=== PATIENT | male | born 1950 | race Caucasian/White ===

== ENCOUNTER 2019-05-19 12:23 | Emergency (ER) | payer OTHER ==
[2019-05-19] MEDS ORDERED: NA CHLORIDE 0.9% 500 ML ONE (13:11)
[2019-05-19 13:21] LABS: Protime INR 0.95
--- NOTE | 2019-05-19 13:21 | RAD REPORT ---
EXAM DESCRIPTION: RAD - Chest Single View - 05/19/2019 1:16 pm CLINICAL HISTORY: falling to left Chest pain. COMPARISON: No comparisons FINDINGS: Portable technique limits examination quality. The lungs are grossly clear. The heart is normal in size. No displaced fractures. IMPRESSION: No acute intrathoracic process suspected.
[2019-05-19 13:23] LABS: Absolute Lymphocytes (CBC) 2.8 K/uL (0.7-4.9); Basophils % 0.8 % (0-1.3); Hematocrit 39.4 % (39.6-49.0); Lymphocytes % 32.5 % (15.3-44.8); MPV 10.1 fL (7.6-11.3); RBC Red Blood Cell Count 4.69 M/uL (4.33-5.43)
--- NOTE | 2019-05-19 13:37 | RAD REPORT ---
EXAM DESCRIPTION: CT - Ct Stroke Brain Wo Cont - 05/19/2019 1:24 pm CLINICAL HISTORY: ataxia, falling to left Headache, drowsiness COMPARISON: Head Brain Wo Cont dated 10/04/2018 TECHNIQUE: All CT scans are performed using dose optimization technique as appropriate and may inclu de automated exposure control or mA/KV adjustment according to patient size. FINDINGS: No intracranial hemorrhage, hydrocephalus or extra-axial fluid collection.Mild generalized brain atrophy is present with mild periventricular and deep white matter chronic microvascular ische nuvia changes.No areas of brain edema or evidence of midline shift. The paranasal sinuses and mastoids are clear. The calvarium is intact. IMPRESSION: No acute intracranial abnormality. If there is continued clinical concern for CVA, MR i maging of the brain would be recommended. The findings were discussed with Dr. Tan On 05/19/2019 at 1:33 p.m. by telephone.
[2019-05-19 13:42] LABS: BUN Blood Urea Nitrogen 28 mg/dL (7-18); Bicarbonate 22 mmol/L (21-32); Glucose Level 301 mg/dL (74-106); Sodium Level 141 mmol/L (136-145); Troponin (Emerg Dept Use Only) < 0.02 ng/mL (0.0-0.045)
--- NOTE | 2019-05-19 14:29 | RAD REPORT ---
EXAM DESCRIPTION: CT - Head angio - 05/19/2019 2:16 pm CLINICAL HISTORY: ataxia Headache, drowsiness, CVA symptomology. COMPARISON: Ct Stroke Brain Wo Cont dated 05/19/2019; Head Brain Wo Cont dated 10/04/2018 TECHNIQUE: CT angiography of the head was performed with MIPs. All CT scans are performed using dose optimization technique as appropriate and may include automated exposure control or mA/KV adjustment according to patient size. FINDINGS: No evidence of aneurysm is detected. No flow-limiting stenosis or vascular malformation id entified. Antegrade flow is seen in the vertebral arteries. The vertebral arteries are codominant. The visualized dural venous sinuses are patent. IMPRESSION: No significant flow abnormality is detected.
--- NOTE | 2019-05-19 14:31 | RAD REPORT ---
EXAM DESCRIPTION: CT - Neck Angio - 05/19/2019 2:17 pm CLINICAL HISTORY: ataxia Headache, drowsiness, CVA symptomology COMPARISON: No comparisons TECHNIQUE: CT angiography of the neck vessels was performed with MIPs. All CT scans are performed using dose optimization technique as appropriate and may include automated exposure control or mA/KV adjustment according to patient size. FINDINGS: A left aortic arch is identified with normal three vessel configuration of the great vesse ls. No significant flow abnormality is seen of the common carotid bilaterally. The left proximal internal carotid artery demonstrates significant mixed plaque resulting stenosis es timated at 90-95% based on NASCET criteria. The right proximal internal carotid artery artery demonst rates mild mixed plaquing resulting in stenosis of less than 50% based on NASCET criteria. Normal flow is seen within both vertebral arteries. IMPRESSION: Significant stenosis of the proximal left internal carotid artery is seen estimated at 9 0-95% based on NASCET criteria.
--- NOTE | 2019-05-19 15:05 | EDPHYS ---
Physician Documentation [facility] Name: Taz Bowles Age: 68 yrs Sex: Male : 1950 Arrival Date: 05/19/2019 Time: 12:28 Bed 7 Private MD: ED Physician Mamadou Tan HPI: 05/18 13:07 This 68 yrs old Male presents to ER via Ambulatory with complaints of General rn Weakness, Dizziness, Trouble Walking. 13:08 The patient's problem is reported as difficulty walking, falling to left, off balance. rn Onset: The symptoms/episode began/occurred yesterday. Duration: The episode is continuous. The symptoms are alleviated by nothing. The symptoms are aggravated by walking. Severity of symptoms: At their worst the symptoms were moderate in the emergency department the symptoms are unchanged. The patient has not experienced similar symptoms in the past. 13:09 Reports difficulty walking since yesterday, feels like falling to left side, no assoc rn vision/speech problems, no weakness/numbness. No fever. No head injury. . Historical: - Allergies: 12:33 No Known Allergies; ph - PMHx: 12:33 Diabetes - NIDDM; ph - PSHx: 12:33 colon resection; Knee surgery; ph - Immunization history:: Adult Immunizations unknown. - Social history:: Smoking status: Patient denies any tobacco usage or history of. Patient/guardian denies using alcohol. - Family history:: not pertinent. - Hospitalizations: : No recent hospitalization is reported. ROS: 13:09 Constitutional: Negative for fever, chills, and weight loss, Eyes: Negative for injury, rn pain, redness, and discharge, Cardiovascular: Negative for chest pain, palpitations, and edema, Respiratory: Negative for shortness of breath, cough, wheezing, and pleuritic chest pain, Abdomen/GI: Negative for abdominal pain, nausea, vomiting, diarrhea, and constipation, MS/Extremity: Negative for injury and deformity, Skin: Negative for injury, rash, and discoloration, Neuro: Negative for headache, numbness, tingling, and seizure. Exam: 13:09 Constitutional: This is a well developed, well nourished patient who is awake, alert, rn and in no acute distress. Head/Face: Normocephalic, atraumatic. Eyes: Pupils equal round and reactive to light, extra-ocular motions intact. Lids and lashes normal. Conjunctiva and sclera are non-icteric and not injected. Cornea within normal limits. Periorbital areas with no swelling, redness, or edema. ENT: MMM Neck: Trachea midline, no thyromegaly or masses palpated, and no cervical lymphadenopathy. Supple, full range of motion without nuchal rigidity, or vertebral point tenderness. No Meningismus. Cardiovascular: Regular rate and rhythm. No pulse deficits. Respiratory: Lungs have equal breath sounds bilaterally, clear to auscultation. No increased work of breathing, no retractions or nasal flaring. Abdomen/GI: soft, non-tender MS/ Extremity: Pulses equal, no cyanosis. Neurovascular intact. Full, normal range of motion. Equal circumference. Neuro: Awake and alert, GCS 15, oriented to person, place, time, and situation. Cranial nerves II-XII grossly intact. Motor strength 5/5 in all extremities. Sensory grossly intact. Vital Signs: 12:27 BP 127 / 53; Pulse 60; Resp 18; Temp 97.8; Pulse Ox 100% on R/A; Weight 77.11 kg; ph Height 5 ft. 8 in. (172.72 cm); 14:04 BP 130 / 70; Pulse 86; Resp 18; Pulse Ox 97% on R/A; aj1 12:27 Body Mass Index 25.85 (77.11 kg, 172.72 cm) ph NIH Stroke Scale Scores: 13:33 NIHSS Score: 0 aj1 MDM: 12:38 Patient medically screened. rn 15:01 Differential diagnosis: CVA, TIA, metabolic disorder. Data reviewed: vital signs, rn nurses notes, lab test result(s), EKG, radiologic studies, CT scan, and as a result, I will admit patient. Counseling: I had a detailed discussion with the patient and/or guardian regarding: the historical points, exam findings, and any diagnostic results supporting the discharge/admit diagnosis, lab results, radiology results, the need to transfer to another facility, for higher level of care, [facility] does not immediately have the required specialist. Response to treatment: There is no appreciated change of the patient's symptoms at this time. ED course: Pt with 95% occlusion left carotid, accepted for transfer to [facility] for vascular and neuro consult. Will admit to hospitalist. . 05/18 12:54 Order name: Glucose, Ancillary Testing; Complete Time: 12:58 EDMS 05/18 12:59 Order name: Magnesium; Complete Time: 13:50 rn 05/18 12:59 Order name: Troponin (emerg Dept Use Only); Complete Time: 13:50 rn 05/18 12:59 Order name: Basic Metabolic Panel; Complete Time: 13:50 rn 05/18 12:59 Order name: CBC with Diff; Complete Time: 13:50 rn 05/18 12:59 Order name: Protime (+inr); Complete Time: 13:50 rn 05/18 12:59 Order name: Ptt, Activated; Complete Time: 13:50 rn 05/18 12:59 Order name: CT Stroke Brain w/o Contrast; Complete Time: 13:50 rn 05/18 12:59 Order name: Stroke CXR 1 View; Complete Time: 13:50 rn 05/18 12:59 Order name: EKG; Complete Time: 13:00 rn 05/18 13:51 Order name: CT Head Angio; Complete Time: 14:42 rn 05/18 13:51 Order name: CT Neck Angio; Complete Time: 14:42 rn 08 12:59 Order name: Accucheck; Complete Time: 13:04 rn 05/18 12:59 Order name: Cardiac monitoring; Complete Time: 13:04 rn 05/18 12:59 Order name: EKG - Nurse/Tech; Complete Time: 13:04 rn 05/18 12:59 Order name: IV Saline Lock; Complete Time: 13:04 rn 05/18 12:59 Order name: Labs collected and sent; Complete Time: 13:04 rn 05/18 12:59 Order name: NPO; Complete Time: 13:04 rn 05/18 12:59 Order name: O2 Per Protocol; Complete Time: 13:04 rn 05/18 12:59 Order name: O2 Sat Monitoring; Complete Time: 13:04 rn 05/18 12:59 Order name: Stroke Swallow Screen; Complete Time: 13:10 rn Administered Medications: 13:10 Drug: NS 0.9% 500 ml Route: IV; Rate: bolus; Site: right antecubital; aj1 14:10 Follow up: IV Status: Completed infusion; IV Intake: 500ml aj1 15:20 Drug: Aspirin Chewable Tablet 324 mg Route: PO; aj1 17:12 Follow up: Response: No adverse reaction aj1 Point of Care Testing: Blood Glucose: 13:11 Blood Glucose: 290 mg/dL; aj1 Ranges: Critical Glucose Levels:Adult <50 mg/dl or >400 mg/dl <40 mg/dl or >180 mg/dl Disposition: 05/19/19 15:04 Transfer ordered to [facility]. Diagnosis are Left carotid artery occlusion, Ataxia, unspecified. - Reason for transfer: Higher level of care. - Accepting physician is Dr. Estevez. - Condition is Stable. - Problem is new. - Symptoms are unchanged. NIH Stroke Scale - NIH Stroke Score Date: 05/19/2019 Time: 13:33 Total Score = 0 1a. Level of Consciousness (LOC) - 0(Alert) 1b. Level of Consciousness (LOC) (Year \T\ Age) - 0(Both) 1c. LOC Commands (Open \T\ Closes Eyes/Shipping Packer) - 0(Both) 2. Best Gaze (Lateral Gaze Paresis) - 0(Normal) 3. Visual Field Loss - 0(No visual loss) 4. Facial Palsy - 0(Normal) 5a. Left Arm: Motor (10-second hold) - 0(No drift) 5b. Right Arm: Motor (10-second hold) - 0(No drift) 6a. Left Leg: Motor (5-second hold - always test supine) - 0(No drift) 6b. Right Leg: Motor (5-second hold - always test supine) - 0(No drift) 7. Limb Ataxia (finger/nose \T\ heel/romero - test with eyes open) - 0(Absent) 8. Sensory Loss (pinprick arms/legs/face) - 0(Normal) 9. Best Language: Aphasia (description/naming/reading) - 0(No aphasia) 10. Dysarthria (speech clarity - read or repeat words) - 0(Normal) 11. Extinction and Inattention (visual/tactile/auditory/spatial/personal) - 0(No abnormality) Initials: aj1 Signatures: Dispatcher [employer] Euncie Aponte RN RN aj1 Mamadou Tan MD MD rn Hall, Patricia, RN RN ph Corrections: (The following items were deleted from the chart) 15:36 15:04 05/19/2019 15:04 Transfer ordered to [facility]. Diagnosis is Left carotid artery occlusion; Ataxia, unspecified. Reason for transfer: Higher level of care. Accepting physician is . Condition is Stable. Problem is new. Symptoms are unchanged. rn 18:00 15:36 05/19/2019 15:04 Transfer ordered to [address] Diagnosis is Left carotid artery occlusion; Ataxia, unspecified. Reason for transfer: Higher level of care. Accepting physician is Dr. Estevez. Condition is Stable. Problem is new. Symptoms are unchanged. rn
--- NOTE | 2019-05-19 15:05 | ER ---
Nurse's Notes [facility] Name: Taz Bowles Age: 68 yrs Sex: Male : 1950 Arrival Date: 05/19/2019 Time: 12:28 Bed 7 Private MD: Diagnosis: Left carotid artery occlusion;Ataxia, unspecified Presentation: 05/18 12:27 Chief complaint: Patient states: Trouble walking and dizziness that began yesterday, ph family reports that they noticed it around 10 am yesterday, also reports generalized weakness, hx of NIDDM but has not checked BGL, also reports that vision has worsened over the past few days. Coronavirus screen: The patient has NOT traveled to a country currently being monitored by the CDC within the last 14 days. The patient has NOT had contact with any known and/or suspected case of coronavirus. Ebola Screen: No symptoms or risks identified at this time. No acute neurological deficit is noted. Initial Sepsis Screen: Does the patient meet any 2 criteria? No. Patient's initial sepsis screen is negative. Does the patient have a suspected source of infection? No. Patient's initial sepsis screen is negative. Risk Assessment: Do you want to hurt yourself or someone else? Patient reports no desire to harm self or others. 12:27 Method Of Arrival: Ambulatory ph 12:27 Acuity: JORDIN 2 ph 17:13 Pre-hospital glucose is not applicable to this patient. Onset of symptoms was May 172019. Stroke Activation: Symptom onset > 6 hours Physician: Stroke Attending; Name: ; Notified At: ; Arrived At: Physician: Chief Stroke Resident; Name: ; Notified At: ; Arrived At: Physician: Stroke Resident; Name: ; Notified At: ; Arrived At: Physician: ED Attending; Name: ; Notified At: ; Arrived At: Physician: ED Resident; Name: ; Notified At: ; Arrived At: Historical: - Allergies: 12:33 No Known Allergies; ph - PMHx: 12:33 Diabetes - NIDDM; ph - PSHx: 12:33 colon resection; Knee surgery; ph - Immunization history:: Adult Immunizations unknown. - Social history:: Smoking status: Patient denies any tobacco usage or history of. Patient/guardian denies using alcohol. - Family history:: not pertinent. - Hospitalizations: : No recent hospitalization is reported. Screenin:56 Abuse screen: Denies threats or abuse. Denies injuries from another. Nutritional aj1 screening: No deficits noted. Tuberculosis screening: No symptoms or risk factors identified. 17:14 Fall Risk No fall in past 12 months (0 pts). Secondary diagnosis (15 points) impaired aj1 mobility, IV access (20 points). Ambulatory Aid- None/Bed Rest/Nurse Assist (0 pts). Gait- Impaired (20 pts.). Mental Status- Oriented to own ability (0 pts). Total Cruz Fall Scale indicates High Risk Score (45 or more points). As available patient and family educated on Fall Prevention Program and Strategies. Assessment: 12:56 General: Appears in no apparent distress. comfortable, Behavior is calm, cooperative, aj1 appropriate for age. Pain: Denies pain. Neuro: Level of Consciousness is awake, alert, obeys commands, Oriented to person, place, time, situation, Circuit Board Repair Technician are equal bilaterally Speech is normal, Facial symmetry appears normal, Reports dizziness, trouble walking. Cardiovascular: Patient's skin is warm and dry. Rhythm is sinus rhythm. Respiratory: Airway is patent Respiratory effort is even, unlabored, Respiratory pattern is regular, symmetrical. GI: No signs and/or symptoms were reported involving the gastrointestinal system. : No signs and/or symptoms were reported regarding the genitourinary system. EENT: No signs and/or symptoms were reported regarding the EENT system. Derm: No signs and/or symptoms reported regarding the dermatologic system. Skin is pink, warm \T\ dry. normal. Musculoskeletal: No signs and/or symptoms reported regarding the musculoskeletal system. Circulation, motion, and sensation intact. 13:10 Patient has been NPO before screening. The patient is alert, and able to follow aj1 commands. The patient does not exhibit slurred or garbled speech. The patient is not exhibiting difficulty speaking. The patient does not exhibit difficulty understanding words. The patient is able to swallow own secretions with no drooling or need for suction. Patient tolerated one teaspoon of water. No drooling, immediate coughing, gurgling, or clearing of the throat was noted. The patient tolerated 90mL of water. No drooling, immediate coughing, gurgling, or clearing of the throat was noted. The patient passed the bedside swallow screening. Oral medications may be given as ordered. Contact Physician for further diet orders. 13:11 VAN Scoring: Arm Drift: Patients demonstrates NO arm weakness. Patient is VAN Negative. aj1 13:11 Provider notified of bedside swallow screening results: Mamadou Tan MD. aj1 13:11 T-PA (Activase) Screening: Contraindications: Other: Patient is out of window for TPA. aj1 13:13 Reassessment: CXR at bedside. aj1 14:04 Reassessment: Patient appears in no apparent distress at this time. No changes from aj1 previously documented assessment. Patient and/or family updated on plan of care and expected duration. Pain level reassessed. Patient is alert, oriented x 3, equal unlabored respirations, skin warm/dry/pink. 14:05 Reassessment: Patient transported to CT via stretcher. aj1 15:10 Reassessment: Patient and/or family updated on plan of care and expected duration. Pain aj1 level reassessed. General: Appears in no apparent distress. comfortable, Behavior is calm, cooperative, appropriate for age. Pain: Denies pain. Neuro: Level of Consciousness is awake, alert, obeys commands, Oriented to person, place, time, situation. Cardiovascular: Patient's skin is warm and dry. Rhythm is sinus bradycardia. Respiratory: Airway is patent Respiratory effort is even, unlabored, Respiratory pattern is regular, symmetrical. Derm: No signs and/or symptoms reported regarding the dermatologic system. Skin is pink, warm \T\ dry. normal. Musculoskeletal: No signs and/or symptoms reported regarding the musculoskeletal system. Circulation, motion, and sensation intact. 16:10 Reassessment: Patient appears in no apparent distress at this time. No changes from aj1 previously documented assessment. Patient and/or family updated on plan of care and expected duration. Pain level reassessed. Patient is alert, oriented x 3, equal unlabored respirations, skin warm/dry/pink. 17:13 Reassessment: Patient appears in no apparent distress at this time. No changes from aj1 previously documented assessment. Patient and/or family updated on plan of care and expected duration. Pain level reassessed. Patient is alert, oriented x 3, equal unlabored respirations, skin warm/dry/pink. 17:59 Reassessment: Patient appears in no apparent distress at this time. No changes from aj1 previously documented assessment. Patient and/or family updated on plan of care and expected duration. Pain level reassessed. Patient is alert, oriented x 3, equal unlabored respirations, skin warm/dry/pink. Vital Signs: 12:27 BP 127 / 53; Pulse 60; Resp 18; Temp 97.8; Pulse Ox 100% on R/A; Weight 77.11 kg; ph Height 5 ft. 8 in. (172.72 cm); 14:04 BP 130 / 70; Pulse 86; Resp 18; Pulse Ox 97% on R/A; aj1 12:27 Body Mass Index 25.85 (77.11 kg, 172.72 cm) ph NIH Stroke Scale Scores: 13:33 NIHSS Score: 0 aj1 ED Course: 12:28 Patient arrived in ED. fj1 12:31 Triage completed. ph 12:33 Arm band placed on Patient placed in an exam room, on a stretcher. ph 12:38 Mamadou Tan MD is Attending Physician. rn 12:52 Eunice Dorsey RN is Primary Nurse. aj1 12:55 Initial lab(s) drawn, by ut, sent to lab. Inserted saline lock: 20 gauge in right aj1 antecubital area, using aseptic technique. Blood collected. 12:56 Patient has correct armband on for positive identification. Bed in low position. Call aj1 light in reach. Side rails up X 1. 12:56 No provider procedures requiring assistance completed. aj1 12:58 air sampling and monitoring on. Pulse ox on. NIBP on. aj1 12:58 EKG done, by ED staff, reviewed by Mamadou Tan MD. aj1 13:16 Stroke CXR 1 View In Process Unspecified. EDMS 13:24 CT Stroke Brain w/o Contrast In Process Unspecified. EDMS 14:17 CT Head Angio In Process Unspecified. EDMS 14:17 CT Neck Angio In Process Unspecified. EDMS 14:50 transfer initiated with Evan from the [facility] Transfer [place]. eb 14:[address] Kingsley the cardiovascular surgeon longshore equipment operator for [facility] with Dr. alivia Tan for patient transfer consultation. 15:34 connected the neurologist and Dr. Estevez the hospitalist longshore equipment operator for [facility] with alivia Tan for patient transfer consultation. 15:40 administrative approval given by Gilmar Farias Rn/ patient has been accepted to [facility] rm [id number]/ Dr. Estevez has accepted the patient in transfer/ report to be called to [phone]. 16:40 Report given to CHELSI Green at [facility]. aj1 17:13 Patient transferred, IV remains in place. aj1 Administered Medications: 13:10 Drug: NS 0.9% 500 ml Route: IV; Rate: bolus; Site: right antecubital; aj1 14:10 Follow up: IV Status: Completed infusion; IV Intake: 500ml aj1 15:20 Drug: Aspirin Chewable Tablet 324 mg Route: PO; aj1 17:12 Follow up: Response: No adverse reaction aj1 Point of Care Testing: Blood Glucose: 13:11 Blood Glucose: 290 mg/dL; aj1 Ranges: Intake: 14:10 IV: 500ml; Total: 500ml. aj1 Outcome: 15:04 ER care complete, transfer ordered by . rn 17:59 Transferred by ground EMS to [facility]. aj1 17:59 Condition: good 17:59 Discharge instructions given to patient, Instructed on the need for transfer, Demonstrated understanding of instructions. 18:00 Patient left the ED. aj1 NIH Stroke Scale - NIH Stroke Score Date: 05/19/2019 Time: 13:33 Total Score = 0 1a. Level of Consciousness (LOC) - 0(Alert) 1b. Level of Consciousness (LOC) (Year \T\ Age) - 0(Both) 1c. LOC Commands (Open \T\ Closes Eyes/Telegraphic Typewriter Operator Chief) - 0(Both) 2. Best Gaze (Lateral Gaze Paresis) - 0(Normal) 3. Visual Field Loss - 0(No visual loss) 4. Facial Palsy - 0(Normal) 5a. Left Arm: Motor (10-second hold) - 0(No drift) 5b. Right Arm: Motor (10-second hold) - 0(No drift) 6a. Left Leg: Motor (5-second hold - always test supine) - 0(No drift) 6b. Right Leg: Motor (5-second hold - always test supine) - 0(No drift) 7. Limb Ataxia (finger/nose \T\ heel/romero - test with eyes open) - 0(Absent) 8. Sensory Loss (pinprick arms/legs/face) - 0(Normal) 9. Best Language: Aphasia (description/naming/reading) - 0(No aphasia) 10. Dysarthria (speech clarity - read or repeat words) - 0(Normal) 11. Extinction and Inattention (visual/tactile/auditory/spatial/personal) - 0(No abnormality) Initials: aj1 Signatures: Dispatcher [employer] Euncie Aponte RN RN aj1 Mamadou Tan MD MD rn Hall, Patricia, RN RN ph Botello, Elizabeth eb James, Frank fj1
[2019-05-19] MEDS ORDERED: ASPIRIN 81 MG CHEWABLE TABLET ONE (15:12)
[2019-05-19 18:19] VITALS: TEMP 97.8
[2019-05-19 18:24] VITALS: BP 130/70; O2SAT 97
--- NOTE | 2019-05-20 07:30 | EKG ---
Test Date: 2019-05-19 Test Time: 11:46:19 Supervisor Wood Room: PERNELL MEASUREMENT RESULTS: Intervals: Rate: 59 CA: 168 QRSD: 100 QT: 434 QTc: 429 [place]: P: 77 CA: 168 QRS: 10 T: 58 INTERPRETIVE STATEMENTS: Sinus bradycardia Anteroseptal infarct, age undetermined Abnormal ECG No previous ECG available for comparison Electronically Signed On 05-20-19 07:29:39 CDT by Matias Vasquez
== END 2019-05-19 18:00 | disposition short-term general hospital (02) ==
LOC: ER 12:23
DX: I65.22 Occlusion and stenosis of left carotid artery (principal); R27.0 Ataxia, unspecified; E11.9 Type 2 diabetes mellitus without complications
CPT/HCPCS: 93005; 85025; 80048; 36415; 83735; 85610; 82947; 85730; 84484; 70496; 70498; 70450; 71045; 96360; 99285; Q9967; J7040

== ENCOUNTER 2019-09-02 16:10 | Observation (INO) | payer OTHER ==
--- OUTSIDE RECORDS SUMMARY | 2019-09-02 16:42 | XMS REPORT | Clinical Summary ---
:[address] [facility] [place], [place] Address [address] [place] [address] Care Team Providers Name Role Phone Pcp, No Primary Care Provider Unavailable Allergies No Known Allergies Medications Medication Sig Dispensed Refills Start Date End Date Status aspirin 81 MG Take 1 tablet (81 30 tablet 0 05/27/2019 Active chewable tablet mg total) by mouth daily. atorvastatin Take 1 tablet (80 30 tablet 0 05/26/2019 Active (LIPITOR) 80 MG mg total) by mouth tablet nightly For cholesterol. traMADoL (ULTRAM) Take 1 tablet (50 8 tablet 0 05/26/2019 Active 50 mg tablet mg total) by mouth every 6 (six) hours as needed for Pain. Max Daily Amount: 200 mg insulin regular Inject 0.06 mLs (6 10 mL 0 05/26/2019 Active (HUMULIN Units total) R,NOVOLIN R) 100 subcutaneously 3 unit/mL injection (three) times daily before meals Use as directed. insulin glargine Inject 10u QAM and 10 mL 0 05/26/2019 Active (LANTUS) 100 15u QPM. 21 unit/mL injection insulin Use 5x a day for 100 each 0 05/26/2019 Ac tive syringe-needle insulin injections. U-100 (INSULIN SYRINGE) 0.5 mL 29 gauge x 1/2" Syrg glucometer Use as directed to 1 each 0 05/26/2019 Active (FREESTYLE) Misc check sugars. blood sugar Use 4x a day to 100 strip 0 05/26/2019 A ctive diagnostic check sugars. (GLUCOSE BLOOD) Strp lancets Misc Use 4x a day to 100 each 0 05/26/2019 Active check sugars. alcohol swabs Use before checking 100 each 0 05/26/2019 Active (ALCOHOL PADS) sugars and PadM administering insulin. glipiZIDE Take 5 mg by mouth 0 05/26/19 D iscontinued (GLUCOTROL XL) 5 daily. 20 MG 24 hr tablet metFORMIN Take 1,000 mg by 0 05/26/19 Dis continued (GLUCOPHAGE) 1000 mouth daily with 20 MG tablet breakfast. Active Problems Problem Noted Date S/P carotid endarterectomy 05/25/2019 CVA (cerebral vascular accident) 05/20/2019 Carotid stenosis 05/19/2019 Encounters Date Type Specialty Care Team Description 06/11/2019 Telephone General Internal Gabriel, Diabetes Medicine Nathalie Rodriguez RN 06/11/2019 Telephone General Internal Licomp, Diabetes Medicine Nathalie Rodriguez RN 05/26/2019 Refill Internal Medicine Julio Forde MD 05/24/2019 Anesthesia Event Go Velazquez MD 05/24/2019 Surgery Rupa Kingsley MD ENDARTERECT SALTY,CAROTID 05/19/2019 Hospital Cardiology Zenaida, Chimkanc Stenosis of le ft carotid artery (Primary Dx); - Encounter MD Rosa Unsteady gait; 05/26/2019 Chad Camacho Preoperat jeremy cardiovascular examination; MD Matias Cerebrovascular accident (CVA), unspecif ied mechanism (HCC); Julio Forde MD S/P carot id endarterectomy; Acute pain; Hyperglycemia; Hypertension, u nspecified type 05/19/2019 Travel after 09/01/2018 Family History Medical History Relation Name Comments Heart disease Mother Bradycardia Sister s/p PPM Relation Name Status Comments Mother Sister Social History Tobacco Use Types Packs/Day Years Used Date Never Smoker Sex Assigned at Date Recorded Not on file Job Start Date Occupation Industry Not on file Not on file Not on file Travel History Travel Start Travel End No recent travel history available. Last Filed Vital Signs Vital Sign Reading Time Taken Blood Pressure 146/65 05/26/2019 1:10 PM CDT Pulse 53 05/26/2019 1:10 PM CDT Temperature 37.1 C (98.8 F) 05/26/2019 1:10 PM CDT Respiratory Rate 18 05/26/2019 1:10 PM CDT Oxygen Saturation 98% 05/26/2019 1:10 PM CDT Inhaled Oxygen Concentration - - Weight 79.4 kg (175 lb) 05/20/2019 1:27 PM CDT Height 172.7 cm (5' 8") 05/20/2019 1:27 PM CDT Body Mass Index 26.61 05/20/2019 1:27 PM CDT Plan of Treatment Not on file Implants Implanted Type Area Slitting And Shipping Supervisor Device Shelf Model / Identifier Expiration Serial / Date Lot Patch Hernando Lopezcu-Grd 0.8x8cm [id number] - [id number] IMPL ANTS Left: [employer] 12/19/2023 [id number] / Implanted: Qty: 1 on 05/24/2019 by Rupa Kingsley MD Arterial TECH:SURG INNOV [id number] / [id number] Floseal Hemostatic Matrix Left: SHAFER 09/2019 [id number] / Implanted: Qty: 1 on 05/24/2019 by Rupa Kingsley MD Arterial / [id number] Procedures Procedure Name Priority Date/Time Associated Comments Diagnosis REPORT OF PROCEDURE - 05/28/2019 8:20 ENDOSCOPY SCAN AM CDT RHYTHM STRIP - SCAN 05/28/2019 8:20 AM CDT POCT-GLUCOSE METER Routine 05/26/2019 1:09 Resul ts for this PM CDT procedure are i n the results section. POCT-GLUCOSE METER Routine 05/26/2019 7:31 Resul ts for this AM CDT procedure are i n the results section. PHOSPHORUS Routine 05/26/2019 4:24 Results for this AM CDT procedure are i n the results section. MAGNESIUM Routine 05/26/2019 4:24 Results for this AM CDT procedure are i n the results section. CBC (HEMOGRAM ONLY) Routine 05/26/2019 4:24 Resu lts for this AM CDT procedure are i n the results section. BASIC METABOLIC PANEL Routine 05/26/2019 4:24 Re sults for this (7) AM CDT procedure are i n the results section. POCT-GLUCOSE METER Routine 05/25/2019 10:41 Resul ts for this PM CDT procedure are i n the results section. TRANSFUSION SERVICE 05/25/2019 6:02 REPORT - SCAN PM CDT POCT-GLUCOSE METER Routine 05/25/2019 5:04 Resul ts for this PM CDT procedure are i n the results section. POCT-GLUCOSE METER Routine 05/25/2019 12:27 Resul ts for this PM CDT procedure are i n the results section. POCT-GLUCOSE METER Routine 05/25/2019 7:50 Resul ts for this AM CDT procedure are i n the results section. POCT-GLUCOSE METER Routine 05/25/2019 4:58 Resul ts for this AM CDT procedure are i n the results section. POCT-GLUCOSE METER Routine 05/25/2019 4:10 Resul ts for this AM CDT procedure are i n the results section. APTT Routine 05/25/2019 2:55 Results for this AM CDT procedure are i n the results section. PHOSPHORUS Routine 05/25/2019 2:55 Results for this AM CDT procedure are i n the results section. MAGNESIUM Routine 05/25/2019 2:55 Results for this AM CDT procedure are i n the results section. CBC (HEMOGRAM ONLY) Routine 05/25/2019 2:55 Resu lts for this AM CDT procedure are i n the results section. BASIC METABOLIC PANEL Routine 05/25/2019 2:55 Re sults for this (7) AM CDT procedure are i n the results section. PROTHROMBIN TIME/INR Routine 05/25/2019 2:55 Res ults for this AM CDT procedure are i n the results section. POCT-GLUCOSE METER Routine 05/24/2019 9:46 Resul ts for this PM CDT procedure are i n the results section. APTT Routine 05/24/2019 7:37 Results for this PM CDT procedure are i n the results section. PROTHROMBIN TIME/INR Routine 05/24/2019 7:37 Res ults for this PM CDT procedure are i n the results section. TRANSFUSION SERVICE 05/24/2019 6:01 REPORT - SCAN PM CDT PREPARE RBC STAT 05/24/2019 5:52 Results for this PM CDT procedure are i n the results section. CBC W/PLT COUNT & AUTO STAT 05/24/2019 5:39 R esults for this DIFFERENTIAL PM CDT procedure are i n the results section. PHOSPHORUS STAT 05/24/2019 5:39 Results for this PM CDT procedure are i n the results section. MAGNESIUM STAT 05/24/2019 5:39 Results for this PM CDT procedure are i n the results section. CBC W/PLT COUNT & AUTO STAT 05/24/2019 5:39 R esults for this DIFFERENTIAL PM CDT procedure are i n the results section. BASIC METABOLIC PANEL STAT 05/24/2019 5:39 Re sults for this (7) PM CDT procedure are i n the results section. PREPARE LEUKO-REDUCED Routine 05/24/2019 4:01 Re sults for this RBC PM CDT procedure are i n the results section. PREPARE RBC STAT 05/24/2019 3:55 Results for this PM CDT procedure are i n the results section. POCT-ACT Routine 05/24/2019 3:24 Results for this PM CDT procedure are i n the results section. TISSUE EXAM AP Routine 05/24/2019 3:14 Results for this PM CDT procedure are i n the results section. POCT-ACT Routine 05/24/2019 3:13 Results for this PM CDT procedure are i n the results section. POCT-ACT Routine 05/24/2019 3:01 Results for this PM CDT procedure are i n the results section. ENDARTERECTOMY,CAROTID 05/24/2019 12:00 Carotid stenos is, PM CDT left POCT-GLUCOSE METER Routine 05/23/2019 9:51 Resul ts for this PM CDT procedure are i n the results section. ABORH, MANUAL STAT 05/23/2019 7:52 Results fo r this PM CDT procedure are i n the results section. POCT-GLUCOSE METER Routine 05/23/2019 5:51 Resul ts for this PM CDT procedure are i n the results section. TYPE AND SCREEN, Routine 05/23/2019 4:34 Results for this AUTOMATED PM CDT procedure are i n the results section. POCT-GLUCOSE METER Routine 05/23/2019 12:29 Resul ts for this PM CDT procedure are i n the results section. POCT-GLUCOSE METER Routine 05/23/2019 8:28 Resul ts for this AM CDT procedure are i n the results section. BLOOD GAS, VENOUS Routine 05/23/2019 5:47 Result s for this AM CDT procedure are i n the results section. BASIC METABOLIC PANEL Routine 05/23/2019 4:25 Re sults for this (7) AM CDT procedure are i n the results section. POCT-GLUCOSE METER Routine 05/23/2019 12:53 Resul ts for this AM CDT procedure are i n the results section. POCT-GLUCOSE METER Routine 05/22/2019 9:34 Resul ts for this PM CDT procedure are i n the results section. POCT-GLUCOSE METER Routine 05/22/2019 5:29 Resul ts for this PM CDT procedure are i n the results section. POCT-GLUCOSE METER Routine 05/22/2019 12:19 Resul ts for this PM CDT procedure are i n the results section. POCT-GLUCOSE METER Routine 05/22/2019 8:55 Resul ts for this AM CDT procedure are i n the results section. BASIC METABOLIC PANEL Routine 05/22/2019 5:48 Re sults for this (7) AM CDT procedure are i n the results section. POCT-GLUCOSE METER Routine 05/21/2019 9:31 Resul ts for this PM CDT procedure are i n the results section. PERIPHERAL VASCULAR 05/21/2019 9:10 REPORT - SCAN PM CDT POCT-GLUCOSE METER Routine 05/21/2019 5:27 Resul ts for this PM CDT procedure are i n the results section. POCT-GLUCOSE METER Routine 05/21/2019 12:25 Resul ts for this PM CDT procedure are i n the results section. POCT-GLUCOSE METER Routine 05/21/2019 10:03 Resul ts for this AM CDT procedure are i n the results section. CAROTID DOPPLER Routine 05/21/2019 8:30 Results for this BILATERAL AM CDT procedure are i n the results section. BASIC METABOLIC PANEL Routine 05/21/2019 5:55 Re sults for this (7) AM CDT procedure are i n the results section. ECHOCARDIOGRAM REPORT 05/20/2019 9:12 - SCAN PM CDT URINALYSIS WITH Routine 05/20/2019 9:12 Results for this MICROSCOPIC IF PM CDT procedure are in INDICATED the results section. POCT-GLUCOSE METER Routine 05/20/2019 6:05 Resul ts for this PM CDT procedure are i n the results section. POCT-GLUCOSE METER Routine 05/20/2019 1:22 Resul ts for this PM CDT procedure are i n the results section. ECG 12-LEAD Routine 05/20/2019 12:36 Results for this PM CDT procedure are i n the results section. 2D ECHO W/ DOPPLER Routine 05/20/2019 10:58 Resul ts for this (CW/PW/COLOR) AM CDT procedure are in the results section. POCT-GLUCOSE METER Routine 05/20/2019 9:11 Resul ts for this AM CDT procedure are i n the results section. HOMOCYSTEINE Routine 05/20/2019 9:02 Results for this AM CDT procedure are i n the results section. HIV-1 ANTIGEN WITH Routine 05/20/2019 9:02 Resul ts for this HIV-1/2 ANTIBODY AM CDT procedure a re in the results section. RPR Routine 05/20/2019 9:02 Results for this AM CDT procedure are i n the results section. VITAMIN B12 AND FOLATE Routine 05/20/2019 9:02 R esults for this AM CDT procedure are i n the results section. TSH/FREE T4 IF Routine 05/20/2019 9:02 Results f or this INDICATED AM CDT procedure are i n the results section. MR BRAIN WITHOUT IV Routine 05/20/2019 6:19 Resu lts for this CONTRAST AM CDT procedure are i n the results section. MRA NECK WITHOUT IV Routine 05/20/2019 6:19 Resu lts for this CONTRAST AM CDT procedure are i n the results section. MRA HEAD WITHOUT IV Routine 05/20/2019 6:19 Resu lts for this CONTRAST AM CDT procedure are i n the results section. POCT-GLUCOSE METER Routine 05/20/2019 3:59 Resul ts for this AM CDT procedure are i n the results section. CBC W/PLT COUNT & AUTO Routine 05/20/2019 2:50 R esults for this DIFFERENTIAL AM CDT procedure are i n the results section. HEPATIC FUNCTION PANEL Add-On 05/20/2019 2:50 R esults for this AM CDT procedure are i n the results section. C-REACTIVE PROTEIN Routine 05/20/2019 2:50 Resul ts for this AM CDT procedure are i n the results section. HEMOGLOBIN A1C Routine 05/20/2019 2:50 Results f or this AM CDT procedure are i n the results section. LIPID PANEL Routine 05/20/2019 2:50 Results for this AM CDT procedure are i n the results section. PROTHROMBIN TIME/INR Routine 05/20/2019 2:50 Res ults for this AM CDT procedure are i n the results section. CBC W/PLT COUNT & AUTO Routine 05/20/2019 2:50 R esults for this DIFFERENTIAL AM CDT procedure are i n the results section. BASIC METABOLIC PANEL Routine 05/20/2019 2:50 Re sults for this (7) AM CDT procedure are i n the results section. after 09/01/2018 Results EKG-SCANNED (05/28/2019 8:20 AM CDT) Narrative Performed At This result has an attachment that is no t available. RHYTHM STRIP - SCAN (05/28/2019 8:20 AM CDT) Narrative Performed At This result has an attachment that is no t available. POC-Glucose meter (05/26/2019 1:09 PM CDT)Only the most recent of26 results within the time period is included. POC-Glucose Meter 99Comment: : TESTED AT 70 - 110 mg/dL [facility] [address] [place] [address], [id number]: Molasses Coloring Operator/Poll Clerk ID = [id number] for JOSEPH HOOKS Specimen Blood Performing Organization Address [facility] Phone Number [address] [phone] CENTER CBC (Hemogram only) (05/26/2019 4:24 AM CDT)Only the most recent of2 results within the time period is included. WBC 9.7 3.5 - 10.5 K/L [facility] RBC 3.56 (L) 4.63 - 6.08 M/L [facility] Hemoglobin 10.6 (L) 13.7 - 17.5 GM/DL [facility] Hematocrit 31.3 (L) 40.1 - 51.0 % [facility] MCV 87.9 79.0 - 92.2 fL [facility] MCH 29.8 25.7 - 32.2 pg [facility] MCHC 33.9 32.3 - 36.5 GM/DL [facility] RDW 13.0 11.6 - 14.4 % [facility] Platelets 106 (L) 150 - 450 K/CU MM [facility] MPV 12.2 9.4 - 12.4 fL [facility] nRBC 0 0 - 0 /100 WBC [facility] Specimen Blood Performing Organization Address City/[facility]/Zipcode Phone Number [facility] [address] [place] [phone] CENTER Phosphorus (05/26/2019 4:24 AM CDT)Only the most recent of3 resultswithin the time period is included. Phosphorus 3.4 2.3 - 4.7 mg/dL [facility] Specimen Blood Narrative Performed At Molasses Coloring Operator ID - GERMAINE Love [facility] Performing Organization Address City/[facility]/Zipcode Phone Number [address] [address] CENTER Magnesium (05/26/2019 4:24 AM CDT)Only the most recent of3 resultswithin the time period is included. Magnesium 2.4 1.6 - 2.6 mg/dL [facility] Specimen Blood Narrative Performed At Molasses Coloring Operator ID - GERMAINE Love [facility] Performing Organization Address City/[facility]/Zipcode Phone Number [address] [address] CENTER Basic Metabolic Panel (05/26/2019 4:24 AM CDT)Only the most recent of7 results within the time period is included. Sodium 137 136 - 145 meq/L [facility] Potassium 4.1 3.5 - 5.1 meq/L [facility] Chloride 108 (H) 98 - 107 meq/L [facility] CO2 22 22 - 29 meq/L [facility] BUN 21 7 - 21 mg/dL [facility] Creatinine 1.08 0.57 - 1.25 mg/dL [facility] Glucose 164 (H) 70 - 105 mg/dL [facility] Calcium 9.0 8.4 - 10.2 mg/dL [facility] EGFR 68Comment: ESTIMATED GFR IS mL/min/1.73 sq m [facility] NOT ACCURATE CREATININE [facility] CLEARANCE IN PREDICTING GLOMERULAR FILTRATION RATE. ESTIMATED GFR IS NOT APPLICABLE FOR DIALYSIS PATIENTS. Specimen Blood Narrative Performed At Molasses Coloring Operator SONJA Love [facility] Performing Organization Address City/State/Zipcode Phone Number [address] [address] [place] TRANSFUSION SERVICE REPORT - SCAN (05/25/2019 6:02 PM CDT)Only the most recent of2 resultswithin the time period is included. Narrative Performed At This result has an attachment that is no t available. aPTT (05/25/2019 2:55 AM CDT)Only the most recent of2 resultswithin the time period is included. PTT 30.4 22.5 - 36.0 seconds [facility] Specimen Blood Performing Organization Address City/[facility] Phone Number [address] [address] [place] Prothrombin time/INR (05/25/2019 2:55 AM CDT)Only the most recent of3 results within the time period is included. Protime 14.2 11.9 - 14.2 seconds [facility] INR 1.1 <=5.9 [facility] Specimen Blood Narrative Performed At Effective 08/08/2018: PT Reference Range [facility] Change New: 11.9-14.2Previous: 11.7-14.7 RECOMMENDED COUMADIN/WARFARIN INR THERAPY RANGES STANDARD DOSE: 2.0-3.0Includes: PROPHYLAXIS for venous thrombosis, systemic embolization; TREATMENT for venous thrombosis and/or pulmonary embolus. HIGH RISK: Target INR is 2.5-3.5 for patients wiht mechanical heart valves. Performing Organization Address City/State/Zipcode Phone Number [facility] [address] [place] [address] CENTER Prepare RBC (05/24/2019 5:52 PM CDT)Only the most recent of2 resultswithin the time period is included. CROSSMATCH COMPATIBLE SAFETRACE TX Unit ABO B Pos SAFETRACE TX UNIT NUMBER [id number] SAFETRACE TX Status RETURNED FROM ISSUE SAFETRACE TX Blood Bank Product RED BLOOD CELLS SAFETRACE TX PRODUCT CODE [id number] [place]AF[place]ACE [place] Performing Organization Address City/State/Zipcode Phone Number SAFETRACE [place] CBC with platelet count + automated diff (05/24/2019 5:39 PM CDT)Only the most recent of2 resultswithin the time period is included. WBC 12.6 (H) 3.5 - 10.5 K/L [facility] RBC 4.11 (L) 4.63 - 6.08 M/L [facility] Hemoglobin 12.1 (L) 13.7 - 17.5 GM/DL [facility] Hematocrit 35.0 (L) 40.1 - 51.0 % [facility] MCV 85.2 79.0 - 92.2 fL [facility] MCH 29.4 25.7 - 32.2 pg [facility] MCHC 34.6 32.3 - 36.5 GM/DL [facility] RDW 12.9 11.6 - 14.4 % [facility] Platelets 125 (L) 150 - 450 K/CU MM [facility] MPV 11.6 9.4 - 12.4 fL [facility] nRBC 0 0 - 0 /100 WBC [facility] % Neutros 77 % [facility] % Lymphs 17 % [facility] % Monos 4 % [facility] % Eos 1 % [facility] % Baso 0 % [facility] # Neutros 9.72 (H) 1.78 - 5.38 K/L [facility] # Lymphs 2.12 1.32 - 3.57 K/L [facility] # Monos 0.48 0.30 - 0.82 K/L [facility] # Eos 0.12 0.04 - 0.54 K/L [facility] # Baso 0.05 0.01 - 0.08 K/L [facility] Immature Granulocytes-Relative 1 0 - 1 % C [facility] Specimen Blood Performing Organization Address City/[facility] [place] [address] CENTER Prepare Leuko-Red RBC (05/24/2019 4:01 PM CDT) CROSSMATCH COMPATIBLE SAFETRACE TX Unit ABO B Pos SAFETRACE TX UNIT NUMBER [id number] SAFETRACE TX Status READY SAFETRACE TX Blood Bank Product RED BLOOD CELLS SAFETRACE TX PRODUCT CODE [id number] SAFETRACE TX CROSSMATCH COMPATIBLE SAFETRACE TX Unit ABO B Pos SAFETRACE TX UNIT NUMBER [id number] SAFETRACE TX Status READY SAFETRACE TX Blood Bank Product RED BLOOD CELLS SAFETRACE TX PRODUCT CODE [id number] SAFET[place]ACE [place] Specimen Other Performing Organization Address City/State/[facility] Phone Number SAFETRACE TX POC ACTIVATED CLOTTING TIME (05/24/2019 3:24 PM CDT)Only the most recent of3 resultswithin the time period is included. Activated Clotting Time 252Comment: : 74-137 sec [facility] seconds, Baseline: TESTED [facility] AT [address], [address]: Molasses Coloring Operator/Poll Clerk ID = [id number] for JHONNY BONE Specimen Blood Performing Organization Address City/[facility]/Zipcode Phone Number [facility] [address] [place], [place] [phone] CENTER Tissue Exam (05/24/2019 3:14 PM CDT) Case Report Surgical Pathology Report Case: [id number] [facility] Authorizing Provider:Rupa Jaramillo MD Collected: 05/24/2019 1514 [facility] Received:05/27/2019 0911 [facility] Pathologist: Rex Bardales MD Specimen:Plaque, LEF T CAROTID PLAQUE DIAGNOSIS ARTERY, LEFT CAROTID, ENDARTERECTOMY: [facility] CALCIFIC ATHEROSCLEROTIC PLAQUE WITH FOCAL INTRA PLAQUE HEMORRHAGE [facility] Signing Pathologist Direct Phone Line: [phone] CPT Code(s) 58806; [address] [facility] ER CLINICAL HISTORY Preop diagnosis: Carotid [facility] stenosis, left [facility] SPECIMEN SOURCE Plaque [facility] ER GROSS DESCRIPTION Received in formalin labeled [facility] with the patient's name, [facility] accession number and "left carotid plaque" is a 3.2 cm in length x 1.0 cm in diameter bower-yellow tubular piece of focally calcified plaque. Blue Leather Sorter sections are submitted in A1 following decalcification. PA/pl MICROSCOPIC DESCRIPTION Performed [facility] ER Specimen Tissue Performing Organization Address City/[facility]/Zipcode Phone Number [address] [address] CENTER ABORH, manual (05/23/2019 7:52 PM CDT) ABO Grouping B [facility] Rh Factor POS [facility] Specimen Blood Performing Organization Address City/State/Zipcode Phone Number [facility] [address] [place] [address] Type and screen, automated (05/23/2019 4:34 PM CDT) ABO/RH AUTOMATED (BEAKER) B POSITIVE [facility] Ab Scrn NEGATIVE [facility] Specimen Blood Performing Organization Address City/State/Zipcode Phone Number [facility] [address] [place] [address] Blood gas, venous (05/23/2019 5:47 AM CDT) pH, Garrett 7.35 7.32 - 7.42 [facility] pCO2, Garrett 44 41 - 51 mm Hg [facility] pO2, Garrett 41 (H) 25 - 40 mm Hg [facility] O2 Sat, Garrett 73.7 (H) 40.0 - 70.0 % [facility] HCO3, Garrett 24 21 - 29 mmol/L [facility] Base Excess, Garrett 2.2 -2.0 - 3.0 mmol/L [facility] Patient Temperature 97.0 [facility] FIO2 21 [facility] Specimen Blood Performing Organization Address City/[facility]/Zipcode Phone Number [facility] [address] [place] [address] CENTER PERIPHERAL VASCULAR REPORT - SCAN (05/21/2019 9:10 PM CDT) Narrative Performed At This result has an attachment that is no t available. Carotid doppler bilateral (05/21/2019 8:30 AM CDT) Ejection Fraction [facility] CPACS Specimen Impressions Performed At Right Impression [facility] 1. There is <50% diameter reduction (approximately 36% by 2-D measurement) in the internal carotid artery with a peak velocity of 91/25 cm/sec and heterogeneous plaque. 2. There is stenosis in the external carotid artery. 3. There is non-occluding plaque in the common carotid artery. 4. The vertebral artery flow is antegrad e. 5. The subclavian artery is within normal limits where visualized. Left Impression 1. There is 50-69% diameter reduction (approximately % by 2-D measurement) in the internal carotid artery with heterogeneous plaque, a peak velocity of 162/61 cm/sec and an ICA/CCA peak systolic velocity ratio of 2.15. 2. There is stenosis in the external carotid artery. 3. There is non-occluding plaque in the common carotid artery. 4. The vertebral artery flow is antegrad e. 5. The subclavian artery is within normal limits where visualized. Conclusions Summary Carotid duplex scanning and color flow imaging were performed bilaterally. The arteries were adequately visualized. The right internal carotid artery had <50% hemodynamically insignificant stenosis (approximately 36% by 2-D measurement) with heterogeneous plaque. The left internal carotid artery had hemodynamically significant stenosis (approximately 58% by 2-D measurement) with heterogeneous plaque. The vertebral artery flow was antegrade bilaterally. Signature Velocities are measured in cm/s ; Diameters are measured in cm Carotid Right Measurements + +----+----+-----+ +---- + + !Location !PSV !EDV !Angle!%Stenosis 2D!%Stenosis Doppler!Tortuosity ! + +----+----+-----+ +---- + + !Prox CCA !100 !24!60 !! ! ! + +----+----+-----+ +---- + + !Dist CCA !85!25.2!60 !! ! ! + +----+----+-----+ +---- + + !Prox ICA !91.5!25.8!60 !36% !<50% ! ! + +----+----+-----+ +---- + + !Dist ICA !101 !37.7!60 !! ! ! + +----+----+-----+ +---- + + !Prox ECA !132 !18.1!60 !! ! ! + +----+----+-----+ +---- + + !Vertebral!58.5!16.9!60 !! ! ! + +----+----+-----+ +---- + + !Prox Subclavian!108 !!60 !! ! ! + +----+----+-----+ +---- + + - There is antegrade vertebral flow noted on the right side. - Additional Measurements:ICAPSV/CCAPSV 1.19.ICAEDV/CCAEDV 1.57. Carotid Left Measurements + +----+----+-----+ +---- + + !Location !PSV !EDV !Angle!%Stenosis 2D!%Stenosis Doppler!Tortuosity ! + +----+----+-----+ +---- + + !Prox CCA !108 !31.4!60 !! ! ! + +----+----+-----+ +---- + + !Dist CCA !75.4!27.5!60 !! ! ! + +----+----+-----+ +---- + + !Prox ICA !162 !61!60 !58% !50-69% ! ! + +----+----+-----+ +---- + + !Dist ICA !133 !52.1!60 !! ! ! + +----+----+-----+ +---- + + !Prox ECA !147 !17.7!60 !! ! ! + +----+----+-----+ +---- + + !Vertebral!45.6!13.4!60 !! ! ! + +----+----+-----+ +---- + + !Prox Subclavian!116 !!60 !! ! ! + +----+----+-----+ +---- + + - There is antegrade vertebral flow noted on the left side. - Additional Measurements:ICAPSV/CCAPSV 2.15.ICAEDV/CCAEDV 1.94. Narrative Performed At [facility] - Carotid Duplex [facility] Demographics Patient Name Brandi DELVALLE of Study05/21/2019 [id number] Visit Number [id number] Gender Male Accession Number [id number] Date of Birth1950 [facility] [id number] Physician SonographerKatja South Interpreting Angie Thorpe , RN, RVTPekaterinaciángela VALIENTE Procedure Type of Study: Cerebral: Carotid, CAROTID DOPPLER, SAL ATERAL. Indications for Study:Discrepant findings re: L ICA stenosis. Patient Status:Routine. Study Location:Vascular Lab. Technical Quality:Adequate visualization . Risk Factors History of Disease + --+----+ + !Diagnosis !Date! Comments ! + --+----+ + !History/Risk Factors: !!Stroke, DM ! + --+----+ + Procedure Note Interface, External Ris In 05/21/2019 11:47 AM CDT [facility] - Carotid Duplex Study Demographics Patient Name SHANTEL DELVALLE ate of Study 05/21/2019 A ge 68 Visit Number [id number] G lobo Male Accession Number [id number] D ate of 1950 Referring DARNELL coxom Number [id number] Physician Supervisor [employer] Katja South I nterpreting Angie Thrope RN, RVT P natacha VALIENTE Procedure Type of Study: Cerebral: Carotid, CAROTID DOPPLER, SAL ATERAL. Indications for Study:Discrepant finding s re: L ICA stenosis. Patient Status:Routine. Study Location:Vascular Lab. Technical Quality:Adequate visualization . Risk Factors History of Disease + +----+ + !Diagnosis !Date!Comments ! + +----+ + !History/Risk Factors: ! !Stroke, DM ! + +----+ + Impressions Right Impression 1. There is <50% diameter reduction (heydi roximately 36% by 2-D measurement) in the internal carotid artery with a pe ak velocity of 91/25 cm/sec and heterogeneous plaque. 2. There is stenosis in the external car otid artery. 3. There is non-occluding plaque in the common carotid artery. 4. The vertebral artery flow is antegrad e. 5. The subclavian artery is within stephenie l limits where visualized. Left Impression 1. There is 50-69% diameter reduction (a pproximately % by 2-D measurement) in the internal carotid artery with hete rogeneous plaque, a peak velocity of 162/61 cm/sec and an ICA/CCA peak systol ic velocity ratio of 2.15. 2. There is stenosis in the external car otid artery. 3. There is non-occluding plaque in the common carotid artery. 4. The vertebral artery flow is antegrad e. 5. The subclavian artery is within stephenie l limits where visualized. Conclusions Summary Carotid duplex scanning and color flow imaging were performed bilaterally. The arteries were adequately visualized . The right internal carotid artery had <50% hemodynamically insignificant stenosis (approximately 36% by 2-D measurement) with heterogeneous plaque. The left internal carotid artery had hemodynamically significant stenosi s (approximately 58% by 2-D measurement) with heterogeneous plaque. The vertebral artery flow was antegrade bilaterally. Signature Velocities are measured in cm/s ; Diamet ers are measured in cm Carotid Right Measurements + +----+----+-----+------- -----+ + + !Location !PSV !EDV !Angle!%Stenos is 2D!%Stenosis Doppler!Tortuosity ! + +----+----+-----+------- -----+ + + !Prox CCA !100 !24 !60 ! ! ! ! + +----+----+-----+------- -----+ + + !Dist CCA !85 !25.2!60 ! ! ! ! + +----+----+-----+------- -----+ + + !Prox ICA !91.5!25.8!60 !36% !<50% ! ! + +----+----+-----+------- -----+ + + !Dist ICA !101 !37.7!60 ! ! ! ! + +----+----+-----+------- -----+ + + !Prox ECA !132 !18.1!60 ! ! ! ! + +----+----+-----+------- -----+ + + !Vertebral !58.5!16.9!60 ! ! ! ! + +----+----+-----+------- -----+ + + !Prox Subclavian!108 ! !60 ! ! ! ! + +----+----+-----+------- -----+ + + - There is antegrade vertebral flow no nga on the right side. - Additional Measurements:ICAPSV/CCAPS V 1.19.ICAEDV/CCAEDV 1.57. Carotid Left Measurements + +----+----+-----+------- -----+ + + !Location !PSV !EDV !Angle!%Stenos is 2D!%Stenosis Doppler!Tortuosity ! + +----+----+-----+------- -----+ + + !Prox CCA !108 !31.4!60 ! ! ! ! + +----+----+-----+------- -----+ + + !Dist CCA !75.4!27.5!60 ! ! ! ! + +----+----+-----+------- -----+ + + !Prox ICA !162 !61 !60 !58% !50-69% ! ! + +----+----+-----+------- -----+ + + !Dist ICA !133 !52.1!60 ! ! ! ! + +----+----+-----+------- -----+ + + !Prox ECA !147 !17.7!60 ! ! ! ! + +----+----+-----+------- -----+ + + !Vertebral !45.6!13.4!60 ! ! ! ! + +----+----+-----+------- -----+ + + !Prox Subclavian!116 ! !60 ! ! ! ! + +----+----+-----+------- -----+ + + - There is antegrade vertebral flow no nga on the left side. - Additional Measurements:ICAPSV/CCAPS V 2.15.ICAEDV/CCAEDV 1.94. Performing Organization Address [facility] Phone Number [facility] ECHOCARDIOGRAM REPORT - SCAN (05/20/2019 9:12 PM CDT) Narrative Performed At This result has an attachment that is no t available. Urinalysis with Microscopic If Indicated (05/20/2019 9:12 PM CDT) Color, UA Colorless [facility] Clarity, UA Clear [facility] Specific [place], UA 1.012 1.001 - 1.035 [facility] pH, UA 5.5 5.0 - 8.0 [facility] Protein, UA Negative Negative [facility] Glucose, UA 150 mg/dL (A) Negative [facility] Ketones, UA Negative Negative [facility] Bilirubin, UA Negative Negative [facility] Blood, UA Negative Negative [facility] Nitrite, UA Negative Negative [facility] Leukocytes, UA Negative Negative [facility] Urobilinogen, UA 0.2 0.2 - 1.0 mg/dL [facility] Specimen Source [facility] Specimen Urine Narrative Performed At Molasses Coloring Operator ID - [auto] [facility] Molasses Coloring Operator ID - tech Molasses Coloring Operator ID - tech Performing Organization Address [facility] Phone Number [facility] [address] [address] CENTER ECG 12 lead (05/20/2019 12:36 PM CDT) Specimen Narrative Performed At Ventricular Rate 59 BPM GE MUSE Atrial Rate 59 BPM P-R Interval 172 ms QRS Duration 106 ms Q-T Interval 418 ms QTC Calculation(Bazett) 413 ms P Butler 50 degrees R Butler 1 degrees T Butler 61 degrees Sinus bradycardia Interatrial conduction delay Anterior infarct , age undetermined Abnormal ECG No previous ECGs available Confirmed by MD RINALDI YOCHAI ([id number]) on 05/21/2019 6:45:20 AM Procedure Note Interface, External Ris In - 05/21/2019 6:45 AM CDT Ventricular Rate 59 BPM Atrial Rate 59 BPM P-R Interval 172 ms QRS Duration 106 ms Q-T Interval 418 ms QTC Calculation(Bazett) 413 ms P Butler 50 degrees R Butler 1 degrees T Butler 61 degrees Sinus bradycardia Interatrial conduction delay Anterior infarct , age undetermined Abnormal ECG No previous ECGs available Confirmed by MD RINALDI YOCHAI ([id number]) on 05/21/2019 6:45:20 AM Performing Organization Address City/State/Zipcode Phone Number GE MUSE 2D Echo W/Doppler(CW/PW/Color) (05/20/2019 10:58 AM CDT) Ejection Fraction [facility] Specimen Narrative Performed At Transthoracic Echocardiography Report (T TE) 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 Clinical History HGB 12.9 HCT 36.2 % DM Contrast Medium: Bubble Study. Height: 68 inches Weight: 79.38 kg (175 lbs) BSA: 1.93 m^2 BMI: 26.61 kg/m^2 HR: 83 bpm BP: 129/60 mmHg Summary IV saline contrast injection was negative for a PFO (patent foramen ovale) at rest and post Valsalva . The left ventricle is chamber size (by vol index) is normal (male - LVED vol - 34-74ml/m2). All of the LV segments are hyperkinetic . LVEF by Coronado's method of disk assessment is increased (>70%) . Grade 1 diastolic dysfunction (impaired relaxation and low-normal LA pressure). Unable to estimate peak systolic PA pressure; inadequate TR velocity signal. Previous Study No prior studies available for comparis on. Signature Findings Technical Quality: Technically adequate exam. Left Ventricle The left ventricle is chamber size (by vol index) is normal (male - LVED vol - 34-74ml/m2). N o ev idence of LV hypertrophy. All of the LV segments ar e hyperkinetic . Global LV systolic func tion hy perdynamic . LVEF by Coronado's method of disk as sessment is increased (>70%) . Grade 1 d iastolic dy sfunction (impaired relaxation and low-n ormal LA pr essure). Left AtriumLA size is normal (16-34 ml/m2) . Right VentricleThe right ventricular chamber size and systolic fu nction are within normal limits. Right Atrium RA size is normal. Atrial SeptumIV saline contrast injection was negative for a PF O (p atent foramen ovale) at rest and post Va lsalva . Aortic Valve Normal AoV structure and function. Mi ld aortic regurgitation. Mitral Valve Mild MV leaflet thickening. Tr kae mitral regurgitation. Tricuspid ValveTV structure is normal. A trace of tricuspid regurgitation. Un able to estimate peak systolic PA pressu re; in adequate TR velocity signal. Pulmonic Valve Normal PV structure and function by limited views an d Doppler. AortaAortic root size (SInus of Valsalva diameter) i s no rmal . PericardiumA trivial pericardial effusion is present . IVC/SVC/PA/PV/PleuralThe estimated RA pressure by IVC dynamics 0-5mmHg . Chambers/Structures Left Atrium LA Volume: 53.51 ml LA Area: 17.16 cm^2 LA Vol. Index: 28 ml/m^2 Left Ventricle LVIDd: 4.29 cm LVIDs: 2.46 cm LV Septum Diastolic: 0.95 cm LV PW Diastolic: 0.93 cmLV FS: 42.7 % LVEDV Coronado's:88.71 ml LVESV Coronado's:24.88 mlLVEDVI: 46 ml/m^2 LVEF Coronado's: 72 %L VESVI: 13 ml/m^2 LVOT Diameter: 1.98 cm Aorta Ao Root S of Khadijah.: 2.73 cm Doppler/Quantitative Measurements Mitral Valve MV Peak E-Wave: 0.92 m/sMV Peak A-Wave: 1.16 m/s E/A Ratio: 0. 79 Peak Gradient: 3.37 mmHg Deceleration Time: 223.9 msec MV Jonny. Peak: Tissue Doppler E' Lateral Velocity: 0.08 m/s E/E': 10.86 Aortic Valve Peak Velocity: 1.72 m/sMean Velocity: 1.14 m/s Peak Gradient: 11.81 mmHgMean Gradient: 6.13 mmHg AV Area (continuity): 2.76 cm^2 AV VTI: 35.61 cm AV DVI: 0.9 LVOT Peak Velocity: 1.54 m/s Peak Gradient: 9.45 mmHg Mean Velocity: 0.96 m/s Mean Gradient: 4.35 mmHg LVOT Diameter: 1.98 cmLVOT VTI: 31.96 cm LVOT Area: 3.08 cm^2LVOT SV:98.36 ml LVOT CO: 8.16 l/min LVOT CI: 4.23 l/min/m^2 RVOT RVOT VTI (PW): 36.3 cm Procedure Note Interface, External Ris In - 05/20/2019 2:33 PM CDT Transthoracic Echocardiography Report (TTE) Demographics Patient Name SHANTEL MCEKON Date of S alexandre 05/20/2019 Gender Male Visit Number [id number] Race Unknown Room [facility] er 2263 Number Date of 1950 Referring Physician STEFFANIE Kruse Age 68 year(s) Sonograph er Steph Espinoza, CHADWICK, RDCS,RVT,RDMS Test Worker Becky Allen, Interpret ing Chidi Escalante MD RDCS Physician Procedure Type of Study TTE procedure:2DECHO W DOPPLE R(CW/PW/COLOR) (Routine) Indications:Suspected cardiac source of emboli. Clinical History HGB 12.9 HCT 36.2 % DM Contrast Medium: Bubble Study. Height: 68 inches Weight: 79.38 kg (175 lbs) BSA: 1.93 m^2 BMI: 26.61 kg/m^2 HR: 83 bpm BP: 129/60 mmHg Summary IV saline contrast injection was negati ve for a PFO (patent foramen ovale) at rest and post Valsalva . The left ventricle is chamber size (by vol index) is normal (male - LVED vol - 34-74ml/m2). All of the LV segmen ts are hyperkinetic . LVEF by Coronado's method of disk assessment is increased (>70%) . Grade 1 diastolic dysfunction (impaired relaxation and low-normal LA pressure). Unable to estimate peak systolic PA pre ssure; inadequate TR velocity signal. Previous Study No prior studies available for comparis on. Signature Findings Technical Quality: Technically adequate exam. Left Ventricle The left ventric le is chamber size (by vol index) is normal (male - LVED vol - 34-74ml/m2). No evidence of LV h ypertrophy. All of the LV segments are hyperkinetic . Global LV systolic function hyperdynamic . L VEF by Coronado's method of disk assessment is in creased (>70%) . Grade 1 diastolic dysfunction (imp aired relaxation and low-normal LA pressure). Left Atrium LA size is stephenie l (16-34 ml/m2) . Right Ventricle The right ventri cular chamber size and systolic function are wit hin normal limits. Right Atrium RA size is stephenie l. Atrial Septum IV saline contra st injection was negative for a PFO (patent foramen ovale) at rest and post Valsalva . Aortic Valve Normal AoV struc ture and function. Mild aortic regu rgitation. Mitral Valve Mild MV leaflet thickening. Trace mitral reg urgitation. Tricuspid Valve TV structure is normal. A trace of tricu spid regurgitation. Unable to estima te peak systolic PA pressure; inadequate TR ve locity signal. Pulmonic Valve Normal PV struct ure and function by limited views and Doppler. Aorta Aortic root size (SInus of Valsalva diameter) is normal . Pericardium A trivial perica rdial effusion is present . IVC/SVC/PA/PV/Pleural The estimated RA pressure by IVC dynamics 0-5mmHg . Chambers/Structures Left Atrium LA Volume: 53.51 ml LA Area: 17.16 cm^2 LA Vol. Index: 28 ml/m^2 Left Ventricle LVIDd: 4.29 cm LVIDs: 2.46 cm LV Septum Diastolic: 0.95 cm LV PW Diastolic: 0.93 cm LV FS: 42.7 % LVEDV Coronado's:88.71 ml LVESV Coronado's:24.88 ml LVEDVI: 46 ml/m^2 LVEF Coronado's: 72 % LVESVI: 13 ml/m^2 LVOT Diameter: 1.98 cm Aorta Ao Root S of Khadijah.: 2.73 cm Doppler/Quantitative Measurements Mitral Valve MV Peak E-Wave: 0.92 m/s M V Peak A-Wave: 1.16 m/s E /A Ratio: 0.79 P eak Gradient: 3.37 mmHg D eceleration Time: 223.9 msec MV Jonny. Peak: Tissue Doppler E' Lateral Velocity: 0.08 m/s E /E': 10.86 Aortic Valve Peak Velocity: 1.72 m/s Mean Velocity: 1.14 m/s Peak Gradient: 11.81 mmHg Mean Gradient: 6.13 mmHg AV Area (continuity): 2.76 cm^2 AV VTI: 35.61 cm AV DVI: 0.9 LVOT Peak Velocity: 1.54 m/s Pea k Gradient: 9.45 mmHg Mean Velocity: 0.96 m/s Ivon n Gradient: 4.35 mmHg LVOT Diameter: 1.98 cm LVO T VTI: 31.96 cm LVOT Area: 3.08 cm^2 LVO T SV:98.36 ml LVOT CO: 8.16 l/min LVO T CI: 4.23 l/min/m^2 RVOT RVOT VTI (PW): 36.3 cm Performing Organization Address [facility] [place] Phone Number [facility] Vitamin B12 and Folate (05/20/2019 9:02 AM CDT) Vitamin B12 282 213 - 816 pg/mL [facility] Folate 14.5 >=7.0 ng/mL [facility] Specimen Blood Narrative Performed At Molasses Coloring Operator ID - KARL L [facility] Performing Organization Address [facility] Phone Number [address] [address] CENTER TSH/Free T4 If Indicated (05/20/2019 9:02 AM CDT) TSH 1.24 0.35 - 4.94 uIU/mL [facility] Specimen Blood Narrative Performed At Molasses Coloring Operator ID - KARL L [facility] Performing Organization Address [facility] Phone Number [address] [address] CENTER HIV-1 Antigen with HIV-1/2 Antibody (05/20/2019 9:02 AM CDT) HIV-1 Antigen with HIV 1&2 Nonreactive Nonreactive [facility] Specimen Blood Narrative Performed At Molasses Coloring Operator ID - PIAYA L [facility] Performing Organization Address City/State/Zipcode Phone Number [address] [phone] CENTER RPR (05/20/2019 9:02 AM CDT) RPR Nonreactive Nonreactive [facility] Specimen Blood Performing Organization Address City/[facility]/Zipcode Phone Number [address] [phone] CENTER Homocysteine (05/20/2019 9:02 AM CDT) Homocysteine 15.2 5.1 - 15.4 umol/L [facility] Specimen Blood Narrative Performed At Molasses Coloring Operator ID - PIAYA L [facility] Performing Organization Address City/State/Zipcode Phone Number [address] [address] [place] MR brain without IV contrast (05/20/2019 6:19 AM CDT) Specimen Narrative Performed At FINAL REPORT [facility] EXAM: MR, BRAIN, WITHOUT CONTRAST, MR, M RA, BRAIN, WITHOUT CONTRAST, MR, MRA, NECK, WITHOUT IV CONTRAST CLINICAL INDICATION: Stroke follow-up. TECHNIQUE: Sagittal and coronal T1-w and axial T2-w, FLAIR, GRE, and diffusion-w images of the brain with ADC maps. 2D hlxk-up-kamohx MRA of the neck. 3D cbme-ug-mylcbd MRA of th e head. Source data and maximum intensity projections (MIPs) wer e reviewed. COMPARISON: None. FINDINGS: MRI BRAIN: Parenchyma: Acute lacunar infarction in the posterior limb of the right internal capsule. No large territo ry infarction. No hemorrhage. No mass or mass effect. Scattered foci o f T2 hyperintensity are present in the cerebral white matter phil t are nonspecific but compatible with mild chronic microvascul ar ischemic changes. Extra-axial Collection:None Ventricular System: No hydrocephalus. Major Intracranial Flow Voids: Normal Osseous Structures:Expected marrow s ignal. Included Orbits: Normal Paranasal Sinuses:Predominantly tonya r Tympanomastoid Cavities:Normal MRA HEAD: Anterior Circulation: Right intracranial internal carotid isaura ry (ICA): Normal Right anterior cerebral artery (JAMILA): No rmal Right middle cerebral artery (MCA): Norm al Left intracranial internal carotid arter y (ICA): Normal Left anterior cerebral artery (JAMILA): Nor mal Left middle cerebral artery (MCA): Stephenie l Anterior communicating artery (AComm): P resent Posterior communicating arteries (PComm) : Present bilaterally. Posterior Circulation: Right posterior cerebral artery (SERVICE AGENT): H ypoplastic P1 segment with the remainder of the right SERVICE AGENT supplied by the right posterior communicating artery. Left posterior cerebral artery (SERVICE AGENT): Hy poplastic P1 segment with the remainder of the left SERVICE AGENT supplied by th e left posterior communicating artery. Right vertebral artery (VA): Normal Left vertebral artery (VA): Hypoplastic without focal stenosis Basilar artery (BA): Mildly hypoplastic without focal stenosis. Other: Normal MRA NECK: Right carotid arterial system: Mild (<50 %) internal carotid artery narrowing at the carotid bulb. Left carotid arterial system: Moderate ( 60 %) internal carotid artery narrowing at the carotid bulb. Right vertebral artery: Normal Left vertebral artery: Mildly hypoplasti c without focal stenosis. Where applicable, evaluation of internal carotid artery(ICA) stenosis was performed using NASCET-like criteria, where the site of greatest stenosis is compared to the nikki meter of the ICA distal to the stenosis at a point where the ICA wa lls become parallel. IMPRESSION: 1. Acute lacunar infarction of the poste rior limb of the right internal capsule. No hemorrhage. 2. Mild chronic deep white matter ischem ic changes. 3. No acute vascular abnormality or flow -limiting stenosis on MRA of the head. 4.Moderate (60%) internal carotid narrow ing at the left carotid bulb. Signed: Kannan Peña MD Report Verified Date/Time:05/20/2019 06:42:15 Procedure Note Interface, External Ris In - 05/20/2019 10:20 AM CDT FINAL REPORT EXAM: MR, BRAIN, WITHOUT CONTRAST, MR, M RA, BRAIN, WITHOUT CONTRAST, MR, MRA, NECK, WITHOUT IV CONTRAST CLINICAL INDICATION: Stroke follow-up. TECHNIQUE: Sagittal and coronal T1-w and axial T2-w, FLAIR, GRE, and diffusion-w images of the brain with ADC maps. 2D meio-fz-fyoaxz MRA of the neck. 3D mhqq-zm-dmvwgp MRA of th e head. Source data and maximum intensity projections (MIPs) wer e reviewed. COMPARISON: None. FINDINGS: MRI BRAIN: Parenchyma: Acute lacunar infarction in the posterior limb of the right internal capsule. No large territo ry infarction. No hemorrhage. No mass or mass effect. Scattered foci o f T2 hyperintensity are present in the cerebral white matter phil t are nonspecific but compatible with mild chronic microvascul ar ischemic changes. Extra-axial Collection: None Ventricular System: No hydrocephalus. Major Intracranial Flow Voids: Normal Osseous Structures: Expected marrow sig nal. Included Orbits: Normal Paranasal Sinuses: Predominantly clear Tympanomastoid Cavities: Normal MRA HEAD: Anterior Circulation: Right intracranial internal carotid isaura ry (ICA): Normal Right anterior cerebral artery (JAMLIA): No rmal Right middle cerebral artery (MCA): Norm al Left intracranial internal carotid arter y (ICA): Normal Left anterior cerebral artery (JAMILA): Nor mal Left middle cerebral artery (MCA): Stephenie l Anterior communicating artery (AComm): P resent Posterior communicating arteries (PComm) : Present bilaterally. Posterior Circulation: Right posterior cerebral artery (SERVICE AGENT): H ypoplastic P1 segment with the remainder of the right SERVICE AGENT supplied by the right posterior communicating artery. Left posterior cerebral artery (SERVICE AGENT): Hy poplastic P1 segment with the remainder of the left SERVICE AGENT supplied by th e left posterior communicating artery. Right vertebral artery (VA): Normal Left vertebral artery (VA): Hypoplastic without focal stenosis Basilar artery (BA): Mildly hypoplastic without focal stenosis. Other: Normal MRA NECK: Right carotid arterial system: Mild (<50 %) internal carotid artery narrowing at the carotid bulb. Left carotid arterial system: Moderate ( 60 %) internal carotid artery narrowing at the carotid bulb. Right vertebral artery: Normal Left vertebral artery: Mildly hypoplasti c without focal stenosis. Where applicable, evaluation of internal carotid artery (ICA) stenosis was performed using NASCET-like criteria, where the site of greatest stenosis is compared to the nikki meter of the ICA distal to the stenosis at a point where the ICA wa lls become parallel. IMPRESSION: 1. Acute lacunar infarction of the poste rior limb of the right internal capsule. No hemorrhage. 2. Mild chronic deep white matter ischem ic changes. 3. No acute vascular abnormality or flow -limiting stenosis on MRA of the head. 4.Moderate (60%) internal carotid narrow ing at the left carotid bulb. Signed: Kannan Peña MD Report Verified Date/Time: 05/20/2019 0 6:42:15 Performing Organization Address City/State/Zipcode Phone Number [facility] MRA neck without IV contrast (05/20/2019 6:19 AM CDT) Specimen Narrative Performed At FINAL REPORT [facility] EXAM: MR, BRAIN, WITHOUT CONTRAST, MR, M RA, BRAIN, WITHOUT CONTRAST, MR, MRA, NECK, WITHOUT IV CONTRAST CLINICAL INDICATION: Stroke follow-up. TECHNIQUE: Sagittal and coronal T1-w and axial T2-w, FLAIR, GRE, and diffusion-w images of the brain with ADC maps. 2D jnnh-ck-xsrbcm MRA of the neck. 3D nrfe-sw-gshapu MRA of th e head. Source data and maximum intensity projections (MIPs) wer e reviewed. COMPARISON: None. FINDINGS: MRI BRAIN: Parenchyma: Acute lacunar infarction in the posterior limb of the right internal capsule. No large territo ry infarction. No hemorrhage. No mass or mass effect. Scattered foci o f T2 hyperintensity are present in the cerebral white matter phil t are nonspecific but compatible with mild chronic microvascul ar ischemic changes. Extra-axial Collection:None Ventricular System: No hydrocephalus. Major Intracranial Flow Voids: Normal Osseous Structures:Expected marrow s ignal. Included Orbits: Normal Paranasal Sinuses:Predominantly tonya r Tympanomastoid Cavities:Normal MRA HEAD: Anterior Circulation: Right intracranial internal carotid isaura ry (ICA): Normal Right anterior cerebral artery (JAMILA): No rmal Right middle cerebral artery (MCA): Norm al Left intracranial internal carotid arter y (ICA): Normal Left anterior cerebral artery (JAMILA): Nor mal Left middle cerebral artery (MCA): Stephenie l Anterior communicating artery (AComm): P resent Posterior communicating arteries (PComm) : Present bilaterally. Posterior Circulation: Right posterior cerebral artery (SERVICE AGENT): H ypoplastic P1 segment with the remainder of the right SERVICE AGENT supplied by the right posterior communicating artery. Left posterior cerebral artery (SERVICE AGENT): Hy poplastic P1 segment with the remainder of the left SERVICE AGENT supplied by th e left posterior communicating artery. Right vertebral artery (VA): Normal Left vertebral artery (VA): Hypoplastic without focal stenosis Basilar artery (BA): Mildly hypoplastic without focal stenosis. Other: Normal MRA NECK: Right carotid arterial system: Mild (<50 %) internal carotid artery narrowing at the carotid bulb. Left carotid arterial system: Moderate ( 60 %) internal carotid artery narrowing at the carotid bulb. Right vertebral artery: Normal Left vertebral artery: Mildly hypoplasti c without focal stenosis. Where applicable, evaluation of internal carotid artery(ICA) stenosis was performed using NASCET-like criteria, where the site of greatest stenosis is compared to the nikki meter of the ICA distal to the stenosis at a point where the ICA wa lls become parallel. IMPRESSION: 1. Acute lacunar infarction of the poste rior limb of the right internal capsule. No hemorrhage. 2. Mild chronic deep white matter ischem ic changes. 3. No acute vascular abnormality or flow -limiting stenosis on MRA of the head. 4.Moderate (60%) internal carotid narrow ing at the left carotid bulb. Signed: Kannan Peña MD Report Verified Date/Time:05/20/2019 06:42:15 Procedure Note Interface, External Ris In - 05/20/2019 10:20 AM CDT FINAL REPORT EXAM: MR, BRAIN, WITHOUT CONTRAST, MR, M RA, BRAIN, WITHOUT CONTRAST, MR, MRA, NECK, WITHOUT IV CONTRAST CLINICAL INDICATION: Stroke follow-up. TECHNIQUE: Sagittal and coronal T1-w and axial T2-w, FLAIR, GRE, and diffusion-w images of the brain with ADC maps. 2D beui-hf-ffqcvy MRA of the neck. 3D zcvy-mr-ibwxvp MRA of th e head. Source data and maximum intensity projections (MIPs) wer e reviewed. COMPARISON: None. FINDINGS: MRI BRAIN: Parenchyma: Acute lacunar infarction in the posterior limb of the right internal capsule. No large territo ry infarction. No hemorrhage. No mass or mass effect. Scattered foci o f T2 hyperintensity are present in the cerebral white matter phil t are nonspecific but compatible with mild chronic microvascul ar ischemic changes. Extra-axial Collection: None Ventricular System: No hydrocephalus. Major Intracranial Flow Voids: Normal Osseous Structures: Expected marrow sig nal. Included Orbits: Normal Paranasal Sinuses: Predominantly clear Tympanomastoid Cavities: Normal MRA HEAD: Anterior Circulation: Right intracranial internal carotid isaura ry (ICA): Normal Right anterior cerebral artery (JAMILA): No rmal Right middle cerebral artery (MCA): Norm al Left intracranial internal carotid arter y (ICA): Normal Left anterior cerebral artery (JAMILA): Nor mal Left middle cerebral artery (MCA): Stephenie l Anterior communicating artery (AComm): P resent Posterior communicating arteries (PComm) : Present bilaterally. Posterior Circulation: Right posterior cerebral artery (SERVICE AGENT): H ypoplastic P1 segment with the remainder of the right SERVICE AGENT supplied by the right posterior communicating artery. Left posterior cerebral artery (SERVICE AGENT): Hy poplastic P1 segment with the remainder of the left SERVICE AGENT supplied by th e left posterior communicating artery. Right vertebral artery (VA): Normal Left vertebral artery (VA): Hypoplastic without focal stenosis Basilar artery (BA): Mildly hypoplastic without focal stenosis. Other: Normal MRA NECK: Right carotid arterial system: Mild (<50 %) internal carotid artery narrowing at the carotid bulb. Left carotid arterial system: Moderate ( 60 %) internal carotid artery narrowing at the carotid bulb. Right vertebral artery: Normal Left vertebral artery: Mildly hypoplasti c without focal stenosis. Where applicable, evaluation of internal carotid artery (ICA) stenosis was performed using NASCET-like criteria, where the site of greatest stenosis is compared to the nikki meter of the ICA distal to the stenosis at a point where the ICA wa lls become parallel. IMPRESSION: 1. Acute lacunar infarction of the poste rior limb of the right internal capsule. No hemorrhage. 2. Mild chronic deep white matter ischem ic changes. 3. No acute vascular abnormality or flow -limiting stenosis on MRA of the head. 4.Moderate (60%) internal carotid narrow ing at the left carotid bulb. Signed: Kannan Peña MD Report Verified Date/Time: 05/20/2019 0 6:42:15 Performing Organization Address City/State/Zipcode Phone Number [facility] MRA head without IV contrast (05/20/2019 6:19 AM CDT) Specimen Narrative Performed At FINAL REPORT [facility] EXAM: MR, BRAIN, WITHOUT CONTRAST, MR, M RA, BRAIN, WITHOUT CONTRAST, MR, MRA, NECK, WITHOUT IV CONTRAST CLINICAL INDICATION: Stroke follow-up. TECHNIQUE: Sagittal and coronal T1-w and axial T2-w, FLAIR, GRE, and diffusion-w images of the brain with ADC maps. 2D lrrf-ra-mgnlsg MRA of the neck. 3D neif-pe-mggwga MRA of th e head. Source data and maximum intensity projections (MIPs) wer e reviewed. COMPARISON: None. FINDINGS: MRI BRAIN: Parenchyma: Acute lacunar infarction in the posterior limb of the right internal capsule. No large territo ry infarction. No hemorrhage. No mass or mass effect. Scattered foci o f T2 hyperintensity are present in the cerebral white matter phil t are nonspecific but compatible with mild chronic microvascul ar ischemic changes. Extra-axial Collection:None Ventricular System: No hydrocephalus. Major Intracranial Flow Voids: Normal Osseous Structures:Expected marrow s ignal. Included Orbits: Normal Paranasal Sinuses:Predominantly tonya r Tympanomastoid Cavities:Normal MRA HEAD: Anterior Circulation: Right intracranial internal carotid isaura ry (ICA): Normal Right anterior cerebral artery (JAMILA): No rmal Right middle cerebral artery (MCA): Norm al Left intracranial internal carotid arter y (ICA): Normal Left anterior cerebral artery (JAMILA): Nor mal Left middle cerebral artery (MCA): Stephenie l Anterior communicating artery (AComm): P resent Posterior communicating arteries (PComm) : Present bilaterally. Posterior Circulation: Right posterior cerebral artery (SERVICE AGENT): H ypoplastic P1 segment with the remainder of the right SERVICE AGENT supplied by the right posterior communicating artery. Left posterior cerebral artery (SERVICE AGENT): Hy poplastic P1 segment with the remainder of the left SERVICE AGENT supplied by th e left posterior communicating artery. Right vertebral artery (VA): Normal Left vertebral artery (VA): Hypoplastic without focal stenosis Basilar artery (BA): Mildly hypoplastic without focal stenosis. Other: Normal MRA NECK: Right carotid arterial system: Mild (<50 %) internal carotid artery narrowing at the carotid bulb. Left carotid arterial system: Moderate ( 60 %) internal carotid artery narrowing at the carotid bulb. Right vertebral artery: Normal Left vertebral artery: Mildly hypoplasti c without focal stenosis. Where applicable, evaluation of internal carotid artery(ICA) stenosis was performed using NASCET-like criteria, where the site of greatest stenosis is compared to the nikki meter of the ICA distal to the stenosis at a point where the ICA wa lls become parallel. IMPRESSION: 1. Acute lacunar infarction of the poste rior limb of the right internal capsule. No hemorrhage. 2. Mild chronic deep white matter ischem ic changes. 3. No acute vascular abnormality or flow -limiting stenosis on MRA of the head. 4.Moderate (60%) internal carotid narrow ing at the left carotid bulb. Signed: Kannan Peña MD Report Verified Date/Time:05/20/2019 06:42:15 Procedure Note Interface, External Ris In - 05/20/2019 10:20 AM CDT FINAL REPORT EXAM: MR, BRAIN, WITHOUT CONTRAST, MR, M RA, BRAIN, WITHOUT CONTRAST, MR, MRA, NECK, WITHOUT IV CONTRAST CLINICAL INDICATION: Stroke follow-up. TECHNIQUE: Sagittal and coronal T1-w and axial T2-w, FLAIR, GRE, and diffusion-w images of the brain with ADC maps. 2D qxuv-uy-trtsai MRA of the neck. 3D ukaz-bb-sryetv MRA of th e head. Source data and maximum intensity projections (MIPs) wer e reviewed. COMPARISON: None. FINDINGS: MRI BRAIN: Parenchyma: Acute lacunar infarction in the posterior limb of the right internal capsule. No large territo ry infarction. No hemorrhage. No mass or mass effect. Scattered foci o f T2 hyperintensity are present in the cerebral white matter phil t are nonspecific but compatible with mild chronic microvascul ar ischemic changes. Extra-axial Collection: None Ventricular System: No hydrocephalus. Major Intracranial Flow Voids: Normal Osseous Structures: Expected marrow sig nal. Included Orbits: Normal Paranasal Sinuses: Predominantly clear Tympanomastoid Cavities: Normal MRA HEAD: Anterior Circulation: Right intracranial internal carotid isaura ry (ICA): Normal Right anterior cerebral artery (JAMILA): No rmal Right middle cerebral artery (MCA): Norm al Left intracranial internal carotid arter y (ICA): Normal Left anterior cerebral artery (JAMILA): Nor mal Left middle cerebral artery (MCA): Stephenie l Anterior communicating artery (AComm): P resent Posterior communicating arteries (PComm) : Present bilaterally. Posterior Circulation: Right posterior cerebral artery (SERVICE AGENT): H ypoplastic P1 segment with the remainder of the right SERVICE AGENT supplied by the right posterior communicating artery. Left posterior cerebral artery (SERVICE AGENT): Hy poplastic P1 segment with the remainder of the left SERVICE AGENT supplied by th e left posterior communicating artery. Right vertebral artery (VA): Normal Left vertebral artery (VA): Hypoplastic without focal stenosis Basilar artery (BA): Mildly hypoplastic without focal stenosis. Other: Normal MRA NECK: Right carotid arterial system: Mild (<50 %) internal carotid artery narrowing at the carotid bulb. Left carotid arterial system: Moderate ( 60 %) internal carotid artery narrowing at the carotid bulb. Right vertebral artery: Normal Left vertebral artery: Mildly hypoplasti c without focal stenosis. Where applicable, evaluation of internal carotid artery (ICA) stenosis was performed using NASCET-like criteria, where the site of greatest stenosis is compared to the nikki meter of the ICA distal to the stenosis at a point where the ICA wa lls become parallel. IMPRESSION: 1. Acute lacunar infarction of the poste rior limb of the right internal capsule. No hemorrhage. 2. Mild chronic deep white matter ischem ic changes. 3. No acute vascular abnormality or flow -limiting stenosis on MRA of the head. 4.Moderate (60%) internal carotid narrow ing at the left carotid bulb. Signed: Kannan Peña MD Report Verified Date/Time: 05/20/2019 0 6:42:15 Performing Organization Address City/State/Zipcode Phone Number GE RIS C-Reactive Protein (05/20/2019 2:50 AM CDT) CRP 0.13 0.00 - 0.50 mg/dL [facility] Specimen Blood Narrative Performed At [employer] Operator ID - PIAYA L [facility] Performing Organization Address City/[facility]/Zipcode Phone Number [facility] [address] [place] [address] CENTER Hemoglobin A1c (05/20/2019 2:50 AM CDT) Hemoglobin A1C 10.4 (H) 4.3 - 6.1 % [facility] Specimen Blood Performing Organization Address [facility]/Zipcode Phone Number [facility] [address] [place] [id number] [place] Hepatic function panel (05/20/2019 2:50 AM CDT) Protein, Total 5.9 (L) 6.0 - 8.3 gm/dL [facility] Albumin 3.6 3.5 - 5.0 g/dL [facility] Total Bilirubin 0.5 0.2 - 1.2 mg/dL [facility] Bilirubin, Direct 0.2 0.1 - 0.5 mg/dL [facility] Alkaline Phosphatase 70 40 - 150 U/L [facility] AST 11 5 - 34 U/L [facility] ALT <6 (L) 6 - 55 U/L [facility] Specimen Blood Narrative Performed At [employer] SONJA - KARL Curtis [facility] Performing Organization Address [facility]/Zipcode Phone Number [facility] [address] [place] [address] [place] Lipid panel (05/20/2019 2:50 AM CDT) Triglycerides 274 mg/dL [facility] Cholesterol 177 mg/dL [facility] HDL 35 mg/dL [facility] LDL Calculated 87 mg/dL [facility] Specimen Blood Narrative Performed At Triglyceride Reference Range: [facility] Low Risk <150 [id number] High Risk 200-499 Very High Risk>=500 Cholesterol Reference Range: Low Risk <200 [id number] High Risk>240 HDL Cholesterol Reference Range: Low Risk >=60 High Risk <40 LDL Cholesterol Reference Range: Optimal<100 Near [id number] Very High >=190 [employer] SONJA Curtis Performing Organization Address City/State/Zipcode Phone Number [facility] [place] [employer] [facility] [address] [place] [address] CENTER after 09/01/2018 Insurance Payer Benefit Plan / Group Subscriber ID Type Phone A ddress [employer] xxxxxxxx Maps Contracted Advance Directives For more information, please contact:[facility] Campus[facility] [id number] [place], [place] [phone] Code Status Date Activated Date Inactivated Comments Full Code 05/19/2019 10:22 PM 05/26/2019 6:29 PM This code status was determined by: Patient
--- OUTSIDE RECORDS SUMMARY | 2019-09-02 16:45 | XMS REPORT | Continuity of Care Document ---
:1950 Author Organization [facility] t Address [address] [place] [address] Care Team Providers Name Role Phone Pcp, No Primary Care Physician Unavailable Rupa Kingsley MD Attending Clinician Gabriel GAGNON, Nathalie Rodriguez Attending Clinician Unavailable ROSA ESTEVEZ Attending Clinician Unavailable Rosa Estevez MD Attending Clinician Matias Camacho MD Attending Clinician Darnell VALIENTE Attending Clinician Marcus VALIENTE Attending Clinician Sancho VALIENTE Attending Clinician DARNELL Admitting Clinician Unavailable Payers Payer Name Policy Type Policy Number Effective Date Expiration Source Date CIGNA xxxxxxxx [facility] [place] Contracted Problems Condition Condition Condition Status Onset Resolution Last Treating Co mments Source Name Details Category Date Date Treatment Clinician Date S/P S/P Disease Active 2019- [facility] carotid carotid 3-14 [facility] - endarterec endarterec 00:00: dicbruce blanton harvinder 00 Center CVA CVA Disease Active [facility] (cerebral (cerebral [facility] - vascular vascular 00:00: Medica l accident) accident) 00 Cent er Carotid Carotid Disease Active [facility] stenosis stenosis 3- kes - 00:00: Medical 00 Center Allergies, Adverse Reactions, Alerts This patient has no known allergies or adverse reactions. Family History Family Member Diagnosis Comments Start Date Stop Date Source Natural mother Heart disease [facility] Natural sister Bradycardia [facility] Social History Social Habit Start Date Stop Date Quantity Comments Source Sex Assigned At [facility] Smoking Status Start Date Stop Date Source Never smoker [facility] Medications Ordered Filled Start Stop Current Ordering Indication Dosage Frequency Signature Comments Components Source Medication Medication Date Date Medication? Clinician (SIG) Name Name aspirin 81 2020-0 Yes 81mg QD Take 1 [facility] chewable 3-16 tablet (81 Ivana kes - tablet 00:00: mg total) Medica l 00 by mouth Center daily. glipiZIDE 2019-0 2020- No 5mg QD Take [address] (GLUCOTROL 3-15 03-15 by mouth Luke s - XL) 5 MG 24 13:44: 00:00 daily. Med ical hr tablet 17 :00 Center metFORMIN 2019-0 2020- No 1000mg Take 1,[address] [facility] (GLUCOPHAGE 3-15 03-15 mg by [facility] - ) 1000 MG 13:44: 00:00 mouth Medica l tablet 17 :00 daily with Center breakfast. atorvastati 2019-0 Yes 80mg QD Take [address] [facility] n (LIPITOR) 3-15 tablet (80 Ivana kes - 80 MG 00:00: mg total) Medical tablet 00 by mouth Center nightly For cholestero l. traMADoL 2019-0 Yes 50mg Take [address] [facility] (ULTRAM) 50 3-15 tablet (50 Ivana kes - mg tablet 00:00: mg total) Med ical 00 by mouth Center every 6 (six) hours as needed for Pain. Max Daily Amount: 200 mg insulin 2019-0 Yes 6U Inject [facility] regular 3-15 0.06 mLs [facility] - (HUMULIN 00:00: (6 Units Medic al R,NOVOLIN 00 total) Center R) 100 subcutaneo unit/mL usly 3 injection (three) times daily before meals Use as directed. insulin 2019-0 Yes Use 5x a [facility] syringe-nee 3-15 day for [facility] - dle U-100 00:00: insulin Medic al (INSULIN 00 injections Cente r SYRINGE) . 0.5 mL 29 gauge x 1/2" Syrg glucometer 0 Yes Use as [facility] t (FREESTYLE) 3-15 directed Luke s - Misc 00:00: to check Medical 00 sugars. [place] blood sugar Yes Use 4x a [facility] diagnostic 3-15 day to [facility] - (GLUCOSE 00:00: check Medical BLOOD) Strp 00 sugars. Cente r lancets Yes Use 4x a [facility] Misc 3-15 day to [facility] - 00:00: check Medical 00 sugars. [place] alcohol Yes Use before [facility] swabs 15 checking [facility] - (ALCOHOL 00:00: sugars and Med ical PADS) PadM [address] ing insulin. insulin 2020- No Inject 10u [facility] St glargine 15 05-25 QAM and [facility] - (LANTUS) 00:00: 23:59 15u QPM. Medi roxie 100 unit/mL 00 :00 Center injection Vital Signs Vital Name Observation Time Observation Value Comments Source Systolic blood 2019-05-26 13:10:00 146 mm[Hg] [facility] Diastolic blood 2019-05-26 13:10:00 65 mm[Hg] [facility] S t [facility] Heart rate 2019-05-26 13:10:00 53 /min [facility] Body temperature 2019-05-26 13:10:00 37.11 Madelin [facility] Respiratory rate 2019-05-26 13:10:00 18 /min [facility] Oxygen saturation in 2019-05-26 13:10:00 98 /min [facility] Arterial blood by Medical Ce nter Pulse oximetry Body height 2019-05-20 13:27:00 172.7 cm [facility] Body weight Measured 2019-05-20 13:27:00 79.379 kg [facility] BMI 2019-05-20 13:27:00 26.61 kg/m2 [facility] Procedures Procedure Date / Time Performing Clinician Source Performed REPORT OF PROCEDURE - 2019-05-28 08:20:12 Provider, Default [facility] ENDOSCOPY SCAN Scanning [facility] RHYTHM STRIP - SCAN 2019-05-28 08:20:07 Provider, Default [facility] Scanning [facility] POCT-GLUCOSE METER 2019-05-26 13:09:00 DarnellJulio [facility] POCT-GLUCOSE METER 2019-05-26 07:31:00 [facility] BASIC METABOLIC PANEL (7) 2019-05-26 04:24:00 Nina Boss [facility] CBC (HEMOGRAM ONLY) 2019-05-26 04:24:00 Nina Boss [facility] MAGNESIUM 2019-05-26 04:24:00 DawsonJulisa matt [facility] PHOSPHORUS 2019-05-26 04:24:00 DawsonFiliberto mattsay [facility] POCT-GLUCOSE METER 2019-05-25 22:41:00 [facility] TRANSFUSION SERVICE 2019-05-25 18:02:25 Karri Kenyon [facility] POCT-GLUCOSE METER 2019-05-25 17:04:00 [facility] POCT-GLUCOSE METER 2019-05-25 12:27:00 Darnell [facility] POCT-GLUCOSE METER 2019-05-25 07:50:00 Darnell [facility] POCT-GLUCOSE METER 2019-05-25 04:58:00 Darnell [facility] POCT-GLUCOSE METER 2019-05-25 04:10:00 Darnell [facility] PROTHROMBIN TIME/INR 2019-05-25 02:55:00 Susanna Tsang CH, I [facility] BASIC METABOLIC PANEL (7) 2019-05-25 02:55:00 Nina Boss [facility] CBC (HEMOGRAM ONLY) 2019-05-25 02:55:00 Nina Boss [facility] MAGNESIUM 2019-05-25 02:55:00 DawsonJulisa [facility] PHOSPHORUS 2019-05-25 02:55:00 Dawson Julisa [facility] APTT 2019-05-25 02:55:00 Susanna Tsang [facility] POCT-GLUCOSE METER 2019-05-24 21:46:00 Julio Forde [facility] PROTHROMBIN TIME/INR 2019-05-24 19:37:00 Ajay Prince [facility] APTT 2019-05-24 19:37:00 Susanna Tsang [facility] TRANSFUSION SERVICE 2019-05-24 18:01:54 Karri Kenyon [facility] REPORT - SCAN [facility] PREPARE RBC 2019-05-24 17:52:00 Rupa Kingsley [facility] BASIC METABOLIC PANEL (7) 2019-05-24 17:39:00 Lucianatx [facility] MAGNESIUM 2019-05-24 17:39:00 [facility] PHOSPHORUS 2019-05-24 17:39:00 [facility] CBC W/PLT COUNT & AUTO 2019-05-24 17:39:00 [facility] PREPARE LEUKO-REDUCED RBC 2019-05-24 16:01:00 Edis Quinonez CH, I [facility] PREPARE RBC 2019-05-24 15:55:00 [facility] 2019-05-24 15:24:00 Julio Forde [facility] TISSUE EXAM 2019-05-24 15:14:00 Rupa Kingsley [facility] POCT-ACT 2019-05-24 15:13:00 Julio Forde [facility] POCT-ACT 2019-05-24 15:01:00 Julio Forde [facility] ENDARTERECTOMY,CAROTID 2019-05-24 12:00:00 Rupa Kingsley [facility] POCT-GLUCOSE METER 2019-05-23 21:51:00 Julio Forde [facility] ABORH, MANUAL 2019-05-23 19:52:00 Clara Weldon [facility] POCT-GLUCOSE METER 2019-05-23 17:51:00 Julio Forde [facility] TYPE AND SCREEN, 2019-05-23 16:34:00 DeviEdis [facility] - AUTOMATED [facility] POCT-GLUCOSE METER 2019-05-23 12:29:00 Julio Forde [facility] POCT-GLUCOSE METER 2019-05-23 08:28:00 Julio Forde [facility] BLOOD GAS, VENOUS 2019-05-23 05:47:00 Julio Forde [facility] BASIC METABOLIC PANEL (7) 2019-05-23 04:25:00 Julio Forde [facility] POCT-GLUCOSE METER 2019-05-23 00:53:00 Julio Forde [facility] POCT-GLUCOSE METER 2019-05-22 21:34:00 Julio Forde [facility] POCT-GLUCOSE METER 2019-05-22 17:29:00 Julio Forde [facility] POCT-GLUCOSE METER 2019-05-22 12:19:00 Julio Forde [facility] POCT-GLUCOSE METER 2019-05-22 08:55:00 Julio Forde [facility] BASIC METABOLIC PANEL (7) 2019-05-22 05:48:00 Chad Camacho [facility] POCT-GLUCOSE METER 2019-05-21 21:31:00 Julio Forde [facility] PERIPHERAL VASCULAR 2019-05-21 21:10:27 Karri Kenyon [facility] POCT-GLUCOSE METER 2019-05-21 17:27:00 Julio Forde [facility] POCT-GLUCOSE METER 2019-05-21 12:25:00 Julio Forde [facility] POCT-GLUCOSE METER 2019-05-21 10:03:00 Julio Forde [facility] CAROTID DOPPLER BILATERAL 2019-05-21 08:30:00 Edis Quinonez I [facility] BASIC METABOLIC PANEL (7) 2019-05-21 05:55:00 Chad Camacho [facility] ECHOCARDIOGRAM REPORT - 2019-05-20 21:12:05 Provider, Karri CH I [facility] URINALYSIS WITH 2019-05-20 21:12:00 Julio Forde [facility] - MICROSCOPIC IF INDICATED [facility] POCT-GLUCOSE METER 2019-05-20 18:05:00 Julio Forde [facility] POCT-GLUCOSE METER 2019-05-20 13:22:00 Julio Forde [facility] ECG 12-LEAD 2019-05-20 12:36:58 Angie Swanson [facility] 2D ECHO W/ DOPPLER 2019-05-20 10:58:49 Chad Camacho [facility] (CW/PW/COLOR) [facility] POCT-GLUCOSE METER 2019-05-20 09:11:00 Julio Forde [facility] TSH/FREE T4 IF INDICATED 2019-05-20 09:02:00 Benson Newman shakeel [facility] VITAMIN B12 AND FOLATE 2019-05-20 09:02:00 Benson Newman y [facility] RPR 2019-05-20 09:02:00 Benson Newman [facility] HIV-1 ANTIGEN WITH 2019-05-20 09:02:00 Benson Newman [facility] HIV-1/2 ANTIBODY [facility] HOMOCYSTEINE 2019-05-20 09:02:00 Benson Newman [facility] MRA HEAD WITHOUT IV 2019-05-20 06:19:00 Chad Camacho [facility] - CONTRAST [facility] MRA NECK WITHOUT IV 2019-05-20 06:19:00 Brann[facility] MR BRAIN WITHOUT IV 2019-05-20 06:19:00 [facility] POCT-GLUCOSE METER 2019-05-20 03:59:00 [facility] BASIC METABOLIC PANEL (7) 2019-05-20 02:50:00 [facility] PROTHROMBIN TIME/INR 2019-05-20 02:50:00 [facility] LIPID PANEL 2019-05-20 02:50:00 [facility] HEMOGLOBIN A1C 2019-05-20 02:50:00 [facility] C-REACTIVE PROTEIN 2019-05-20 02:50:00 [facility] HEPATIC FUNCTION PANEL 2019-05-20 02:50:00 Benson Newman [facility] CBC W/PLT COUNT & AUTO 2019-05-20 02:50:00 [facility], [facility] Encounters Start End Encounter Admission Attending Care Care Encounter Source Date/Time Date/Time Type Type Clinicians Facility Department ID 2019-06-12 2019-06-12 Office TIGIST Kingsley [id number] 09:53:11 13:49:12 Visit Rupa AMBULATOR [id number] Y [id number] Results Test Description Test Time Test Comments Results Result Comments Source Tissue Exam 2019-05-31 16:20:00 Test Item Value Reference Range Interpretation Comme nts Case Report (test code = 104) Surgical Pathology Report Case: [id number] Authorizing Provider: Rupa Kingsley MD Collected: 05/24/2019 1514 Ordering Location: [facility] Received: 05/27/2019 0911 PERIOPERATIVE SERVICES Pathologist: Rex Bardales MD Specimen: Plaque, LEFT CAROTID PLAQUE DIAGNOSIS (test code = 3220) [id number]y pc mCAcLJzbvuCgJLafi7KfB0OrDfFzUPcaysMgTWHs BsuzswihZSLcOTM2ayPbUHEtJJkkLBMsKOmoHa5g uLHsxQivQmKkGSIey0lapsTOicrfpXq5j5okIDWe CwS7sZRxBXufV8gfkrWtmTEyOXWhMJx8oJ93LSOo rL5owQEeLXlwzsTeOJsfejOsheRsDpw7PAXkS0xa ZLCdGGOwK8BiDF3hMQQaEfv6SUJ2GEK1hEfnv5V5 rMDhrWVhxTkbMfEbUhHyINUYo7WyRIx0pZwwU6Cw ZLWiXhD2fGSoUUAaDHzwJHKcEGOnynM4kM61JTbr apZ4oJHhv6Jyy02ia108lQ6hdLKmQFB3FWHwUMVu iMFoTUOqCYP1BCRepERlY8c5EbXoiFScW8K9TsVe fHZeY1X2YoXgfRUiR7D9ItVmmEYlFRMwdDYzEs8b fJPvjEWllm5pek15EDW1v4FmyBwuAHX9OMN2LxXv Jd5hoDSxEMPwRG2gKhTytWVbHFPabb17kJzlBMjs sfWepJ0xFbBfMFTnlERjVBLjOH8lfYCeQQPhfG2k lyemXBOaTgBuhjmdMEQohJmznaTuCe7fiVriQCS0 UGleG8onaB8jEpT5UGgzW5xndW5zAIe8FMtllAD9 IJEbdL1jJD3jhxmux6zjFeLcRY1mgefjr4qbHzVz LN8jakd2b7zuHiUdYO8hgswwq6imImFzSCavVWNp wgrsZVAue0TnweknFGJgt2ShV4OqoOdiY06poEbh Z65gYDYyoNsdbD5leRewsA3zUcYrKzHdTAkhzUri bGFpblxmMFxmczIwXHBsYWluXGYxXGZzMjAgQVJU RVXTGXFJZBGEGLZTPb9FJPSzKBUTZGDUYQPONDPY U26EVbwxTYNqU8CIR3kBFKQeIXSNKBLGM7WINYFY RRgZSBBVYHKWZPQZSURSKJRGS8AXKUbHXLSXMGrM MJFDPFzRGS3CVskGY1BkmAGumHbzcqScWWnyh4Ed RQnuQQCyXL8vpBjzLRCuOK5sGHPcF4cezH7zzcp4 HuYqZOSoByB4UQUzekH0Zia5ZHApCGebo6ssm4In XEExVGa9nSgfGbJcDRKgc8nrgxDoWdZzSWCfIYVy MUSlzGSsH948y9uac2umucZgpIF9LRIqPUV2XCwl fxYlvkX9DQsigZJsWbE5QXndpyAtJHhimxHupnFr Gwo4WNSxO031HMT1jCfyt9wmDIL3FJZpWWUoMzAv Fw2vtCHlB020NEWzZFENOCXzqCm3AATatgYljmPj cRJPa287S543n4onSWArjoUqsFvSogbaz8kkA502 NSEbdXVhtxCkJoNaBRLjlXVbkWF9UVCfYE5avcqp CLusEStmXWYdsyY9ZJSmyTMlS8RwNFUjXQ5awkua GTW0XQxgLZKsDDG6HlDfHMQdv0Ehyre9UgTvrt1g bg99PMB4h7DthAcbEUY7GZW2EdZySe1hnFVoWGEj KY6mRfByrKSrXFHrhy91oHzfCHcmCKC5OQKsqvTo m5Nqs5nxWgUvlvXjE1knP8SuQPKmMOOqPVFqZcFx usQvx8Lqk7WtdVXwtDr9m2teCRIfFAWnjThnk3mc ENN8KAZdlLSyG7hjeS5qTSJdKT7hbzjjw2fvMKet MEhoIWEkxUS9lfG9IKKhdNMfZ6VciT0uJOBgBUcp XBQfqbv3IbUaKh1cbQShqUvtIHsyUtyrXWjyBFXi bmNvbnRccGduZGVjXHBsYWluXHBsYWluXGYwXGZz MjRccWxcbGFuZzEwMzNcaGljaFxmMVxkYmNoXGYx GXofK8mdBfRbLyDqSxe7PVQnoSOgZXQbHcd1RCBq uUUhYAIFiPjcmN3tKWNmlCaftL2dpFL3AVQkpaFk tOFSeF3kVTANeO1zTqD6EyBpHeV4GSSjFKtjbQZf fX0= CPT Code(s) (test code = 3357) k0uabUPfXGOhiLHvUwQhGTUtZYTnf2eyROHs bGFu EiLkRnJsDoAaRpaxnAQzZUJeLiMpe9iqg161kSJv t8ezFZAdQzH6dIHwRNDalDPcF146q4vdh4wiueUz dEC8NYAmKPX2WXcoycOmypS6HCdpeYYeSiE8YYjr xhGqQFwzpnOhnbUdZiy2UDJrJ394UEA6mNuxd2yu SDQ8MOUuDSJrQsRwWk1kxOZlC747SPCuHTYTVZKc vQo0AFUysuVjrfGolXTPt287V567d2vvGYZwzmKl rOuOzpdhx7odC253OKCajKUrwlVsTyNiNGVisWVh gCK0RTRoVT7mgugxZzLqXM0ceagoYqRnFF1urwx5 CcTwUS9itnczAhXpZHzlVQOermhpOFOde5Ufeeyn ZC9cT9Rlp3O0jF1thAHaOJTamHAyYdVySTDyqk4e zKEqHPdpx0SbPSH6imW6tCXibBSwVLOnRA58Sgrp p8DkNwohSPN5SEJouoIut3Mlb5hdDtCbptGeO6ka O0VxINPaMSCnZMGrLeTulpBuk4Npn2FiwOAlxMq6 y2ujZYYdAHSpaIxxt1tpYKE9LOZuP4A5lFPho0cn KGpsHAZzsON0qpvoYAneCCKpiyA8gwufKZrxETIe yOW5ehstKUcfFCDyAxK0zljmRTgtBFNfHRJ4OZqi q362LDO0IWabDzndDUvtZWKewpIoevCoeIatTDCr ADDpAWqvTIMbEOhtXLBqAHEjRjCewKejbVioaV8k DeIjFjRlFWloOI1vQYSwF1wtqEHaFGAuNOCwH8vr BqEbuX5lmBbiMWwqlyCtWWq6YcD8YeE8TFCrWMna YXJ9 CLINICAL HISTORY (test code = 3356) j3gqyVSjWDVbsZMkCsBfFGTiGMIho3z cZGVmbGFu GeDhPiCfCkHxVibdrDTfCVGjFyZwp8maq766oDXw u8qwIZTyIiV3bAKcCHNshUAfE169CWYjLGqsy2ki j3FyNFOseXPvb1N0FMQCgvhzxAl5uWgjQ02zs9Q4 NrfjE7npQLOpDDSsQ9RsKQ6xDXYfLjc2JDZ2AFA1 AHDeFBYrN2DfAM7tTQJojQFiKJi8v3vzrFvnVZJp ZPY7r0itVXbsafIyWG2mnz5lpVm1l9ihbaFaALVc EGVauJLJCZSlT1JzyCkaTl4aiPg2gRjoUgkoIFD8 Yel0FI6ngf01qvw0kOviMPXyfqvgDhI9GSbgJBUp qdafBCq8DDjfWDZipXufXKiyDNFsquhmVOloDZPe aLvmTQfyXKZuRnfxIMpjKZXwWGM8VIkwn425BKA7 BYlid3clp0arhCAsTuo8SWXcNgTeUbmqQVypm6Gg h5aqJZKizi0dZAE2bMWrrSbgy4T5kOMgMLCfrDUj saVaMFUoOtZ5TGylEO5jpc39NVAcJPB3ia1wdWPq qEmgvcGnmUOkYNdmM2NnAIOle008HSOwH0ZzJPBb y3M1caFvSzIkRAJyqII5veX2WLJuSQw9uBOqnnY9 tsVqjGQhP0irwB12MdPevQWrR5WndH70LkDzjRHh I1DsyC39DpJliNTkX0YbwC18EsNerPUqKLLvsIFr Ap2ayCTsyBAyi6VjySYaAWdnF59xg919LNQtprJb U6uhmPXztdamgWKrduaePAuvskA0DCQfQITgEEsl XGYxXGZzMjBcbGFuZzEwMzNcaGljaFxmMVxkYmNo MPCmJIrbV3eoIjMgGzXuKUGZluEjqIGyuMTsuk2h wVO8YYSGFJDnyAiwPJS1LQ5ga0jrXNRxEKA1CUUo cn0= SPECIMEN SOURCE (test code = 3377) g4hhwKYwCYVkvMTuIgXcPYIrOKBhi5xi ZGVmbGFu UjIeFuFhLyBoFfytgEKnOMZmWzOpo7nha459eXMc e7hlIIZgGyG2aKFjIZWgpREzV818OLPvONsxx4ac j0BuISDfpJLgt9H9XEOJnrpevHf1wRseB96qw1L3 QwgpJ3baXGZyWWDbX3GgTM5gDWPgCup2FJP2BRD7 RQVfYTQqO0RtOU9bOOBlbQFfVEg9t4cymYlzVXIh CML0f1raXNqaurBwUO8jaw5arMe4n8emnlWfPFYy XXJbaMYHFISqD6AgcUliHr6dzJr9xBjkPgoyZOY3 Gmp8QM1iom15coe4pBpfFJXwbgqmOaE1YZskBMWv bkijRBf6CHwxEADupOqeCCakRLWhlwtwPHmpQGMu pOxtUIqbDAKvCvutTDraSYMyKKX7RWxch194QHQ7 MUyqc0zag3dkqJIrHsm5TLMwYhOlEhqoJWzbn7Nm m8hgMDUsma8nIQW2rPYfpPtof0O6pZAgWILcoXMy anDsVFKgEaE2GGrdVL5ibl12JYBhIHW0dg9jaIHj bHufyuUavQXbKMcyR5MkRLApi902OIJlK8PpHRSu o1S5fmRvAlBbYVBkqOV5srV4QYJhOLs7hYVqpqK5 viMmbEFoV3gysA06YcHgaNLeE6TngJ05OjJbnVLe J0LljD42IjDegHSkG7PfvL28IuUpyVEzPJOkrQOt Bg6zbHUkrYBwq9HaaNYmTOkeS93kg218CYIgdnIx Q6ydpVQaqfqbnYEmfxlsIYqilqL3AIPpGYIbSJhs XGYxXGZzMjBcbGFuZzEwMzNcaGljaFxmMVxkYmNo WYImJSvxM8cgAzHeGwZcUYRHbCRcmBCnpEPvtD== GROSS DESCRIPTION (test code = 3366) c7cbxRGgUPOwxIUoTzPnGFUkNCIht6 lcZGVmbGFu [file] MICROSCOPIC DESCRIPTION (test code = m4vmwUQqSKTiwSBsMgEkOBPoGAEna1 [place] [address]) FmRwLrWqXkWrDmpwyGXzDRFvGiPtl4szg619mLEy h6suKEOfJlH2uDVwAMIuaYZiQ000y3fay9baeoKg uZS5ZFOwVKT0KEevouBgsnT5HBwrtYMkMaY6ZCoe leGdXRwshfOnlrHtVik3OIVqV251LYR5jAvcm1wb XEY6TGNyRLLuUuSvQc9cuAJnY039PXZaGRJFGMBz cOo7AGVgkeDrxkMxdTXUi434Z908p7vdZISsqpRm oEfFukpgd8sbU402HICvvNSditCgSrMrBZObtSJk zWI8MPPiUQ8tkadkCnJtQP4pxpbdKzDlBG9nfcx8 FiTwCZ4bqzwkMfRmCJerYTDscmuxCDAjs2Mlwmwg RX4eJ2Tvv9R6aI2gpCVrAGFlwGAiBaDnIOTobc7j jNZcNUrim2ArPTE7ewS8xZPvvTToMVItVT21Xcxd e6OvXqdwLTM1HQZpemGmo4Aqg1blIxNeksDpZ3qy Y5TxUQUxHKBsZSLtGgXhmlYry7Tkz4MalHVwhTj8 z3swMIRuYRLquIaxj6zuYQX8LSNaW8R2jRVqo7ua WLlsGOWyaUZ7bzqcTRplLZUtjcF9welhYNehAUBv yGG3igyvMJovJGZnBnZ3ojogDHchYGZtCRM5EEio i515CIX7QQorAuqrFPfmNZUsrtZhguZmxHuuTVOi YHFrEZuyVCRpQNqePKSpCRTtXdWkfSuohWlbzB2h JtCdPoTtQJocGT9lVUQjO9loxFNxHRKqKMPoK2as CaQymZ9iyOehUUefuzJhHQTzhtPsfm6wONswXDA8 [facility]TISSUE [id number] 16:20:00Surgical Pathology Report Case: [id number] Authorizing Provider: Rupa Kingsley MD Collected: 05/24/2019 1514 Ordering Location: [facility] Received: 05/27/2019 0911 PERIOPERATIVE SERVICES Pathologist: Rex Bardales MD Specimen: Pl aque, LEFT CAROTID PLAQUE ARTERY, LEFT CAROTID, ENDARTERECTOMY:CALCIFIC ATHEROSCLEROTIC PLAQUE WITH FOCAL INTRAPLAQUE HEMORRHAGE Signing Pathologist Direct Phone Line: [phone] signed by Rex Bardales MD on 05/31/2019 at 4:20 [id number]; [id number] diagnosis: Carotid stenosis, leftPlaqueReceived in formalin labeled with the patient's name, accession number and "left carotid plaque" is a 3.2 cm in length x 1.0 cm in diameter bower-yellow tubular piece of focally calcified plaque. Advertising Sales Manager sections are submitted in A1 following decalcification. PA/pl PerformedPOC ACTIVATED CLOTTING [id number] 06:33:00 Test Item Value Reference Range Interpretation Comments Activated Clotting Time 252 sec : 74 -137 seconds, (test code = 441) Baseline: TESTED AT [address], [facility] 30: Silo Tender/Techni isabel ID = [id number] for J[facility]ONNY DUTTON [id number] 06:33:00 Test Item Value Reference Range Interpretation Comments ACTIVATED CLOTTING TIME 252 sec : 74 -137 seconds, (BEAKER) (test code = Baseli ne: TESTED AT 441) [address], [facility] 30: Silo Tender/Techni isabel ID = [id number] for JHONNY DUTTON [id number] 06:33:00 Test Item Value Reference Range Interpretation Comments ACTIVATED CLOTTING TIME 246 sec : 74 -137 seconds, (BEAKER) (test code = Baseli ne: TESTED AT 441) [address], [facility] 30: Silo Tender/Techni isabel ID = [id number] for LEE DUTTONEMIAH [id number] 06:33:00 Test Item Value Reference Range Interpretation Comments ACTIVATED CLOTTING TIME 241 sec : 74 -137 seconds, (BEAKER) (test code = Baseli ne: TESTED AT 441) [address], [facility] 30: Silo Tender/Techni isabel ID = [id number] for MARYJANE ALCANTARA POC-Glucose [id number] 13:21:00 Test Item Value Reference Range Interpretation Comments POC-Glucose Meter (test 99 mg/dL 70-110 : TE STED AT [facility] code = 1538) [address] [place] [address], [facility] 30: Silo Tender/Techni isabel ID = [id number] for JOSEPH HOOKS Lab Interpretation (test Normal code = 87602-7) [facility] [id number] 13:21:00 Test Item Value Reference Range Interpretation Comments POC-GLUCOSE METER 99 mg/dL 70-110 : TESTED A T [facility] 6720 (BEAKER) (test code = KAI Godinez [facility], 1538) [address]: Silo Tender/Techni isabel ID = [id number] for JOSEPH HOOKS POCT-GLUCOSE [id number] 08:16:00 Test Item Value Reference Range Interpretation Comments POC-GLUCOSE METER 167 mg/dL 70-110 H : TESTED A T [facility] 6720 (BEAKER) (test code = [facility] R [facility], 1538) [address]: Silo Tender/Techni isabel ID = [id number] for BENJAMIN GRACIA Basic Metabolic [id number] 05:40:00 Test Item Value Reference Range Interpretation Comments Sodium (test code = 137 meq/L 966-756 4957-2) Potassium (test code = 4.1 meq/L 3.5-5.1 2823-3) Chloride (test code = 108 meq/L 98-107 H 2075-0) CO2 (test code = 22 meq/L 22-29 2028-9) BUN (test code = 21 mg/dL 7-21 3094-0) Creatinine (test code 1.08 mg/dL 0.57-1.25 = 2160-0) Glucose (test code = 164 mg/dL 70-105 H 2345-7) Calcium (test code = 9.0 mg/dL 8.4-10.2 10958-8) EGFR (test code = 68 mL/min/1.73 [place] [address]-7) NOT ACCURATE CREATININE CLEARANCE IN PREDICTING GLOMERULAR FILTRATION RATE . ESTIMATED GFR I S NOT APPLICABLE FOR DIALYSIS PATIENTS. KESHAV (test code = KESHAV) Silo Tender ID - GERMAINE [facility] Interpretation Abnormal (test code = 34641-1) [facility] HospitalMagnesium2020-03-15 05:40:00 Test Item Value Reference Range Interpretation Comments Magnesium (test code = 2.4 mg/dL 1.6-2.6 23849-4) KESHAV (test code = KESHAV) Silo Tender ID Irlanda HERRON M Lab Interpretation (test Normal code = 29893-3) [facility] HospitalPhosphorus2020-03-15 05:40:00 Test Item Value Reference Range Interpretation Comments Phosphorus (test code = 3.4 mg/dL 2.3-4.7 2777-1) KESHAV (test code = KESHAV) Silo Tender SONJA HERRON M Lab Interpretation (test Normal code = 30170-7) [facility]PHOSPHORUS2020-03-15 05:40:00 Test Item Value Reference Range Interpretation Comments PHOSPHORUS (BEAKER) (test code = 3.4 mg/dL 2.3-4.7 604) Silo Tender ID - GERMAINE [id number] 05:40:00 Test Item Value Reference Range Interpretation Comments MAGNESIUM (BEAKER) (test code = 2.4 mg/dL 1.6-2.6 627) Silo Tender ID - GERMAINE MBASIC METABOLIC [id number] 05:40:00 Test Item Value Reference Range Interpretation Comments SODIUM (BEAKER) 137 meq/L 136-145 (test code = 381) POTASSIUM (BEAKER) 4.1 meq/L 3.5-5.1 (test code = 379) CHLORIDE (BEAKER) 108 meq/L 98-107 H (test code = 382) CO2 (BEAKER) (test 22 meq/L 22-29 code = 355) BLOOD UREA NITROGEN 21 mg/dL 7-21 (BEAKER) (test code = 354) CREATININE (BEAKER) 1.08 mg/dL 0.57-1.25 (test code = 358) GLUCOSE RANDOM 164 mg/dL 70-105 H (BEAKER) (test code = 652) CALCIUM (BEAKER) 9.0 mg/dL 8.4-10.2 (test code = 697) EGFR (BEAKER) (test 68 mL/min/1.73 ESTIMA TERRIE GFR IS code = 1092) sq m NOT ACCURATE CREATININE CLEARANCE IN PREDICTING GLOMERULAR FILTRATION RATE . ESTIMATED GFR I S NOT APPLICABLE FOR DIALYSIS PATIEN TS. Silo Tender ID - GERMAINE [facility] (Hemogram only)2019-05-26 05:31:00 Test Item Value Reference Range Interpretation Comments WBC (test code = 6690-2) 9.7 3.5- 10.5 K/L RBC (test code = 789-8) 3.56 4.63- 6.08 M/L L MCHC (test code = 786-4) 33.9 32.3- 36.5 GM/DL L Hematocrit (test code = 4544-3) 31.3 % 40.1-51 L MCV (test code = 787-2) 87.9 fL 79-92.2 MCH (test code = 785-6) 29.8 pg 25.7-32.2 RDW (test code = 788-0) 13.0 % 11.6-14.4 Platelets (test code = 777-3) 106 150- 450 K/CU MM L MPV (test code = 92865-8) 12.2 fL 9.4-12.4 nRBC (test code = 413) 0 0- 0 /100 WBC Lab Interpretation (test code = Abnormal 62681-7) [facility] (HEMOGRAM ONLY)2019-05-26 05:31:00 Test Item Value Reference Range Interpretation Comments WHITE BLOOD CELL COUNT (BEAKER) 9.7 K/ L 3.5-10.5 (test code = 775) RED BLOOD CELL COUNT (BEAKER) 3.56 M/ L 4.63-6.08 L (test code = 761) HEMOGLOBIN (BEAKER) (test code = 10.6 GM/DL 13.7-17.5 L 410) HEMATOCRIT (BEAKER) (test code = 31.3 % 40.1-51.0 L 411) MEAN CORPUSCULAR VOLUME (BEAKER) 87.9 fL 79.0-92.2 (test code = 753) MEAN CORPUSCULAR HEMOGLOBIN 29.8 pg 25.7-32.2 (BEAKER) (test code = 751) MEAN CORPUSCULAR HEMOGLOBIN CONC 33.9 GM/DL 32.3-36.5 (BEAKER) (test code = 752) RED CELL DISTRIBUTION WIDTH 13.0 % 11.6-14.4 (BEAKER) (test code = 412) PLATELET COUNT (BEAKER) (test 106 K/CU MM 150-450 L code = 756) MEAN PLATELET VOLUME (BEAKER) 12.2 fL 9.4-12.4 (test code = 754) NUCLEATED RED BLOOD CELLS 0 /100 WBC 0-0 (BEAKER) (test code = 413) POCT-GLUCOSE [id number] 22:54:00 Test Item Value Reference Range Interpretation Comments POC-GLUCOSE METER 113 mg/dL 70-110 H : TESTED A T [facility] 6720 (BEAKER) (test code = [facility], 153) [address]: Silo Tender/Techni isabel ID = [id number] for PEDRO MUSE POCT-GLUCOSE [id number] 17:16:00 Test Item Value Reference Range Interpretation Comments POC-GLUCOSE METER 87 mg/dL 70-110 : TESTED A T [facility] 6720 (BEAKER) (test code = [facility], 153) [address]: Silo Tender/Techni isabel ID = [id number] for BRANDAN BARROW POCT-GLUCOSE [id number] 12:39:00 Test Item Value Reference Range Interpretation Comments POC-GLUCOSE METER 220 mg/dL 70-110 H : TESTED A T [facility] 6720 (BEAKER) (test code = [facility], [facility]) [address]: Silo Tender/Techni isabel ID = [id number] for LO SIXTO, MIKE POCT-GLUCOSE [id number] 08:04:00 Test Item Value Reference Range Interpretation Comments POC-GLUCOSE METER 276 mg/dL 70-110 H : TESTED A T [facility] 6720 (BEAKER) (test code = [facility], [facility]) [address]: Silo Tender/Techni isabel ID = [id number] for LO SIXTO, MIKE POCT-GLUCOSE [id number] 05:10:00 Test Item Value Reference Range Interpretation Comments POC-GLUCOSE METER 299 mg/dL 70-110 H : TESTED A T [facility] 6720 (BEAKER) (test code = [facility], 153) [address]: Silo Tender/Techni isabel ID = [id number] for BR OWN, MALVIN POCT-GLUCOSE [id number] 04:21:00 Test Item Value Reference Range Interpretation Comments POC-GLUCOSE METER 347 mg/dL 70-110 H : TESTED A T [facility] 6720 (BEAKER) (test code = [facility], 153) [address]: Silo Tender/Techni isabel ID = [id number] for JENNIFER ROMO BASIC METABOLIC [id number] 03:59:00 Test Item Value Reference Range Interpretation Comments SODIUM (BEAKER) 138 meq/L 136-145 (test code = 381) POTASSIUM (BEAKER) 4.6 meq/L 3.5-5.1 (test code = 379) CHLORIDE (BEAKER) 109 meq/L 98-107 H (test code = 382) CO2 (BEAKER) (test 17 meq/L 22-29 L code = 355) BLOOD UREA NITROGEN 30 mg/dL 7-21 H (BEAKER) (test code = 354) CREATININE (BEAKER) 1.50 mg/dL 0.57-1.25 H (test code = 358) GLUCOSE RANDOM 413 mg/dL 70-105 HH (BEAKER) (test code = 652) CALCIUM (BEAKER) 8.6 mg/dL 8.4-10.2 (test code = 697) EGFR (BEAKER) (test 46 mL/min/1.73 ESTIMA TERRIE GFR IS code = 1092) sq m NOT ACCURATE CREATININE CLEARANCE IN PREDICTING GLOMERULAR FILTRATION RATE . ESTIMATED GFR I S NOT APPLICABLE FOR DIALYSIS PATIEN TS. Silo Tender ID - GERMAINE [id number] 03:47:00 Test Item Value Reference Range Interpretation Comments PHOSPHORUS (BEAKER) (test code = 4.6 mg/dL 2.3-4.7 604) Silo Tender ID - GERMAINE [id number] 03:47:00 Test Item Value Reference Range Interpretation Comments MAGNESIUM (BEAKER) (test code = 1.8 mg/dL 1.6-2.6 627) Silo Tender ID - GERMAINE MProthrombin time/[id number] 03:44:00 Test Item Value Reference Range Interpretation Comments Protime (test code = 14.2 11.9- 14.2 5902-2) seconds INR (test code = 1.1 <=5.9 6301-6) KESHAV (test code = KESHAV) Effective 08/08/2018: PT Reference Range ChangeNew: 11.9-14.2 Previous: 11.7-14.7 RECOMMENDED COUMADIN/WARFARIN INR THERAPY RANGESSTANDARD DOSE: 2.0-3.0 Includes: PROPHYLAXIS for venous thrombosis, systemic embolization; TREATMENT for venous thrombosis and/or pulmonary embolus.HIGH RISK: Target INR is 2.5-3.5 for patients wiht mechanical heart valves. Lab Interpretation Normal (test code = 88266-7) [facility] 03:44[facility]00 Test Item Value Reference Range Interpretation Comments PTT (test code = 53313-4) 30.4 22.5- 36.0 seconds Lab Interpretation (test code = Normal 16758-5) [facility]/[id number] 03:44:00 Test Item Value Reference Range Interpretation Comments PROTIME (BEAKER) (test code = 14.2 seconds 11.9-14.2 759) INR (BEAKER) (test code = 370) 1.1 <=5.9 Effective 08/08/2018: PT Reference Range ChangeNew: 11.9-14.2 Previous: 11.7- 14.7RECOMMENDED COUMADIN/WARFARIN INR THERAPY RANGESSTANDARD DOSE: 2.0-3.0 Includes: PROPHYLAXIS for venous thrombosis, systemic embolization; TREATMENT for venous thrombosis and/or pulmonary embolus.HIGH RISK: Target INR is2.5-3.5 for patients wiht mechanical heart valves.[id number] 03:44:00 Test Item Value Reference Range Interpretation Comments PARTIAL THROMBOPLASTIN TIME 30.4 seconds 22.5-36.0 (BEAKER) (test code = 760) CBC (HEMOGRAM ONLY)2019-05-25 03:30:00 Test Item Value Reference Range Interpretation Comments WHITE BLOOD CELL COUNT (BEAKER) 10.1 K/ L 3.5-10.5 (test code = 775) RED BLOOD CELL COUNT (BEAKER) 3.54 M/ L 4.63-6.08 L (test code = 761) HEMOGLOBIN (BEAKER) (test code = 10.4 GM/DL 13.7-17.5 L 410) HEMATOCRIT (BEAKER) (test code = 30.4 % 40.1-51.0 L 411) MEAN CORPUSCULAR VOLUME (BEAKER) 85.9 fL 79.0-92.2 (test code = 753) MEAN CORPUSCULAR HEMOGLOBIN 29.4 pg 25.7-32.2 (BEAKER) (test code = 751) MEAN CORPUSCULAR HEMOGLOBIN CONC 34.2 GM/DL 32.3-36.5 (BEAKER) (test code = 752) RED CELL DISTRIBUTION WIDTH 12.8 % 11.6-14.4 (BEAKER) (test code = 412) PLATELET COUNT (BEAKER) (test 116 K/CU MM 150-450 L code = 756) MEAN PLATELET VOLUME (BEAKER) 12.3 fL 9.4-12.4 (test code = 754) NUCLEATED RED BLOOD CELLS 0 /100 WBC 0-0 (BEAKER) (test code = 413) POCT-GLUCOSE [id number] 21:57:00 Test Item Value Reference Range Interpretation Comments POC-GLUCOSE METER 304 mg/dL 70-110 H : TESTED A T [facility] 6720 (BEAKER) (test code = [place], 1538) [address]: Silo Tender/Techni isabel ID = [id number] for DARRIAN GONSALES [id number] 20:13:00 Test Item Value Reference Range Interpretation Comments PARTIAL THROMBOPLASTIN TIME 27.9 seconds 22.5-36.0 (BEAKER) (test code = 760) PROTHROMBIN TIME/[id number] 20:12:00 Test Item Value Reference Range Interpretation Comments PROTIME (BEAKER) (test code = 13.8 seconds 11.9-14.2 759) INR (BEAKER) (test code = 370) 1.1 <=5.9 Effective 08/08/2018: PT Reference Range ChangeNew: 11.9-14.2 Previous: 11.7- 14.7RECOMMENDED COUMADIN/WARFARIN INR THERAPY RANGESSTANDARD DOSE: 2.0-3.0 Includes: PROPHYLAXIS for venous thrombosis, systemic embolization; TREATMENT for venous thrombosis and/or pulmonary embolus.HIGH RISK: Target INR is2.5-3.5 for patients wiht mechanical heart valves.[id number] 18:14:00 Test Item Value Reference Range Interpretation Comments PHOSPHORUS (BEAKER) (test code = 4.6 mg/dL 2.3-4.7 604) Silo Tender ID - [id number] 18:14:00 Test Item Value Reference Range Interpretation Comments MAGNESIUM (BEAKER) (test code = 1.8 mg/dL 1.6-2.6 627) Silo Tender ID - NTPBASIC METABOLIC [id number] 18:14:00 Test Item Value Reference Range Interpretation Comments SODIUM (BEAKER) 141 meq/L 136-145 (test code = 381) POTASSIUM (BEAKER) 3.9 meq/L 3.5-5.1 (test code = 379) CHLORIDE (BEAKER) 112 meq/L 98-107 H (test code = 382) CO2 (BEAKER) (test 19 meq/L 22-29 L code = 355) BLOOD UREA NITROGEN 23 mg/dL 7-21 H (BEAKER) (test code = 354) CREATININE (BEAKER) 1.28 mg/dL 0.57-1.25 H (test code = 358) GLUCOSE RANDOM 254 mg/dL 70-105 H (BEAKER) (test code = 652) CALCIUM (BEAKER) 8.9 mg/dL 8.4-10.2 (test code = 697) EGFR (BEAKER) (test 56 mL/min/1.73 ESTIMA TERRIE GFR IS code = 1092) sq m NOT ACCURATE CREATININE CLEARANCE IN PREDICTING GLOMERULAR FILTRATION RATE . ESTIMATED GFR I S NOT APPLICABLE FOR DIALYSIS PATIEN TS. Silo Tender ID - NTPCBC with platelet count + automated [id number] 18:01:00 Test Item Value Reference Range Interpretation Comments WBC (test code = 6690-2) 12.6 3.5- 10.5 K/L H RBC (test code = 789-8) 4.11 4.63- 6.08 M/L L MCHC (test code = 786-4) 34.6 32.3- 36.5 GM/DL L Hematocrit (test code = 4544-3) 35.0 % 40.1-51 L MCV (test code = 787-2) 85.2 fL 79-92.2 MCH (test code = 785-6) 29.4 pg 25.7-32.2 RDW (test code = 788-0) 12.9 % 11.6-14.4 Platelets (test code = 777-3) 125 150- 450 K/CU MM L MPV (test code = 25953-4) 11.6 fL 9.4-12.4 nRBC (test code = 413) 0 0- 0 /100 WBC % Neutros (test code = 429) 77 % % Lymphs (test code = 430) 17 % % Monos (test code = 431) 4 % % Eos (test code = 432) 1 % % Baso (test code = 437) 0 % # Neutros (test code = 670) 9.72 1.78- 5.38 K/L H # Lymphs (test code = 414) 2.12 1.32- 3.57 K/L # Monos (test code = 415) 0.48 0.30- 0.82 K/L # Eos (test code = 416) 0.12 0.04- 0.54 K/L # Baso (test code = 417) 0.05 0.01- 0.08 K/L Immature Granulocytes-Relative 1 % 0-1 (test code = 2801) Lab Interpretation (test code = Abnormal 26082-9) [facility] W/PLT COUNT & AUTO [id number] 18:01:00 Test Item Value Reference Range Interpretation Comments WHITE BLOOD CELL COUNT (BEAKER) 12.6 K/ L 3.5-10.5 H (test code = 775) RED BLOOD CELL COUNT (BEAKER) 4.11 M/ L 4.63-6.08 L (test code = 761) HEMOGLOBIN (BEAKER) (test code = 12.1 GM/DL 13.7-17.5 L 410) HEMATOCRIT (BEAKER) (test code = 35.0 % 40.1-51.0 L 411) MEAN CORPUSCULAR VOLUME (BEAKER) 85.2 fL 79.0-92.2 (test code = 753) MEAN CORPUSCULAR HEMOGLOBIN 29.4 pg 25.7-32.2 (BEAKER) (test code = 751) MEAN CORPUSCULAR HEMOGLOBIN CONC 34.6 GM/DL 32.3-36.5 (BEAKER) (test code = 752) RED CELL DISTRIBUTION WIDTH 12.9 % 11.6-14.4 (BEAKER) (test code = 412) PLATELET COUNT (BEAKER) (test 125 K/CU MM 150-450 L code = 756) MEAN PLATELET VOLUME (BEAKER) 11.6 fL 9.4-12.4 (test code = 754) NUCLEATED RED BLOOD CELLS 0 /100 WBC 0-0 (BEAKER) (test code = 413) NEUTROPHILS RELATIVE PERCENT 77 % (BEAKER) (test code = 429) LYMPHOCYTES RELATIVE PERCENT 17 % (BEAKER) (test code = 430) MONOCYTES RELATIVE PERCENT 4 % (BEAKER) (test code = 431) EOSINOPHILS RELATIVE PERCENT 1 % (BEAKER) (test code = 432) BASOPHILS RELATIVE PERCENT 0 % (BEAKER) (test code = 437) NEUTROPHILS ABSOLUTE COUNT 9.72 K/ L 1.78-5.38 H (BEAKER) (test code = 670) LYMPHOCYTES ABSOLUTE COUNT 2.12 K/ L 1.32-3.57 (BEAKER) (test code = 414) MONOCYTES ABSOLUTE COUNT (BEAKER) 0.48 K/ L 0.30-0.82 (test code = 415) EOSINOPHILS ABSOLUTE COUNT 0.12 K/ L 0.04-0.54 (BEAKER) (test code = 416) BASOPHILS ABSOLUTE COUNT (BEAKER) 0.05 K/ L 0.01-0.08 (test code = 417) IMMATURE GRANULOCYTES-RELATIVE 1 % 0-1 PERCENT (BEAKER) (test code = 2801) Prepare [id number] 17:52:00 Test Item Value Reference Range Interpretation Comments CROSSMATCH (test code = COMPATIBLE 2263) Unit ABO (test code = B Pos [id number]) UNIT NUMBER (test code = [id number] 934-0) Status (test code = RETURNED FROM ISSUE 5104947) Blood Bank Product (test RED BLOOD CELLS code = 2263) PRODUCT CODE (test code = [id number] 933-2) [facility] Leuko-Red [id number] 16:01:00 Test Item Value Reference Range Interpretation Comments CROSSMATCH (test code = 2264) COMPATIBLE Unit ABO (test code = B Pos [id number]) UNIT NUMBER (test code = [id number] 934-0) Status (test code = 7905301) READY Blood Bank Product (test code RED BLOOD CELLS = 2263) PRODUCT CODE (test code = E0757O01 933-2) [facility] HospitalPO[facility]SE [id number] 22:02:00 Test Item Value Reference Range Interpretation Comments POC-GLUCOSE METER 267 mg/dL 70-110 H : Notified RN/MD: (IFRAH) (test code = TESTED AT [facility] 6720 1538) [facility], [address]: Silo Tender/Techni isabel ID = [id number] for ELIGIOHBRIDAFUA PEREZ ICE ABORH, [id number] 20:46:00 Test Item Value Reference Range Interpretation Comments ABO Grouping (test code = 2588) B Rh Factor (test code = 2589) POS [facility] HospitalType and screen, [id number] 18:44:00 Test Item Value Reference Range Interpretation Comments ABO/RH AUTOMATED (BEAKER) (test B POSITIVE code = 2260) Ab Scrn (test code = 890-4) NEGATIVE [facility] [id number] 18:03:00 Test Item Value Reference Range Interpretation Comments POC-GLUCOSE METER 222 mg/dL 70-110 H : TESTED A T [facility] 6720 (BEAKER) (test code = [facility], 1538) [address]: Silo Tender/Techni isabel ID = [id number] for BR OWN, LYLE POCT-GLUCOSE [id number] 12:45:00 Test Item Value Reference Range Interpretation Comments POC-GLUCOSE METER 217 mg/dL 70-110 H : TESTED A T [facility] 6720 (BEAKER) (test code = [facility], 1538) [address]: Silo Tender/Techni isabel ID = [id number] for BR OWN, LYLE POCT-GLUCOSE [id number] 08:39:00 Test Item Value Reference Range Interpretation Comments POC-GLUCOSE METER 157 mg/dL 70-110 H : TESTED A T [facility] 6720 (BEAKER) (test code = [facility], 1538) [address]: Silo Tender/Techni isabel ID = [id number] for BR OWN, LYLE Blood gas, [id number] 06:35:00 Test Item Value Reference Range Interpretation Comments pH, Garrett (test code = 2746-6) 7.35 7.32-7.42 pCO2, Garrett (test code = 755) 44 41- 51 mm Hg pO2, Garrett (test code = 2705-2) 41 25- 40 mm Hg H O2 Sat, Garrett (test code = 2711-0) 73.7 % 40-70 H HCO3, Garrett (test code = 54965-1) 24 mmol/L 21-29 Base Excess, Garrett (test code = 2.2 mmol/L -2-3 1927-3) Patient Temperature (test code = 97.0 8310-5) FIO2 (test code = 1819) 21 Lab Interpretation (test code = Abnormal 23166-7) [facility] HospitalBLOOD GAS, [id number] 06:35:00 Test Item Value Reference Range Interpretation Comments PH VENOUS (BEAKER) (test code = 7.35 7.32-7.42 701) PCO2 VENOUS (BEAKER) (test code = 44 mm Hg 41-51 755) PO2 VENOUS (BEAKER) (test code = 41 mm Hg 25-40 H 702) O2 SATURATION VENOUS (BEAKER) 73.7 % 40.0-70.0 H (test code = 703) HCO3 VENOUS (BEAKER) (test code = 24 mmol/L 21-29 705) BASE EXCESS VENOUS (BEAKER) (test 2.2 mmol/L -2.0-3.0 code = 704) PATIENT TEMPERATURE (BEAKER) (test 97.0 code = 1818) FIO2 (BEAKER) (test code = 1819) 21 BASIC METABOLIC [id number] 04:56:00 Test Item Value Reference Range Interpretation Comments SODIUM (BEAKER) 140 meq/L 136-145 (test code = 381) POTASSIUM (BEAKER) 4.0 meq/L 3.5-5.1 (test code = 379) CHLORIDE (BEAKER) 110 meq/L 98-107 H (test code = 382) CO2 (BEAKER) (test 21 meq/L 22-29 L code = 355) BLOOD UREA NITROGEN 22 mg/dL 7-21 H (BEAKER) (test code = 354) CREATININE (BEAKER) 1.24 mg/dL 0.57-1.25 (test code = 358) GLUCOSE RANDOM 120 mg/dL 70-105 H (BEAKER) (test code = 652) CALCIUM (BEAKER) 9.5 mg/dL 8.4-10.2 (test code = 697) EGFR (BEAKER) (test 58 mL/min/1.73 ESTIMA TERRIE GFR IS code = 1092) sq m NOT ACCURATE CREATININE CLEARANCE IN PREDICTING GLOMERULAR FILTRATION RATE . ESTIMATED GFR I S NOT APPLICABLE FOR DIALYSIS PATIEN TS. Silo Tender ID - RANGEL WPOCT-GLUCOSE [id number] 01:05:00 Test Item Value Reference Range Interpretation Comments POC-GLUCOSE METER 201 mg/dL 70-110 H : TESTED A T [facility] 6720 (BEAKER) (test code = [facility], 153) [address]: Silo Tender/Techni isabel ID = [id number] for СЕРГЕЙ HNSMALINDA ROSENBERGA POCT-GLUCOSE [id number] 21:45:00 Test Item Value Reference Range Interpretation Comments POC-GLUCOSE METER 436 mg/dL 70-110 HH : Notified RN/MD: ([facility]) (test code = TESTED AT [place] [id number] 1538) [facility], [address]: Silo Tender/Techni isabel ID = [id number] for СЕРГЕЙ HNSON, PRITIQUETTA POCT-GLUCOSE [id number] 17:42:00 Test Item Value Reference Range Interpretation Comments POC-GLUCOSE METER 426 mg/dL 70-110 HH : Notified RN/MD: ([facility]) (test code = TESTED AT [place] [address] 1538) [facility], [address]: Silo Tender/Techni isabel ID = [id number] for AK INSONU, DREW POCT-GLUCOSE [id number] 12:41:00 Test Item Value Reference Range Interpretation Comments POC-GLUCOSE METER 337 mg/dL 70-110 H : TESTED A T [facility] 6720 (BEAKER) (test code = [facility], 153) [address]: Silo Tender/Techni isabel ID = [id number] for AK INSONU, DREW POCT-GLUCOSE [id number] 09:07:00 Test Item Value Reference Range Interpretation Comments POC-GLUCOSE METER 214 mg/dL 70-110 H : TESTED A T [facility] 6720 (BEAKER) (test code = [facility], 153) [address]: Silo Tender/Techni isabel ID = [id number] for AK INSONU, DREW BASIC METABOLIC [id number] 06:34:00 Test Item Value Reference Range Interpretation Comments SODIUM (BEAKER) 139 meq/L 136-145 (test code = 381) POTASSIUM (BEAKER) 4.5 meq/L 3.5-5.1 (test code = 379) CHLORIDE (BEAKER) 112 meq/L 98-107 H (test code = 382) CO2 ([facility]) (test 20 meq/L 22-29 L code = 355) BLOOD UREA NITROGEN 25 mg/dL 7-21 H ([facility]) (test code = 354) CREATININE (BEAKER) 1.07 mg/dL 0.57-1.25 (test code = 358) GLUCOSE RANDOM 155 mg/dL 70-105 H ([facility]) (test code = 652) CALCIUM (BEAKER) 9.3 mg/dL 8.4-10.2 (test code = 697) EGFR ([facility]) (test 68 mL/min/1.73 ESTIMA TERRIE GFR IS code = 1092) sq m NOT ACCURATE CREATININE CLEARANCE IN PREDICTING GLOMERULAR FILTRATION RATE . ESTIMATED GFR I S NOT APPLICABLE FOR DIALYSIS PATIEN TS. Silo Tender ID - GERMAINE MPOCT-GLUCOSE [id number] 21:43:00 Test Item Value Reference Range Interpretation Comments POC-GLUCOSE METER 304 mg/dL 70-110 H : Notified RN/MD: ([facility]) (test code = TESTED AT [place] [address] 1538) [facility], [address]: Silo Tender/Techni isabel ID = [id number] for LATHBRIDGE, AFUA ICE POCT-GLUCOSE [id number] 17:40:00 Test Item Value Reference Range Interpretation Comments POC-GLUCOSE METER 265 mg/dL 70-110 H : TESTED A T [facility] 67 ([facility]) (test code [facility], = 1538) [address]: Silo Tender/Techni isabel ID = [id number] for TSEG GAI, TSIGHEREDA POCT-GLUCOSE [id number] 12:39:00 Test Item Value Reference Range Interpretation Comments POC-GLUCOSE METER 389 mg/dL 70-110 H : Notified RN/MD: TESTED ([facility]) (test code AT [address] = 1538) [facility], [address]: Silo Tender/Techni isabel ID = [id number] for TSEG GAI, TSIGHEREDA Carotid doppler [id number] 11:46:45Ejection FractionSLE ECHO HEARTLAB MKCKESSON CPACSRight Impression1. There is <50% diameter reduction (approximately 36% by 2-D measurement)in the internal carotid artery with a peak velocity of 91/25 cm/sec andheterogeneous plaque.2. There is stenosis in the external carotid artery.3. There is non-occluding plaque in the common carotid artery.4. The vertebral artery flow is antegrade.5. The subclavian artery is within normal limits where visualized.Left Impression1. There is 50-69% diameter reduction (approximately % by 2-D measurement)in the internal carotid artery with heterogeneous plaque, a peak velocity of162/61 cm/sec and an ICA/CCA peak systolic velocity ratio of 2.15.2. There is stenosis in the external carotid artery.3. There is non-occluding plaque in the common carotid artery.4. The vertebral artery flow is antegrade.5. The subclavian artery is within normal limits where visualized. Conclusions Summary Carotid duplex scanning and color flow imaging were performed bilaterally.The arteries were adequately visualized. The right internal carotid artery had <50% hemodynamically insignificant stenosis (approximately 36% by 2-D measurement) with heterogeneous plaque. The left internal carotid artery had hemodynamically significant stenosis (approximately 58% by 2-D measurement) with heterogeneous plaque. The vertebral artery flow was antegrade bilaterally. Signature ------- Velocities are measured in cm/s ; Diameters are measured in cm Carotid Right Measurement s+ +----+----+-----+ + + +!Lo cation !PSV !EDV !Angle!%Stenosis 2D!%Stenosis Doppler!Tortuosity !+ +----+----+-----+ +--- + +!Prox CCA !100 !24 !60 ! ! ! !+ +----+----+-----+ + + +!Di st CCA !85 !25.2!60 ! ! ! !+ +----+----+-----+ +-- + +!Prox ICA !91.5!25.8!60 !36% !<50% ! !+ +----+----+-----+ + + +!Di st ICA !101 !37.7!60 ! ! ! !+ +----+----+-----+ -+ + +!Prox ECA !132 !18.1!60 ! ! ! !+ +----+----+-----+ + + +!Ve rtebral !58.5!16.9!60 ! ! ! !+ +----+----+-----+ --+ + +!Prox Subclavian!108 ! !60 ! ! ! !+ +----+----+-----+ + + + - There is antegrade vertebral flow noted on the right side. - Additional Measurements:ICAPSV/CCAPSV 1.19.ICAEDV/CCAEDV 1.57. Carotid Left Measurements+ +----+----+-----+ + + +!Location !PSV !EDV !Angle!%Stenosis 2D!%Stenosis Doppler!Tortuosity !+ ----+----+----+-----+ + + +!Prox CCA !108 !31.4!60 ! ! ! !+ +----+----+-----+ + -+ +!Dist CCA !75.4!27.5!60 ! ! ! !+ -----+----+----+-----+ + + +!Prox ICA !162 !61 !60 !58% !50-69% ! !+ +----+----+-----+ + --+ +!Dist ICA !133 !52.1!60 ! ! ! !+--------- ------+----+----+-----+ + + +!Prox ECA !147 !17.7!60 ! ! ! !+ +----+----+-----+ + ---+ +!Vertebral !45.6!13.4!60 ! ! ! !+-------- -------+----+----+-----+ + + +!Prox Subclavian!116 ! !60 ! ! ! !+ +----+----+-----+ + + + - There is antegrade vertebral flow noted on the left side. - Additional Measurements:ICAPSV/CCAPSV 2.15.ICAEDV/CCAEDV 1.94. Interface, External Ris In - 05/21/2019 11:47 AM [facility] - Carotid Duplex Study Demographics Patient Name SHANTEL DELVALLE Date of Study 05/21/2019 Age 68 Visit Number [id number] Gender Male Accession Number [id number] Date of 1950Referring [facility] Room Number 2263 Physician Contract Officer Katja South Interpreting Angie Thorpe, RN, RVT Physician MD ProcedureType of Study: Cerebral: Carotid, CAROTID DOPPLER, BILATERAL. Indications for Study:Di screpant findings re: L ICA stenosis.Patient Status:Routine.Study Location:Vascular Lab.Technical Quality:Adequate visualization.Risk FactorsHistory of Disease+ ---------+----+ +!Diagnosis !Date!Comments !+ +----+ +!Hi story/Risk Factors: ! !Stroke, DM !+ +----+ +ImpressionsRight Impression1. There is <50% diameter reduction (approximately 36% by 2-D measurement)in the internal carotid artery with a peak velocity of 91/25 cm/sec andheterogeneous plaque.2. There is stenosis in the external carotid artery.3. There is non-occluding plaque in the common carotid artery.4. The vertebral artery flow is antegrade.5. The subclavianartery is within normal limits where visualized.Left Impression1. There is 50-69% diameter reduction(approximately % by 2-D measurement)in the internal carotid artery with heterogeneous plaque, a peakvelocity of162/61 cm/sec and an ICA/CCA peak systolic velocity ratio of 2.15.2. There is stenosis inthe external carotid artery.3. There is non-occluding plaque in the common carotid artery.4. The vertebral artery flow is antegrade.5. The subclavian artery is within normal limits where visualized. Conclusions Summary Carotid duplex scanning and color flow imaging were performed bilaterally. The arteries were adequately visualized. The right internal carotid artery had <50% hemodynamically insignificant stenosis (approximately 36% by 2-D measurement) with heterogeneous plaque. The left internal carotid artery had hemodynamically significant stenosis (approximately 58% by 2-D measurement) withheterogeneous plaque. The vertebral artery flow was antegrade bilaterally. Signature Velocities are measured in cm/s ; Diameters are measured in cmCarotid Right Measurements+------ ---------+----+----+-----+ + + +!Location !PSV !EDV !Angle!%Stenosis 2D!%Stenosis Doppler!Tortuosity !+ +----+----+-----+ + ------+ +!Prox CCA !100 !24 !60 ! ! ! !+----- +----+----+-----+ + + +!Dist CCA !85 !25.2!60 ! ! ! !+ +----+----+-----+ + -------+ +!Prox ICA !91.5!25.8!60 !36% !<50% ! !+- +----+----+-----+ + + +!Dist ICA !101 !37.7!60 ! ! ! !+ +----+----+-----+ +------ + +!Prox ECA !132 !18.1!60 ! ! ! !+ +----+----+-----+ + + +!Vert ebral !58.5!16.9!60 ! ! ! !+ +----+----+-----+ +----- + +!Prox Subclavian!108 ! !60 ! ! ! ! + +----+----+-----+ + + + - There is antegrade vertebral flow noted on the right side. - Additional Measurements:ICAPSV/CCAPSV 1.19.ICAEDV/CCAEDV 1.57.Carotid Left Measurements+ +----+----+-----+ + +---- -------+!Location !PSV !EDV !Angle!%Stenosis 2D!%Stenosis Doppler!Tortuosity !+ +----+- ---+-----+ + + +!Prox CCA !108 !31.4!60 ! ! ! !+ +----+----+-----+ + +--------- --+!Dist CCA !75.4!27.5!60 ! ! ! !+ +----+ ----+-----+ + + +!Prox ICA !162 !61 !60 !58% !50-69% ! !+ +----+----+-----+ + +-------- ---+!Dist ICA !133 !52.1!60 ! ! ! !+ +---- +----+-----+ + + +!Prox ECA !147 !17.7!60 ! ! ! !+ +----+----+-----+ + +------- ----+!Vertebral !45.6!13.4!60 ! ! ! !+ +--- -+----+-----+ + + +!Prox Subclavian!116 ! !60 !! ! !+ +----+----+-----+ + + + - There is antegrade vertebral flow noted on the left side. - Additional Measurements:ICAPSV/CCAPSV 2.15.ICAEDV/CCAEDV 1.94.[facility] POCT-GLUCOSE [id number] 10:18:00 Test Item Value Reference Range Interpretation Comments POC-GLUCOSE METER 240 mg/dL 70-110 H : TESTED A T [facility] 6720 (BEAKER) (test code [facility], = 1538) [address]: Silo Tender/Techni isabel ID = [id number] for CURTIS LU BASIC METABOLIC [id number] 07:31:00 Test Item Value Reference Range Interpretation Comments SODIUM (BEAKER) 138 meq/L 136-145 (test code = 381) POTASSIUM (BEAKER) 4.5 meq/L 3.5-5.1 (test code = 379) CHLORIDE (BEAKER) 113 meq/L 98-107 H (test code = 382) CO2 (BEAKER) (test 18 meq/L 22-29 L code = 355) BLOOD UREA NITROGEN 22 mg/dL 7-21 H (BEAKER) (test code = 354) CREATININE (BEAKER) 1.11 mg/dL 0.57-1.25 (test code = 358) GLUCOSE RANDOM 212 mg/dL 70-105 H (BEAKER) (test code = 652) CALCIUM (BEAKER) 9.2 mg/dL 8.4-10.2 (test code = 697) EGFR (BEAKER) (test 65 mL/min/1.73 ESTIMA TERRIE GFR IS code = 1092) sq m NOT ACCURATE CREATININE CLEARANCE IN PREDICTING GLOMERULAR FILTRATION RATE . ESTIMATED GFR I S NOT APPLICABLE FOR DIALYSIS PATIEN TS. Silo Tender ID - GERMAINE MECG 12 [id number] 06:45:25Interface, External Ris In - 05/21/2019 6:45 AM CDTVentricular Rate 59 BPMAtrial Rate 59 BPMP-R Interval 172 msQRS Duration 106 msQ-T Interval 418 msQTC Calculation(Bazett) 413 msP Worth 50 degreesR Worth 1 degreesT Worth 61 degreesSinus bradycardiaInteratrial conduction delayAnterior infarct , age undeterminedAbnormal ECGNo previous ECGs availableConfirmed by MD RINALDI YOCHAI ([id number]) on 05/21/2019 6:45:20 [facility] CenterUrinal[facility] with Microscopic If [id number] 21:33:00 Test Item Value Reference Range Interpretation Comments Color, UA (test code = Colorless 5778-6) Clarity, UA (test code = Clear 5767-9) Specific [place], UA 1.012 1.001-1.035 (test code = 5811-5) pH, UA (test code = 5.5 5.0-8.0 5803-2) Protein, UA (test code = Negative Negative 53011-8) Glucose, UA (test code = 150 mg/dL Negative A 365) Ketones, UA (test code = Negative Negative 2514-8) Bilirubin, UA (test code Negative Negative = 97601-1) Blood, UA (test code = Negative Negative 62247-9) Nitrite, UA (test code = Negative Negative 5802-4) Leukocytes, UA (test Negative Negative code = 5799-2) Urobilinogen, UA (test 0.2 mg/dL 0.2-1 code = 05347-9) Specimen Source (test code = 2795) KESHAV (test code = KESHAV) Silo Tender ID - [auto]Silo Tender ID - techOperator ID - tech Lab Interpretation (test Abnormal code = 54389-9) [facility] WITH MICROSCOPIC IF [id number] 21:33:00 Test Item Value Reference Range Interpretation Comments COLOR (BEAKER) (test code = 470) Colorless CLARITY (BEAKER) (test code = 469) Clear SPECIFIC GRAVITY UA (BEAKER) (test 1.012 1.001-1.035 code = 468) PH UA (BEAKER) (test code = 467) 5.5 5.0-8.0 PROTEIN UA (BEAKER) (test code = Negative Negative 464) GLUCOSE UA (BEAKER) (test code = 150 mg/dL Negative A 365) KETONES UA (BEAKER) (test code = Negative Negative 371) BILIRUBIN UA (BEAKER) (test code = Negative Negative 462) BLOOD UA (BEAKER) (test code = 461) Negative Negative NITRITE UA (BEAKER) (test code = Negative Negative 465) LEUKOCYTE ESTERASE UA (BEAKER) Negative Negative (test code = 466) UROBILINOGEN UA (BEAKER) (test code 0.2 mg/dL 0.2-1.0 = 463) SOURCE(BEAKER) (test code = 2795) Silo Tender ID - [auto]Silo Tender ID - techOperator ID - techPOCT-GLUCOSE METER 2019-05-20 18:18:00 Test Item Value Reference Range Interpretation Comments POC-GLUCOSE METER 85 mg/dL 70-110 : TESTED A T [facility] 6720 (BEAKER) (test code = [place], 1538) [address]: Silo Tender/Techni isabel ID = [id number] for DREW GUNN 2D Echo W/Doppler(CW/PW/Color)2019-05-20 14:33:33Ejection FractionSLEH ECHO HEARTLAB MKCKESSON CPACSInterface, External Ris In - 05/20/2019 2:33 PM C DTTransthoracic Echocardiography Report (TTE) Demographics Patient Name SHANTEL MCKEON Date of Study 05/20/2019 Gender Male Visit Number [id number] Race Unknown Room Number 2263 Number Date of 1950 Referring Physician STEFFANIE Kruse Age 68 year(s) Contract Officer Steph Espinoza, CHADWICK, RDCS,RVT,RDMS Mathematics Teacher Becky Allen, Interpreting Chidi Orellana MD RDCS Physician Procedure Type of Study TTE procedure:2DECHO W DOPPLER(CW/PW/COLOR) (Routine) Indications:Suspected cardiac source of emboli.Clinical EujtaxnDJN18.9HCT 36.2 %DMContrast Medium: Bubble Study.Height: 68 inches Weight: 79.38 kg (175 lbs) BSA: 1.93m^2 BMI: 26.61 kg/m^2HR: 83 bpm BP: 129/60 mmHg Summary IV saline contrast injection was negative for a PFO (patent foramen ovale) at rest and post Valsalva . The left ventricle is chamber size (by volindex) is normal (male - LVED vol - 34-74ml/m2). All of the LV segments are hyperkinetic . LVEF by Coronado's method of disk assessment is increased (>70%) . Grade 1 diastolic dysfunction (impaired relaxation and low-normal LA pressure). Unable to estimate peak systolic PA pressure; inadequate TR velocity signal. Previous Study No prior studies available for comparison. Signature Findings Technical Quality: Technically adequate exam. Left Ventricle The left ventricle is chamber size (by vol index) is normal (male - LVED vol - 34-74ml/m2). No evidence of LV hypertrophy. All of the LV segments are hyperkinetic . Global LV systolic function hyperdynamic . LVEF by Coronado'smethod of disk assessment is increased (>70%) . Grade 1 diastolic dysfunction (impaired relaxation and low-normal LA pressure). Left Atrium LA size is normal (16-34 ml/m2) . Right Ventricle The right ventricular chamber size and systolic function are within normal limits. Right Atrium RA size is normal. Atrial Septum IV saline contrast injection was negative for a PFO (patent foramen ovale) at rest and post Valsalva . Aortic Valve Normal AoV structure and function. Mild aortic regurgitation. Mitral Valve Mild MV leaflet thickening. Trace mitral regurgitation. Tricuspid Valve TV structure is normal. A trace of tricuspid regurgitation. Unable to estimate peak systolic PA pressure; inadequate TR velocity signal. Pulmonic Valve Normal PV structure and function by limited views and Doppler. Aorta Aortic root size (SInus of Valsalva diameter) is normal . Pericardium A trivial pericardial effusion is present . IVC/SV C/PA/PV/Pleural The estimated RA pressure by IVC dynamics 0-5mmHg . Chambers/Structures Left Atrium LA Volume: 53.51 ml LA Area: 17.16 cm^2 LA Vol. Index: 28 ml/m^2 Left Ventricle LVIDd: 4.29 cm LVIDs: 2.46 cm LV Septum Diastolic: 0.95 cm LV PW Diastolic: 0.93 cm LV FS: 42.7 % LVEDV Coronado's:88.71 ml LVESV Coronado's:24.88 ml LVEDVI: 46 ml/ m^2 LVEF Coronado's: 72 % LVESVI: 13 ml/m^2 LVOT Diameter: 1.98 cm Aorta Ao Root S of Khadijah.: 2.73 cm Doppler/Quantitative Measurements Mitral Valve MV Peak E-Wave: 0.92 m/s MV Peak A-Wave: 1.16 m/s E/A Ratio: 0.79 Peak Gradient: 3.37 mmHg Deceleration T monica: 223.9 msec MV Jonny. Peak: Tissue Doppler E' Lateral Velocity: 0.08 m/s E/E': 10.86 Aortic Valve Peak Velocity: 1.72 m/s Mean Velocity: 1.14 m/s Peak Gradient: 11.81 mmHg Mean Gradient: 6.13 mmHg AV Area (continuity): 2.76 cm^2 AV VTI: 35.61 cm AV DVI: 0.9 LVOT Peak Velocity: 1.54 m/s Peak Gradient: 9.45 mmHg Mean Velocity: 0.96 m/s Mean Gradient: 4.35 mmHg LVOT Diameter: 1.98 cm LVOT VTI: 31.96 cm LVOT Area: 3.08 cm^2 LVOT SV:98.36 ml LVOT CO: 8.16 l/min LVOT CI: 4.23 l/min/m^2 RVOT RVOT VTI (PW): 36.3 [facility] [id number] 13:38:00 Test Item Value Reference Range Interpretation Comments POC-GLUCOSE METER 309 mg/dL 70-110 H : TESTED A T [facility] 6720 (BEAKER) (test code = [place], 1538) [address]: Silo Tender/Techni isabel ID = [id number] for DREW HAGAN [id number] 13:06:00 Test Item Value Reference Range Interpretation Comments RPR (test code = 46863-6) Nonreactive Nonreactive Lab Interpretation (test code = Normal 82016-1) [facility] HospitalRPR2020-03-[facility] 13:06:00 Test Item Value Reference Range Interpretation Comments RPR SCREEN (BEAKER) (test code = Nonreactive Nonreactive 420) [id number] 10:18:00 Test Item Value Reference Range Interpretation Comments Homocysteine (test code = 15.2 umol/L 5.1-15.4 51177-2) KESHAV (test code = KESHAV) Silo Tender ID - PIAYA L Lab Interpretation (test Normal code = 92253-2) [facility] HospitalVitamin B12 and [id number] 10:18:00 Test Item Value Reference Range Interpretation Comments Vitamin B12 (test code = 282 pg/mL 028-936 5846-9) Folate (test code = 14.5 ng/mL >=7.0 2284-8) KESHAV (test code = KESHAV) Silo Tender ID - PIAYA L Lab Interpretation (test Normal code = 52474-9) [facility] HospitalHOMOCYSTEINE2020-03-09 10:18:00 Test Item Value Reference Range Interpretation Comments HOMOCYSTEINE (BEAKER) (test code 15.2 umol/L 5.1-15.4 = 642) Silo Tender ID - PIAYA LVITAMIN B12 AND [id number] 10:18:00 Test Item Value Reference Range Interpretation Comments VITAMIN B12 (BEAKER) (test code = 282 pg/mL 213-816 774) FOLATE (BEAKER) (test code = 362) 14.5 ng/mL >=7.0 Silo Tender ID - PIAYA LHIV-1 Antigen with HIV-1/2 [id number] 09:53:00 Test Item Value Reference Range Interpretation Comments HIV-1 Antigen with HIV Nonreactive Nonreactive 1&2 Antibody (test code = 20132-4) KESHAV (test code = KESHAV) Silo Tender ID Irlanda BARAJAS L Lab Interpretation (test Normal code = 03416-8) [facility]/Free T4 If [id number] 09:53:00 Test Item Value Reference Range Interpretation Comments TSH (test code = 33121-0) 1.24 0.35- 4.94 uIU/mL KESHAV (test code = KESHAV) Silo Tender ID - PIMICHELLE L Lab Interpretation (test Normal code = 50437-7) [facility]/FREE T4 IF [id number] 09:53:00 Test Item Value Reference Range Interpretation Comments THYROID STIMULATING HORMONE 1.24 uIU/mL 0.35-4.94 (IFRAH) (test code = 772) Silo Tender ID Irlanda BARAJAS LHIV-1 ANTIGEN WITH HIV-1/2 [id number] 09:53:00 Test Item Value Reference Range Interpretation Comments HIV-1 ANTIGEN WITH HIV 1\\T\\2 Nonreactive Nonreactive ANTIBODY (2) (IFRAH) (test code = 2586) Silo Tender ID Irlanda BARAJAS LPOCT-GLUCOSE [id number] 09:34:00 Test Item Value Reference Range Interpretation Comments POC-GLUCOSE METER 256 mg/dL 70-110 H : TESTED A T [facility] 6720 (IFRAH) (test code = KAI Godinez [facility], 1538) [address]: Silo Tender/Techni isabel ID = [id number] for DREW HAGAN Hepatic function [id number] 08:43:00 Test Item Value Reference Range Interpretation Comments Protein, Total (test code 5.9 6.0- 8.3 gm/dL L = 2885-2) Albumin (test code = 3.6 g/dL 3.5-5 62610-6) Total Bilirubin (test code 0.5 mg/dL 0.2-1.2 = 1975-2) Bilirubin, Direct (test 0.2 mg/dL 0.1-0.5 code = 1968-7) Alkaline Phosphatase (test 70 U/L 40-150 code = 6768-6) AST (test code = 1920-8) 11 U/L 5-34 ALT (test code = 1742-6) <6 6-55 L KESHAV (test code = KESHAV) Silo Tender ID - KARL L Lab Interpretation (test Abnormal code = 18095-8) [facility] HospitalHEPATIC FUNCTION [id number] 08:43:00 Test Item Value Reference Range Interpretation Comments TOTAL PROTEIN (BEAKER) (test code = 5.9 gm/dL 6.0-8.3 L 770) ALBUMIN (BEAKER) (test code = 1145) 3.6 g/dL 3.5-5.0 BILIRUBIN TOTAL (BEAKER) (test code 0.5 mg/dL 0.2-1.2 = 377) BILIRUBIN DIRECT (BEAKER) (test 0.2 mg/dL 0.1-0.5 code = 706) ALKALINE PHOSPHATASE (BEAKER) (test 70 U/L 40-150 code = 346) AST (SGOT) (BEAKER) (test code = 11 U/L 5-34 353) ALT (SGPT) (BEAKER) (test code = < U/L 6-55 L 347) Silo Tender ID - KARL LHemoglobin [id number] 08:02:00 Test Item Value Reference Range Interpretation Comments Hemoglobin A1C (test code = 4548-4) 10.4 % 4.3-6.1 H Lab Interpretation (test code = Abnormal 02026-6) [facility] HospitalHEMOGLOBIN [id number] 08:02:00 Test Item Value Reference Range Interpretation Comments HEMOGLOBIN A1C (BEAKER) (test code = 10.4 % 4.3-6.1 H 368) MR, MRA, BRAIN, WITHOUT [id number] 06:42:00Reason for exam:->Ischemic Stroke EvaluationFINAL REPORT EXAM: MR, BRAIN, WITHOUT CONTRAST, MR, MRA, BRAIN, WITHOUT CONTRAST, MR, MRA, NECK, WITHOUT IV CONTRAST CLINICAL INDICATION: Stroke follow-up. TECHNIQUE: Sagittal and coronal T1-w and axial T2-w, FLAIR, GRE, and diffusion-w images of the brain with ADC maps. 2D uade-sj-pmnejk MRA of the neck. 3D mtno-zp-vcpfzu MRA of the head. Source data and maximum intensity projections (MIPs) were reviewed. COMPARISON: None. FINDINGS: MRI BRAIN:Parenchyma: Acute lacunar infarction in the posterior limb of the right internal capsule. No large territory infarction. No hemorrhage. No mass or mass effect. Scattered foci of T2 hyperintensity are present in the cerebral white matter that are nonspecific but compatible with mild chronic microvascular ischemic changes. Extra-axial Collection: None Ventricular System: No hydrocephalus. Major Intracranial Flow Voids: Normal Osseous Structures: Expected marrow signal. Included Orbits: Normal Paranasal Sinuses: Predominantly clear Tympanomastoid Cavities: Normal MRA HEAD:Anterior Circulation:Right intracranial internal carotid artery (ICA): NormalRight anterior cerebral artery (JAMILA): NormalRight middle cerebral artery (MCA): Normal Left intracranial internal carotid artery (ICA): NormalLeft anterior cerebral artery (JAMILA): NormalLeft middle cerebral artery (MCA): Normal Anterior communicating artery (AComm): PresentPosterior communicating arteries (PComm): Present bilaterally. Posterior Circulation:Right posterior cerebral artery (SOFTWARE ENGINEER DEVELOPER): Hypoplastic P1 segment with the remainder of the right SOFTWARE ENGINEER DEVELOPER supplied by the right posterior communicating artery.Left posterior cerebral artery (SOFTWARE ENGINEER DEVELOPER): Hypoplastic P1 segment with the remainder of the left SOFTWARE ENGINEER DEVELOPER supplied by the left posterior communicating artery. Right vertebral artery (VA): NormalLeft vertebral artery (VA): Hypoplastic without focal stenosisBasilar artery (BA): Mildly hypoplastic without focal stenosis. Other: Normal MRA NECK: Right carotid arterial system: Mild (<50%) internal carotid artery narrowing at the carotid bulb. Left carotid arterial system: Moderate (60 %) internal carotid artery narrowing at the carotid bulb. Right vertebral artery: NormalLeft vertebral artery: Mildly hypoplastic without focal stenosis. Where applicable, evaluation of internal carotid artery (ICA) stenosis was performed using NASCET-like criteria, where the site of greatest stenosis is compared to the diameter of the ICA distal to the stenosis at a point where the ICA jaffe become parallel. IMPRESSION: 1. Acute lacunar infarction of the posterior limb of the right internal capsule. No hemorrhage.2. Mild chronic deep white matter ischemic changes.3. No acute vascular abnormality or flow-limiting stenosis on MRA of the head.4.Moderate (60%) internal carotid narrowing at the left carotid bulb. Signed: Kannan Peña MDReport Verified Date/Time: 05/20/2019 06:42:15 MR, MRA, NECK, WITHOUT IV [id number] 06:42:00Reason for exam:->Ischemic Stroke EvaluationFINAL REPORT EXAM: MR, BRAIN, WITHOUT CONTRAST, MR, MRA, BRAIN, WITHOUT CONTRAST, MR, MRA, NECK, WITHOUT IV CONTRAST CLINICAL INDICATION: Stroke follow-up. TECHNIQUE: Sagittal and coronal T1-w and axial T2-w, FLAIR, GRE, and diffusion-w images of the brain with ADC maps. 2D t bkj-ax-prgeji MRA of the neck. 3D pohk-bm-brgxxl MRA of the head. Source data and maximum intensity projections (MIPs) were reviewed. COMPARISON: None. FINDINGS: MRI BRAIN:Parenchyma: Acute lacunar infarction in the posterior limb of the right internal capsule. No large territory infarction. No hemorrhage. No mass or mass effect. Scattered foci of T2 hyperintensity are present in the cerebral white matter that are nonspecific but compatible with mild chronic microvascular ischemic changes. Extra-axial Collection: None Ventricular System: No hydrocephalus. Major Intracranial Flow Voids: Normal Osseous Structures: Expected marrow signal. Included Orbits: Normal Paranasal Sinuses: Predominantly clear Tympanomastoid Cavities: Normal MRA HEAD:Anterior Circulation:Right intracranial internal carotid artery (ICA): NormalRight anterior cerebral artery (JAMILA): NormalRight middle cerebral artery (MCA): Normal Left intracranial internal carotid artery (ICA): NormalLeft anterior cerebral artery (JAMILA): NormalLeft middle cerebral artery (MCA): Normal Anterior communicating artery (AComm): PresentPosterior communicating arteries (PComm): Present bilaterally. Posterior Circulation:Right posterior cerebral artery (SOFTWARE ENGINEER DEVELOPER): Hypoplastic P1 segment with the remainder of the right SOFTWARE ENGINEER DEVELOPER supplied by the right posterior communicating artery.Left posterior cerebral artery (SOFTWARE ENGINEER DEVELOPER): Hypoplastic P1 segment with the remainder of the left SOFTWARE ENGINEER DEVELOPER supplied by the left posterior communicating artery. Right vertebral artery (VA): NormalLeft vertebral artery (VA): Hypoplastic without focal stenosisBasilar artery (BA): Mildly hypoplastic without focal stenosis. Other: Normal MRA NECK: Right carotid arterial system: Mild (<50%) internal carotid artery narrowing at the carotid bulb. Left carotid arterial system: Moderate (60 %) internal carotid artery narrowing at the carotid bulb. Right vertebral artery: NormalLeft vertebral artery: Mildly hypoplastic without focal stenosis. Where applicable, evaluation of internal carotid artery (ICA) stenosis was performed using NASCET-like criteria, where the site of greatest stenosis is compared to the diameter of the ICA distal to the stenosis at a point where the ICA jaffe become parallel. IMPRESSION: 1. Acute lacunar infarction of the posterior limb of the right internal capsule. No hemorrhage.2. Mild chronic deep white matter ischemic changes.3. No acute vascular abnormality or flow-limiting stenosis on MRA of the head.4.Moderate (60%) internal carotid narrowing at the left carotid bulb. Signed: Kannan Peña MDReport Verified Date/Time: 05/20/2019 06:42:15 MR, BRAIN, WITHOUT [id number] 06:42:00Reason for exam:->Ischemic Stroke EvaluationFINAL REPORT EXAM: MR, BRAIN, WITHOUT CONTRAST, MR, MRA, BRAIN, WITHOUT CONTRAST, MR, MRA, NECK, WITHOUT IV CONTRAST CLINICAL INDICATION: Stroke follow-up. TECHNIQUE: Sagittal and coronal T1-w and axial T2-w, FLAIR, GRE, and diffusion-w images of the brain with ADC maps. 2D t ujh-fb-pkvysk MRA of the neck. 3D cfno-ds-godbhv MRA of the head. Source data and maximum intensity projections (MIPs) were reviewed. COMPARISON: None. FINDINGS: MRI BRAIN:Parenchyma: Acute lacunar infarction in the posterior limb of the right internal capsule. No large territory infarction. No hemorrhage. No mass or mass effect. Scattered foci of T2 hyperintensity are present in the cerebral white matter that are nonspecific but compatible with mild chronic microvascular ischemic changes. Extra-axial Collection: None Ventricular System: No hydrocephalus. Major Intracranial Flow Voids: Normal Osseous Structures: Expected marrow signal. Included Orbits: Normal Paranasal Sinuses: Predominantly clear Tympanomastoid Cavities: Normal MRA HEAD:Anterior Circulation:Right intracranial internal carotid artery (ICA): NormalRight anterior cerebral artery (JAMILA): NormalRight middle cerebral artery (MCA): Normal Left intracranial internal carotid artery (ICA): NormalLeft anterior cerebral artery (JAMILA): NormalLeft middle cerebral artery (MCA): Normal Anterior communicating artery (AComm): PresentPosterior communicating arteries (PComm): Present bilaterally. Posterior Circulation:Right posterior cerebral artery (SOFTWARE ENGINEER DEVELOPER): Hypoplastic P1 segment with the remainder of the right SOFTWARE ENGINEER DEVELOPER supplied by the right posterior communicating artery.Left posterior cerebral artery (SOFTWARE ENGINEER DEVELOPER): Hypoplastic P1 segment with the remainder of the left SOFTWARE ENGINEER DEVELOPER supplied by the left posterior communicating artery. Right vertebral artery (VA): NormalLeft vertebral artery (VA): Hypoplastic without focal stenosisBasilar artery (BA): Mildly hypoplastic without focal stenosis. Other: Normal MRA NECK: Right carotid arterial system: Mild (<50%) internal carotid artery narrowing at the carotid bulb. Left carotid arterial system: Moderate (60 %) internal carotid artery narrowing at the carotid bulb. Right vertebral artery: NormalLeft vertebral artery: Mildly hypoplastic without focal stenosis. Where applicable, evaluation of internal carotid artery (ICA) stenosis was performed using NASCET-like criteria, where the site of greatest stenosis is compared to the diameter of the ICA distal to the stenosis at a point where the ICA jaffe become parallel. IMPRESSION: 1. Acute lacunar infarction of the posterior limb of the right internal capsule. No hemorrhage.2. Mild chronic deep white matter ischemic changes.3. No acute vascular abnormality or flow-limiting stenosis on MRA of the head.4.Moderate (60%) internal carotid narrowing at the left carotid bulb. Signed: Kannan Peña MDReport Verified Date/Time: 05/20/2019 06:42:15 MRA head without IV [id number] 06:42:00Interface, External Ris In - 05/20/2019 10:20 AM CDTFINAL REPORT EXAM: MR, BRAIN, WITHOUT CONTRAST, MR, MRA, BRAIN, WITHOUT CONTRAST, MR, MRA, NECK, WITHOUT IV CONTRAST CLINICAL INDICATION: Stroke follow-up. TECHNIQUE: Sagittal and coronal T1-w and axial T2-w, FLAIR, GRE, and diffusion-w images of the brain with ADC maps. 2D konm-ur-xwlxnf MRA of the neck. 3D rmlb-ig-elifsrRZD of the head. Source data and maximum intensity projections (MIPs) were reviewed. COMPARISON: None. FINDINGS: MRI BRAIN:Parenchyma: Acute lacunar infarction in the posterior limb of the right internal capsule. No large territory infarction. No hemorrhage. No mass or mass effect. Scattered foci of T2 hyperintensity are present in the cerebral white matter that are nonspecific but compatible with mild chronic microvascular ischemic changes. Extra-axial Collection: None Ventricular System: No hydrocephalus. Major Intracranial Flow Voids: Normal Osseous Structures: Expected marrow signal. Included Orbits: Normal Paranasal Sinuses: Predominantly clear Tympanomastoid Cavities: Normal MRA HEAD:Anterior Circulation:Right intracranial internal carotid artery (ICA): NormalRight anterior cerebral artery (JAMILA): NormalRight middle cerebral artery (MCA): Normal Left intracranial internal carotid artery (ICA): NormalLeft anterior cerebral artery (JAMILA): NormalLeft middle cerebral artery (MCA): NormalAnterior communicating artery (AComm): PresentPosterior communicating arteries (PComm): Present bilaterally. Posterior Circulation:Right posterior cerebral artery (SOFTWARE ENGINEER DEVELOPER): Hypoplastic P1 segment with theremainder of the right SOFTWARE ENGINEER DEVELOPER supplied by the right posterior communicating artery.Left posterior cerebral artery (SOFTWARE ENGINEER DEVELOPER): Hypoplastic P1 segment with the remainder of the left SOFTWARE ENGINEER DEVELOPER supplied by the left posterior communicating artery. Right vertebral artery (VA): NormalLeft vertebral artery (VA): Hypoplastic without focal stenosisBasilar artery (BA): Mildly hypoplastic without focal stenosis. Other: Normal MRA NECK: Right carotid arterial system: Mild (<50%) internal carotid artery narrowing at the car otid bulb. Left carotid arterial system: Moderate (60 %) internal carotid artery narrowing at the carotid bulb. Right vertebral artery: NormalLeft vertebral artery: Mildly hypoplastic without focal stenosis. Where applicable, evaluation of internal carotid artery (ICA) stenosis was performedusing NASCET- like criteria, where the site of greatest stenosis is compared to the diameter of the ICA distal to the stenosis at a point where the ICA jaffe become parallel. IMPRESSION: 1. Acute lacunar infarction of the posterior limb of the right internal capsule. No hemorrhage.2. Mild chronic deep white matter ischemic changes.3. No acute vascular abnormality or flow-limiting stenosis on MRA of the head.4.Moderate (60%) internal carotid narrowing at the left carotid bulb. Signed: Kannan Peña [facility] Hospitalort Verified Date/Time: 05/20/2019 06:42:15 [facility] CenterM[facility] neck without IV [id number] 06:42:00Interface, External Ris In - 05/20/2019 10:20 AM CDTFINAL REPORT EXAM: MR, BRAIN, WITHOUT CONTRAST, MR, MRA, BRAIN, WITHOUT CONTRAST, MR, MRA, NECK, WITHOUT IV CONTRAST CLINICAL INDICATION: Stroke follow-up. TECHNIQUE: Sagittal and coronal T1-w and axial T2-w, FLAIR, GRE, and diffusion-w images of the brain with ADC maps. 2D fjnq-ux-fbaars MRA of the neck. 3D uaqx-cp-ijshdrODA of the head. Source data and maximum intensity projections (MIPs) were reviewed. COMPARISON: None. FINDINGS: MRI BRAIN:Parenchyma: Acute lacunar infarction in the posterior limb of the right internal capsule. No large territory infarction. No hemorrhage. No mass or mass effect. Scattered foci of T 2 hyperintensity are present in the cerebral white matter that are nonspecific but compatible with mild chronic microvascular ischemic changes. Extra-axial Collection: None Ventricular System: No hydrocephalus. Major Intracranial Flow Voids: Normal Osseous Structures: Expected marrow signal. Included Orbits: Normal Paranasal Sinuses: Predominantly clear Tympanomastoid Cavities: Normal MRA HEAD:Anterior Circulation:Right intracranial internal carotid artery (ICA): NormalRight anterior cerebral artery (JAMILA): NormalRight middle cerebral artery (MCA): Normal Left intracranial internal carotid artery (ICA): NormalLeft anterior cerebral artery (JAMILA): NormalLeft middle cerebral artery (MCA): Normal Anterior communicating artery (AComm): PresentPosterior communicating arteries (PComm): Present bilaterally. Posterior Circulation:Right posterior cerebral artery (SOFTWARE ENGINEER DEVELOPER): Hypoplastic P1 segment with theremainder of the right SOFTWARE ENGINEER DEVELOPER supplied by the right posterior communicating artery.Left posterior cerebral artery (SOFTWARE ENGINEER DEVELOPER): Hypoplastic P1 segment with the remainder of the left SOFTWARE ENGINEER DEVELOPER supplied by the left posterior communicating artery. Right vertebral artery (VA): NormalLeft vertebral artery (VA): Hypoplastic without focal stenosisBasilar artery (BA): Mildly hypoplastic without focal stenosis. Other: Normal MRA NECK: Right carotid arterial system: Mild (<50%) internal carotid artery narrowing at the car otid bulb. Left carotid arterial system: Moderate (60 %) internal carotid artery narrowing at the carotid bulb. Right vertebral artery: NormalLeft vertebral artery: Mildly hypoplastic without focal stenosis. Where applicable, evaluation of internal carotid artery (ICA) stenosis was performedusing NASCET- like criteria, where the site of greatest stenosis is compared to the diameter of the ICA distal to the stenosis at a point where the ICA jaffe become parallel. IMPRESSION: 1. Acute lacunar infarction of the posterior limb of the right internal capsule. No hemorrhage.2. Mild chronic deep white matter ischemic changes.3. No acute vascular abnormality or flow-limiting stenosis on MRA of the head.4.Moderate (60%) internal carotid narrowing at the left carotid bulb. Signed: Kannan Peña MDReport Verified Date/Time: 05/20/2019 06:42:15 [facility] CenterMR brain without IV [id number] 06:42:00Interface, External Ris In - 05/20/2019 10:20 AM CDTFINAL REPORT EXAM: MR, BRAIN, WITHOUT CONTRAST, MR, MRA, BRAIN, WITHOUT CONTRAST, MR, MRA, NECK, WITHOUT IV CONTRAST CLINICAL INDICATION: Stroke follow-up. TECHNIQUE: Sagittal and coronal T1-w and axial T2-w, FLAIR, GRE, and diffusion-w images of the brain with ADC maps. 2D ajbl-wj-npjtsv MRA of the neck. 3D ynjx-cc-tngwmvGVI of the head. Source data and maximum intensity projections (MIPs) were reviewed. COMPARISON: None. FINDINGS: MRI BRAIN:Parenchyma: Acute lacunar infarction in the posterior limb of the right internal capsule. No large territory infarction. No hemorrhage. No mass or mass effect. Scattered foci of T 2 hyperintensity are present in the cerebral white matter that are nonspecific but compatible with mild chronic microvascular ischemic changes. Extra-axial Collection: None Ventricular System: No hydrocephalus. Major Intracranial Flow Voids: Normal Osseous Structures: Expected marrow signal. Included Orbits: Normal Paranasal Sinuses: Predominantly clear Tympanomastoid Cavities: Normal MRA HEAD:Anterior Circulation:Right intracranial internal carotid artery (ICA): NormalRight anterior cerebral artery (JAMILA): NormalRight middle cerebral artery (MCA): Normal Left intracranial internal carotid artery (ICA): NormalLeft anterior cerebral artery (JAMILA): NormalLeft middle cerebral artery (MCA): Normal Anterior communicating artery (AComm): PresentPosterior communicating arteries (PComm): Present bilaterally. Posterior Circulation:Right posterior cerebral artery (SOFTWARE ENGINEER DEVELOPER): Hypoplastic P1 segment with theremainder of the right SOFTWARE ENGINEER DEVELOPER supplied by the right posterior communicating artery.Left posterior cerebral artery (SOFTWARE ENGINEER DEVELOPER): Hypoplastic P1 segment with the remainder of the left SOFTWARE ENGINEER DEVELOPER supplied by the left posterior communicating artery. Right vertebral artery (VA): NormalLeft vertebral artery (VA): Hypoplastic without focal stenosisBasilar artery (BA): Mildly hypoplastic without focal stenosis. Other: Normal MRA NECK: Right carotid arterial system: Mild (<50%) internal carotid artery narrowing at the car otid bulb. Left carotid arterial system: Moderate (60 %) internal carotid artery narrowing at the carotid bulb. Right vertebral artery: NormalLeft vertebral artery: Mildly hypoplastic without focal stenosis. Where applicable, evaluation of internal carotid artery (ICA) stenosis was performedusing NASCET- like criteria, where the site of greatest stenosis is compared to the diameter of the ICA distal to the stenosis at a point where the ICA jaffe become parallel. IMPRESSION: 1. Acute lacunar infarction of the posterior limb of the right internal capsule. No hemorrhage.2. Mild chronic deep white matter ischemic changes.3. No acute vascular abnormality or flow-limiting stenosis on MRA of the head.4.Moderate (60%) internal carotid narrowing at the left carotid bulb. Signed: Kannan Peña MDReport Verified Date/Time: 05/20/2019 06:42:15 [facility] CenterPOCT-GLUCOSE [id number] 04:12:00 Test Item Value Reference Range Interpretation Comments POC-GLUCOSE METER 279 mg/dL 70-110 H : TESTED A T [facility] 6720 (BEAKER) (test code = [place], 1538) [address]: Silo Tender/Techni isabel ID = [id number] for LUDY RYDER Lipid [id number] 03:47:00 Test Item Value Reference Range Interpretation Comments Triglycerides (test 274 mg/dL code = 2571-8) Cholesterol (test code 177 mg/dL = 2093-3) HDL (test code = 35 mg/dL 2084-9) LDL Calculated (test 87 mg/dL code = 58232-3) KESHAV (test code = KESHAV) Triglyceride Reference Range: Low Risk <150 Borderline 150-199 High Risk 200-499 Very High Risk >=500 Cholesterol Reference Range: Low Risk <200 Borderline 200-239 High Risk >240 HDL Cholesterol Reference Range: Low Risk >=60 High Risk <40 LDL Cholesterol Reference Range: Optimal <100 Near Optimal 100-129 Borderline 130-159 High 160-189 Very High >=190 Silo Tender ID - KARL L [facility]C-Reactive [id number] 03:47:00 Test Item Value Reference Range Interpretation Comments CRP (test code = 676) 0.13 mg/dL 0-0.5 KESHAV (test code = KESHAV) Silo Tender ID - VANESAMICHELLE L Lab Interpretation (test Normal code = 26386-9) [facility] HospitalLIPID [id number] 03:47:00 Test Item Value Reference Range Interpretation Comments TRIGLYCERIDES (BEAKER) (test code = 274 mg/dL 540) CHOLESTEROL (BEAKER) (test code = 177 mg/dL 631) HDL CHOLESTEROL (BEAKER) (test code 35 mg/dL = 976) LDL CHOLESTEROL CALCULATED (BEAKER) 87 mg/dL (test code = 633) Triglyceride Reference Range: Low Risk <150 Borderline 150-199 High Risk 200-499 Very High Risk >=500Cholesterol Reference Range: Low Risk <200 Borderline 200-239 High Risk >240HDL Cholesterol Reference Range: Low Risk >=60 High Risk <40LDL Cholesterol Reference Range: Optimal <100 Near Optimal 100-129 Borderline 130-159 High 160-189 Very High >=190 Silo Tender ID - PIAYALBASIC METABOLIC [id number] 03:47:00 Test Item Value Reference Range Interpretation Comments SODIUM (BEAKER) 138 meq/L 136-145 (test code = 381) POTASSIUM (BEAKER) 3.7 meq/L 3.5-5.1 (test code = 379) CHLORIDE (BEAKER) 111 meq/L 98-107 H (test code = 382) CO2 (BEAKER) (test 17 meq/L 22-29 L code = 355) BLOOD UREA NITROGEN 27 mg/dL 7-21 H (BEAKER) (test code = 354) CREATININE (BEAKER) 1.40 mg/dL 0.57-1.25 H (test code = 358) GLUCOSE RANDOM 289 mg/dL 70-105 H (BEAKER) (test code = 652) CALCIUM (BEAKER) 8.9 mg/dL 8.4-10.2 (test code = 697) EGFR (BEAKER) (test 50 mL/min/1.73 ESTIMA TERRIE GFR IS code = 1092) sq m NOT ACCURATE CREATININE CLEARANCE IN PREDICTING GLOMERULAR FILTRATION RATE . ESTIMATED GFR I S NOT APPLICABLE FOR DIALYSIS PATIEN TS. Silo Tender ID - PIAYA LC-REACTIVE [id number] 03:47:00 Test Item Value Reference Range Interpretation Comments C-REACTIVE PROTEIN (BEAKER) (test 0.13 mg/dL 0.00-0.50 code = 676) Silo Tender ID - PIAYA LPROTHROMBIN TIME/[id number] 03:15:00 Test Item Value Reference Range Interpretation Comments PROTIME (BEAKER) (test code = 13.1 seconds 11.9-14.2 759) INR (BEAKER) (test code = 370) 1.0 <=5.9 Effective 08/08/2018: PT Reference Range ChangeNew: 11.9-14.2 Previous: 11.7- 14.7RECOMMENDED COUMADIN/WARFARIN INR THERAPY RANGESSTANDARD DOSE: 2.0-3.0 Includes: PROPHYLAXIS for venous thrombosis, systemic embolization; TREATMENT for venous thrombosis and/or pulmonary embolus.HIGH RISK: Target INR is2.5-3.5 for patients wiht mechanical heart valves.CBC W/PLT COUNT & AUTO [id number] 03:07:00 Test Item Value Reference Range Interpretation Comments WHITE BLOOD CELL COUNT (BEAKER) 10.2 K/ L 3.5-10.5 (test code = 775) RED BLOOD CELL COUNT (BEAKER) 4.34 M/ L 4.63-6.08 L (test code = 761) HEMOGLOBIN (BEAKER) (test code = 12.9 GM/DL 13.7-17.5 L 410) HEMATOCRIT (BEAKER) (test code = 36.2 % 40.1-51.0 L 411) MEAN CORPUSCULAR VOLUME (BEAKER) 83.4 fL 79.0-92.2 (test code = 753) MEAN CORPUSCULAR HEMOGLOBIN 29.7 pg 25.7-32.2 (BEAKER) (test code = 751) MEAN CORPUSCULAR HEMOGLOBIN CONC 35.6 GM/DL 32.3-36.5 (BEAKER) (test code = 752) RED CELL DISTRIBUTION WIDTH 12.8 % 11.6-14.4 (BEAKER) (test code = 412) PLATELET COUNT (BEAKER) (test 153 K/CU MM 150-450 code = 756) MEAN PLATELET VOLUME (BEAKER) 11.7 fL 9.4-12.4 (test code = 754) NUCLEATED RED BLOOD CELLS 0 /100 WBC 0-0 (BEAKER) (test code = 413) NEUTROPHILS RELATIVE PERCENT 62 % (BEAKER) (test code = 429) LYMPHOCYTES RELATIVE PERCENT 27 % (BEAKER) (test code = 430) MONOCYTES RELATIVE PERCENT 7 % (BEAKER) (test code = 431) EOSINOPHILS RELATIVE PERCENT 3 % (BEAKER) (test code = 432) BASOPHILS RELATIVE PERCENT 1 % (BEAKER) (test code = 437) NEUTROPHILS ABSOLUTE COUNT 6.31 K/ L 1.78-5.38 H (BEAKER) (test code = 670) LYMPHOCYTES ABSOLUTE COUNT 2.76 K/ L 1.32-3.57 (BEAKER) (test code = 414) MONOCYTES ABSOLUTE COUNT (BEAKER) 0.71 K/ L 0.30-0.82 (test code = 415) EOSINOPHILS ABSOLUTE COUNT 0.28 K/ L 0.04-0.54 (BEAKER) (test code = 416) BASOPHILS ABSOLUTE COUNT (BEAKER) 0.05 K/ L 0.01-0.08 (test code = 417) IMMATURE GRANULOCYTES-RELATIVE 0 % 0-1 PERCENT (BEAKER) (test code = 0725)
--- OUTSIDE RECORDS SUMMARY | 2019-09-02 16:45 | XMS REPORT | Summary of Care ---
:1950 Author Organization [facility] Address [id number] Care Team Providers Name Role Phone Ajay Jimenez MD Primary Care Provider Reason for Referral Radiology Services (Routine) Status Reason Specialty Diagnoses / Procedures Referred By Leticia craig Referred To Contact Pending Radiology Diagnoses Left carotid artery stenosis Rupa Kingsley MD Us Imaging Procedures US CAROTID [address] [facility] [address] [place] [address] [address] [place], [place] [address] [place] Phone: [phone] Fax: Reason for Visit Reason Comments Follow Up Encounter Details Date Type Department Care Team Description 06/12/2019 Office Visit [facility] uRpa Kingsley MD Follow Up Vascular Surgery [address] [facility] [address] [place] [address] [address] Floor, [address] [place] [address] [place] [address] [phone] Allergies No Known Allergiesdocumented as of this encounter (statuses as of 06/14/2019) Medications Medication Sig Dispensed Refills Start Date End Date Status LANTUS 100 UNIT/ML INJ 10 UNITS SC 0 05/26/2019 Active injection QAM AND 15 UNITS QPM BABY ASPIRIN OR Take by mouth. 0 Active HUMULIN R 100 UNIT/ML 0 05/26/2019 Active injection documented as of this encounter (statuses as of 06/14/2019) Active Problems Problem Noted Date Encounter for postoperative carotid endarterectomy kalie veillance 06/14/2019 Left carotid artery stenosis 06/14/2019 documented as of this encounter (statuses as of 06/14/2019) Social History Tobacco Use Types Packs/Day Years Used Date Never Smoker Smokeless Tobacco: Never Used Alcohol Use Drinks/Week oz/Week Comments Not Currently Sex Assigned at Date Recorded Not on file Job Start Date Occupation Industry Not on file Not on file Not on file Travel History Travel Start Travel End No recent travel history available. documented as of this encounter Last Filed Vital Signs Vital Sign Reading Time Taken Comments Blood Pressure 167/79 06/12/2019 10:46 AM CDT Pulse 56 06/12/2019 10:46 AM CDT Temperature - - Respiratory Rate - - Oxygen Saturation - - Inhaled Oxygen Concentration - - Weight - - Height - - Body Mass Index - - documented in this encounter Patient Instructions Patient InstructionsMaira Cruz MA - 06/12/2019 10:40 AM CDTThank you for choosing [facility]. You may receive a survey in the mail. Please provide comments to let us know how we can improve our patient care. Instructions for your care: Patient to return for follow up in 3 months with Mona Kingsley MD [facility] management professional Division of Vascular Surgery and Endovascular Therapy If you have any questions, please feel free to call us at: documented in this encounter Progress Notes Antonio Martinez NP - 06/12/2019 10:30 AM CDT Division of Vascular Surgery & Endovascular Therapy Benson Ahn Department of Surgery [facility], [place], [place] HISTORY & PHYSICAL EXAM FOR OUTPATIENT NEW VISIT FOR EVALUATION OF CAROTID ARTERY OCCLUSIVE DISEASE DATE OF VISIT: 06/12/19 PATIENT NAME: Taz Bowles : 1950; AGE: 68 y.o.; Sex:M PHONE NUMBER: ; (Work); ; #: [id number] PHYSICIAN: Kasi Martinez NP PRIMARY CARE / REFERRING PHYSICIAN: Ajay Jimenez MD / Ajay Jimenez / Man [address] / [facility] [id number] / REASON FOR EVALUATION / CHIEF COMPLAINT: Evaluation and Treatment of L Carotid Artery Occlusive Disease HISTORY OF PRESENT ILLNESS: Taz Bowles is a 68 y.o. male patient with PMH of DM, HTN, HLD and stork. Patient recently had a carotid endarterectomy done on May 24, 2019 at the [facility].Postoperatively, the patient currently reports no numbness in the upper or lower extremities, and no motor or sensory deficits. The patient reports no difficulty in cognitive ability, slurred speech, or impaired verbal communication capability. The patient's risk factors for atherosclerotic occlusive disease include:dyslipidemia, male gender and hypertension. The patient does not report of any post op problems. Currently, the patient is taking aspirin 81mg. PAST SURGICAL HISTORY: The patient's has a past surgical history that includes hx total knee replacement; hx cancer surgery other; and HX Colon surgery. PAST MEDICAL HISTORY: The patient has a past medical history of Stroke (HCCode) and Type 2 diabetesmellitus without complication (HCCode). FAMILY HISTORY: The patient's family history is not on file. CURRENT MEDICATIONS: Outpatient Medications Prior to Visit Medication Sig Dispense Refill BABY ASPIRIN OR Take by mouth. HumuLIN R Lantus INJ 10 UNITS SC QAM AND 15 UNITS QPM No facility-administered medications prior to visit. No Known Allergies SOCIAL HISTORY: reports that he has never smoked. He has never used smokeless tobacco. He reports previous alcohol use. He reports that he does not use drugs. FAMILY HISTORY: family history is not on file. REVIEW OF SYSTEMS: General: negative for - night sweats, sleep disturbance, weight gain or weight loss Psychological: negative for - anxiety, memory difficulties, mood swings or sleep disturbances Respiratory: no cough, shortness of breath, wheezing, dyspnea, sputum production, or hemoptysis. Cardiovascular: no chest pain, orthopnea, heart murmur, or dyspnea on exertion Gastrointestinal: no abdominal pain, change in bowel habits, jaundice, constipation, or black or bloody stools Genito-Urinary: no dysuria, trouble voiding, or hematuria Musculoskeletal: negative for - joint stiffness, joint swelling or bone pain Neurological: negative for - behavioral changes, headaches, impaired coordination, loss of balance, tingling sensation, dizziness, seizure, memory loss or weakness Dermatological: negative for - mole changes, nail changes, skin lesion changes, or skin discoloration. Hematological and Lymphatic: negative for - bleeding problems, blood clots, bruising, fatigue, swollen lymph nodes or history of anemia. Endocrine: negative for thyroid disease, heat or cold intolerance, polyuria, or polydipsia Psychiatric: negative for depression, sleep disturbance, suicidal ideation, anxiety disorder, or history of hallucinations VITAL SIGNS: BP 167/79 | Pulse 56 PHYSICAL EXAM: Constitutional: Well nourished, no signs of distress HENT: Non icteric sclerae, oropharynx clear. Normocephalic and atraumatic. Cranial nerves II-XI aregrossly intact. Pupils are equally reactive to light. Extraocular motor intact. Bilateral carotid bruits were present. Lymphadenopathy: He has no cervical, supraclavicular or axillary adenopathy, Cardiovascular: Normal rate, regular rhythm and normal heart sounds. No murmurs , rubs or gallops Pulmonary/Chest: Breath sounds normal. No respiratory distress. No adventitious sounds. Abdominal: Soft. No abdominal distension or tenderness. No masses palpated and no hepatomegaly. No organomegaly. No abdominal pulsatile mass noted. Musculoskeletal: Normal range of motion. No evidence of arthritis. Extremities: No edema, cyanosis or clubbing. Neurological: He is alert and oriented. No muscle weakness and normal gait. No motor or sensory deficits in all four extremities. VASCULAR: Palpable femoral pulses were present bilaterally with palpable bilateral popliteal arterial signals. Palpable signals were present in bilateral dorsalis pedis and posterior tibial artery arteries. Carotid Duplex Ultrasound Evaluation: Carotid duplex ultrasound on 06/12/2019: ASSESSMENT / PLAN: Carotid Artery Stenosis S/p L CEA: Patient is doing well at this time. Carotid duplex is normal at this time and the patient does not report of any symptoms at this time. The patient does not report ofpain and his surgical site is healing well. The patient will follow up with Vascular Clinic in 3 months with C80. Patient was instructed to continue taking Aspirin and to follow up with Neurology in regards to his ability to drive. ARSALAN Oconnor Department of Surgery Division of Vascular Surgery documented in this encounter Plan of Treatment Date Type Specialty Care Team Description 07/01/2019 Office Visit Endocrinology Laurent Winslow MD [address], [place] [address] [phone] Name Type Priority Associated Diagnoses Order S chedule US CAROTID Imaging Routine Left carotid artery stenosis 1 Occurrences starting 06/12/2019 unti l 06/11/2020 Health Maintenance Due Date Last Done Comments COLON CANCER SCREENING: COLONOSCOPY 1950 TETANUS SHOT (ADULT) 10/29/1963 HEPATITIS C SCREENING 1966 FALL SCREEN 2013 PNEUMOVAX >=65 (PPSV23) 2013 PREVNAR >= 65 (PCV13) 2013 MEDICARE AWV (Initial) 03/13/2018 FLU VACCINE > 6 MONTHS 10/12/2019 documented as of this encounter Results Not on filedocumented in this encounter Visit Diagnoses Diagnosis Left carotid artery stenosis - Primary Occlusion and stenosis of carotid artery without mention of cerebral infarction Encounter for postoperative carotid enda rterectomy surveillance documented in this encounter Insurance Payer Benefit Plan / Subscriber ID Effective Phone Address T ype Group Dates [employer] T[employer] SNP xxxxxxxx 2018-Pres [address] [facility] [id number] [place] [address] documented as of this encounter"
--- NOTE | 2019-09-02 17:19 | RAD REPORT ---
EXAM DESCRIPTION: RAD - Chest Single View - 09/02/2019 5:11 pm CLINICAL HISTORY: CHEST PAIN Chest pain. COMPARISON: Chest Single View dated 05/19/2019 FINDINGS: Portable technique limits examination quality. The lungs are grossly clear. The heart is normal in size. Small hiatal hernia. IMPRESSION: No acute intrathoracic process suspected.
[2019-09-02 17:24] LABS: Absolute Lymphocytes (CBC) 2.5 K/uL (0.7-4.9); Hematocrit 40.7 % (39.6-49.0); Lymphocytes % 30.8 % (15.3-44.8); MPV 10.1 fL (7.6-11.3); RBC Red Blood Cell Count 4.78 M/uL (4.33-5.43)
[2019-09-02 17:29] LABS: Protime INR 0.87
[2019-09-02 17:39] LABS: ALT/SGPT 13 U/L (12-78); AST/SGOT 14 U/L (15-37); Albumin 3.3 g/dL (3.4-5.0); Alkaline Phosphatase 108 U/L (45-117); BUN Blood Urea Nitrogen 29 mg/dL (7-18); Bicarbonate 21 mmol/L (21-32); Bilirubin Direct < 0.1 mg/dL (0-0.2); Bilirubin Total 0.5 mg/dL (0.2-1.0); Magnesium 2.3 mg/dL (1.8-2.4); NT PRO-BNP 49 pg/mL (<125); Potassium 5.5 mmol/L (3.5-5.1); Sodium Level 132 mmol/L (136-145); Troponin (Emerg Dept Use Only) < 0.02 ng/mL (0.0-0.045)
[2019-09-02 17:42] LABS: Glucose Level 618 mg/dL (74-106)
[2019-09-02] MEDS ORDERED: ASPIRIN 81 MG CHEWABLE TABLET ONE (18:32)
[2019-09-02] MEDS ORDERED: INSULIN -REGULAR HUMAN 50 UNIT/0.5 ML ML ONE (18:33)
[2019-09-02] MEDS ORDERED: SOD POLYSTYREN SUL 15 GM/60 ML UCUP ONE (18:33)
[2019-09-02] MEDS ORDERED: NA CHLORIDE 0.9% 500 ML ONE (18:33)
--- NOTE | 2019-09-02 18:37 | ER ---
Nurse's Notes [facility] Name: Taz Bowles Age: 68 yrs Sex: Male : 1950 Arrival Date: 09/02/2019 Time: 16:11 Bed 7 Private MD: Ajay Jimenez E Diagnosis: Chest pain, unspecified;Diabetes mellitus due to underlying condition with hyperglycemia;Acute kidney failure, unspecified;Hyperkalemia Presentation: 09/01 16:28 Chief complaint: Patient states: Chest pain on the L lateral side since yesterday, ca1 intermittent and non radiating. Reports SOB with chest pain. Denies cough, fever, dizziness. Denies hx of heart attack. Reports hx of CVA. Coronavirus screen: Proceed with normal triage. Patient denies a cough. Patient denies shortness of breath or difficulty breathing. Patient denies measured and/or subjective temperature greater than 100.4F prior to today's visit. Patient denies travel on a cruise ship or to a country the [facility] currently lists as an affected area. Patient denies contact with known and/or suspected case of COVID-19. Ebola Screen: Patient negative for fever greater than or equal to 101.5 degrees Fahrenheit, and additional compatible Ebola Virus Disease symptoms Patient denies exposure to infectious person. Patient denies travel to an Ebola-affected area in the 21 days before illness onset. No symptoms or risks identified at this time. Initial Sepsis Screen: Does the patient meet any 2 criteria? No. Patient's initial sepsis screen is negative. Does the patient have a suspected source of infection? No. Patient's initial sepsis screen is negative. Risk Assessment: Do you want to hurt yourself or someone else? Patient reports no desire to harm self or others. Onset of symptoms was September 02, 2019. 16:28 Method Of Arrival: Wheelchair ca1 16:28 Acuity: JORDIN 3 ca1 Triage Assessment: 16:26 General: Appears in no apparent distress. comfortable, Behavior is calm, cooperative, bp appropriate for age. Pain: Denies pain. EENT: No deficits noted. Neuro: No deficits noted. Cardiovascular: Rhythm is sinus rhythm. Respiratory: No deficits noted. GI: No signs and/or symptoms were reported involving the gastrointestinal system. : No signs and/or symptoms were reported regarding the genitourinary system. Derm: No deficits noted. Musculoskeletal: No deficits noted. Historical: - Allergies: 16:31 No Known Allergies; ca1 - Home Meds: 16:31 Insulin: Regular Sub-Q [Active]; ca1 16:31 aspirin 81 mg Oral chew 1 tab once daily [Active]; ca1 - PMHx: 16:31 Diabetes - NIDDM; Diabetes - IDDM; ca1 - PSHx: 16:31 Colon Resection; Knee surgery; ca1 - Immunization history:: Adult Immunizations not up to date. - Social history:: Smoking status: Patient denies any tobacco usage or history of. Screenin:27 Abuse screen: Denies threats or abuse. Denies injuries from another. Nutritional bp screening: No deficits noted. Tuberculosis screening: No symptoms or risk factors identified. Fall Risk None identified. Assessment: 16:27 General: SEE TRIAGE NOTE. Pain: Pain does not radiate. Pain began gradually. bp 18:22 Reassessment: PROVIDER AT B/S FOR RE-EVAL. VS STABLE ON MONITOR. bp 19:10 Reassessment: Patient appears in no apparent distress at this time. Patient and/or mg2 family updated on plan of care and expected duration. Pain level reassessed. Patient is alert, oriented x 3, equal unlabored respirations, skin warm/dry/pink. 21:11 Reassessment: Patient appears in no apparent distress at this time. Patient and/or mg2 family updated on plan of care and expected duration. Pain level reassessed. Patient is alert, oriented x 3, equal unlabored respirations, skin warm/dry/pink. still waiting for admitting orders in the [facility]. 21:21 Reassessment: Saji MCCARTHY on phone, reports having spoke with for consult sg on patient. pt to be admitted. 21:28 Reassessment: notified that IVETH MCCARTHY spoke with for consult, sg stated understanding. 21:37 Reassessment: Dr. Kauffman at bedside examining the patient. mg2 Vital Signs: 16:28 BP 204 / 68; Pulse 56; Resp 18 S; Temp 97.2(TE); Pulse Ox 100% on R/A; Weight 77.11 kg ca1 (R); Height 5 ft. 8 in. (172.72 cm) (R); Pain 0/10; 18:21 BP 162 / 70; Pulse 86; Resp 16; Pulse Ox 98% ; bp 19:17 BP 157 / 78; Pulse 59; Resp 18; Pulse Ox 100% on R/A; mg2 20:30 BP 137 / 70; Pulse 55; Resp 18; Pulse Ox 100% on R/A; mg2 21:13 BP 142 / 75; Pulse 54; Resp 18; Pulse Ox 100% ; mg2 21:30 BP 148 / 53; Pulse 58; Resp 18; Temp 97.2; Pulse Ox 100% on R/A; mg2 16:28 Body Mass Index 25.85 (77.11 kg, 172.72 cm) ca1 ED Course: 16:11 Patient arrived in ED. as 16:11 Ajay Jimenez MD is Private Physician. as 16:25 Chad Cano, CHELSI is Primary Nurse. bp 16:27 Arm band placed on. bp 16:27 Patient has correct armband on for positive identification. Bed in low position. Call bp light in reach. Side rails up X2. air sampling and monitoring on. Pulse ox on. NIBP on. 16:30 Triage completed. ca1 16:30 EKG done, by ED staff, reviewed by Janee Ho MD. 3 16:31 EKG completed in triage. Results shown to MD. ca1 16:36 Saji Mendoza PA is PHCP. cp 16:36 Janee Ho MD is Attending Physician. cp 17:01 Initial lab(s) drawn, by la, sent to lab. Inserted saline lock: 20 gauge in right dh3 forearm, using aseptic technique. Blood collected. 17:13 XRAY Chest (1 view) In Process Unspecified. EDMS 18:35 Prince Valenzuela MD is Hospitalizing Provider. cp 20:09 No provider procedures requiring assistance completed. Patient admitted, IV remains in mg2 place. Patient maintains SpO2 saturation greater than 95% on room air. Administered Medications: 17:05 Drug: Aspirin Chewable Tablet 324 mg Route: PO; bp 21:38 Follow up: Response: No adverse reaction mg2 18:20 Drug: Insulin Regular Human 10 units {Co-Signature: hb (Madeline London RN).} Route: bp IVP; Site: right wrist; 21:38 Follow up: Response: No adverse reaction; Blood sugar is lowered mg2 18:20 Drug: NS 0.9% 500 ml Route: IV; Rate: 500 ml/hr; Site: right wrist; bp 21:38 Follow up: Response: No adverse reaction; IV Status: Completed infusion; IV Intake: mg2 500ml 18:20 Drug: Kayexalate 30 grams Route: PO; bp 21:38 Follow up: Response: No adverse reaction mg2 Intake: 21:38 IV: 500ml; Total: 500ml. mg2 Outcome: 18:36 Decision to Hospitalize by Provider. cp 20:09 Admitted to Med/surg accompanied by tech, via wheelchair, room 219, with chart, Report mg2 called to CHELSI Gurrola 20:09 Condition: stable 20:09 Instructed on the need for admit, Demonstrated understanding of instructions. 22:41 Patient left the ED. mg2 Signatures: Dispatcher [employer] EDMS Anthony Ramirez, RN RN sg Sarah Hassan Corey, PA PA cp Herrera, Ayesha [facility] Chad Cano RN RN bp Mitchell Rosario RN RN mg2 Avril Milligan RN RN [facility] Madeline London RN Corrections: (The following items were deleted from the chart) 17:11 16:40 EKG done, by ED staff, reviewed by Janee Ho MD 3 3
--- NOTE | 2019-09-02 18:37 | EDPHYS ---
Physician Documentation [facility] Name: Taz Bowles Age: 68 yrs Sex: Male : 1950 Arrival Date: 09/02/2019 Time: 16:11 Bed 7 Private MD: Ajay Jimenez E ED Physician Janee Ho HPI: 09/01 17:00 This 68 yrs old Male presents to ER via Wheelchair with complaints of Chest cp Pain. 17:00 The patient or guardian reports chest pain that is located primarily in the left cp lateral anterior chest. 17:00 Onset: 30 minute(s) ago. The pain does not radiate. Associated signs and symptoms: cp Pertinent positives: shortness of breath, Pertinent negatives: abdominal pain, cough, diaphoresis, lower extremity pain, lower extremity swelling, syncope. Duration: The patient or guardian reports a single episode, that is now resolved. Severity of pain: in the emergency department the pain has resolved. Historical: - Allergies: 16:31 No Known Allergies; ca1 - Home Meds: 16:31 Insulin: Regular Sub-Q [Active]; ca1 16:31 aspirin 81 mg Oral chew 1 tab once daily [Active]; ca1 - PMHx: 16:31 Diabetes - NIDDM; Diabetes - IDDM; ca1 - PSHx: 16:31 Colon Resection; Knee surgery; ca1 - Immunization history:: Adult Immunizations not up to date. - Social history:: Smoking status: Patient denies any tobacco usage or history of. ROS: 17:05 Cardiovascular: Positive for chest pain, Negative for edema, palpitations. cp 17:05 Eyes: Negative for injury, pain, redness, and discharge. cp 17:05 Constitutional: Negative for body aches, chills, fever, poor PO intake. 17:05 Respiratory: Negative for cough, shortness of breath, wheezing. 17:05 Abdomen/GI: Negative for nausea, vomiting, and diarrhea, constipation, black/tarry cp stool, rectal bleeding. 17:05 Back: Negative for radiated pain. 17:05 Skin: Negative for rash. 17:05 Neuro: Negative for altered mental status, dizziness, headache, syncope, weakness. 17:05 All other systems are negative. Exam: 16:30 ECG was reviewed by the Attending Physician. cp 17:10 Constitutional: The patient appears in no acute distress, alert, awake, cp non-diaphoretic, non-toxic, well developed, well nourished. 17:10 Head/Face: Normocephalic, atraumatic. cp 17:10 Eyes: Periorbital structures: appear normal, Conjunctiva: normal, no exudate, no injection, Sclera: no appreciated abnormality, Lids and lashes: appear normal, bilaterally. 17:10 ENT: External ear(s): are unremarkable, Nose: is normal, Mouth: is normal, Posterior cp pharynx: Airway: no evidence of obstruction, patent. 17:10 Neck: ROM/movement: is normal, is supple, without pain, no range of motions limitations, no nuchal rigidity. 17:10 Chest/axilla: Inspection: normal, Palpation: is normal, no crepitus, no tenderness. 17:10 Cardiovascular: Rate: bradycardic, Rhythm: regular, Heart sounds: murmur, not appreciated, Edema: is not appreciated, JVD: is not appreciated. 17:10 Respiratory: the patient does not display signs of respiratory distress, Respirations: cp normal, no use of accessory muscles, no retractions, labored breathing, is not present, Breath sounds: are clear throughout, no decreased breath sounds. 17:10 Abdomen/GI: Inspection: abdomen appears normal, Palpation: abdomen is soft and non-tender, in all quadrants. 17:10 Back: pain, is absent. 17:10 Skin: no rash present. 17:10 Neuro: Orientation: to person, place \T\ time. Mentation: is normal, Cerebellar function: is grossly normal, Motor: moves all fours, strength is normal, Sensation: is normal. Vital Signs: 16:28 BP 204 / 68; Pulse 56; Resp 18 S; Temp 97.2(TE); Pulse Ox 100% on R/A; Weight 77.11 kg ca1 (R); Height 5 ft. 8 in. (172.72 cm) (R); Pain 0/10; 18:21 BP 162 / 70; Pulse 86; Resp 16; Pulse Ox 98% ; bp 19:17 BP 157 / 78; Pulse 59; Resp 18; Pulse Ox 100% on R/A; mg2 20:30 BP 137 / 70; Pulse 55; Resp 18; Pulse Ox 100% on R/A; mg2 21:13 BP 142 / 75; Pulse 54; Resp 18; Pulse Ox 100% ; mg2 21:30 BP 148 / 53; Pulse 58; Resp 18; Temp 97.2; Pulse Ox 100% on R/A; mg2 16:28 Body Mass Index 25.85 (77.11 kg, 172.72 cm) ca1 MDM: 17:00 Patient medically screened. cp 17:00 Differential diagnosis: abnormal EKG, acute myocardial infarction, chest wall pain, cp cholecystitis, Cholelithiasis esophagitis, pneumonia, pneumothorax, pulmonary embolus, stable angina, unstable angina. 17:50 Data reviewed: vital signs, nurses notes, lab test result(s), EKG, radiologic studies, cp plain films, I have discussed the patient's presentation/case with the attending Emergency Department Physician;. 18:10 Physician consultation: Prince Bianca VALIENTE was called at 18:10, was contacted at 18:10, cp regarding admission, to the telemetry unit. patient's condition, would like consultation with Dr. Bonds, art supervisor. 18:35 The patient was given aspirin in the Emergency Department. cp 18:35 Test interpretation: by ED physician or midlevel provider: ECG. Physician consultation: vera Bonds MD was contacted at 18:35, regarding consult, patient's condition, would like admission per Dr. Prince Bianca VALIENTE. 09/01 16:38 Order name: Basic Metabolic Panel; Complete Time: 17:43 cp 09/01 17:43 Interpretation: Normal except: NA 132; K 5.5; GLUC 618; BUN 29; CRE 2.42; GFR 27. cp 09/01 16:38 Order name: CBC with Diff; Complete Time: 17:31 cp 09/01 17:31 Interpretation: Normal except: PLT 134. cp 09/01 16:38 Order name: LFT's; Complete Time: 17:43 cp 09/01 17:45 Interpretation: Normal except: AST 14; ALB 3.3; GLOB 3.7; A/G 0.9. cp 09/01 16:38 Order name: Magnesium; Complete Time: 17:43 cp 09/01 16:38 Order name: NT PRO-BNP; Complete Time: 17:43 cp 09/01 16:38 Order name: PT-INR; Complete Time: 17:43 cp 09/01 16:38 Order name: Troponin (emerg Dept Use Only); Complete Time: 17:43 cp 09/01 17:46 Interpretation: Reviewed. cp 09/01 16:38 Order name: XRAY Chest (1 view); Complete Time: 17:31 cp 09/01 16:38 Order name: EKG; Complete Time: 16:39 cp 09/01 20:25 Order name: Glucose, Ancillary Testing; Complete Time: 21:46 EDMS 09/01 16:38 Order name: Cardiac monitoring; Complete Time: 16:46 cp 09/01 16:38 Order name: EKG - Nurse/Tech; Complete Time: 16:45 cp 09/01 16:38 Order name: IV Saline Lock; Complete Time: 17:01 cp 09/01 16:38 Order name: Labs collected and sent; Complete Time: 17:01 cp 09/01 16:38 Order name: O2 Per Protocol; Complete Time: 16:46 cp 09/01 16:38 Order name: O2 Sat Monitoring; Complete Time: 16:46 cp EC:30 Rate is 57 beats/min. Rhythm is regular. CO interval is normal. QRS interval is normal. cp QT interval is normal. T waves are Inverted in lead aVL. Interpreted by me. Reviewed by me. Administered Medications: 17:05 Drug: Aspirin Chewable Tablet 324 mg Route: PO; bp 21:38 Follow up: Response: No adverse reaction mg2 18:20 Drug: Insulin Regular Human 10 units {Co-Signature: hb (Madeline London RN).} Route: bp IVP; Site: right wrist; 21:38 Follow up: Response: No adverse reaction; Blood sugar is lowered mg2 18:20 Drug: NS 0.9% 500 ml Route: IV; Rate: 500 ml/hr; Site: right wrist; bp 21:38 Follow up: Response: No adverse reaction; IV Status: Completed infusion; IV Intake: mg2 500ml 18:20 Drug: Kayexalate 30 grams Route: PO; bp 21:38 Follow up: Response: No adverse reaction mg2 Disposition: 09/02/19 18:36 Hospitalization ordered by Prince Bianca for Observation. Preliminary diagnosis are Chest pain, unspecified, Diabetes mellitus due to underlying condition with hyperglycemia, Acute kidney failure, unspecified, Hyperkalemia. - Bed requested for Telemetry/MedSurg (observation). - Status is Observation. mg2 - Condition is Stable. - Problem is new. - Symptoms have improved. Addendum: 09/08/2019 02:26 Co-signature as Attending Physician, Janee Ho MD. m a2 Signatures: Dispatcher [employer] EDMS Jeannine Redd RN RN dw Saji Mendoza, PA PA cp Chad Cano RN RN bp Janee Ho MD MD id2 Mitchell Rosario RN RN mg2 Avril Milligan RN RN ca1 Madeline London RN Corrections: (The following items were deleted from the chart) 09/01 19:29 18:36 Hospitalization Ordered by Prince Bianca VALIENTE for Observation. Preliminary dw diagnosis is Chest pain, unspecified; Diabetes mellitus due to underlying condition with hyperglycemia; Acute kidney failure, unspecified; Hyperkalemia. Bed requested for Telemetry/MedSurg (observation). Status is Observation. Condition is Stable. Problem is new. Symptoms have improved. cp 21:42 21:40 Onset: The symptoms/episode began/occurred 30 minute(s) ago, cp cp 22:41 19:29 09/02/2019 18:36 Hospitalization Ordered by Prince Bianca VALIENTE for Observation. mg2 Preliminary diagnosis is Chest pain, unspecified; Diabetes mellitus due to underlying condition with hyperglycemia; Acute kidney failure, unspecified; Hyperkalemia. Bed requested for Telemetry/MedSurg (observation). Status is Observation. Condition is Stable. Problem is new. Symptoms have improved. dw
--- NOTE | 2019-09-02 22:14 | P.HP ---
Certification for Inpatient Patient admitted to: Observation With expected LOS: <2 Midnights Practitioner: I am a practitioner with admitting privileges, knowledge of patient current condition, hospital course, and medical plan of care. Services: Services provided to patient in accordance with Admission requirements found in Title 42 Section 412.3 of the Code of Federal Regulations Patient History Date of Service: 09/02/19 Reason for admission: Chest pain History of Present Illness: 68-year-old gentleman with a history of insulin dependent diabetes mellitus presents emergency department with a complaint of chest of onset this afternoon, chest pain located in the left under arm, precipitated by lifting a heavy object, described as dull, maximum intensity 5/10, no known relieving or aggravating factors. Patient came to the ED to be evaluated to make sure the chest pain is not related to his heart. He denies any known history of coronary artery disease. CAD risk factors include family history and diabetes. He was chest pain-free during my examination in the ED. EKG done in the ED shows Q- waves in the anterior leads, ST elevation vs J-point elevation which is un changed from previous EKG in May 2019. Initial troponin is negative. Chest x-ray is unremarkable. Patient is placed under observation for ACS rule out. Allergies No Known Allergies Allergy (Verified 09/02/19 20:16) - Past Medical/Surgical History -: Diabetes mellitus type 2 -: Colon resection for polyps -: Knee surgery - Family History Mother -: Heart disease - Social History Smoking Status: Never smoker Alcohol use: No CD- Drugs: No Place of Residence: Home Review of Systems Other: Except as documented, all other systems reviewed and negative. Physical Examination - Physical Exam General: Alert, In no apparent distress, Oriented x3 HEENT: Atraumatic, Normocephalic, PERRLA, Mucous membr. moist/pink, Sclerae nonicteric Neck: Supple, JVD not distended Respiratory: Clear to auscultation bilaterally, Normal air movement Cardiovascular: No edema, Normal pulses, Regular rate/rhythm, Normal S1 S2 Capillary refill: <2 Seconds Gastrointestinal: Normal bowel sounds, Soft and benign, Non-distended, No tenderness Musculoskeletal: No erythema Integumentary: No rashes Neurological: Normal speech, Normal strength at 5/5 x4 extr - Studies Laboratory Data (last 24 hrs) 09/02/19 17:00: PT 10.3, INR 0.87 09/02/19 17:00: WBC 8.2, Hgb 13.9, Hct 40.7, Plt Count 134 L 09/02/19 17:00: Sodium 132 L, Potassium 5.5 H, BUN 29 H, Creatinine 2.42 H, Glucose 618 H*, Magnesium 2.3, Total Bilirubin 0.5, AST 14 L, ALT 13, Alkaline Phosphatase 108 Assessment and Plan - Problems (Diagnosis) (1) Chest pain Current Visit: Yes Status: Acute (2) Uncontrolled type 2 diabetes mellitus with hyperglycemia Current Visit: Yes Status: Acute (3) Abnormal EKG Current Visit: Yes Status: Acute (4) Acute renal failure Current Visit: Yes Status: Acute (5) Hyperkalemia Current Visit: Yes Status: Acute - Plan Chest pain appeared to be atypical. Place under observation. Trend troponin Cardiology Consult Obtain echocardiogram Aspirin Check hemoglobin A1c Continue home insulin regimen. Hydrate with IV normal saline Monitor renal function. Status post Kayexalate in the ED. Recheck potassium level in a.m. - Advance Directives Does patient have a Living Will: No Does patient have a Durable POA for Healthcare: No
[2019-09-02] MEDS ORDERED: NITROGLYCERIN 0.4 MG/TAB SL PRN (22:49)
[2019-09-02] MEDS ORDERED: MORPHINE 4 MG/ML SYR IV PRN (22:49)
[2019-09-02 23:40] VITALS: BMI 24.0
[2019-09-02] MEDS: NA CHLORIDE 0.9% 1,000 ML IV SCH (23:42)
[2019-09-02 23:57] LABS: HDL Cholesterol 46 mg/dL (40-60); LDL Cholesterol, Calculated 103 (<130); Troponin I < 0.02 ng/mL (0.0-0.045)
[2019-09-03] MEDS ORDERED: GLUCAGON 1 MG/VIAL IM PRN ×2 (00:30→15:38)
[2019-09-03] MEDS ORDERED: D50W 25 GM/50 ML SYRINGE/VIAL IV PRN ×2 (00:30→15:38)
[2019-09-03] MEDS: HEPARIN 5000 UNIT/ML 1 ML VIAL SQ SCH ×3 (00:31→17:00)
[2019-09-03] MEDS: INSULIN -REGULAR HUMAN 50 UNIT/0.5 ML ML SQ SCH ×4 (01:10→17:05)
[2019-09-03 04:21] LABS: Absolute Lymphocytes (CBC) 3.1 K/uL (0.7-4.9); Basophils % 1.2 % (0-1.3); Hematocrit 37.9 % (39.6-49.0); Lymphocytes % 34.2 % (15.3-44.8); MPV 10.2 fL (7.6-11.3); RBC Red Blood Cell Count 4.52 M/uL (4.33-5.43)
[2019-09-03 04:45] LABS: Potassium 4.1 mmol/L (3.5-5.1)
[2019-09-03] MEDS ORDERED: INSULIN -REGULAR HUMAN 50 UNIT/0.5 ML ML SQ SCH (07:30)
--- NOTE | 2019-09-03 07:57 | P.PN ---
Subjective Date of Service: 09/03/19 Chief Complaint: Chest pain Patient denies any chest pain. He has no complain this morning. Troponin trended negative Physical Examination - Vital Signs Temperature: 97.8 F Blood Pressure: 148/68 Pulse: 55 Respirations: 20 Pulse Ox (%): 99 - Physical Exam General: Alert, In no apparent distress HEENT: Mucous membr. moist/pink, Sclerae nonicteric Neck: JVD not distended Respiratory: Clear to auscultation bilaterally, Normal air movement Cardiovascular: No edema, Regular rate/rhythm, Normal S1 S2 Gastrointestinal: Normal bowel sounds, Soft and benign, No tenderness Musculoskeletal: No swelling Integumentary: No rashes - Studies Laboratory Data (last 24 hrs) 09/02/19 17:00: PT 10.3, INR 0.87 09/02/19 17:00: WBC 8.2, Hgb 13.9, Hct 40.7, Plt Count 134 L 09/02/19 17:00: Sodium 132 L, Potassium 5.5 H, BUN 29 H, Creatinine 2.42 H, Glucose 618 H*, Magnesium 2.3, Total Bilirubin 0.5, AST 14 L, ALT 13, Alkaline Phosphatase 108 Assessment And Plan - Current Problems (Diagnosis) (1) Chest pain Current Visit: Yes Status: Acute (2) Uncontrolled type 2 diabetes mellitus with hyperglycemia Current Visit: Yes Status: Acute (3) Abnormal EKG Current Visit: Yes Status: Acute (4) Acute renal failure Current Visit: Yes Status: Acute (5) Hyperkalemia Current Visit: Yes Status: Acute - Plan Cardiology Consult is pending Obtain echocardiogram. Will order nuclear stress test given Q-waves in anterior leads. Patient denies any history of coronary artery disease or PR in the past. Aspirin High hemoglobin A1c denoting uncontrolled diabetes. Continue home insulin regimen I just as needed. Serum creatinine has improved with IV hydration. Continue IV fluid. Hyperkalemia resolved.
[2019-09-03] MEDS ORDERED: PNEUMOCOCCAL VACCINE 0.5 ML IMVAC ONE (08:00)
[2019-09-03] MEDS ORDERED: REGADENOSON 0.4 MG/5 ML SYR IV ONE (08:03)
--- NOTE | 2019-09-03 08:05 | P.DS ---
Admission Date: 09/02/19 Discharge Date: 09/03/19 Disposition: ROUTINE DISCHARGE Discharge Condition: GOOD Reason for Admission: Chest pain - Problems (1) Chest pain Status: Acute (2) Uncontrolled type 2 diabetes mellitus with hyperglycemia Status: Acute (3) Abnormal EKG Status: Acute (4) Acute renal failure Status: Acute (5) Hyperkalemia Status: Acute Brief History of Present Illness: 68-year-old gentleman with a history of insulin dependent diabetes mellitus presents emergency department with a complaint of chest of onset this afternoon, chest pain located in the left under arm, precipitated by lifting a heavy object, described as dull, maximum intensity 5/10, no known relieving or aggravating factors. Patient came to the ED to be evaluated to make sure the chest pain is not related to his heart. He denies any known history of coronary artery disease. CAD risk factors include family history and diabetes. He was chest pain-free during my examination in the ED. EKG done in the ED shows Q-waves in the anterior leads, ST elevation vs J-point elevation which is unchanged from previous EKG in May 2019. Initial troponin is negative. Chest x-ray is unremarkable. Patient placed under observation for ACS rule out. Hospital Course: Troponin trended negative. Patient was chest pain free during the hospital stay, Echocardiogram done showed normal EF and no wall motion abnormality Nuclear stress test resulted no stress-induced ischemia. Seen by cardiology and deemed clinically stable for discharge Vital Signs/Physical Exam: Temp Pulse Resp BP Pulse Ox 97.8 F 55 20 148/68 H 99 09/03/19 07:57 09/03/19 07:57 09/03/19 07:57 09/03/19 07:57 09/03/19 07:57 General: In no apparent distress Respiratory: Clear to auscultation bilaterally, Normal air movement Cardiovascular: No edema, Normal pulses, Regular rate/rhythm, Normal S1 S2 Gastrointestinal: Normal bowel sounds, Soft and benign, No tenderness Musculoskeletal: No swelling Integumentary: No rashes Neurological: Normal speech, Normal strength at 5/5 x4 extr Laboratory Data at Discharge: WBC 8.9 K/uL (4.3-10.9) 09/03/19 03:48 Hgb 13.0 g/dL (13.6-17.9) L 09/03/19 03:48 Hct 37.9 % (39.6-49.0) L 09/03/19 03:48 Plt Count 131 K/uL (152-406) L 09/03/19 03:48 PT 10.3 SECONDS (9.5-12.5) 09/02/19 17:00 INR 0.87 09/02/19 17:00 Sodium 138 mmol/L (136-145) 09/03/19 03:48 Potassium 4.1 mmol/L (3.5-5.1) 09/03/19 03:48 BUN 41 mg/dL (7-18) H 09/03/19 03:48 Creatinine 1.46 mg/dL (0.55-1.3) H 09/03/19 03:48 Glucose 278 mg/dL (74-106) H 09/03/19 03:48 Magnesium 2.3 mg/dL (1.8-2.4) 09/02/19 17:00 Total Bilirubin 0.5 mg/dL (0.2-1.0) 09/02/19 17:00 AST 14 U/L (15-37) L 09/02/19 17:00 ALT 13 U/L (12-78) 09/02/19 17:00 Alkaline Phosphatase 108 U/L (45-117) 09/02/19 17:00 Troponin I < 0.02 ng/mL (0.0-0.045) 09/03/19 03:48 Triglycerides 158 mg/dL (<150) H 09/02/19 23:30 Cholesterol 181 mg/dL (<200) 09/02/19 23:30 HDL Cholesterol 46 mg/dL (40-60) 09/02/19 23:30 Cholesterol/HDL Ratio 3.93 09/02/19 23:30 Home Medications: Humulin R 100 7 units SQ TID 09/02/19 Insulin Glargine Human [Lantus*] 10 units SQ SEECOM 09/02/19 Aspirin [Children's Aspirin] 81 mg PO DAILY 09/03/19 Atorvastatin Calcium [Lipitor] 80 mg PO BEDTIME 30 Days #30 tablet 09/03/19 Nitroglycerin [Nitrostat*] 0.4 mg SL UD PRN #20 tab 09/03/19 New Medications: Atorvastatin Calcium [Lipitor] 80 mg PO BEDTIME 30 Days #30 tablet Nitroglycerin [Nitrostat*] 0.4 mg SL UD PRN #20 tab PRN Reason: Pain Scale 2-4 (Mild) Diet: ADA Activity: Ad [place] Followup: Rohan Bonds MD [ACTIVE - CAN ADMIT] -
[2019-09-03] MEDS ORDERED: ASPIRIN EC 81 MG TAB PO SCH (09:00)
[2019-09-03] MEDS: NA CHLORIDE 0.9% 1,000 ML IV SCH (09:29)
--- NOTE | 2019-09-03 10:00 | EKG ---
Test Date: 2019-09-02 Test Time: 16:23:49 Sand Caster: ARIELLE MEASUREMENT RESULTS: Intervals: Rate: 57 CO: 164 QRSD: 100 QT: 410 QTc: 399 [place]: P: 20 CO: 164 QRS: -5 T: 64 INTERPRETIVE STATEMENTS: Sinus bradycardia Anteroseptal infarct, age undetermined Abnormal ECG Compared to ECG 05/19/2019 11:46:19 No significant changes Electronically Signed On 09-03-19 09:59:08 CDT by Rohan Bonds
--- NOTE | 2019-09-03 10:38 | ECHO ---
HEIGHT: 5 ft 8 in WEIGHT: 158 lb 9 oz DATE OF STUDY: 09/03/[address]: bertram parr 2-DIMENSIONAL: YES M.MODE: YES DOPPLER: YES COLOR FLOW: YES TDS: NO PORTABLE: NO DEFINITY: NO BUBBLE STUDY: NO DIAGNOSIS: ABNORMAL EKG CARDIAC HISTORY: CATHERIZATION: NO SURGERY: NO PROSTHETIC VALVE: NO PACEMAKER: NO MEASUREMENTS (cm) DIASTOLIC (NORMALS) SYSTOLIC (NORMALS) IVSd 1.0 (0.6-1.2) LA Diam 3.0 (1.9-4.0) LVEF 69% LVIDd 4.2 (3.5-5.7) LVIDs 2.6 (2.0-3.5) %FS 38% LVPWd 1.1 (0.6-1.2) Ao Diam 2.4 (2.0-3.7) 2 DIMENSIONAL ASSESSMENT: RIGHT ATRIUM: NORMAL LEFT ATRIUM: NORMAL RIGHT VENTRICLE: NORMAL LEFT VENTRICLE: NORMAL TRICUSPID VALVE: NORMAL MITRAL VALVE: NORMAL PULMONIC VALVE: NORMAL AORTIC VALVE: NORMAL PERICARDIAL EFFUSION: NONE AORTIC ROOT: NORMAL LEFT VENTRICULAR WALL MOTION: NORMAL. DOPPLER/COLOR FLOW: MILD AORTIC REGURGITATION. COMMENTS: NORMAL LEFT VENTRICULAR SIZE AND FUNCTION. NO WALL MOTION ABNORMALITY. NO EFFUSION. MILD AORTIC REGURGITATION. TECHNOLOGIST: KSENIA PEDERSON
--- NOTE | 2019-09-03 12:09 | RAD REPORT ---
EXAM DESCRIPTION: NM - Rest Stress Cardiac Imaging - 09/03/2019 11:59 am CLINICAL HISTORY: Chest pain COMPARISON: None. TECHNIQUE: The patient was administered 10.6 mCi of Tc 99m Sestamibi prior to resting SPECT imaging of the heart. The patient was then administered 30.8 mCi of Tc 99m Sestamibi following exercise or ph armacologic stress. Multiplanar SPECT images were reviewed. FINDINGS: The end diastolic volume is 72 ml, the end systolic volume is 32 ml, and the ejection frac tion is 56 %. No stress-induced ischemic changes identifiable. No scarred myocardium seen. There is a moderate amou nt of attenuation artifact from the diaphragm. IMPRESSION: No stress induced ischemia or other suspicious findings. Ventricular volumes and ejection fraction are normal range.
[2019-09-03] MEDS ORDERED: INSULIN GLARGINE 100 UNITS/ML SQ SCH (16:00)
[2019-09-03 16:50] VITALS: BP 162/72; TEMP 98.7
[2019-09-03 17:03] VITALS: O2SAT 98
[2019-09-03] MEDS ORDERED: INSULIN REGULAR SQ SCH (21:00)
--- NOTE | 2019-09-04 05:14 | CON ---
Date of Consultation: 09/03/2019 Reason For Consultation: Chest pain and abnormal EKG. History Of Present Illness: Mr. Bowles is a 68-year-old white male with a history of diabetes, histo ry of CVA 4 years ago, has been a diabetic since 2008. He came in with sharp stabbing chest pain in the left anterior wall that radiates to the back. It is nonexertional. No nausea, vomiting, diaphor esis, PND, orthopnea, pedal edema, palpitations, or syncope. His symptoms are not related to food, b mel[place] position, exertion, or time of the day. By the time I saw him, he has already ruled out for myoc ardial infarction. His troponin was negative. His EKG was nonspecific. His BNP was negative, but h is glucose was 618. His creatinine was 2.42 and has improved to 1.46 after hydration and correction of his glucose. Past Medical History: As stated above. Allergies: NONE. Review of Systems: Negative. Social History: Positive for tobacco. Family History: Positive for diabetes. Medications: At home include aspirin and insulin. Physical Examination: Vital Signs: Stable. He was afebrile. HEENT: Negative. Neck: Supple without any bruit, lymphadenopathy, JVD, or thyromegaly. Chest: Clear to auscultation and percussion. Cardiac: Reveals a regular rhythm and rate. No murmurs, gallops, or rubs. Abdomen: Benign. Extremities: No clubbing, cyanosis, or edema. Diagnostic Data: As stated above. Impression And Plan: I think Mr. Bowles symptoms are very atypical. Nevertheless, he is a diabetic, has had a history of stroke 4 years ago. He has been a diabetic for 11 years. His EKG is abnormal, but not very specific. His troponin is negative. He definitely needs to have his glucose corrected . His creatinine has improved. An echocardiogram and stress test are pending. We will see what the y show before making any final decisions. If his stress test is negative, he can go home today. CHADWICK/DAXAL Voice ID: [id number] Report ID: [id number]
--- NOTE | 2019-09-04 08:06 | TREADPHA ---
DX: CHEST PAIN Date of Study: 09/03/2019 Ht: 5' 8 " Wt: 158 lb 0 oz Consulting Physician: ROJAS MEDICATIONS: ASPIRIN, DEXTROSE, GLUCAGON, HEPARIN, NOVOLIN- R, NITROSTAT, PNEUMOVAX, LANTUS HISTORY: 68 YEAR OLD MALE PATIENT WITH HISTORY, INSULIN DEPENDENT DIABETES MELLITUS. ADDMITTED FOR CHEST PAIN. DENIES CHEST PAIN AT TIME OF TESTING. PHYSICIAL EXAMINATION: RESTING B.P.: 160/64 RESTING H.R.: 49 RESTING EKG: SINUS BRADYCARDAI, OLD SEPTAL MYOCARDIAL INFARCTION PROTOCOL: LEXISCAN EXERCISE TIME: 3:30 B.P. AT PEAK STRESS: 109/56 IMPRESSION: LEXISCAN STRESS TEST PERFORMED. CARDIOLITE INJECTED PER PROTOCOL. NO SUPRA VENTRICULAR TACHYCARDIA, NO VENTRICULAR TACHYCARDIA. OCCASIONAL PREMATURE ATRIAL COMPLEXES NOTED. PATIENT DENIED CHEST PAIN. RESPIRATORY EVEN NON LABORED. TOLERATED WELL. SEE NUCLEAR MEDICINE REPORT.
[2019-09-04] MEDS ORDERED: ASPIRIN 81 MG CHEWABLE TABLET PO SCH (09:00)
== END 2019-09-03 17:00 | disposition home or self-care (01) ==
LOC: ER 16:10 → 2ND 22:27
PROVIDERS: ADMIT Internal Medicine; ATTEND Internal Medicine
DX: R07.89 Other chest pain (principal); E11.65 Type 2 diabetes mellitus with hyperglycemia; R94.31 Abnormal electrocardiogram [ECG] [EKG]; N17.9 Acute kidney failure, unspecified; E87.5 Hyperkalemia; I35.1 Nonrheumatic aortic (valve) insufficiency; I49.1 Atrial premature depolarization; Z11.59 Encounter for screening for other viral diseases; Z82.49 Family history of ischemic heart disease and other diseases of the circulatory system; Z79.4 Long term (current) use of insulin; Z79.82 Long term (current) use of aspirin; Z86.73 Personal history of transient ischemic attack (TIA), and cerebral infarction without residual deficits; Z72.0 Tobacco use
CPT/HCPCS: 96361; 93005; 93017; 93306; 85025 ×2; 80048 ×2; 36415 ×2; 83735; 85610; 80061; 82947 ×4; 80076; 83036; 84484 ×3; 83880; 71045; 78452; 96374; 99285; U0002; J1644; J2785; J7040; J7030 ×2; A9500; G0378 ×2

== ENCOUNTER 2020-04-03 04:55 | Observation (INO) | payer OTHER ==
--- OUTSIDE RECORDS SUMMARY | 2020-04-03 05:00 | XMS REPORT | Clinical Summary ---
:1950 Author Organization [facility] Address [address] [place] [address] Care Team Providers Name Role Phone Pcp, No MD Primary Care Provider Unavailable Allergies No Known Allergies Medications Medication Sig Dispensed Refills Start End Date Status Date aspirin 81 MG Take 1 tablet (81 30 tablet 0 Active chewable tablet mg total) by mouth 0 daily. atorvastatin Take 1 tablet (80 30 tablet 0 Active (LIPITOR) 80 MG mg total) by mouth 0 tablet nightly For cholesterol. traMADoL Take 1 tablet (50 8 tablet 0 Ac tive (ULTRAM) 50 mg mg total) by mouth 0 tablet every 6 (six) hours as needed for Pain. Max Daily Amount: 200 mg insulin regular Inject 0.06 mLs (6 10 mL 0 Active (HUMULIN Units total) 0 R,NOVOLIN R) 100 subcutaneously 3 unit/mL (three) times injection daily before meals Use as directed. insulin glargine Inject 10u QAM and 10 mL 0 03/ 5/20 Active (LANTUS) 100 15u QPM. 0 21 unit/mL injection insulin Use 5x a day for 100 each 0 Act jeremy syringe-needle insulin 0 U-100 (INSULIN injections. SYRINGE) 0.5 mL 29 gauge x 1/2" Syrg glucometer Use as directed to 1 each 0 Active (FREESTYLE) Misc check sugars. 0 blood sugar Use 4x a day to 100 strip 0 Ac tive diagnostic check sugars. 0 (GLUCOSE BLOOD) Strp lancets Misc Use 4x a day to 100 each 0 A ctive check sugars. 0 alcohol swabs Use before 100 each 0 Activ e (ALCOHOL PADS) checking sugars 0 PadM and administering insulin. glipiZIDE Take 5 mg by mouth 0 05/26/19 D iscontinued (GLUCOTROL XL) 5 daily. 20 (St op Taking at MG 24 hr tablet Disc harge) metFORMIN Take 1,000 mg by 0 05/26/19 Dis continued (GLUCOPHAGE) mouth daily with 20 (Stop Taking at 1000 MG tablet breakfast. Disc harge) Active Problems Problem Noted Date S/P carotid endarterectomy 05/25/2019 CVA (cerebral vascular accident) 05/20/2019 Carotid stenosis 05/19/2019 Encounters Date Type Specialty Care Team Description 06/11/2019 Telephone General Internal Gabriel, Diabetes Medicine Nathalie Rodriguez RN 06/11/2019 Telephone General Internal Gabriel Diabetes Medicine Nathalie Rodriguez RN 05/26/2019 Refill Internal Medicine Julio Forde MD 05/24/2019 Anesthesia Event Yoni Rebolledo M D Saatee, Siavosh, MD 05/24/2019 Surgery Rupa Kingsley MD ENDARTERECT SALTY,CAROTID 05/19/2019 Hospital Cardiology Zenaida, [place] Stenosis of le ft carotid artery (Primary Dx); - Encounter MD Rosa Unsteady gait; 05/26/2019 Chad Camacho Preoperat jeremy cardiovascular examination; MD Matias Cerebrovascular accident (CVA), unspecif ied mechanism (HCC); Julio Forde MD S/P carot id endarterectomy; Acute pain; Hyperglycemia; Hypertension, u nspecified type 05/19/2019 Travel after 04/03/2019 Family History Medical History Relation Name Comments Heart disease Mother Bradycardia Sister s/p PPM Relation Name Status Comments Mother Sister Social History Tobacco Use Types Packs/Day Years Used Date Never Smoker Sex Assigned at Date Recorded Not on file Last Filed Vital Signs Vital Sign Reading Time Taken Comments Blood Pressure 146/65 05/26/2019 1:10 PM CDT [...] 05/20/2019 1:27 PM CDT Plan of Treatment Health Maintenance Due Date Last Done Comments COLON CANCER SCREENING COLONOSCOPY 1950 PNEUMOCOCCAL 65+ YRS (1 of 1 - [id number] PCV13) 2013 MEDICARE ANNUAL WELLNESS (YEAR 2 or FIRST YEAR if no 03/14/2019 IPPE) INFLUENZA VACCINE (#1) 2019 Implants Implanted Type Area Statuary Painter Device Shelf Model / Identifier Expiration Serial / Date Lot Patch Periph Vascu-Grd 0.8x8cm [id number] - [id number] ANTS Left: [employer] 12/19/2023 [id number] / Implanted: Qty: 1 on 05/24/2019 by Rupa Kingsley MD at [facility] Arterial TECH:SURG INNOV [id number] / [id number] Description:LEFT CAROTID ARTERY Floseal Hemostatic Matrix Left: Arterial SHAFER 01/18/2020 [id number] / Implanted: Qty: 1 on 05/24/2019 by Rupa Kingsley MD at [facility] / [id number] Description:SITE - LEFT CAROTID Procedures Procedure Name Priority Date/Time Associated Comments [...] i n the results section. ENDARTERECTOMY,CAROTID 05/24/2019 12:25 Carotid stenos is, PM CDT left POCT-GLUCOSE [...] are i n the results section. after 04/03/2019 Results EKG-SCANNED (05/28/2019 8:20 AM CDT) Narrative Performed At This result has an attachment that is no t available. RHYTHM STRIP - SCAN (05/28/2019 8:20 AM CDT) Narrative Performed At This result has an attachment that is no t available. POC-Glucose meter (05/26/2019 1:09 PM CDT)Only the most recent of26 results within the time period is included. POC-Glucose Meter 99Comment: : 70 - 110 mg/dL [facility] TESTED AT [address], [address]: Distillery Miller/Technic mary ID = [id number] for JOSEPH HOOKS Specimen Blood Performing Organization Address City/State/Zipcode Phone Number [address] [address] CENTER CBC (Hemogram only) (05/26/2019 4:24 AM CDT)Only the most recent of2 results within the time period is included. Pathologist Sig nature WBC 9.7 3.5 - 10.5 K/L [facility] RBC 3.56 (L) 4.63 - 6.08 M/L [facility] Hemoglobin 10.6 (L) 13.7 - 17.5 GM/DL [facility] Hematocrit 31.3 (L) 40.1 - 51.0 % [facility] MCV 87.9 79.0 - 92.2 fL [facility] MCH 29.8 25.7 - 32.2 pg [facility] MCHC 33.9 32.3 - 36.5 GM/DL [facility] RDW 13.0 11.6 - 14.4 % [facility] Platelets 106 (L) 150 - 450 K/CU MM [facility] MPV 12.2 9.4 - 12.4 fL [facility] nRBC 0 0 - 0 /100 WBC [facility] Specimen Blood Performing Organization Address City/State/Zipcode Phone Number [address] [address] CENTER Phosphorus (05/26/2019 4:24 AM CDT)Only the most recent of3 resultswithin the time period is included. Pathologist Sig nature Phosphorus 3.4 2.3 - 4.7 mg/dL [facility] Specimen Blood Narrative Performed At Distillery Miller ID - GERMAINE [facility] ICAL [place] Performing Organization Address City/[facility]/Zipcode Phone Number [address] [address] CENTER Magnesium (05/26/2019 4:24 AM CDT)Only the most recent of3 resultswithin the time period is included. Pathologist Sig nature Magnesium 2.4 1.6 - 2.6 mg/dL [facility] Specimen Blood Narrative Performed At Dist[employer] ID - GERMAINE [facility] Performing Organization Address City/State/Zipcode Phone Number [address] [address] [place] Basic Metabolic Panel (05/26/2019 4:24 AM CDT)Only the most recent of7 results within the time period is included. Sodium 137 136 - 145 meq/L [facility] Potassium 4.1 3.5 - 5.1 meq/L [facility] Chloride 108 (H) 98 - 107 meq/L [facility] CO2 22 22 - 29 meq/L [facility] BUN 21 7 - 21 mg/dL [facility] Creatinine 1.08 0.57 - 1.25 [facility] mg/dL [facility] Glucose 164 (H) 70 - 105 mg/dL [facility] Calcium 9.0 8.4 - 10.2 [facility] mg/dL [facility] EGFR 68Comment: ESTIMATED mL/min/1.[address] [facility] GFR IS NOT m [facility] ACCURATE [place] CREATININE CLEARANCE IN PREDICTING GLOMERULAR FILTRATION RATE. ESTIMATED GFR IS NOT APPLICABLE FOR DIALYSIS PATIENTS. Specimen Blood Narrative Performed At [employer]illery [facility] SONJA Love [facility] MED ICAL CENTER Performing Organization Address City/State/Zipcode Phone Number [address] [address] [place] TRANSFUSION SERVICE REPORT - SCAN (05/25/2019 6:02 PM CDT)Only the most recent of2 resultswithin the time period is included. Narrative Performed At This result has an attachment that is no t available. aPTT (05/25/2019 2:55 AM CDT)Only the most recent of2 resultswithin the time period is included. Pathologist Sig nature PTT 30.4 22.5 - 36.0 seconds [facility] Specimen Blood Performing Organization Address City/[facility]/Zipcode Phone Number [facility] [address] [place] [address] CENTER Prothrombin time/INR (05/25/2019 2:55 AM CDT)Only the most recent of3 results within the time period is included. Pathologist Sig nature Protime 14.2 11.9 - 14.2 seconds [facility] INR 1.1 <=5.9 [facility] Specimen Blood Narrative Performed At Effective 08/08/2018: PT Reference Range [facility] Change New: 11.9-14.2 Previous: 11.7-14.7 RECOMMENDED COUMADIN/WARFARIN INR THERAPY RANGES STANDARD DOSE: 2.0-3.0 Includes: PROPHYLAXIS for venous thrombosis, systemic embolization; TREATMENT for venous thrombosis and/or pulmonary embolus. HIGH RISK: Target INR is 2.5-3.5 for patients wiht mechanical heart valves. Performing Organization Address City/State/Zipcode Phone Number [facility] [address] [place] [address] CENTER Prepare RBC (05/24/2019 5:52 PM CDT)Only the most recent of2 resultswithin the time period is included. Pathologist Sig [facility] CROSSMATCH COMPATIBLE SAFETRACE TX Unit ABO B Pos SAFETRACE TX UNIT NUMBER [id number] SAFETRACE TX Status RETURNED FROM ISSUE SAFETRACE TX Blood Bank Product RED BLOOD CELLS SAFETRACE TX PRODUCT CODE [id number] SAFETRACE TX Performing Organization Address City/[facility] Phone Number SAFETRACE TX CBC with platelet count + automated diff (05/24/2019 5:39 PM CDT)Only the most recent of2 resultswithin the time period is included. Pathologist [facility] WBC 12.6 (H) 3.5 - 10.5 [facility] K/L [facility] RBC 4.11 (L) 4.63 - 6.08 [facility] M/L [facility] Hemoglobin 12.1 (L) 13.7 - 17.5 [facility] GM/DL [facility] Hematocrit 35.0 (L) 40.1 - 51.0 % [facility] MCV 85.2 79.0 - 92.2 fL [facility] MCH 29.4 25.7 - 32.2 pg [facility] MCHC 34.6 32.3 - 36.5 [facility] GM/DL [facility] RDW 12.9 11.6 - 14.4 % [facility] Platelets 125 (L) 150 - 450 K/CU [facility] MPV 11.6 9.4 - 12.4 fL [facility] nRBC 0 0 - 0 /100 WBC [facility] % Neutros 77 % [facility] % Lymphs 17 % [facility] % Monos 4 % [facility] % Eos 1 % [facility] % Baso 0 % [facility] # Neutros 9.72 (H) 1.78 - 5.38 [facility] # Lymphs 2.12 1.32 - 3.57 [facility] # Monos 0.48 0.30 - 0.82 [facility] # Eos 0.12 0.04 - 0.54 [facility] # Baso 0.05 0.01 - 0.08 [facility] Immature 1 0 - 1 % [facility] Specimen Blood Performing Organization Address City/[facility]/Zipcode Phone Number [address] [address] CENTER Prepare Leuko-Red RBC (05/24/2019 4:01 PM CDT) Pathologist Sig nature CROSSMATCH COMPATIBLE SAFETRACE TX Unit ABO B Pos SAFETRACE TX UNIT NUMBER [id number] SAFETRACE TX Status READY SAFETRACE TX Blood Bank Product RED BLOOD CELLS SAFETRACE TX PRODUCT CODE [id number] SAFETRACE TX CROSSMATCH COMPATIBLE SAFETRACE TX Unit ABO B Pos SAFETRACE TX UNIT NUMBER [id number] SAFETRACE TX Status READY SAFETRACE TX Blood Bank Product RED BLOOD CELLS SAFETRACE TX PRODUCT CODE [id number] SAFETRACE TX Specimen Other Performing Organization Address City/State/Zipcode Phone Number SAFETRACE TX POC ACTIVATED CLOTTING TIME (05/24/2019 3:24 PM CDT)Only the most recent of3 resultswithin the time period is included. Activated Clotting 252Comment: : sec [facility] Time 74-137 seconds, [facility] MEDICAL Baseline: TESTED [facility]ENTER AT [facility] [address] [place] [address], [id number]: Distillery Miller/Technicia n ID = [id number] for JHONNY BONE Specimen Blood Performing Organization Address City/[facility] Centercode Phone Number [address] [phone] CENTER Tissue Exam (05/24/2019 3:14 PM CDT) Case Report Surgical Pathology Report Case: [id number] [facility] Authorizing Provider: Rupa Rodriguez MD Collected: 05/24/2019 [facility]4 [facility] Ordering Location: [facility] Received: 05/27/[address] [place] [address] PERIOPERATIVE SERVICES Pathologist: Rex Bardales MD Specimen: Plaque, LEFT CAROTID PLAQUE DIAGNOSIS ARTERY, LEFT CAROTID, ENDARTERECTOMY: [facility] Electronically CALCIFIC ATHEROSCLEROTIC PLAQUE WITH FOCAL INTRAPLAQUE HEMORRHAGE [facility] signed by Rex Bardales Signing Pathologist Direct Phone Line: [phone] [place] [address] MD Pavel on 05/31/2019 at 4 :20 PM CPT Code(s) 28036; 35039 [facility] CLINICAL HISTORY Preop diagnosis: [facility] Carotid stenosis, left [facility] SPECIMEN SOURCE Plaque [facility] GROSS DESCRIPTION Received in formalin [facility] labeled with the [facility] patient's name, MEDICAL CENTER accession number and "left carotid plaque" is a 3.2 cm in length x 1.0 cm in diameter bower-yellow tubular piece of focally calcified plaque. Supervisor Dry Cleaning sections are submitted in A1 following decalcification. PA/pl MICROSCOPIC Performed [facility] Specimen Tissue - Plaque (morphologic abnormality ) Performing Organization Address City/[facility]/Zipcode Phone Number [address] [address] CENTER ABORH, manual (05/23/2019 7:52 PM CDT) Pathologist Sig nature ABO Grouping B [facility] Rh Factor POS [facility] Specimen Blood Performing Organization Address [facility] Centercode Phone Number [address] [address] Type and screen, automated (05/23/2019 4:34 PM CDT) Pathologist Sig nature ABO/RH AUTOMATED B POSITIVE [facility] Ab Scrn NEGATIVE [facility] Specimen Blood Performing Organization Address [facility] Centerconj Phone Number [address] [address] Blood gas, venous (05/23/2019 5:47 AM CDT) Pathologist Sig nature pH, Garrett 7.35 7.32 - 7.42 [facility] pCO2, Garrett 44 41 - 51 mm Hg [facility] pO2, Garrett 41 (H) 25 - 40 mm Hg [facility] O2 Sat, Garrett 73.7 (H) 40.0 - 70.0 % [facility] HCO3, Garrett 24 21 - 29 mmol/L [facility] Base Excess, Garrett 2.2 -2.0 - 3.0 [facility] mmol/L [facility] Patient Temperature 97.0 [facility] FIO2 21 [facility] Specimen Blood - Central venous catheter, device (physical object) Performing Organization Address City/[facility] Centercode Phone Number [address] [address] CENTER PERIPHERAL VASCULAR REPORT - SCAN (05/21/2019 9:10 PM CDT) Narrative Performed At This result has an attachment that is no t available. Carotid doppler bilateral (05/21/2019 8:30 AM CDT) [facility] nature Ejection Fraction [facility] Specimen Impressions Performed At Right Impression [facility] 1. There is <50% diameter reduction (approximately [...] +----+----+-----+ +---- + + !Prox CCA !100 !24 !60 ! ! ! ! + +----+----+-----+ +---- + + !Dist CCA !85 !25.2!60 ! ! ! ! + +----+----+-----+ +---- + + !Prox ICA !91.5!25.8!60 !36% !<50% ! ! + +----+----+-----+ +---- + + !Dist ICA !101 !37.7!60 ! ! ! ! + +----+----+-----+ +---- + + !Prox ECA !132 !18.1!60 ! ! ! ! + +----+----+-----+ +---- + + !Vertebral !58.5!16.9!60 ! ! ! ! + +----+----+-----+ +---- + + !Prox Subclavian!108 ! !60 ! ! ! ! + +----+----+-----+ +---- + + - There is antegrade vertebral flow noted on the right side. - Additional Measurements:ICAPSV/CCAPSV 1.19.ICAEDV/CCAEDV 1.57. Carotid Left Measurements + +----+----+-----+ +---- + + !Location !PSV !EDV !Angle!%Stenosis 2D!%Stenosis Doppler!Tortuosity ! + +----+----+-----+ +---- + + !Prox CCA !108 !31.4!60 ! ! ! ! + +----+----+-----+ +---- + + !Dist CCA !75.4!27.5!60 ! ! ! ! + +----+----+-----+ +---- + + !Prox ICA !162 !61 !60 !58% !50-69% ! ! + +----+----+-----+ +---- + + !Dist ICA !133 !52.1!60 ! ! ! ! + +----+----+-----+ +---- + + !Prox ECA !147 !17.7!60 ! ! ! ! + +----+----+-----+ +---- + + !Vertebral !45.6!13.4!60 ! ! ! ! + +----+----+-----+ +---- + + !Prox Subclavian!116 ! !60 ! ! ! ! + +----+----+-----+ +---- + + - There is antegrade vertebral flow noted on the left side. - Additional Measurements:ICAPSV/CCAPSV 2.15.ICAEDV/CCAEDV 1.94. Narrative Performed At [facility] - Carotid Duplex Study [facility] ECHO HEARTLAB [facility] Demographics Patient Name SHANTEL DELVALLE Date of Study 05/21/2019 Age 68 Visit Number [id number] Gender Male Accession Number [id number] Date of 1950 Referring DARNELL LUEVANO Room Number 2904 Physician Senior Clinical Study Manager Katja [place] Interpreting Angie Thorpe, RN, RVT Physician MD Procedure Type of Study: Cerebral: Carotid, CAROTID DOPPLER, SAL ATERAL. Indications for Study:Discrepant findings re: L ICA stenosis. Patient Status:Routine. Study Location:Vascular Lab. Technical Quality:Adequate visualization . Risk Factors History of Disease + --+----+ + !Diagnosis !Date!Comments ! + --+----+ + !History/Risk Factors: ! !Stroke, DM ! + --+----+ + Procedure Note Interface, External Ris In - 05/21/2019 11:47 AM CDT [facility] - Carotid Duplex Study Demographics Patient Name SHANTEL DELVALLE ate of Study 05/21/2019 A ge 68 Visit Number [id number] G lobo Male Accession Number [id number] D ate of 1950 Referring DARNELL GOYALG Gretchen om Number [id number] Physician Senior Clinical Study Manager Katja South I nterpreting Angie Thorpe RN, RVT Amisha manzano MD Procedure Type of Study: Cerebral: Carotid, CAROTID [...] Measurements:ICAPSV/CCAPS V 2.15.ICAEDV/CCAEDV 1.94. Performing Organization Address City/State/Zipcode Phone Number [facility]CHO [facility]ART[facility] ECHOCARDIOGRAM REPORT - SCAN (05/20/2019 9:12 PM CDT) Narrative Performed At This result has an attachment that is no t available. Urinalysis with Microscopic If Indicated (05/20/2019 9:12 PM CDT) Color, UA Colorless [facility] Clarity, UA Clear [facility] Specific [place], 1.012 1.001 - 1.035 [facility] pH, UA 5.5 5.0 - 8.0 [facility] Protein, UA Negative Negative [facility] Glucose, UA 150 mg/dL (A) Negative [facility] Ketones, UA Negative Negative [facility] Bilirubin, UA Negative Negative [facility] Blood, UA Negative Negative [facility] Nitrite, UA Negative Negative [facility] Leukocytes, UA Negative Negative [facility] Urobilinogen, UA 0.2 0.2 - 1.0 mg/dL [facility] Specimen Source [facility] Specimen Urine Narrative Performed At Distillery Miller ID - [auto] [facility] Distillery Miller ID - tech Distillery [facility] ID - tech Performing Organization Address [facility] Centerconj Phone Number [facility] [address] [place] [address] CENTER ECG 12 lead (05/20/2019 12:36 PM CDT) Specimen Narrative Performed At Ventricular Rate 59 BPM GE MUSE Atrial Rate 59 BPM P-R Interval 172 ms QRS Duration 106 ms Q-T Interval 418 ms QTC Calculation(Bazett) 413 ms P [place] 50 degrees R [place] 1 degrees T [place] 61 degrees Sinus bradycardia Interatrial conduction delay [...] 418 ms QTC Calculation(Bazett) 413 ms P [place] 50 degrees R [place] 1 degrees T [place] 61 degrees Sinus bradycardia Interatrial conduction delay Anterior infarct , age undetermined Abnormal ECG No previous ECGs available Confirmed by MD RINALDI YOCHAI ([id number]) on 05/21/2019 6:45:20 AM Performing Organization Address City/[facility] Centercon[facility] Phone Number [employer] [facility] 2D Echo W/Doppler(CW/PW/Color) (05/20/2019 10:58 AM CDT) Pathologist Sig nature Ejection Fraction [facility] ECHO HEARTLAB [facility] Specimen Narrative Performed At Transthoracic Echocardiography Report (T TE) [facility] Demographics Patient Name SHANTEL MCKEON Date of Study 05/20/2019 Gender Male Visit Number [id number] Race Unknown Room Number 2263 Number Date of 1950 Referring Chad Camacho, Physician Age 68 year(s) Senior Clinical Study Manager Steph Espinoza, NB, RDCS,RVT,RDMS Cable Armorer Operator Becky Allen, Interpreting Chidi Escalante MD RDCS Physician Procedure Type [...] segments are hyperkinetic . Global LV systolic functi on hyperdynamic . LVEF by Coronado's method of disk assessment is increased (>70%) . Grade 1 diastolic dysfunction (impaired relaxation and low-normal LA pres sure). Left Atrium LA size is normal (16-34 [...] root size (SInus of Valsalva diameter) is norm al . Pericardium A trivial pericardial effusion is present . IVC/SVC/PA/PV/Pleural The estimated [...] 1.98 cm Aorta Ao Root S of Khadiajh.: 2.73 cm Doppler/Quantitative Measurements Mitral Valve MV Peak E-Wave: 0.92 m/s MV Peak A-Wave: 1.16 m/s E/A Ratio: 0.79 Peak Gradient: 3.37 mmHg Deceleration Time: 223.9 [...] Demographics Patient Name SHANTEL MCKEON Date of S kennydy 05/20/2019 Gender Male Visit Number [id number] Race Unknown Room Numb er 2263 Number Date of 1950 Referring Physician STEFFANIE Kruse Age 68 year(s) Sonograph er Steph Espinoza, CHADWICK, RDCS,RVT,RDMS Cable Armorer Operator Becky Allen, Interpret ing Chidi Escalante MD [...] VTI (PW): 36.3 cm Performing Organization Address City/[facility] Phone Number [facility] HEARTLAB MK[facility]ON CPACS Vitamin B12 and Folate (05/20/2019 9:02 AM CDT) Pathologist Sig nature Vitamin B12 282 213 - 816 pg/mL [facility] Folate 14.5 >=7.0 ng/mL [facility] Specimen Blood Narrative Performed At Distillery [facility] ID - KARL Curtis [facility] MED ICAL CENTER Performing Organization Address City/[facility]/Zipcode Phone Number [facility] [address] [place] [address] CENTER TSH/Free T4 If Indicated (05/20/2019 9:02 AM CDT) Pathologist Sig nature TSH 1.24 0.35 - 4.94 uIU/mL [facility] Specimen Blood Narrative Performed At [employer] [place] ID - PIAYA L [facility] Performing Organization Address City/[facility] Centercode Phone Number [address] [address] CENTER HIV-1 Antigen with HIV-1/2 Antibody (05/20/2019 9:02 AM CDT) Pathologist Sig nature HIV-1 Antigen with Nonreactive Nonreactive [facility] HIV 1&2 Antibody [facility] Specimen Blood Narrative Performed At [employer] [place] ID - PIMICHELLE L [facility] Performing Organization Address [facility] Centercode Phone Number 04 [address] [address] CENTER RPR (05/20/2019 9:02 AM CDT) Pathologist Sig nature RPR Nonreactive Nonreactive [facility] Specimen Blood Performing Organization Address City/[facility] Phone Number [address] [address] CENTER Homocysteine (05/20/2019 9:02 AM CDT) Pathologist Sig nature Homocysteine 15.2 5.1 - 15.4 umol/L [facility] Specimen Blood Narrative Performed At [facility] - PIMICHELLE L [facility] Performing Organization Address [facility] Centercode Phone Number [address] [address] CENTER MR brain without IV contrast (05/20/2019 6:19 AM CDT) Specimen Narrative Performed At FINAL REPORT [facility] EXAM: MR, BRAIN, WITHOUT CONTRAST, MR, M RA, BRAIN, WITHOUT CONTRAST, MR, MRA, NECK, WITHOUT IV CONTRAST CLINICAL INDICATION: Stroke follow-up. TECHNIQUE: Sagittal and coronal T1-w and axial T2-w, FLAIR, GRE, and diffusion-w images of the brain with ADC maps. 2D ibvi-cn-sqgnqo MRA of the neck. 3D hlcq-ha-theuhh MRA of th e head. Source data [...] Flow Voids: Normal Osseous Structures: Expected marrow si gnal. Included Orbits: Normal Paranasal Sinuses: Predominantly clear [...] bilaterally. Posterior Circulation: Right posterior cerebral artery (PATTERN ATTENDANT): H ypoplastic P1 segment with the remainder of the right PATTERN ATTENDANT supplied by the right posterior communicating artery. Left posterior cerebral artery (PATTERN ATTENDANT): Hy poplastic P1 segment with the remainder of the left PATTERN ATTENDANT supplied by th e left posterior communicating [...] Kannan Peña MD Report Verified Date/Time: 05/20/2019 06:42:15 Procedure Note Interface, External Ris In - 05/20/2019 10:20 AM CDT FINAL REPORT EXAM: MR, BRAIN, WITHOUT CONTRAST, MR, M RA, BRAIN, WITHOUT CONTRAST, MR, MRA, NECK, WITHOUT IV CONTRAST CLINICAL INDICATION: Stroke follow-up. TECHNIQUE: Sagittal and coronal T1-w and axial T2-w, FLAIR, GRE, and diffusion-w images of the brain with ADC maps. 2D fgab-ux-nmquvc MRA of the neck. 3D zsns-if-tmoazb MRA of th e head. Source data [...] bilaterally. Posterior Circulation: Right posterior cerebral artery (PATTERN ATTENDANT): H ypoplastic P1 segment with the remainder of the right PATTERN ATTENDANT supplied by the right posterior communicating artery. Left posterior cerebral artery (PATTERN ATTENDANT): Hy poplastic P1 segment with the remainder of the left PATTERN ATTENDANT supplied by th e left posterior communicating [...] 6:42:15 Performing Organization Address City/State/Zipcode Phone Number [facility] MRA neck without IV contrast (05/20/2019 6:19 AM CDT) Specimen Narrative Performed At FINAL REPORT [facility] EXAM: MR, BRAIN, WITHOUT CONTRAST, MR, M RA, BRAIN, WITHOUT CONTRAST, MR, MRA, NECK, WITHOUT IV CONTRAST CLINICAL INDICATION: Stroke follow-up. TECHNIQUE: Sagittal and coronal T1-w and axial T2-w, FLAIR, GRE, and diffusion-w images of the brain with ADC maps. 2D kyjn-vj-xlypie MRA of the neck. 3D akhl-xg-xfjbcx MRA of th e head. Source data [...] Flow Voids: Normal Osseous Structures: Expected marrow si gnal. Included Orbits: Normal Paranasal Sinuses: Predominantly clear [...] bilaterally. Posterior Circulation: Right posterior cerebral artery (PATTERN ATTENDANT): H ypoplastic P1 segment with the remainder of the right PATTERN ATTENDANT supplied by the right posterior communicating artery. Left posterior cerebral artery (PATTERN ATTENDANT): Hy poplastic P1 segment with the remainder of the left PATTERN ATTENDANT supplied by th e left posterior communicating [...] Kannan Peña MD Report Verified Date/Time: 05/20/2019 06:42:15 Procedure Note Interface, External Ris In - 05/20/2019 10:20 AM CDT FINAL REPORT EXAM: MR, BRAIN, WITHOUT CONTRAST, MR, M RA, BRAIN, WITHOUT CONTRAST, MR, MRA, NECK, WITHOUT IV CONTRAST CLINICAL INDICATION: Stroke follow-up. TECHNIQUE: Sagittal and coronal T1-w and axial T2-w, FLAIR, GRE, and diffusion-w images of the brain with ADC maps. 2D ezrw-vb-yhbeex MRA of the neck. 3D zapl-ej-ccwqhi MRA of th e head. Source data [...] bilaterally. Posterior Circulation: Right posterior cerebral artery (PATTERN ATTENDANT): H ypoplastic P1 segment with the remainder of the right PATTERN ATTENDANT supplied by the right posterior communicating artery. Left posterior cerebral artery (PATTERN ATTENDANT): Hy poplastic P1 segment with the remainder of the left PATTERN ATTENDANT supplied by th e left posterior communicating [...] 6:42:15 Performing Organization Address City/State/Zipcode Phone Number [facility] MRA head without IV contrast (05/20/2019 6:19 AM CDT) Specimen Narrative Performed At FINAL REPORT [facility] EXAM: MR, BRAIN, WITHOUT CONTRAST, MR, M RA, BRAIN, WITHOUT CONTRAST, MR, MRA, NECK, WITHOUT IV CONTRAST CLINICAL INDICATION: Stroke follow-up. TECHNIQUE: Sagittal and coronal T1-w and axial T2-w, FLAIR, GRE, and diffusion-w images of the brain with ADC maps. 2D pwhd-di-zwlowg MRA of the neck. 3D egvb-vw-tsokqh MRA of th e head. Source data [...] Flow Voids: Normal Osseous Structures: Expected marrow si gnal. Included Orbits: Normal Paranasal Sinuses: Predominantly clear [...] bilaterally. Posterior Circulation: Right posterior cerebral artery (PATTERN ATTENDANT): H ypoplastic P1 segment with the remainder of the right PATTERN ATTENDANT supplied by the right posterior communicating artery. Left posterior cerebral artery (PATTERN ATTENDANT): Hy poplastic P1 segment with the remainder of the left PATTERN ATTENDANT supplied by th e left posterior communicating [...] Kannan Peña MD Report Verified Date/Time: 05/20/2019 06:42:15 Procedure Note Interface, External Ris In - 05/20/2019 10:20 AM CDT FINAL REPORT EXAM: MR, BRAIN, WITHOUT CONTRAST, MR, M RA, BRAIN, WITHOUT CONTRAST, MR, MRA, NECK, WITHOUT IV CONTRAST CLINICAL INDICATION: Stroke follow-up. TECHNIQUE: Sagittal and coronal T1-w and axial T2-w, FLAIR, GRE, and diffusion-w images of the brain with ADC maps. 2D qful-kw-vittay MRA of the neck. 3D qfjt-qn-dmuqod MRA of th e head. Source data [...] bilaterally. Posterior Circulation: Right posterior cerebral artery (PATTERN ATTENDANT): H ypoplastic P1 segment with the remainder of the right PATTERN ATTENDANT supplied by the right posterior communicating artery. Left posterior cerebral artery (PATTERN ATTENDANT): Hy poplastic P1 segment with the remainder of the left PATTERN ATTENDANT supplied by th e left posterior communicating [...] RIS C-Reactive Protein (05/20/2019 2:50 AM CDT) Pathologist Sig nature CRP 0.13 0.00 - 0.50 mg/dL [facility] Specimen Blood Narrative Performed At [facility] - PIAYA L [facility] Performing Organization Address [facility] Centercode Phone Number [address] [address] [place] Hemoglobin A1c (05/20/2019 2:50 AM CDT) Pathologist Sig nature Hemoglobin A1C 10.4 (H) 4.3 - 6.1 % [facility] Specimen Blood Performing Organization Address City/[facility] Cent[facility]ode Phone Number [address] [address] [place] Hepatic function panel (05/20/2019 2:50 AM CDT) Pathologist Sig nature Protein, Total 5.9 (L) 6.0 - 8.3 gm/dL [facility] Albumin 3.6 3.5 - 5.0 g/dL [facility] Total Bilirubin 0.5 0.2 - 1.2 mg/dL [facility] Bilirubin, Direct 0.2 0.1 - 0.5 mg/dL [facility] Alkaline Phosphatase 70 40 - 150 U/L [facility] AST 11 5 - 34 U/L [facility] ALT <6 (L) 6 - 55 U/L [facility] Specimen Blood Narrative Performed At [facility] - KARL Curtis [facility] Performing Organization Address City/[facility] Centercode Phone Number [address] [address] [place] Lipid panel (05/20/2019 2:50 AM CDT) Pathologist Sig nature Triglycerides 274 mg/dL [facility] Cholesterol 177 mg/dL [facility] HDL 35 mg/dL [facility] [place] LDL Calculated 87 mg/dL [facility] Specimen Blood Narrative Performed At Triglyceride Reference Range: [facility] Low Risk <150 Borderline 150-199 High Risk 200-499 Very High Risk >=500 Cholesterol Reference Range: Low Risk <200 Borderline 200-239 High Risk >240 HDL Cholesterol Reference Range: Low Risk >=60 High Risk <40 LDL Cholesterol Reference Range: Optimal <100 Near Optimal 100-129 Borderline 130-159 High 160-189 Very High >=190 [facility] - VANESAAYA L Performing Organization Address City/State/Zipcode Phone Number [facility] [address] [place] [address] CENTER after 04/03/2019 Insurance Payer Benefit Plan / Subscriber ID Effective Phone Address T ype Group Dates [employer] CIGJOYCE [id number] 2018-Pre [facility] GiftlyQustreetKIRTLAND ALL sent Contracted Advance Directives For more information, please contact: [phone] Code Status Date Activated Date Inactivated Comments Full Code 05/19/2019 10:22 PM 05/26/2019 6:29 PM This code status was determined by: Patient
--- OUTSIDE RECORDS SUMMARY | 2020-04-03 05:02 | XMS REPORT | Continuity of Care Document ---
:1950 Author Organization [facility] t Address [address] [place] [address] [address]. [address]. [address] [place] [address] Care Team Providers Name Role Phone Pcp MD, Jackie Primary Care Physician Unavailable Rupa Kingsley MD Attending Clinician Gabriel GAGNON, Nathalie Rodriguez Attending Clinician Unavailable ROSA ESTEVEZ Attending Clinician Unavailable Rosa Estevez MD Attending Clinician Matias Camacho MD Attending Clinician Darnell VALIENTE Attending Clinician Kesha VALIENTE Attending Clinician Marcus VALIENTE Attending Clinician Sacnho VALIENTE Attending Clinician DARNELL Admitting Clinician Unavailable Payers Payer Name Policy Type Policy Effective Date Expiration Date Sour ce Number CIGNA [id number] [facility]PRINGCIGNA 00:00:00 - Medic nd HEALTHSPRING Center [id number] esentMaps Contracted Problems Condition Condition Condition Status Onset Resolution Last Treating Co mments Source Name Details Category Date Date Treatment Clinician Date S/P S/P Disease Active 2019- [facility] carotid [facility] - endarterec endarterec 00:00: Me dical harvinder harvinder 00 Center CVA CVA Disease Active [facility] (cerebral (cerebral 309 s - vascular vascular 00:00: Medica l accident) accident) 00 Cent er Carotid Carotid Disease Active 2020-[address] [facility] [address] stenosis stenosis 3-08 [facility] - 00:00: Medical 00 Center Allergies, Adverse Reactions, Alerts This patient has no known allergies or adverse reactions. Family History Family Member Diagnosis Comments Start Date Stop Date Source Natural mother Heart disease [facility] Natural sister Bradycardia [facility] Social History Social Habit Start Date Stop Date Quantity Comments Source Sex Assigned At [facility] Smoking Status Start Date Stop Date Source Never smoker [facility] Medications Ordered Filled Start Stop Current Ordering [...] 13:44: 00:00 daily. Med ical hr tablet 21 :00 Center metFORMIN 2019-0 2020- No 1000mg Take 1,[address] (GLUCOPHAGE 3-15 03-15 [facility] 1000 MG 13:44: 00:00 mouth Medica l tablet 21 :00 daily with Center breakfast. atorvastati 2019-0 Yes 80mg QD Take [address] n (LIPITOR) 3-15 tablet (80 Ivaan kes - 80 MG 00:00: mg total) [...] mL 29 gauge x 1/2" Syrg glucometer Yes Use as [facility] t (FREESTYLE) 3-15 directed Luke s - Misc 00:00: to check Medical 00 sugars. [place] blood sugar Yes Use 4x a [facility] diagnostic 3-15 day to [facility] - (GLUCOSE 00:00: check Medical BLOOD) Strp 00 sugars. Cente r lancets Yes Use 4x a [facility] Misc 3-15 day to [facility] - 00:00: check Medical 00 sugars. [place] alcohol Yes Use before [facility] swabs 15 checking [facility] - (ALCOHOL 00:00: sugars and Med ical PADS) PadM [address] ing insulin. insulin 2020- No Inject 10u [facility] glargine 315 03-15 QAM and [facility] - (LANTUS) 00:00: 23:59 15u QPM. Medi roxie 100 unit/mL 00 :00 Center injection Vital Signs Vital Name Observation Time Observation Value Comments Source Systolic blood 2019-05-26 13:10:00 146 mm[Hg] [facility] pressure [facility] Diastolic blood 2019-05-26 13:10:00 65 mm[Hg] [facility] S t [facility] pressure [facility] Heart rate 2019-05-26 13:10:00 53 /min [facility] Body temperature 2019-05-26 13:10:00 37.11 Madelin [facility] Respiratory rate 2019-05-26 13:10:00 18 /min [facility] Oxygen saturation in 2019-05-26 13:10:00 98 /min [facility] Arterial blood by Medical Ce nter Pulse oximetry Body height 2019-05-20 13:27:00 172.7 cm [facility] Body weight 2019-05-20 13:27:00 79.379 kg [facility] BMI 2019-05-20 13:27:00 26.61 kg/m2 [facility] Procedures Procedure Date / Time Performing Clinician Source Performed REPORT OF PROCEDURE - 2019-05-28 08:20:12 Provider, Default [facility] - ENDOSCOPY SCAN Scanning [facility] RHYTHM STRIP - SCAN 2019-05-28 08:20:07 Provider, [facility] POCT-GLUCOSE METER 2019-05-26 13:09:00 [facility] POCT-GLUCOSE METER 2019-05-26 07:31:00 [facility] BASIC METABOLIC PANEL (7) 2019-05-26 04:24:00 Nina Boss [facility] CBC (HEMOGRAM ONLY) 2019-05-26 04:24:00 Nina Boss [facility] MAGNESIUM 2019-05-26 04:24:00 Julisa Osman [facility] PHOSPHORUS 2019-05-26 04:24:00 [facility] POCT-GLUCOSE METER 2019-05-25 22:41:00 [facility]arnell [facility] TRANSFUSION SERVICE 2019-05-25 18:02:25 Provider, [facility] REPORT - [facility] POCT-GLUCOSE METER 2019-05-25 17:04:00 [facility] POCT-GLUCOSE METER 2019-05-25 12:27:00 Darnell [facility] POCT-GLUCOSE METER 2019-05-25 07:50:00 [facility] POCT-GLUCOSE METER 2019-05-25 04:58:00 Darnell [facility] POCT-GLUCOSE METER 2019-05-25 04:10:00 Darnell [facility] PROTHROMBIN TIME/INR 2019-05-25 02:55:00 Susanna Tsang [facility] I [facility] BASIC METABOLIC PANEL (7) 2019-05-25 02:55:00 Nina Boss [facility] CBC (HEMOGRAM ONLY) 2019-05-25 02:55:00 Nina Boss [facility] MAGNESIUM 2019-05-25 02:55:00 Julisa Osman [facility] PHOSPHORUS 2019-05-25 02:55:00 Julisa Osman [facility] APTT 2019-05-25 02:55:00 Sharan Susanna Ann [facility] POCT-GLUCOSE METER 2019-05-24 21:46:00 Julio Forde [facility] PROTHROMBIN TIME/INR 2019-05-24 19:37:00 Ajay Prince [facility] APTT 2019-05-24 19:37:00 Sharan Susanna Ann [facility] TRANSFUSION SERVICE 2019-05-24 18:01:54 Karri Kenyon [facility] REPORT - SCAN [facility] PREPARE RBC 2019-05-24 17:52:00 Rupa Kingsley [facility] BASIC METABOLIC PANEL (7) 2019-05-24 17:39:00 [facility] jaida la [facility] MAGNESIUM 2019-05-24 17:39:00 [facility] PHOSPHORUS 2019-05-24 17:39:00 [facility] CBC W/PLT COUNT & AUTO 2019-05-24 17:39:00 [facility] PREPARE LEUKO-REDUCED RBC 2019-05-24 16:01:00 Edis Quinonez [facility] I [facility] PREPARE RBC 2019-05-24 15:55:00 Rupa Kingsley [facility] POCT-ACT 2019-05-24 15:24:00 Julio Forde [facility] TISSUE EXAM 2019-05-24 15:14:00 Rupa Kingsley [facility] POCT-ACT 2019-05-24 15:13:00 Julio Forde [facility] POCT-ACT 2019-05-24 15:01:00 Julio Forde [facility] ENDARTERECTOMY,CAROTID 2019-05-24 12:25:00 Rupa Kingsley [facility] POCT-GLUCOSE METER 2019-05-23 21:51:00 Julio Forde [facility] ABORH, MANUAL 2019-05-23 19:52:00 Shiraz Clara Anne [facility] POCT-GLUCOSE METER 2019-05-23 17:51:00 Julio Forde [facility] TYPE AND SCREEN, 2019-05-23 16:34:00 Edis Quinonez [facility] - AUTOMATED [facility] POCT-GLUCOSE METER 2019-05-23 12:29:00 Julio Forde [facility] POCT-GLUCOSE METER 2019-05-23 08:28:00 Julio Forde [facility] BLOOD GAS, VENOUS 2019-05-23 05:47:00 Julio Forde [facility] BASIC METABOLIC PANEL (7) 2019-05-23 04:25:00 Julio Forde [facility] POCT-GLUCOSE METER 2019-05-23 00:53:00 Julio Forde [facility] POCT-GLUCOSE METER 2019-05-22 21:34:00 Julio Forde [facility] POCT-GLUCOSE METER 2019-05-22 17:29:00 Julio Forde [facility] POCT-GLUCOSE METER 2019-05-22 12:19:00 Julio Forde [facility] POCT-GLUCOSE METER 2019-05-22 08:55:00 Julio Forde [facility] BASIC METABOLIC PANEL (7) 2019-05-22 05:48:00 Chad Camacho [facility] POCT-GLUCOSE METER 2019-05-21 21:31:00 Julio Forde [facility] PERIPHERAL VASCULAR 2019-05-21 21:10:27 Karri Kenyon [facility] POCT-GLUCOSE METER 2019-05-21 17:27:00 Julio Forde [facility] POCT-GLUCOSE METER 2019-05-21 12:25:00 Julio Forde [facility] POCT-GLUCOSE METER 2019-05-21 10:03:00 DarnellElissaShyanne [facility] CAROTID DOPPLER BILATERAL 2019-05-21 08:30:00 Edis Quinonez [facility] BASIC METABOLIC PANEL (7) 2019-05-21 05:55:00 Chad Camacho [facility] ECHOCARDIOGRAM REPORT - 2019-05-20 21:12:05 Provider, Karri [facility] URINALYSIS WITH 2019-05-20 21:12:00 Darnell VasylShyanne [facility] - MICROSCOPIC IF INDICATED Medical Center POCT-GLUCOSE METER 2019-05-20 18:05:00 Darnell Julio [facility] POCT-GLUCOSE METER 2019-05-20 13:22:00 [facility]ell [facility] ECG 12-LEAD 2019-05-20 12:36:58 Sky Angie [facility] 2D ECHO W/ DOPPLER 2019-05-20 10:58:49 Chad Camacho [facility] (CW/PW/COLOR) [facility] POCT-GLUCOSE METER 2019-05-20 09:11:00 Elissa FordeIrlandaShyanne [facility] TSH/FREE T4 IF INDICATED 2019-05-20 09:02:00 Benson Newman shakeel [facility] VITAMIN B12 AND FOLATE 2019-05-20 09:02:00 Benson Newman y [facility] RPR 2019-05-20 09:02:00 Benson Newman [facility] HIV-1 ANTIGEN WITH 2019-05-20 09:02:00 Benson Newman [facility] HIV-1/2 ANTIBODY [facility] HOMOCYSTEINE 2019-05-20 09:02:00 Benson Newman [facility] MRA HEAD WITHOUT IV 2019-05-20 06:19:00 Chad Camacho [facility] MRA NECK WITHOUT IV 2019-05-20 06:19:00 Janice [facility] MR BRAIN WITHOUT IV 2019-05-20 06:19:00 aJnice [facility] POCT-GLUCOSE METER 2019-05-20 03:59:00 Janice [facility] BASIC METABOLIC PANEL (7) 2019-05-20 02:50:00 Janice [facility] PROTHROMBIN TIME/INR 2019-05-20 02:50:00 [facility] LIPID PANEL 2019-05-20 02:50:00 [facility], [facility] HEMOGLOBIN A1C 2019-05-20 02:50:00 [facility] C-REACTIVE PROTEIN 2019-05-20 02:50:00 [facility] HEPATIC FUNCTION PANEL 2019-05-20 02:50:00 Benson Newman [facility] CBC W/PLT COUNT & AUTO 2019-05-20 02:50:00 Chad Camacho I [facility] Planned Activity Planned Date Details Comments Source Future Scheduled 2019-11-12 INFLUENZA VACCINE (#1[facility]00 [code = INFLUENZA Medical Ce nter VACCINE (#1)] Future Scheduled 2019-03-[address] [facility] - Test 00:00:00 WELLNESS (YEAR 2 or Medical Center FIRST YEAR if no IPPE) [code = MEDICARE ANNUAL WELLNESS (YEAR 2 or FIRST YEAR if no IPPE)] Future Scheduled 2013 PNEUMOCOCCAL 65+ [facility] - Test 00:00:00 (1 of 1 - [facility] [id number]) [code = PNEUMOCOCCAL 65+ YRS (1 of 1 - [id number] PCV13)] Future Scheduled [address] [facility] - Test 00:00:00 [facility] colon (procedure) [code = 235144959] Encounters Start End Encounter Admission Attending Care Care Encounter Source Date/Time Date/Time Type Type Clinicians Facility Department ID 2019-06-12 2019-06-12 Office Sancho TIGIST [id number] 09:53:11 13:49:12 Visit Rupa AMBULATOR [id number] Y [id number] Results Test Description Test Time Test Comments Results Result Comments Source Tissue Exam 2019-05-31 16:20:00 Test Item Value Reference Range Interpretation Comme nts Case Report (test code = 104) Surgical Pathology Report Case: [id number] Authorizing Provider: Rupa Kingsley MD Collected: 05/24/2019 1514 Ordering Location: [facility] Received: 05/27/2019 0911 PERIOPERATIVE SERVICES Pathologist: Rex Bardales MD Specimen: Plaque, LEFT CAROTID PLAQUE DIAGNOSIS (test code = 3220) w2ibcEEgIBJnx5ghSVHddAJhCqLsGiLoGnEaQn pc uTKhSPxvbeZuMMwcq9ZyL8TpNaMgDWaogsZdYLAf DuqukmsiZNDnDMX0zuWbDSVgYEjoQUBrBGtzYu1h dIJseDdxXaRwLXNmw8hakbWQjyurrFq5r3plPTZj BiP8uVYkIYgyP3rscpCvkURfYAKkWFd6jL91MMCf zX1rvRUtMQmkdxAkTVgaoqDenpWfCdg6GXMhV6zc BDCrYGJoL6BrEQ2zOHDcJts7XBH0WBZ0kOgxg7H1 wFRmmRNidFyeXiUaCsKiSJVTg5JwRCq3zZimV3Hg SOXkMfZ4sFGcZVKxNSrjSMStLQHaksE6eR09FWtr zkN9gULgy8Tna27sn734eF2bdMFbSWG6WWKpXCGj mZOgDYSeNJM7NDWqjTGlJ6j5VuSzcGJjE4C1YhVs nFKpT7B4NkHypZRzN4T0JxQwyDEfSYCmxGGeFw1f mQHtmZCfyc9nmk08ORE7y9YxzBhdYDQ3MSA3IlBi Nz8tjRAuQLObAF5kSfDasCAgIXPuav43nCuzGMif aoHlsK9hIqGfIDYibMEbMPSsOG6ngTHaDUUygU7a otleZXXsLxQgslfjDZGkeCdeyrIaJa8aoOzsOMB3 GLhwR4gbrI8kGtO8OOklQ7vwvZ6gORg3QFyziCP6 YGBmuW2xJY7dqaikj9bcYgSkPL8rbdhqf4krNbQa LR0tkbz7w2itVdLjJF9zfsgim2ocLbMkPFniREHu dxksZGOjy5GzblgjRMLqh7VuC6BpqYvnM96coOgb Q71pLYGacWlidU9vqIxljR9hFeEoUwDnGSpwkGeo bGFpblxmMFxmczIwXHBsYWluXGYxXGZzMjAgQVJU CFLETUZQJIUKUTURYb6KYHFuTUSCSCKTJMDZSUXF V02GObrhETRbW1XJQ9mMRDRdDTPLYIKUC9CFHPLM LKjXZJPFLILYMLZTKVFIWXUHN0INDAdEHOGYDTqN ZMUYPUcCRH6KVnuCH1AcuUQioPgkacTsCEmar6Xl ZVpzNLUgOC9zrRzrNFLuDW3vKWGrB1vteK7tgaj3 XtSyXLLnPrS1SZWerxW9Qea6CFTjYDwpi6bqv8Sy MYZkZCh8uKkkVpCoTUCwq2yeldUoQjDeJCMuEQHp VSQabOSmX328b3pev7visaLidKL3UJDkBPC7YRyy dnHmddZ9IZozpRXyIdP3PFkszlCpYAljduGjwdQk Kig7CUQaD216FCR3kOkrm6xoSNK3BYRsKCJtJkQb Bu0nfINrR525BFRqGKESWVTnoKb7KVOgwdHcnoCk kIMMp517J648j2dnYLCzdyAgyCaQamxqd0eyS277 QDQlwNGjbeYhGhLyWXLyiDAktWK3XUAxUA3qcpxc RTcwNOprJOQofiG4WASnzHFzT7UqQYNcGI7jwzrh QIW0AErsRTZeETJ5VyDvEYRjw6Gviod9UjXmvf1c og35DIM9l5PbvDcsRKE8PHF9BsShMj3lyRHjSLYk QV1tMlNcoWFqBQDwbn00jRcaMBcdPKS3DGJkevWw r0Bun6vyMeHlqqXmB9frO0IxZXJyXXMtGTQaHaZm ymCbm6Gxl3AqmQKuyUh6c7dlYHKqTCUcbKujp5un DZG4QKVbwAIyE1fzzP0bTVKhHB8gslgwn7qlRNyd LEvbLCWpnNU1itG5YJEruXNdC2SpqH0lNFIhXZxj WGGkfma9CbDhCn5xmJIlmNzkORsqXlgwXTdqLLEc bmNvbnRccGduZGVjXHBsYWluXHBsYWluXGYwXGZz MjRccWxcbGFuZzEwMzNcaGljaFxmMVxkYmNoXGYx TAweX1eiScJxWcJeSxe8AHVihHRyVCNzVhe6SXSb uHSeRXYCgHinbD1xSKPvnLarcL3qoDE0AZQwndSv yFLWcN3mELEOuH5fJxQ0WlAwFeE5CDPbUWlheVBv fX0= CPT Code(s) (test code = 3357) j6qnvPFzNYDcqYAkHkYjTVCyKRKqx8axDIKb bGFu FiBpBuWoKaCzLdvkfOQrOXBgOyBnc6sgv087iVIm u1jlONUgDpV3bSLpRTBaoEXoT984y2hyv8cocjEa uXH8ZAImGUM9LZflfaWkzbR8XOcwoVLhDzE5VGhs anGpCDrbcrWacoCgTiu9PBQeV435ZQX8pYxoz7ru OBY8UAVnEKOpSsSkGe7tvFEbC982RMAvWFAOPKEp oLg4WLWitnGkyrMfhGGYu020O607v8fbASAfoqNb oQfHjlhsu0axL511OGUdsTBpanRhUwVfFWAchTCi dDX1JUWjOF2yanoeGzYoCL5inogvLqPvTR4edau9 LlGpNB8iufwbMsStTPyyNUKqfxlmDNDze4Gqlcvh ZN8yV0Htq4L9tW0fnOPoWARfxBGdCgCuTZXnol2e aYUlCKqmf6EkSAC2zlY2oOAwpIFjUUVqRD29Zupo i3XzBpqsZEN7RJOyrqKtv6Sjz4wnHcJluoSzL5no C4ZvBMBaMIMmMTLjSbCffeNwu9Sik4AsyYEiyEe3 g8brZYRbIKBorDlau6hfZID6DRZmF2T6tMQqs7lu GCwvVGDgsHN0ufozYClwITAkavF2pfhfSQctAFDq bKZ2bfksFJqkMXTqMpF6bfkqXRrdDAIvKIH9GIwb p013SOT2OEtdBbniDLzmRUCtlyJopqZxtQwfRZEd YLDmXWdhCJCzVQzvFAQoBUVgXhQflGtjlYbezI1f GaYgEcZnBSmnOU5bHNHwF2uunHVrXWLdWCNdU6ux BpNzvK2zhEfgVKvemtUuXEr1WzA7BbV6TPVuYLkn YXJ9 CLINICAL HISTORY (test code = 3356) n2pahKCrHVNubDEjQyLoYPTvJGYgj0d cZGVmbGFu TiTvVeYsXqXdXsrndZXgUYFqIiEsq3gbo607aOAi j8kgKSZcVjT4tRNrMRCumBWiE841YADxOIlph5ti w2TcEDClxIXha7B2TSUDngwtvMv2nVasT67uw3R0 QfpqY6jwKIZuJJQnS7SdHR8uSYCyDyl6AVR5CIM1 VHXbIQFyA8PwGO5pYSEyeOIyDBd6s5sqeDweYIWc DEI9g6xwHUuydgIdPH8jgv1ioZh9u2qroyRgMVRl DPJndOALYKDmX3TflBlqRe1tcMk6qSvhFucrHTV4 Yxl8EZ4mga91lnz2zBskPUExjxjsDxH9AXbeMGFj jqbpDUx8RWwtWFWuzLckUMmjYXKgilmnNKarYEGv cHacGIonTIBlGhhoAUuaTZYaWJD9GQspx724EEM8 PLimu8cxt1odpBVdTev8WBExSiSyPypzURetl2Wb p4wnYMEamn1sQHK1jRAinVukz2T1zBNgAIBqqOTa feGaHWDfLxP1XOwhAG5zyz38YDGbHQF4lt4wgCNw wIzesvExkNPoFNrjE1SnFZBpu091DNCcK5HaGWJd u0R4sjXhNiLcILIyvMP8dkZ3OOOkDTb5mIKaclQ5 ypDbmQXiA9suyF87VcTpjVVrR0LlhX14XjBxwJAp X6NtvP41GrRbtTDvZ7WzlD42OgQllEZmMAGmfWZf Bw8geXPhrDMnz6IfcIJfUNrtP45nb485VCAokcSx Q3eonDVyeghsgPTbswvgDIgzzuR7QRFaWVVmWQel XGYxXGZzMjBcbGFuZzEwMzNcaGljaFxmMVxkYmNo FWLzKFddF9fjRcDjAhCxVBHYjyYxmSHxwZWmtz6k jKM7MMMOIXXziVndBLD5RO4co1gcRRMtCLA9UCJd cn0= SPECIMEN SOURCE (test code = 3377) d0cmeDTwAOHovUWcDpQdOLUgOWApm9py ZGVmbGFu VkSeWvLbNbBnMahrmXSbHCCaLaCsb8zmn987rRLe k7bbVGVsWiJ3iAQjKPZtgXRnU677OKWkMDzpr9pq n7ByFKZmrOGge9H5MSUJquvanAe5iCtcN89iv2X9 JjsjQ5ktOCVxFOTwQ4VlKX9nBFYlHrd2LSJ4JFB8 CLPxXNUuS0HcCZ3zLWJvpWEiOMk8r2mlxTavZOGk JMQ6h8zzOAjmtsAxBG5okp4grJr5p5xvdxEmOEEw TMYtwZIWFDDlP9UzbXssKr6mlDj5oAqxApkqBEE8 Vls9TC7dio26aha6kEbqQXPzlahpLnZ5NJgfNENo kfcxKPi0NDsbNWEbrSwtCSxxUXVojwccVFjwTRDd sXmeEFbqWJQxVasyTJipRAGfUYB1PRpgz450HGD6 LVqif1ood0lscSNlMzj8VAZiFlMkHfmaPCzrc8Ux c0ftZDLjft1dDTW4jSTwiTaab9A0oKWvJFMyqNFu hvPvTVBmZwV4CXnnCX7bsa60PUDdDCP7pe3kvQHd rWfypeZpsQTkCVibI7XnSAFss996OUDrI5SqCVNa q1G4qsDdFhYjNTGwsAD1rdP1RMNnUHf5cLVomdI2 enGtwITxH9lbpZ69YjRgyDFjP7KznD56QdWsdYMd T3DdwF58AhNdvGWkH3KpjN21DmJieTUoKQYhoLQv Fq2gsXXiiVJrp2EnsRZeGVtiY38qy550AZOzsmFh I6vtjNRnlkdhnMZuheekAYdkfcW6NPVuUGRjUYsb XGYxXGZzMjBcbGFuZzEwMzNcaGljaFxmMVxkYmNo NHJpYVywT2ssGvDsVcFyIMZEsQNmmCHhbHPzxU== GROSS DESCRIPTION (test code = 3366) o5wicOJvEYTixMTkVyKvPVAyVMOhk2 lcZGVmbGFu [file] MICROSCOPIC DESCRIPTION (test code = w9qaqFMhEMFuwJDcPvKvOOSrXDNwz5 [place] [address]) TjTwYnPuJhLlBedtkEDkNUQwQtYwe4ksz100uXXe j4zfQMFoWoK2iQJbJQHewDWqF313a6msy3njhiMe qWE2EHOaYTD5PWlamaWoajD7TLrkiWCfJbD0JRam nhEtVMrglhAffvFrSsi5WOTfZ992KWZ9nHcia1ug WZV0PGZrVKHfCqKcHv2pxMEfA729BQPkXMNLIOCy sSo0MVTnxfWesuAdrQXXs594P613i0ouPTJqpmHv gVgIdztzl6ddW141CYDwfHUwhxHwBdUvMGBtlJDm vKD0KANyTW4lfvjbQhIoTO7fmgdpAeQwCF5kkee8 CnBwQR4bwjuxFuHkYCptOGHhcwkuALHay3Zwxfwc GD7iF7Jrw0H5jE6fzWVsWGYrlDQsPcAcLORgqj1a fNOuYLkkc0LlUAG0ftE1cONgzNDrYXEcJJ62Pxom i3YoEtcvTVQ2ROEcqaSab1Rfz7cyCaDjusWnL1ti B0CwMYTwZVVdTDAlQyAskzWkz0Wzk3ZryTXbeSz6 u2gbAIHcUJPvvOfay6peEOS2LJDcE6Y1kLYtv0kk AWtmVLDjsVO1tznbGLcrEDCtmsJ0vxrmQOthUXNd eMH0ucpsXBedRYJlIoS4xlpvVWlxZNDdWIT6GKwe o765ZUH0KKmgJfihKWmrJYBxjhWvfxMjaSutHSSx YZIrXUtbZONsVLqkJAJaSXTdKuKqbXdyyChhjV1q XxZlNhYiDRpaMJ3iZPQkP9hokIWbXKJzFOQgZ7yn NzOvxK3sjDmwYExtjuMgSJDwssLpbb7tNMrsJGZ2 [id number] 16:20:00Surgical Pathology Report Case: [id number] Authorizing Provider: Rupa Kingsley MD Collected: 05/24/2019 1514 Ordering Location: [facility] Received: 05/27/2019 0911 PERIOPERATIVE SERVICES Pathologist: Rex Bardales MD Specimen: Pl aque, LEFT CAROTID PLAQUE ARTERY, LEFT CAROTID, ENDARTERECTOMY:CALCIFIC ATHEROSCLEROTIC PLAQUE WITH FOCAL INTRAPLAQUE HEMORRHAGE Signing Pathologist Direct Phone Line: [phone] signed by Rex Bardales MD on 05/31/2019 at 4:20 [id number]; [id number] diagnosis: Carotid stenosis, leftPlaqueReceived in formalin labeled with the patient's name, accession number and "left carotid plaque" is a 3.2 cm in length x 1.0 cm in diameter bower-yellow tubular piece of focally calcified plaque. Director Facilities Maintenance sections are submitted in A1 following decalcification. PA/pl PerformedPO ACTIVATED CLOTTING [id number] 06:33:00 Test Item Value Reference Range Interpretation Comments Activated Clotting Time 252 sec : 74 -137 seconds, (test code = 441) Baseline: TESTED AT [facility] [address] [place] [address], [address]: Tire Beader Maker/Techni isabel ID = [id number] for JHONNY DUTTON [id number] 06:33:00 Test Item Value Reference Range Interpretation Comments ACTIVATED CLOTTING TIME 252 sec : 74 -137 seconds, (BEAKER) (test code = Baseli ne: TESTED AT 441) [facility] [address] [place] [address], [address]: Tire Bead[employer] Maker/Techni isabel ID = [id number] for JHONNY DUTTON [id number] 06:33:00 Test Item Value Reference Range Interpretation Comments ACTIVATED CLOTTING TIME 246 sec : 74 -137 seconds, (BEAKER) (test code = Baseli ne: TESTED AT 441) [facility] [address] [facility], [address] 30: Tire Beader Maker/Techni isabel ID = [id number] for JHONNY DUTTON [id number] 06:33:00 Test Item Value Reference Range Interpretation Comments ACTIVATED CLOTTING TIME 241 sec : 74 -137 seconds, (BEAKER) (test code = Baseli ne: TESTED AT 441) [facility] [address] [place] [address], [facility] 30: T[employer] Beader Maker/Techni isabel ID = [id number] for MARYJANE ALCANTARA POC-Glucose [id number] 13:21:00 Test Item Value Reference Range Interpretation Comments POC-Glucose Meter (test 99 mg/dL 70-110 : TE STED AT [facility] code = 1538) [address] [place] [address], [address]: T[employer] Beader Maker/Techni isabel ID = [id number] for JOSEPH HOOKS Lab Interpretation (test Normal code = 85545-1) [facility] [id number] 13:21:00 Test Item Value Reference Range Interpretation Comments POC-GLUCOSE METER 99 mg/dL 70-110 : [facility] (BEAKER) (test code = [facility], 1538) [id number]: T[employer] Beader Maker/Techni isabel ID = [id number] for JOSEPH HOOKS POCT-GLUCOSE [id number] 08:16:00 Test Item Value Reference Range Interpretation Comments POC-GLUCOSE METER 167 mg/dL 70-110 H : [facility] (BEAKER) (test code = [facility], 1538) [id number]: T[employer] Beader Maker/Techni isabel ID = [id number] for BENJAMIN GRACIA Basic Metabolic [id number] 05:40:00 Test Item Value Reference Range Interpretation Comments Sodium (test code = 137 meq/L 405-696 7511-2) Potassium (test code = 4.1 meq/L 3.5-5.1 2823-3) Chloride (test code = 108 meq/L 98-107 H 2075-0) CO2 (test code = 22 meq/L 22-29 8-9) BUN (test code = 21 mg/dL 7-21 3094-0) Creatinine (test code 1.08 mg/dL 0.57-1.25 = 2160-0) Glucose (test code = 164 mg/dL 70-105 H 2345-7) Calcium (test code = 9.0 mg/dL 8.4-10.2 15998-3) EGFR (test code = 68 mL/min/1.73 [place] [address]-0) NOT ACCURATE CREATININE CLEARANCE IN PREDICTING GLOMERULAR FILTRATION RATE . ESTIMATED GFR I S NOT APPLICABLE FOR DIALYSIS PATIENTS. KESHAV (test code = KESHAV) T[employer] Beader Maker ID - [facility] Lab Interpretation Abnormal (test code = 62050-0) [facility]esium2020-[facility] 05:40:00 Test Item Value Reference Range Interpretation Comments Magnesium (test code = 2.4 mg/dL 1.6-2.6 25951-9) KESHAV (test code = KESHAV) Tire Beader Maker ID - [facility] Lab Interpretation (test Normal code = 52032-3) [facility] 05:40:00 Test Item Value Reference Range Interpretation Comments Phosphorus (test code = 3.4 mg/dL 2.3-4.7 2777-1) KESHAV (test code = KESHAV) [employer] Beader Maker ID - [facility] Lab Interpretation (test Normal code = 06428-6) [facility]US2020-03-15 05:40:00 Test Item Value Reference Range Interpretation Comments PHOSPHORUS (BEAKER) (test code = 3.4 mg/dL 2.3-4.7 604) T[employer] B[employer]er Maker ID - [facility] [id number] 05:40:00 Test Item Value Reference Range Interpretation Comments MAGNESIUM (BEAKER) (test code = 2.4 mg/dL 1.6-2.6 627) T[employer] Beader Maker ID - [facility] MBASIC METABOLIC [id number] 05:40:00 Test Item Value Reference Range Interpretation [...] S NOT APPLICABLE FOR DIALYSIS PATIEN TS. T[employer] Beader Maker ID - [facility] (Hemogram only)2019-05-26 05:31:00 Test Item Value Reference [...] K/CU MM L MPV (test code = 68158-0) 12.2 fL 9.4-12.4 nRBC (test code = 413) 0 0- 0 /100 WBC Lab Interpretation (test code = Abnormal 11159-0) [facility] (HEMOGRAM ONLY)2019-05-26 05:31:00 Test Item Value Reference [...] 0-0 (BEAKER) (test code = 413) POCT-GLUCOSE [id number] 22:54:00 Test Item Value Reference Range Interpretation Comments POC-GLUCOSE METER 113 mg/dL 70-110 H : TESTED A T [facility] 6720 (BEAKER) (test code = [facility], 153) [address]: Tire Beader Maker/Techni isabel ID = [id number] for PEDRO MUSE POCT-GLUCOSE [id number] 17:16:00 Test Item Value Reference Range Interpretation Comments POC-GLUCOSE METER 87 mg/dL 70-110 : TESTED A T [facility] 6720 (BEAKER) (test code = [facility], 153) 37675: Tire Beader Maker/Techni isabel ID = [id number] for BRANDAN BARROW POCT-GLUCOSE [id number] 12:39:00 Test Item Value Reference Range Interpretation Comments POC-GLUCOSE METER 220 mg/dL 70-110 H : TESTED A T [facility] 6720 (BEAKER) (test code = [facility], 153) 16954: Tire Beader Maker/Techni isabel ID = [id number] for LO SIXTO, MIKE POCT-GLUCOSE [id number] 08:04:00 Test Item Value Reference Range Interpretation Comments POC-GLUCOSE METER 276 mg/dL 70-110 H : TESTED A T [facility] 6720 (BEAKER) (test code = [facility], 1538) 48708: Tire Beader Maker/Techni isabel ID = [id number] for MIKE FOFANA POCT-GLUCOSE [id number] 05:10:00 Test Item Value Reference Range Interpretation Comments POC-GLUCOSE METER 299 mg/dL 70-110 H : TESTED A T [facility] 6720 (BEAKER) (test code = [facility], 1538) 81360: Tire Beader Maker/Techni isabel ID = [id number] for MALVIN BACH POCT-GLUCOSE [id number] 04:21:00 Test Item Value Reference Range Interpretation Comments POC-GLUCOSE METER 347 mg/dL 70-110 H : TESTED A T [facility] 6720 (BEAKER) (test code = [facility], 1538) 63266: Tire Beader Maker/Techni isabel ID = [id number] for JENNIFER ROMO BASIC METABOLIC [id number] 03:59:00 Test Item Value Reference Range Interpretation [...] 697) EGFR (BEAKER) (test 46 mL/min/1.73 ESTIMA TERREI GFR IS code = 1092) sq m NOT ACCURATE CREATININE CLEARANCE IN PREDICTING GLOMERULAR FILTRATION RATE . ESTIMATED GFR I S NOT APPLICABLE FOR DIALYSIS PATIEN TS. Tire Beader Maker ID - GERMAINE WIYWCRBXVXI9816-70-15 03:47:00 Test Item Value Reference Range Interpretation Comments PHOSPHORUS (BEAKER) (test code = 4.6 mg/dL 2.3-4.7 604) Tire Beader Maker ID - GERMAINE [id number] 03:47:00 Test Item Value Reference Range Interpretation Comments MAGNESIUM (BEAKER) (test code = 1.8 mg/dL 1.6-2.6 627) Tire Beader Maker ID Irlanda HERRON MProthrombin time/[id number] 03:44:00 Test Item Value Reference Range Interpretation [...] valves. Lab Interpretation Normal (test code = 88141-4) [facility]eraPTT[facility] 03:44:00 Test Item Value Reference Range Interpretation Comments PTT (test code = 89908-4) 30.4 22.5- 36.0 seconds Lab Interpretation (test code = Normal 46357-6) [facility] CenterPROTHROMBIN TIME/[id number] 03:44:00 Test Item Value Reference Range Interpretation [...] INR is2.5-3.5 for patients wiht mechanical heart valves.[id number] 03:44:00 Test Item Value Reference Range Interpretation [...] 0-0 (BEAKER) (test code = 413) POCT-GLUCOSE [id number] 21:57:00 Test Item Value Reference Range Interpretation Comments POC-GLUCOSE METER 304 mg/dL 70-110 H : TESTED A T [facility] 6720 (BEAKER) (test code = [place] [place], 1538) [address]: Tire Beader Maker/Techni isabel ID = [id number] for DARRIAN GONSALES [id number] 20:13:00 Test Item Value Reference Range Interpretation Comments PARTIAL THROMBOPLASTIN TIME 27.9 seconds 22.5-36.0 (BEAKER) (test code = 760) PROTHROMBIN TIME/[id number] 20:12:00 Test Item Value Reference Range Interpretation [...] INR is2.5-3.5 for patients wiht mechanical heart valves.[id number] 18:14:00 Test Item Value Reference Range Interpretation Comments PHOSPHORUS (BEAKER) (test code = 4.6 mg/dL 2.3-4.7 604) Tire Beader Maker ID - [id number] 18:14:00 Test Item Value Reference Range Interpretation Comments MAGNESIUM (BEAKER) (test code = 1.8 mg/dL 1.6-2.6 627) Tire Beader Maker ID - NTPBASIC METABOLIC [id number] 18:14:00 Test Item Value Reference Range Interpretation [...] S NOT APPLICABLE FOR DIALYSIS PATIEN TS. Tire Beader Maker ID - NTPCBC with platelet count + automated [id number] 18:01:00 Test Item Value Reference Range Interpretation [...] K/CU MM L MPV (test code = 34992-3) 11.6 fL 9.4-12.4 nRBC (test code = [...] 2801) Lab Interpretation (test code = Abnormal 16322-3) [facility] CenterCB [facility]/PLT COUNT & AUTO [id number] 18:01:00 Test Item Value Reference Range Interpretation [...] PERCENT (BEAKER) (test code = 2801) Prepare [id number] 17:52:00 Test Item Value Reference Range Interpretation Comments CROSSMATCH (test code = COMPATIBLE 1326) Unit ABO (test code = B Pos 5473891) UNIT NUMBER (test code = [id number] 934-0) Status (test code = RETURNED FROM ISSUE 8104731) Blood Bank Product (test RED BLOOD CELLS code = 2263) PRODUCT CODE (test code = D6772O07 933-2) [facility] CenterPrepare Leuko-Red [id number] 16:01:00 Test Item Value Reference Range Interpretation Comments CROSSMATCH (test code = 2264) COMPATIBLE Unit ABO (test code = B Pos 0923641) UNIT NUMBER (test code = [id number] 934-0) Status (test code = 7731578) READY Blood Bank Product (test code RED BLOOD CELLS = 2263) PRODUCT CODE (test code = L2076R13 933-2) [facility] CenterPOCT-GLUCOSE [id number] 22:02:00 Test Item Value Reference Range Interpretation Comments POC-GLUCOSE METER 267 mg/dL 70-110 H : Notified RN/MD: (IFRAH) (test code = TESTED AT [facility] 6720 1538) [facility], [address]: Tire Beader Maker/Techni isabel ID = [id number] for LATHBRIDGE, AFUA ICE ABORH, [id number] 20:46:00 Test Item Value Reference Range Interpretation Comments ABO Grouping (test code = 2588) B Rh Factor (test code = 2589) POS [facility] CenterType and screen, [id number] 18:44:00 Test Item Value Reference Range Interpretation Comments ABO/RH AUTOMATED (IFRAH) (test B POSITIVE code = 2260) Ab Scrn (test code = 890-4) NEGATIVE [facility] CenterPOCT-GLUCOSE [id number] 18:03:00 Test Item Value Reference Range Interpretation Comments POC-GLUCOSE METER 222 mg/dL 70-110 H : [facility] (IFRAH[facility] (test code = K[facility] God[facility], 1538) 285[address]: Tire Beader Maker/Techni isabel ID = [id number] for BR OWN, LYLE POCT-GLUCOSE [id number] 12:45:00 Test Item Value Reference Range Interpretation Comments POC-GLUCOSE METER 217 mg/dL 70-110 H : [facility] (BEAKER) (test code = [place] [place], 1538) [address]: Tire Beader Maker/Techni isabel ID = [id number] for BR OWN, LYLE POCT-GLUCOSE [id number] 08:39:00 Test Item Value Reference Range Interpretation Comments POC-GLUCOSE METER 157 mg/dL 70-110 H : TESTED A T [facility] 6720 (BEAKER) (test code = [place] [place], 1538) [address]: Tire Beader Maker/Techni isabel ID = [id number] for BR OWN, LYLE Blood gas, [id number] 06:35:00 Test Item Value Reference Range Interpretation Comments pH, Garrett (test code = 2746-6) 7.35 7.32-7.42 pCO2, Garrett (test code = 755) 44 41- 51 mm Hg pO2, Garrett (test code = 2705-2) 41 25- 40 mm Hg H O2 Sat, Garrett (test code = 2711-0) 73.7 % 40-70 H HCO3, Garrett (test code = 53432-8) 24 mmol/L 21-29 Base Excess, Garrett (test code = 2.2 mmol/L -2-3 1927-3) Patient Temperature (test code = 97.0 8310-5) FIO2 (test code = 1819) 21 Lab Interpretation (test code = Abnormal 31012-6) [facility] CenterBLOOD GAS, [id number] 06:35:00 Test Item Value Reference Range Interpretation [...] (test code = 1819) 21 BASIC METABOLIC [id number] 04:56:00 Test Item Value Reference Range Interpretation [...] S NOT APPLICABLE FOR DIALYSIS PATIEN TS. Tire Beader Maker ID - RANGEL WPOCT-GLUCOSE [id number] 01:05:00 Test Item Value Reference Range Interpretation Comments POC-GLUCOSE METER 201 mg/dL 70-110 H : TESTED A T [facility] 67 ([facility]) (test code = [facility] Gretchen [facility], 153) [address]: Tire Beader Maker/Techni isabel ID = [id number] for СЕРГЕЙ HNSRONNA ROSENBERGTTA POCT-GLUCOSE [id number] 21:45:00 Test Item Value Reference Range Interpretation Comments POC-GLUCOSE METER 436 mg/dL 70-110 HH : Notified RN/MD: (IFRAH) (test code = TESTED AT [place] 8768220 1538) [facility], [address]: Tire Beader Maker/Techni isabel ID = [id number] for СЕРГЕЙ HNSON, JEQUETTA POCT-GLUCOSE [id number] 17:42:00 Test Item Value Reference Range Interpretation Comments POC-GLUCOSE METER 426 mg/dL 70-110 HH : Notified RN/MD: (IFRAH) (test code = TESTED AT [place] 8768220 1538) [facility], [address]: Tire Beader Maker/Techni isabel ID = [id number] for AK INSONU, DREW POCT-GLUCOSE [id number] 12:41:00 Test Item Value Reference Range Interpretation Comments POC-GLUCOSE METER 337 mg/dL 70-110 H : [facility] (BEAKER) (test code = [facility], 1538) 78279: Tire Beader Maker/Techni isabel ID = [id number] for AK INSONU, DREW POCT-GLUCOSE [id number] 09:07:00 Test Item Value Reference Range Interpretation Comments POC-GLUCOSE METER 214 mg/dL 70-110 H : [facility] (BEAKER) (test code = [facility], 1538) [address]: Tire Beader Maker/Techni isabel ID = [id number] for AK INSONU, DREW BASIC METABOLIC [id number] 06:34:00 Test Item Value Reference Range Interpretation Comments SODIUM (BEAKER) 139 meq/L 136-145 (test code = 381) POTASSIUM (BEAKER) 4.5 meq/L 3.5-5.1 (test code = 379) CHLORIDE (BEAKER) 112 meq/L 98-107 H (test code = 382) CO2 (BEAKER) (test 20 meq/L 22-29 L code = 355) BLOOD UREA NITROGEN 25 mg/dL 7-21 H (BEAKER) (test code = 354) CREATININE (BEAKER) 1.07 mg/dL 0.57-1.25 (test code = 358) GLUCOSE RANDOM 155 mg/dL 70-105 H (BEAKER) (test code = 652) CALCIUM (BEAKER) 9.3 mg/dL 8.4-10.2 (test code = 697) EGFR (BEAKER) (test 68 mL/min/1.73 ESTIMA TERRIE GFR IS code = 1092) sq m NOT ACCURATE CREATININE CLEARANCE IN PREDICTING GLOMERULAR FILTRATION RATE . ESTIMATED GFR I S NOT APPLICABLE FOR DIALYSIS PATIEN TS. Tire Beader Maker ID - GERMAINE MPOCT-GLUCOSE [id number] 21:43:00 Test Item Value Reference Range Interpretation Comments POC-GLUCOSE METER 304 mg/dL 70-110 H : Notified RN/MD: ([facility]) (test code = TESTED AT [facility] 6720 1538) [facility], [address]: Tire Beader Maker/Techni isabel ID = [id number] for LATHBRIDGE, AFUA ICE POCT-GLUCOSE [id number] 17:40:00 Test Item Value Reference Range Interpretation Comments POC-GLUCOSE METER 265 mg/dL 70-110 H : TESTED A T [facility] 6720 (IFRAH) (test code [facility], = 1538) [address]: Tire Beader Maker/Techni isabel ID = [id number] for CURTIS LU POCT-GLUCOSE [id number] 12:39:00 Test Item Value Reference Range Interpretation Comments POC-GLUCOSE METER 389 mg/dL 70-110 H : Notified RN/MD: TESTED (IFRAH) (test code AT [facility] 67[facility] 1538[facility], 770 30: Tire Beader Maker/Techni isabel ID = [id number] for TSEG GAXimena, ARLENEIGHDAQUANA Carotid doppler [id number] 11:46:45Ejection FractionSLEH ECHO HEARTLAB MKCKESSON CPACSRight Impression1. There is [...] of Study 05/21/2019 Age 68 Visit Number [id number] Gender Male Accession Number [id number] Date of 1950 Referring DARNELL LUEVANO Room Number 2263 Physician Correspondence Analyst Katja South Interpreting Angie Thorpe, RN, RVT Physician MD ProcedureType of Study: Cerebral: Carotid, CAROTID DOPPLER, BILATERAL. Indications for Study:Discrepant findings re: L ICA stenosis.Patient Status:Routine.Study Location:Vascular [...] the left side. - Additional Measurements:ICAPSV/CCAPSV 2.15.ICAEDV/CCAEDV 1.94.[facility] POCT-GLUCOSE [id number] 10:18:00 Test Item Value Reference Range Interpretation Comments POC-GLUCOSE METER 240 mg/dL 70-110 H : TESTED A T [facility] 6720 (BEAKER) ([facility] = 1538) [address]: Tire Beader Maker/Techni isabel ID = [id number] for CURTIS LU BASIC METABOLIC [id number] 07:31:00 Test Item Value Reference Range Interpretation [...] S NOT APPLICABLE FOR DIALYSIS PATIEN TS. Tire Beader Maker ID - GERMAINE MECG 12 [id number] 06:45:25Interface, External Ris In - 05/21/2019 6:45 AM CDTVentricular Rate 59 BPMAtrial Rate 59 BPMP-R Interval 172 msQRS Duration 106 msQ-T Interval 418 msQTC Calculation(Bazett) 413 msP [place] 50 degreesR [place] 1 degreesT [place] 61 degreesSinus bradycardiaInteratrial conduction delayAnterior infarct , age undeterminedAbnormal ECGNo previous ECGs availableConfirmed by MD GENTRY, EMERY ([id number]) on 05/21/2019 6:45:20 [facility] CampusUrinalysis with Microscopic If [id number] 21:33:00 Test Item Value Reference Range Interpretation Comments Color, UA (test code = Colorless 5778-6) Clarity, UA (test code = Clear 5767-9) Specific [place], UA 1.012 1.001-1.035 (test code = 5811-5) pH, UA (test code = 5.5 5.0-8.0 5803-2) Protein, UA (test code = Negative Negative 48678-1) Glucose, UA (test code = 150 mg/dL Negative A 365) Ketones, UA (test code = Negative Negative 2514-8) Bilirubin, UA (test code Negative Negative = 18344-8) Blood, UA (test code = Negative Negative 40375-7) Nitrite, UA (test code = Negative Negative 5802-4) Leukocytes, UA (test Negative Negative code = 5799-2) Urobilinogen, UA (test 0.2 mg/dL 0.2-1 code = 18487-9) Specimen Source (test code = 2795) KESHAV (test code = KESHAV) Tire Beader Maker ID - [auto]Tire Beader Maker ID - techOperator ID - tech Lab Interpretation (test Abnormal code = 93249-9) [facility] CenterURINALYSIS WITH MICROSCOPIC IF [id number] 21:33:00 Test Item Value Reference Range Interpretation [...] = 463) SOURCE(BEAKER) (test code = 2795) Tire Beader Maker ID - [auto]Tire Beader Maker ID - techOperator ID - techPOCT-GLUCOSE METER 2019-05-20 18:18:00 Test Item Value Reference Range Interpretation Comments POC-GLUCOSE METER 85 mg/dL 70-110 : TESTED A T [facility] 6720 (IFRAH) (test code = [place], 1538) [address]: Tire Beader Maker/Techni isabel ID = [id number] for DREW GUNN 2D Echo W/Doppler(CW/PW/Color)2019-05-20 14:33:33Ejection FractionSLEH ECHO HEARTLAB MKCKESSON CPACSInterface, External Ris In - 05/20/2019 2:33 PM C DTTransthoracic Echocardiography Report (TTE) Demographics Patient Name SHANTEL MCKEON Date of Study 05/20/2019 Gender Male Visit Number [id number] Race Unknown Room Number 2263 Number Date of 1950 Referring Physician STEFFANIE Kruse Age 68 year(s) Correspondence Analyst Steph Espinoza, CHADWICK, RDCS,RVT,RDMS [employer] Qualified Becky Allen, Interpreting Chidi Orellana MD RDCS Physician Procedure Type of Study TTE procedure:2DECHO W DOPPLER(CW/PW/COLOR) (Routine) Indications:Suspected cardiac source of emboli.Clinical AmpgnnbXHG42.9HCT 36.2 %DMContrast Medium: Bubble Study.Height: 68 inches [...] 4.23 l/min/m^2 RVOT RVOT VTI (PW): 36.3 [facility] [id number] 13:38:00 Test Item Value Reference Range Interpretation Comments POC-GLUCOSE METER 309 mg/dL 70-110 H : TESTED A T [facility] 6720 (IFRAH) (test code = VENECIAROB Godinez [facility], 1538) [address]: Tire Beader Maker/Techni isabel ID = [id number] for DREW HAGAN [id number] 13:06:00 Test Item Value Reference Range Interpretation Comments RPR (test code = 97716-5) Nonreactive Nonreactive Lab Interpretation (test code = Normal 06568-2) [facility] CenterRPR2020-03-09 13:06:00 Test Item Value Reference Range Interpretation Comments RPR SCREEN (BEAKER) (test code = Nonreactive Nonreactive 420) Ihjykurraiun9591-06-92 10:18:00 Test Item Value Reference Range Interpretation Comments Homocysteine (test code = 15.2 umol/L 5.1-15.4 95169-7) KESHAV (test code = KESHAV) Tire Beader Maker ID - PIAYA L Lab Interpretation (test Normal code = 45453-8) [facility] CenterVitamin B12 and Dbyepb7968-05-81 10:18:00 Test Item Value Reference Range Interpretation Comments Vitamin B12 (test code = 282 pg/mL 443-262 0767-9) Folate (test code = 14.5 ng/mL >=7.0 2284-8) KESHAV (test code = KESHAV) Tire Beader Maker ID - PIAYA L Lab Interpretation (test Normal code = 59613-4) [facility] CenterHOMOCYSTEINE2020-03-09 10:18:00 Test Item Value Reference Range Interpretation Comments HOMOCYSTEINE (BEAKER) (test code 15.2 umol/L 5.1-15.4 = 642) Tire Beader Maker ID - KARL LVITAMIN B12 AND [id number] 10:18:00 Test Item Value Reference Range Interpretation Comments VITAMIN B12 (BEAKER) (test code = 282 pg/mL 213-816 774) FOLATE (BEAKER) (test code = 362) 14.5 ng/mL >=7.0 Tire Beader Maker ID - KARL LHIV-1 Antigen with HIV-1/2 Fuouxkie0977-55-84 09:53:00 Test Item Value Reference Range Interpretation Comments HIV-1 Antigen with HIV Nonreactive Nonreactive 1&2 Antibody (test code = 03464-6) KESHAV (test code = KESHAV) Tire Beader Maker ID - PIAYA L Lab Interpretation (test Normal code = 50145-1) [facility] CenterTSH/Free T4 If Vaovshten2862-21-21 09:53:00 Test Item Value Reference Range Interpretation Comments TSH (test code = 82037-1) 1.24 0.35- 4.94 uIU/mL KESHAV (test code = KESHAV) Tire Beader Maker ID - PIAYA L Lab Interpretation (test Normal code = 25780-7) [facility] CenterTSH/FREE T4 IF [id number] 09:53:00 Test Item Value Reference Range Interpretation Comments THYROID STIMULATING HORMONE 1.24 uIU/mL 0.35-4.94 (BEAKER) (test code = 772) Tire Beader Maker ID - PIMICHELLE LHIV-1 ANTIGEN WITH HIV-1/2 [id number] 09:53:00 Test Item Value Reference Range Interpretation Comments HIV-1 ANTIGEN WITH HIV 1\\T\\2 Nonreactive Nonreactive ANTIBODY (2) (BEAKER) (test code = 2586) Tire Beader Maker ID - KARL LPOCT-GLUCOSE [id number] 09:34:00 Test Item Value Reference Range Interpretation Comments POC-GLUCOSE METER 256 mg/dL 70-110 H : TESTED A T [facility] 6720 (BEAKER) (test code = [place], 1538) [address]: Tire Beader Maker/Techni isabel ID = [id number] for DREW HAGAN Hepatic function [id number] 08:43:00 Test Item Value Reference Range Interpretation Comments Protein, Total (test code 5.9 6.0- 8.3 gm/dL L = 2885-2) Albumin (test code = 3.6 g/dL 3.5-5 86496-8) Total Bilirubin (test code 0.5 mg/dL 0.2-1.2 = 1975-2) Bilirubin, Direct (test 0.2 mg/dL 0.1-0.5 code = 1968-7) Alkaline Phosphatase (test 70 U/L 40-150 code = 6768-6) AST (test code = 1920-8) 11 U/L 5-34 ALT (test code = 1742-6) <6 6-55 L KESHAV (test code = KESHAV) Tire Beader Maker ID - KARL L Lab Interpretation (test Abnormal code = 95940-6) [facility] CenterHEPATIC FUNCTION [id number] 08:43:00 Test Item Value Reference Range Interpretation [...] code = < U/L 6-55 L 347) Tire Beader Maker ID - KARL LHemoglobin [id number] 08:02:00 Test Item Value Reference Range Interpretation Comments Hemoglobin A1C (test code = 4548-4) 10.4 % 4.3-6.1 H Lab Interpretation (test code = Abnormal 27305-3) [facility] CenterHEMOGLOBIN [id number] 08:02:00 Test Item Value Reference Range Interpretation Comments HEMOGLOBIN A1C (BEAKER) (test code = 10.4 % 4.3-6.1 H 368) MR, MRA, BRAIN, WITHOUT [id number] 06:42:00Reason for exam:->Ischemic Stroke EvaluationFINAL REPORT EXAM: MR, BRAIN, WITHOUT CONTRAST, MR, MRA, BRAIN, WITHOUT CONTRAST, MR, MRA, NECK, WITHOUT IV CONTRAST CLINICAL INDICATION: Stroke follow-up. TECHNIQUE: Sagittal and coronal T1-w and axial T2-w, FLAIR, GRE, and diffusion-w images of the brain with ADC maps. 2D dycx-in-feygea MRA of the neck. 3D wmvi-nc-kykmsg MRA of the head. Source data and [...] Present bilaterally. Posterior Circulation:Right posterior cerebral artery (RAW STOCK DRIER TENDER): Hypoplastic P1 segment with the remainder of the right RAW STOCK DRIER TENDER supplied by the right posterior communicating artery.Left posterior cerebral artery (RAW STOCK DRIER TENDER): Hypoplastic P1 segment with the remainder of the left RAW STOCK DRIER TENDER supplied by the left posterior communicating artery. [...] the left carotid bulb. Signed: Kannan Peña [facility] Campusort Verified Date/Time: 05/20/2019 06:42:15 MR, MRA, NECK, WITHOUT IV [id number] 06:42:00Reason for exam:->Ischemic Stroke EvaluationFINAL REPORT EXAM: MR, BRAIN, WITHOUT CONTRAST, MR, MRA, BRAIN, WITHOUT CONTRAST, MR, MRA, NECK, WITHOUT IV CONTRAST CLINICAL INDICATION: Stroke follow-up. TECHNIQUE: Sagittal and coronal T1-w and axial T2-w, FLAIR, GRE, and diffusion-w images of the brain with ADC maps. 2D t rtb-gu-kjhevj MRA of the neck. 3D xhzc-lb-phunap MRA of the head. Source data and [...] Present bilaterally. Posterior Circulation:Right posterior cerebral artery (RAW STOCK DRIER TENDER): Hypoplastic P1 segment with the remainder of the right RAW STOCK DRIER TENDER supplied by the right posterior communicating artery.Left posterior cerebral artery (RAW STOCK DRIER TENDER): Hypoplastic P1 segment with the remainder of the left RAW STOCK DRIER TENDER supplied by the left posterior communicating artery. [...] Verified Date/Time: 05/20/2019 06:42:15 MR, BRAIN, WITHOUT [id number] 06:42:00Reason for exam:->Ischemic Stroke EvaluationFINAL REPORT EXAM: MR, BRAIN, WITHOUT CONTRAST, MR, MRA, BRAIN, WITHOUT CONTRAST, MR, MRA, NECK, WITHOUT IV CONTRAST CLINICAL INDICATION: Stroke follow-up. TECHNIQUE: Sagittal and coronal T1-w and axial T2-w, FLAIR, GRE, and diffusion-w images of the brain with ADC maps. 2D t jmk-rp-kqxuds MRA of the neck. 3D bcxj-cp-rnhwtd MRA of the head. Source data and [...] Present bilaterally. Posterior Circulation:Right posterior cerebral artery (RAW STOCK DRIER TENDER): Hypoplastic P1 segment with the remainder of the right RAW STOCK DRIER TENDER supplied by the right posterior communicating artery.Left posterior cerebral artery (RAW STOCK DRIER TENDER): Hypoplastic P1 segment with the remainder of the left RAW STOCK DRIER TENDER supplied by the left posterior communicating artery. [...] Date/Time: 05/20/2019 06:42:15 MRA head without IV [id number] 06:42:00Interface, External Ris In - 05/20/2019 10:20 AM CDTFINAL REPORT EXAM: MR, BRAIN, WITHOUT CONTRAST, MR, MRA, BRAIN, WITHOUT CONTRAST, MR, MRA, NECK, WITHOUT IV CONTRAST CLINICAL INDICATION: Stroke follow-up. TECHNIQUE: Sagittal and coronal T1-w and axial T2-w, FLAIR, GRE, and diffusion-w images of the brain with ADC maps. 2D vobt-gl-pwdmms MRA of the neck. 3D fzvw-nn-fhobeiPDW of the head. Source data and maximum [...] Present bilaterally. Posterior Circulation:Right posterior cerebral artery (RAW STOCK DRIER TENDER): Hypoplastic P1 segment with theremainder of the right RAW STOCK DRIER TENDER supplied by the right posterior communicating artery.Left posterior cerebral artery (RAW STOCK DRIER TENDER): Hypoplastic P1 segment with the remainder of the left RAW STOCK DRIER TENDER supplied by the left posterior communicating artery. [...] Kannan Peña MDReport Verified Date/Time: 05/20/2019 06:42:15 [facility] CampusM[facility] neck without IV [id number] 06:42:00Interface, External Ris In - 05/20/2019 10:20 AM CDTFINAL REPORT EXAM: MR, BRAIN, WITHOUT CONTRAST, MR, MRA, BRAIN, WITHOUT CONTRAST, MR, MRA, NECK, WITHOUT IV CONTRAST CLINICAL INDICATION: Stroke follow-up. TECHNIQUE: Sagittal and coronal T1-w and axial T2-w, FLAIR, GRE, and diffusion-w images of the brain with ADC maps. 2D [id number] MRA of the neck. 3D [id number] of the head. Source data and maximum [...] Present bilaterally. Posterior Circulation:Right posterior cerebral artery (RAW STOCK DRIER TENDER): Hypoplastic P1 segment with theremainder of the right RAW STOCK DRIER TENDER supplied by the right posterior communicating artery.Left posterior cerebral artery (RAW STOCK DRIER TENDER): Hypoplastic P1 segment with the remainder of the left RAW STOCK DRIER TENDER supplied by the left posterior communicating artery. [...] Kannan Peña MDReport Verified Date/Time: 05/20/2019 06:42:15 [facility] [id number] 06:42:00Interface, External Ris In - 05/20/2019 10:20 AM CDTFINAL REPORT EXAM: MR, BRAIN, WITHOUT CONTRAST, MR, MRA, BRAIN, WITHOUT CONTRAST, MR, MRA, NECK, WITHOUT IV CONTRAST CLINICAL INDICATION: Stroke follow-up. TECHNIQUE: Sagittal and coronal T1-w and axial T2-w, FLAIR, GRE, and diffusion-w images of the brain with ADC maps. 2D [id number]-aa-apimhq MRA of the neck. 3D [id number]-[id number] of the head. Source data and maximum [...] Present bilaterally. Posterior Circulation:Right posterior cerebral artery (RAW STOCK DRIER TENDER): Hypoplastic P1 segment with theremainder of the right RAW STOCK DRIER TENDER supplied by the right posterior communicating artery.Left posterior cerebral artery (RAW STOCK DRIER TENDER): Hypoplastic P1 segment with the remainder of the left RAW STOCK DRIER TENDER supplied by the left posterior communicating artery. [...] Kannan Peña MDReport Verified Date/Time: 05/20/2019 06:42:15 [facility] [id number] 04:12:00 Test Item Value Reference Range Interpretation Comments POC-GLUCOSE METER 279 mg/dL 70-110 H : TESTED A T [facility] 6720 (BEAKER) (test code = [place]AI [place], 1538) [address]: Tire Beader Maker/Techni isabel ID = [id number] for LUDY RYDER Lipid [id number] 03:47:00 Test Item Value Reference Range Interpretation Comments Triglycerides (test 274 mg/dL code = 2571-8) Cholesterol (test code 177 mg/dL = 2093-3) HDL (test code = 35 mg/dL 2085-9) LDL Calculated (test 87 mg/dL code = 34561-0) KESHAV (test code = KESHAV) Triglyceride Reference Range: Low Risk <150 Borderline 150-199 High Risk 200-499 Very High Risk >=500 Cholesterol Reference Range: Low Risk <200 Borderline 200-239 High Risk >240 HDL Cholesterol Reference Range: Low Risk >=60 High Risk <40 LDL Cholesterol Reference Range: Optimal <100 Near Optimal 100-129 Borderline 130-159 High 160-189 Very High >=190 Tire Beader Maker ID - PIAYA L [facility] [id number] 03:47:00 Test Item Value Reference Range Interpretation Comments CRP (test code = 676) 0.13 mg/dL 0-0.5 KESHAV (test code = KESHAV) Tire Beader Maker ID - PIAYA L Lab Interpretation (test Normal code = 12436-9) [facility] [id number] 03:47:00 Test Item Value Reference Range Interpretation [...] Borderline 130-159 High 160-189 Very High >=190 Tire Beader Maker ID - PIAYALBASIC METABOLIC [id number] 03:47:00 Test Item Value Reference Range Interpretation [...] S NOT APPLICABLE FOR DIALYSIS PATIEN TS. Tire Beader Maker ID - PIAYA LC-REACTIVE [id number] 03:47:00 Test Item Value Reference Range Interpretation Comments C-REACTIVE PROTEIN (BEAKER) (test 0.13 mg/dL 0.00-0.50 code = 676) Tire Beader Maker ID - PIAYA LPROTHROMBIN TIME/[id number] 03:15:00 Test Item Value Reference Range Interpretation [...] mechanical heart valves.CBC W/PLT COUNT & AUTO [id number] 03:07:00 Test Item Value Reference Range Interpretation [...] % 0-1 PERCENT (BEAKER) (test code = 7025)
[2020-04-03] MEDS ORDERED: NA CHLORIDE 0.9% 0 ML ONE (05:46)
[2020-04-03] MEDS ORDERED: INSULIN -REGULAR HUMAN 50 UNIT/0.5 ML ML ONE (05:54)
[2020-04-03 06:05] LABS: Absolute Lymphocytes (CBC) 3.4 K/uL (0.7-4.9); Basophils % 0.9 % (0-1.3); Hematocrit 36.5 % (39.6-49.0); Lymphocytes % 32.8 % (15.3-44.8); MPV 10.4 fL (7.6-11.3); Protime INR 0.91; RBC Red Blood Cell Count 4.37 M/uL (4.33-5.43)
[2020-04-03] MEDS ORDERED: NA CHLORIDE 0.9% 1,000 ML ONE ×2 (06:16→06:24)
[2020-04-03] MEDS ORDERED: NS KCL 20MEQ 0 ML IV ONE (06:17)
[2020-04-03 06:25] LABS: ALT/SGPT 10 U/L (12-78); AST/SGOT 7 U/L (15-37); Albumin 3.1 g/dL (3.4-5.0); Alkaline Phosphatase 138 U/L (45-117); BUN Blood Urea Nitrogen 39 mg/dL (7-18); Bicarbonate 23 mmol/L (21-32); Bilirubin Direct < 0.1 mg/dL (0-0.2); Bilirubin Total 0.8 mg/dL (0.2-1.0); Lipase 121 U/L (73-393); Magnesium 2.7 mg/dL (1.8-2.4); NT PRO-BNP 127 pg/mL (<125); Potassium 4.5 mmol/L (3.5-5.1); Sodium Level 128 mmol/L (136-145); Troponin (Emerg Dept Use Only) < 0.02 ng/mL (0.0-0.045)
[2020-04-03 06:30] LABS: Glucose Level 592 mg/dL (74-106)
[2020-04-03] MEDS ORDERED: INSULIN GLARGINE 100 UNITS/ML SQ ONE (06:54)
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
[2020-04-03] MEDS ORDERED: LIDOCAINE VISCOUS 2% SOLN 15 ML UDC ONE (09:03)
[2020-04-03 09:14] LABS: Urine Blood 1+ (NEG); Urine Glucose 3+ (NEG); Urine Protein 2+ (NEG); Urine Specific Gravity 1.005 (1.005-1.030)
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
[2020-04-03] MEDS ORDERED: NYSTATIN 100MU/GM CREAM 15GM TOP ONE (09:27)
[2020-04-03] MEDS ORDERED: CEFTRIAXONE/SWI 1gm 1 GM/10 ML SYR ONE (09:27)
--- NOTE | 2020-04-03 09:36 | RAD REPORT ---
EXAM DESCRIPTION: RAD - Chest Single View - 04/03/2020 7:10 am CLINICAL HISTORY: COUGH Chest pain. COMPARISON: Chest Single View dated 09/02/2019; Chest Single View dated 05/19/2019 FINDINGS: Portable technique limits examination quality. The lungs are grossly clear. The heart is normal in size. No displaced fractures. IMPRESSION: No acute intrathoracic process suspected.
--- NOTE | 2020-04-03 09:53 | RAD REPORT ---
EXAM DESCRIPTION: US - CP - 04/03/2020 8:08 am CLINICAL HISTORY: SYNCOPE Headache, drowsiness COMPARISON: Head C Spine Mpr Wo Con dated 04/03/2020 TECHNIQUE: Real-time sonographic evaluation of both carotid systems was performed. Doppler interroga tion was performed with waveform tracing bilaterally. FINDINGS: Normal high resistance waveforms are noted in both external carotid arteries. The common c arotid arteries and internal carotid arteries show normal low resistance waveforms. Moderate hard plaque is seen involving the right carotid bulb. Mild intimal thickening is seen involv ing the left internal carotid artery. Peak systolic and end diastolic velocity values and the ICA/CCA ratios are in the non-hemodynamically significant range. Antegrade flow seen in both vertebral arteries. IMPRESSION: Moderate hard plaque is seen involving the right carotid bulb. No evidence of a hemodynamically significant stenosis.
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
[2020-04-03 12:29] LABS: Urine Amorphous Sediment 2+ /HPF (NONE SEEN); Urine Bacteria >50 /HPF (NONE SEEN); Urine RBC <5 /HPF (NONE SEEN)
[2020-04-03] MEDS ORDERED: INSULIN -REGULAR HUMAN 50 UNIT/0.5 ML ML SQ SCH (14:24)
[2020-04-03] MEDS: ENOXAPARIN 40 MG/0.4 ML SQ SCH (17:08)
[2020-04-03] MEDS: NA CHLORIDE 0.9% 1,000 ML IV SCH (17:08)
[2020-04-03] MEDS: INSULIN -REGULAR HUMAN 50 UNIT/0.5 ML ML SQ SCH ×2 (17:09→21:06)
[2020-04-03 17:17] VITALS: BMI 25.8
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
[2020-04-03] MEDS ORDERED: D50W 25 GM/50 ML SYRINGE IV PRN (19:49)
[2020-04-03] MEDS ORDERED: GLUCAGON 1 MG/VIAL IM PRN (19:49)
[2020-04-03] MEDS ORDERED: INSULIN GLARGINE 100 UNITS/ML SQ SCH (21:00)
[2020-04-03] MEDS: CLOTRIMAZOLE 1% CREAM 15 GM TOP SCH (21:00)
[2020-04-04] MEDS: INSULIN -REGULAR HUMAN 50 UNIT/0.5 ML ML SQ SCH ×4 (04:00→12:05)
[2020-04-04] MEDS: NA CHLORIDE 0.9% 1,000 ML IV SCH (04:06)
[2020-04-04 05:00] VITALS: O2SAT 98
[2020-04-04 05:59] LABS: Absolute Lymphocytes (CBC) 3.4 K/uL (0.7-4.9); Basophils % 0.6 % (0-1.3); Hematocrit 32.7 % (39.6-49.0); Lymphocytes % 36.4 % (15.3-44.8); MPV 9.6 fL (7.6-11.3); RBC Red Blood Cell Count 3.95 M/uL (4.33-5.43)
[2020-04-04 06:13] LABS: Albumin 2.6 g/dL (3.4-5.0); Bilirubin Total 0.3 mg/dL (0.2-1.0); Magnesium 2.7 mg/dL (1.8-2.4)
[2020-04-04] MEDS: ENOXAPARIN 40 MG/0.4 ML SQ SCH (08:07)
[2020-04-04] MEDS ORDERED: CEFTRIAXONE 1 GM/NS 50 ML 1 GM/50 ML BAG IV SCH (09:00)
[2020-04-04] MEDS ORDERED: INSULIN GLARGINE 100 UNITS/ML SQ SCH ×2 (09:00)
[2020-04-04] MEDS ORDERED: CEFTRIAXONE/SWI 1gm 1 GM/10 ML SYR IV SCH (09:00)
[2020-04-04] MEDS: CLOTRIMAZOLE 1% CREAM 15 GM TOP SCH (09:00)
--- NOTE | 2020-04-04 10:52 | RAD REPORT ---
EXAM DESCRIPTION: MRI - Brain Wo Cont - 04/03/2020 10:12 pm CLINICAL HISTORY: Syncope COMPARISON: April 03, [address] TECHNIQUE: Axial, sagittal, and coronal magnetic images of the brain were obtained. Contrast was not requested FINDINGS: Mild signal within periventricular, deep and subcortical white matter likely ischemic mendez ges secondary to small vessel disease Diffusion-weighted/ADC mapping does not reveal evidence of acute infarction. The ventricles are normal caliber. An extra-axial fluid collection is not present Fluid within the sinuses/mastoids is not noted IMPRESSION: No acute abnormality is displayed
[2020-04-04 11:00] LABS: Urine Appearance TURBID; Urine Bilirubin NEGATIVE (NEG); Urine Blood 2+ (NEG); Urine Color YELLOW; Urine Glucose 3+ (NEG); Urine Protein 1+ (NEG); Urine Urobilinogen 0.2 mg/dL (0.2-1.0); Urine pH 5.5 (5.0-7.0)
[2020-04-04 11:15] LABS: Urine Microscopic Reflex ORDER UMIC
[2020-04-04 11:24] LABS: Urine Bacteria >50 /HPF (NONE SEEN)
[2020-04-04 18:33] VITALS: BP 165/79; TEMP 97.4
--- NOTE | 2020-04-04 20:54 | RAD REPORT ---
EXAM DESCRIPTION: MRI - MRA Head Wo Cont - 04/03/2020 10:10 pm CLINICAL HISTORY: Syncope COMPARISON: None. TECHNIQUE: Magnetic resonance angiogram was performed. 3D MIPS reconstruction performed FINDINGS: The supraclinoid right internal carotid artery appears narrowed origin right posterior cerebral artery Narrowing of P1 segment left posterior cerebral artery. Remainder of the anterior cerebral, middle cerebral, posterior cerebral and basilar arteries appear u nremarkable An aneurysm is not displayed. IMPRESSION: Apparent narrowing of the right supraclinoid internal carotid artery may be artifactual. A true stenosis is another consideration. CT angiogram may be helpful for further evaluation Narrowing of the left posterior cerebral artery likely chronic
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
--- NOTE | 2020-04-06 11:08 | ECHO ---
HEIGHT: 5 ft 8 in WEIGHT: 170 lb 0 oz DATE OF STUDY: 04/03/[address]: Colby Tan MD 2-DIMENSIONAL: YES M.MODE: YES DOPPLER: YES COLOR FLOW: YES TDS: PORTABLE: DEFINITY: BUBBLE STUDY: DIAGNOSIS: SYNCOPE CARDIAC HISTORY: CATHERIZATION: SURGERY: PROSTHETIC VALVE: PACEMAKER: MEASUREMENTS (cm) DIASTOLIC (NORMALS) SYSTOLIC (NORMALS) IVSd 1.0 (0.6-1.2) LA Diam 3.1 (1.9-4.0) LVEF 55-60% LVIDd 4.7 (3.5-5.7) LVIDs 2.7 (2.0-3.5) %FS 43% LVPWd 1.1 (0.6-1.2) Ao Diam 2.6 (2.0-3.7) 2 DIMENSIONAL ASSESSMENT: RIGHT ATRIUM: NORMAL LEFT ATRIUM: NORMAL RIGHT VENTRICLE: NORMAL LEFT VENTRICLE: NORMAL TRICUSPID VALVE: NORMAL MITRAL VALVE: NORMAL PULMONIC VALVE: NORMAL AORTIC VALVE: NORMAL PERICARDIAL EFFUSION: NONE AORTIC ROOT: NORMAL LEFT VENTRICULAR WALL MOTION: NORMAL DOPPLER/COLOR FLOW: NORMAL COMMENTS: NORMAL LEFT VENTRICULAR EJECTION FRACTION 55-60%. NORMAL WALL MOTION. MILD AORTIC INSUFFIENCY. TECHNOLOGIST: KSENIA MEJIA
== END 2020-04-04 18:37 | disposition home or self-care (01) ==
LOC: ER 04:55 → ERHOLD 09:07 → 2ND 15:48
PROVIDERS: ADMIT Hospitalist; ATTEND Hospitalist
DX: R55 Syncope and collapse (principal); E11.65 Type 2 diabetes mellitus with hyperglycemia; Z91.14 Patient's other noncompliance with medication regimen; N48.1 Balanitis; N39.0 Urinary tract infection, site not specified; N17.9 Acute kidney failure, unspecified; E86.0 Dehydration; I65.21 Occlusion and stenosis of right carotid artery; I95.1 Orthostatic hypotension; R53.1 Weakness; E87.1 Hypo-osmolality and hyponatremia; I25.10 Atherosclerotic heart disease of native coronary artery without angina pectoris; Z79.4 Long term (current) use of insulin; Z86.010 Personal history of colon polyps; Z90.49 Acquired absence of other specified parts of digestive tract; Z86.73 Personal history of transient ischemic attack (TIA), and cerebral infarction without residual deficits; Z20.822 Contact with and (suspected) exposure to COVID-19; Z82.49 Family history of ischemic heart disease and other diseases of the circulatory system
CPT/HCPCS: 96361; 93005; 93306; 87088; 85025 ×2; 87086; 80048; 36415 ×2; 83735 ×2; 85610; 82947 ×10; 80076; 83036; 84484; 83690; 80053; 83880; 70450; 72125; 71045; 93880; 70551; 70544; 97112; 97116; 97161; 94760 ×3; 51702; 96375; 96372; 96374; 99285; U0003; J1650 ×2; J0696 ×2; J7030 ×4; G0378 ×3; 81003; 81015; J1815; J3480

== ENCOUNTER 2020-04-08 10:14 | Emergency (ER) | payer OTHER ==
--- OUTSIDE RECORDS SUMMARY | 2020-04-08 11:11 | XMS REPORT | Clinical Summary ---
:1950 Author Organization [facility] Address [address] [place] [address] Care Team Providers Name Role Phone Pcp, [...] Encounter MD Rosa Unsteady gait; 05/26/2019 Chad Camahco Preoperat jeremy cardiovascular examination; MD Matias Cerebrovascular accident (CVA), unspecif ied mechanism (HCC); Julio Forde MD S/P carot id endarterectomy; Acute pain; Hyperglycemia; Hypertension, u nspecified type 05/19/2019 Travel after 04/08/2019 Family History Medical History Relation Name Comments [...] PNEUMOCOCCAL 65+ YRS (1 of 1 - [id number]) 2013 MEDICARE ANNUAL WELLNESS (YEAR 2 or FIRST YEAR if no 03/14/2019 IPPE) INFLUENZA VACCINE (#1) 2019 Implants Implanted Type Area Refuge Worker Device Shelf Model / Identifier Expiration Serial / Date Lot Patch Periph Vascu-Grd 0.8x8cm [id number] - [id number] IMPL ANTS Left: [employer] 12/19/2023 [id number] / Implanted: Qty: 1 on 05/24/2019 by Rupa Kingsley MD at [facility] Arterial TECH:SURG INNOV [id number] / [id number] Description:LEFT CAROTID ARTERY Floseal Hemostatic Matrix Left: Arterial SHAFER 01/18/2020 [id number] / Implanted: Qty: 1 on 05/24/2019 by Rupa Kingsley MD at [facility] / [id number] Description:SITE - LEFT CAROTID Procedures Procedure Name [...] are i n the results section. after 04/08/2019 Results EKG-SCANNED (05/28/2019 8:20 AM CDT) Narrative [...] Meter 99Comment: : 70 - 110 mg/dL [facility] TESTED AT [address], [address]: Fraternity Adviser/Technic mary ID = [id number] for JOSEPH HOOKS Specimen Blood Performing Organization Address City/State/Zipcode Phone Number [address] [address] CENTER CBC (Hemogram only) (05/26/2019 4:24 AM CDT)Only the most recent of2 results within the time period is included. Pathologist Sig nature WBC 9.7 3.5 - 10.5 K/L [facility] RBC 3.56 (L) 4.63 - 6.08 M/L [facility] Hemoglobin 10.6 (L) 13.7 - 17.5 GM/DL [facility] Hematocrit 31.3 (L) 40.1 - 51.0 % [facility] MCV 87.9 79.0 - 92.2 fL [facility] MCH 29.8 25.7 - 32.2 pg [facility] MCHC 33.9 32.3 - 36.5 GM/DL [facility] RDW 13.0 11.6 - 14.4 % [facility] Platelets 106 (L) 150 - 450 K/CU MM [facility] MPV 12.2 9.4 - 12.4 fL [facility] nRBC 0 0 - 0 /100 WBC [facility] Specimen Blood Performing Organization Address City/State/Zipcode Phone Number [address] [address] CENTER Phosphorus (05/26/2019 4:24 AM CDT)Only the most recent of3 resultswithin the time period is included. Pathologist Sig nature Phosphorus 3.4 2.3 - 4.7 mg/dL [facility] Specimen Blood Narrative Performed At Fraternity Adviser ID - GERMAINE [facility] [place] Performing Organization Address City/[facility]/Zipcode Phone Number [address] [address] CENTER Magnesium (05/26/2019 4:24 AM CDT)Only the most recent of3 resultswithin the time period is included. Pathologist Sig nature Magnesium 2.4 1.6 - 2.6 mg/dL [facility] Specimen Blood Narrative Performed At Fraternity Adviser ID - GERMAINE [facility] Performing Organization Address City/State/Zipcode Phone Number [address] [address] [place] Basic Metabolic Panel (05/26/2019 4:24 AM CDT)Only the most recent of7 results within the time period is included. Sodium 137 136 - 145 meq/L [facility] Potassium 4.1 3.5 - 5.1 meq/L [facility] Chloride 108 (H) 98 - 107 meq/L [facility] CO2 22 22 - 29 meq/L [facility] BUN 21 7 - 21 mg/dL [facility] Creatinine 1.08 0.57 - 1.25 [facility] mg/dL [facility] Glucose 164 (H) 70 - 105 mg/dL [facility] Calcium 9.0 8.4 - 10.2 [facility] mg/dL [facility] EGFR 68Comment: ESTIMATED mL/min/1.73 sq [facility] GFR IS NOT m [facility] [place] CREATININE CLEARANCE IN PREDICTING GLOMERULAR FILTRATION RATE. ESTIMATED GFR IS NOT APPLICABLE FOR DIALYSIS PATIENTS. Specimen Blood Narrative Performed At Fraternity Adviser SONJA Love [facility] Performing Organization Address City/State/Zipcode Phone Number [address] [address] [place] TRANSFUSION SERVICE REPORT - SCAN (05/25/2019 6:02 PM CDT)Only the most recent of2 resultswithin the time period is included. Narrative Performed At This result has an attachment that is no t available. aPTT (05/25/2019 2:55 AM CDT)Only the most recent of2 resultswithin the time period is included. Pathologist Sig nature PTT 30.4 22.5 - 36.0 seconds [facility] Specimen Blood Performing Organization Address City/[facility]/Zipcode Phone Number [facility] [address] [place] [address] CENTER Prothrombin time/INR (05/25/2019 2:55 AM CDT)Only the most recent of3 results within the time period is included. Pathologist Sig nature Protime 14.2 11.9 - 14.2 seconds [facility] INR 1.1 <=5.9 [facility] Specimen Blood Narrative Performed At Effective 08/08/2018: PT Reference Range [facility] Change New: 11.9-14.2 Previous: 11.7-14.7 RECOMMENDED COUMADIN/WARFARIN INR THERAPY RANGES STANDARD DOSE: 2.0-3.0 Includes: PROPHYLAXIS for venous thrombosis, systemic embolization; TREATMENT for venous thrombosis and/or pulmonary embolus. HIGH RISK: Target INR is 2.5-3.5 for patients wiht mechanical heart valves. Performing Organization Address City/State/Zipcode Phone Number [facility] [address] [place] [address] CENTER Prepare RBC (05/24/2019 5:52 PM CDT)Only the most recent of2 resultswithin the time period is included. Pathologist Sig [facility] CROSSMATCH COMPATIBLE SAFETRACE TX Unit ABO B Pos SAFETRACE TX UNIT NUMBER [id number] SAFETRACE TX Status RETURNED FROM ISSUE SAFETRACE TX Blood Bank Product RED BLOOD CELLS SAFETRACE [place] PRODUCT CODE [id number] SAFETRACE [place] Performing Organization Address City/[facility] Phone Number SAFETRACE [place] CBC with platelet count + automated diff (05/24/2019 5:39 PM CDT)Only the most recent of2 resultswithin the time period is included. Pathologist [facility] WBC 12.6 (H) 3.5 - 10.5 [facility] K/L [facility] RBC 4.11 (L) 4.63 - 6.08 [facility] M/L [facility] Hemoglobin 12.1 (L) 13.7 - 17.5 [facility] GM/DL [facility] Hematocrit 35.0 (L) 40.1 - 51.0 % [facility] MCV 85.2 79.0 - 92.2 fL [facility] MCH 29.4 25.7 - 32.2 pg [facility] MCHC 34.6 32.3 - 36.5 [facility] GM/DL [facility] RDW 12.9 11.6 - 14.4 % [facility] Platelets 125 (L) 150 - 450 K/CU [facility] MPV 11.6 9.4 - 12.4 fL [facility] nRBC 0 0 - 0 /100 WBC [facility] % Neutros 77 % [facility] % Lymphs 17 % [facility] % Monos 4 % [facility] % Eos 1 % [facility] % Baso 0 % [facility] # Neutros 9.72 (H) 1.78 - 5.38 [facility] # Lymphs 2.12 1.32 - 3.[address] [facility] # Monos 0.48 0.30 - 0.[address] [facility] # Eos 0.12 0.04 - 0.[address] [facility] # Baso 0.05 0.01 - 0.[address] [facility] Immature 1 0 - 1 % [facility] Specimen Blood Performing Organization Address City/[facility]/Zipcode Phone Number [address] [address] CENTER Prepare Leuko-Red RBC (05/24/2019 4:01 PM CDT) Pathologist Sig nature CROSSMATCH COMPATIBLE SAFETRACE TX Unit ABO B Pos SAFETRACE TX UNIT NUMBER [id number] SAFETRACE TX Status READY SAFETRACE TX Blood Bank Product RED BLOOD CELLS SAFETRACE TX PRODUCT CODE [id number] SAFETRACE TX CROSSMATCH COMPATIBLE SAFETRACE TX Unit ABO B Pos SAFETRACE TX UNIT NUMBER [id number] SAFETRACE TX Status READY SAFETRACE TX Blood Bank Product RED BLOOD CELLS SAFETRACE TX PRODUCT CODE [id number] SAF[place]ACE [place] Specimen Other Performing Organization Address City/State/Zipcode Phone Number SAFETRACE [place] POC ACTIVATED CLOTTING TIME (05/24/2019 3:24 PM CDT)Only the most recent of3 resultswithin the time period is included. Activated Clotting 252Comment: : sec [facility] Time 74-137 seconds, [facility] MEDICAL Baseline: TESTED CENTER AT [facility] [address] [place] [address], [id number]: Fraternity Adviser/Technicia n ID = [id number] for JHONNY BONE Specimen Blood Performing Organization Address City/[facility] Cent[facility] Phone Number [address] [phone] CENTER Tissue Exam (05/24/2019 3:14 PM CDT) Case Report Surgical Pathology Report Case: [id number] [facility] Authorizing Provider: Rupa Rodriguez MD Collected: 05/24/2019 [facility]4 [facility] Ordering Location: [facility] Received: 05/27/[address] [place] [address] PERIOPERATIVE SERVICES Pathologist: Rex Bardales MD Specimen: Plaque, LEFT CAROTID PLAQUE DIAGNOSIS ARTERY, LEFT CAROTID, ENDARTERECTOMY: [facility] Electronically CALCIFIC ATHEROSCLEROTIC PLAQUE WITH FOCAL INTRAPLAQUE HEMORRHAGE [facility] signed by Rex Bardales Signing Pathologist Direct Phone Line: [phone] [place] [address] MD Pavel on 05/31/2019 at 4 :20 PM CPT Code(s) 09679; 80329 [facility] CLINICAL HISTORY Preop diagnosis: [facility] Carotid stenosis, left [facility] SPECIMEN SOURCE Plaque [facility] GROSS DESCRIPTION Received in formalin [facility] labeled with the [facility] patient's name, MEDICAL CENTER accession number and "left carotid plaque" is a 3.2 cm in length x 1.0 cm in diameter bower-yellow tubular piece of focally calcified plaque. Tow Truck Driver sections are submitted in A1 following decalcification. PA/pl MICROSCOPIC Performed [facility] Specimen Tissue - Plaque (morphologic abnormality ) Performing Organization Address City/[facility]/Zipcode Phone Number [address] [address] CENTER ABORH, manual (05/23/2019 7:52 PM CDT) Pathologist Sig nature ABO Grouping B [facility] Rh Factor POS [facility] Specimen Blood Performing Organization Address [facility] Centercode Phone Number [address] [address] Type and screen, automated (05/23/2019 4:34 PM CDT) Pathologist Sig nature ABO/RH AUTOMATED B POSITIVE [facility] Ab Scrn NEGATIVE [facility] Specimen Blood Performing Organization Address [facility] Phone Number [address] [address] Blood gas, venous (05/23/2019 5:47 AM CDT) Pathologist Sig nature pH, Garrett 7.35 7.32 - 7.42 [facility] pCO2, Garrett 44 41 - 51 mm Hg [facility] pO2, Garrett 41 (H) 25 - 40 mm Hg [facility] O2 Sat, Garrett 73.7 (H) 40.0 - 70.0 % [facility] HCO3, Garrett 24 21 - 29 mmol/L [facility] Base Excess, Garrett 2.2 -2.0 - 3.0 [facility] mmol/L [facility] Patient Temperature 97.0 [facility] FIO2 21 [facility] Specimen Blood - Central venous catheter, device (physical object) Performing Organization Address City/[facility] Cent[facility]ode Phone Number [address] [address] CENTER PERIPHERAL VASCULAR REPORT - SCAN (05/21/2019 9:10 PM CDT) Narrative Performed At This result has an attachment that is no t available. Carotid doppler bilateral (05/21/2019 8:30 AM CDT) [facility] nature Ejection Fraction [facility] Specimen Impressions Performed At Right Impression [facility] 1. There is <50% diameter reduction (approximately [...] At PV LAB - Carotid Duplex Study [facility] Demographics Patient Name SHANTEL DELVALLE Date of Study 05/21/2019 Age 68 Visit Number [id number] Gender Male Accession Number [id number] Date of 1950 Referring DARNELL LUEVANO Room Number 5167 Physician Senior Grants Officer Katja South Interpreting Angie Thorpe, RN, [...] Study 05/21/2019 A ge 68 Visit Number [id number] G lobo Male Accession Number [id number] D ate of 1950 Referring DARNELL GOYALG Gretchen om Number 2263 Physician Senior Grants Officer Katja South I nterpreting Angie Thorpe RN, [...] City/State/Zipcode Phone Number [facility] ECHOCARDIOGRAM REPORT - SCAN (05/20/2019 9:12 PM CDT) Narrative Performed At This result has an attachment that is no t available. Urinalysis with Microscopic If Indicated (05/20/2019 9:12 PM CDT) Color, UA Colorless [facility] Clarity, UA Clear [facility] Specific [place], 1.012 1.001 - 1.035 [facility] pH, UA 5.5 5.0 - 8.0 [facility] Protein, UA Negative Negative [facility] Glucose, UA 150 mg/dL (A) Negative [facility] Ketones, UA Negative Negative [facility] Bilirubin, UA Negative Negative [facility] Blood, UA Negative Negative [facility] Nitrite, UA Negative Negative [facility] Leukocytes, UA Negative Negative [facility] Urobilinogen, UA 0.2 0.2 - 1.0 mg/dL [facility] Specimen Source [facility] Specimen Urine Narrative Performed At Fraternity Adviser ID - [auto] [facility] Fraternity Adviser ID - tech Fraternity Adviser ID - tech Performing Organization Address [facility] Phone Number [facility] [address] [place] [address] CENTER ECG 12 lead (05/20/2019 12:36 PM CDT) Specimen Narrative Performed At Ventricular Rate 59 BPM GE MUSE Atrial Rate 59 BPM P-R Interval 172 ms QRS Duration 106 ms Q-T Interval 418 ms QTC Calculation(Bazett) 413 ms P Marble 50 degrees R Marble 1 degrees T Marble 61 degrees Sinus bradycardia Interatrial conduction delay [...] 418 ms QTC Calculation(Bazett) 413 ms P Marble 50 degrees R Marble 1 degrees T Marble 61 degrees Sinus bradycardia Interatrial conduction delay Anterior infarct , age undetermined Abnormal ECG No previous ECGs available Confirmed by MD RINALDI YOCHAI ([id number]) on 05/21/2019 6:45:20 AM Performing Organization Address City/[facility] Phone Number [facility] 2D Echo W/Doppler(CW/PW/Color) (05/20/2019 10:58 AM CDT) Pathologist Sig nature Ejection Fraction [facility] Specimen Narrative Performed At Transthoracic Echocardiography Report (T TE) [facility] Demographics Patient Name SHANTEL MCKEON Date of Study 05/20/2019 Gender Male Visit Number [id number] Race Unknown Room Number 2263 Number Date of 1950 Referring Chad Camacho, Physician Age 68 year(s) Senior Grants Officer Steph Espinoza, NB, RDCS,RVT,RDMS Oil Well Fishing Tool Operator Becky Allen, Interpreting Chidi Escalante MD [...] S kennydy 05/20/2019 Gender Male Visit Number [id number] Race Unknown Room Numb er 2263 Number Date of 1950 Referring Physician STEFFANIE Kruse Age 68 year(s) Sonograph er Steph Espinoza, CHADWICK, RDCS,RVT,RDMS Oil Well Fishing Tool Operator Becky Allen, Interpret ing Chidi Escalante [...] VTI (PW): 36.3 cm Performing Organization Address City/[facility] Phone Number [facility] Vitamin B12 and Folate (05/20/2019 9:02 AM CDT) Pathologist Sig nature Vitamin B12 282 213 - 816 pg/mL [facility] Folate 14.5 >=7.0 ng/mL [facility] Specimen Blood Narrative Performed At Fraternity Adviser ID - KARL Curtis [facility] Performing Organization Address City/[facility]/Zipcode Phone Number [facility] [address] [place] [address] CENTER TSH/Free T4 If Indicated (05/20/2019 9:02 AM CDT) Pathologist Sig nature TSH 1.24 0.35 - 4.94 uIU/mL [facility] Specimen Blood Narrative Performed At Fraternity Adviser ID - PIAYA L [facility] Performing Organization Address City/[facility] Centercode Phone Number [address] [address] CENTER HIV-1 Antigen with HIV-1/2 Antibody (05/20/2019 9:02 AM CDT) Pathologist Sig nature HIV-1 Antigen with Nonreactive Nonreactive [facility] HIV 1&2 Antibody [facility] Specimen Blood Narrative Performed At Fraternity Adviser ID - PIMICHELLE L [facility] Performing Organization Address [facility] Centercode Phone Number [address] [address] CENTER RPR (05/20/2019 9:02 AM CDT) Pathologist Sig nature RPR Nonreactive Nonreactive [facility] Specimen Blood Performing Organization Address City/[facility] Phone Number [address] [address] CENTER Homocysteine (05/20/2019 9:02 AM CDT) Pathologist Sig nature Homocysteine 15.2 5.1 - 15.4 umol/L [facility] Specimen Blood Narrative Performed At Fraternity Adviser ID - PIMICHELLE L [facility] Performing Organization Address [facility] Centercode Phone Number [address] [address] CENTER MR brain without IV contrast (05/20/2019 6:19 AM CDT) Specimen Narrative Performed At FINAL REPORT [facility] EXAM: MR, BRAIN, WITHOUT CONTRAST, MR, M RA, BRAIN, WITHOUT CONTRAST, MR, MRA, NECK, WITHOUT IV CONTRAST CLINICAL INDICATION: Stroke follow-up. TECHNIQUE: Sagittal and coronal T1-w and axial T2-w, FLAIR, GRE, and diffusion-w images of the brain with ADC maps. 2D gyhk-ng-mqqypo MRA of the neck. 3D xezh-fq-vvnofq MRA of th e head. Source data [...] bilaterally. Posterior Circulation: Right posterior cerebral artery (ENROLLMENT SERVICES VICE PRESIDENT): H ypoplastic P1 segment with the remainder of the right ENROLLMENT SERVICES VICE PRESIDENT supplied by the right posterior communicating artery. Left posterior cerebral artery (ENROLLMENT SERVICES VICE PRESIDENT): Hy poplastic P1 segment with the remainder of the left ENROLLMENT SERVICES VICE PRESIDENT supplied by th e left posterior communicating [...] of the brain with ADC maps. 2D njip-sh-jivynz MRA of the neck. 3D ypji-vy-jnwrtg MRA of th e head. Source data [...] bilaterally. Posterior Circulation: Right posterior cerebral artery (ENROLLMENT SERVICES VICE PRESIDENT): H ypoplastic P1 segment with the remainder of the right ENROLLMENT SERVICES VICE PRESIDENT supplied by the right posterior communicating artery. Left posterior cerebral artery (ENROLLMENT SERVICES VICE PRESIDENT): Hy poplastic P1 segment with the remainder of the left ENROLLMENT SERVICES VICE PRESIDENT supplied by th e left posterior communicating [...] 6:42:15 Performing Organization Address City/State/Zipcode Phone Number [employer] MRA neck without IV contrast (05/20/2019 6:19 AM CDT) Specimen Narrative Performed At FINAL REPORT [employer] EXAM: MR, BRAIN, WITHOUT CONTRAST, MR, M RA, BRAIN, WITHOUT CONTRAST, MR, MRA, NECK, WITHOUT IV CONTRAST CLINICAL INDICATION: Stroke follow-up. TECHNIQUE: Sagittal and coronal T1-w and axial T2-w, FLAIR, GRE, and diffusion-w images of the brain with ADC maps. 2D mkni-hc-hjjiee MRA of the neck. 3D ducv-ue-cbsdqu MRA of th e head. Source data [...] bilaterally. Posterior Circulation: Right posterior cerebral artery (ENROLLMENT SERVICES VICE PRESIDENT): H ypoplastic P1 segment with the remainder of the right ENROLLMENT SERVICES VICE PRESIDENT supplied by the right posterior communicating artery. Left posterior cerebral artery (ENROLLMENT SERVICES VICE PRESIDENT): Hy poplastic P1 segment with the remainder of the left ENROLLMENT SERVICES VICE PRESIDENT supplied by th e left posterior communicating [...] of the brain with ADC maps. 2D qzwg-ej-ontujn MRA of the neck. 3D ebku-uo-rjrlnj MRA of th e head. Source data [...] bilaterally. Posterior Circulation: Right posterior cerebral artery (ENROLLMENT SERVICES VICE PRESIDENT): H ypoplastic P1 segment with the remainder of the right ENROLLMENT SERVICES VICE PRESIDENT supplied by the right posterior communicating artery. Left posterior cerebral artery (ENROLLMENT SERVICES VICE PRESIDENT): Hy poplastic P1 segment with the remainder of the left ENROLLMENT SERVICES VICE PRESIDENT supplied by th e left posterior communicating [...] 6:42:15 Performing Organization Address City/State/Zipcode Phone Number [employer] MRA head without IV contrast (05/20/2019 6:19 AM CDT) Specimen Narrative Performed At FINAL REPORT [employer] EXAM: MR, BRAIN, WITHOUT CONTRAST, MR, M RA, BRAIN, WITHOUT CONTRAST, MR, MRA, NECK, WITHOUT IV CONTRAST CLINICAL INDICATION: Stroke follow-up. TECHNIQUE: Sagittal and coronal T1-w and axial T2-w, FLAIR, GRE, and diffusion-w images of the brain with ADC maps. 2D qffo-zc-wfzpux MRA of the neck. 3D pxit-oh-eusmfw MRA of th e head. Source data [...] bilaterally. Posterior Circulation: Right posterior cerebral artery (ENROLLMENT SERVICES VICE PRESIDENT): H ypoplastic P1 segment with the remainder of the right ENROLLMENT SERVICES VICE PRESIDENT supplied by the right posterior communicating artery. Left posterior cerebral artery (ENROLLMENT SERVICES VICE PRESIDENT): Hy poplastic P1 segment with the remainder of the left ENROLLMENT SERVICES VICE PRESIDENT supplied by th e left posterior communicating [...] of the brain with ADC maps. 2D sfkw-by-aywjcc MRA of the neck. 3D ixxu-nv-pgsalw MRA of th e head. Source data [...] bilaterally. Posterior Circulation: Right posterior cerebral artery (ENROLLMENT SERVICES VICE PRESIDENT): H ypoplastic P1 segment with the remainder of the right ENROLLMENT SERVICES VICE PRESIDENT supplied by the right posterior communicating artery. Left posterior cerebral artery (ENROLLMENT SERVICES VICE PRESIDENT): Hy poplastic P1 segment with the remainder of the left ENROLLMENT SERVICES VICE PRESIDENT supplied by th e left posterior communicating [...] nature CRP 0.13 0.00 - 0.50 mg/dL [facility] Specimen Blood Narrative Performed At Fraternity Adviser ID - PIAYA L [facility] Performing Organization Address [facility] Centercode Phone Number [address] [address] [place] Hemoglobin A1c (05/20/2019 2:50 AM CDT) Pathologist Sig nature Hemoglobin A1C 10.4 (H) 4.3 - 6.1 % [facility] Specimen Blood Performing Organization Address City/[facility] Centercode Phone Number [address] [address] [place] Hepatic function panel (05/20/2019 2:50 AM CDT) Pathologist Sig nature Protein, Total 5.9 (L) 6.0 - 8.3 gm/dL [facility] Albumin 3.6 3.5 - 5.0 g/dL [facility] Total Bilirubin 0.5 0.2 - 1.2 mg/dL [facility] Bilirubin, Direct 0.2 0.1 - 0.5 mg/dL [facility] Alkaline Phosphatase 70 40 - 150 U/L [facility] AST 11 5 - 34 U/L [facility] ALT <6 (L) 6 - 55 U/L [facility] Specimen Blood Narrative Performed At Fraternity Adviser ID - KARL Curtis [facility] Performing Organization Address City/[facility] Phone Number [address] [address] [place] Lipid panel (05/20/2019 2:50 AM CDT) Pathologist Sig nature Triglycerides 274 mg/dL [facility] Cholesterol 177 mg/dL [facility] HDL 35 mg/dL [facility] [place] LDL Calculated 87 mg/dL [facility] Specimen Blood Narrative Performed At Triglyceride Reference Range: [facility] Low Risk <150 Borderline 150-199 High Risk 200-499 Very High Risk >=500 Cholesterol Reference Range: Low Risk <200 Borderline 200-239 High Risk >240 HDL Cholesterol Reference Range: Low Risk >=60 High Risk <40 LDL Cholesterol Reference Range: Optimal <100 Near Optimal 100-129 Borderline 130-159 High 160-189 Very High >=190 Fraternity Adviser ID - [id number] L Performing Organization Address City/State/Zipcode Phone Number [facility] [address] [place] [address] CENTER after 04/08/2019 Insurance Payer Benefit Plan / Subscriber ID Effective Phone Address T ype Group Dates [employer]IG[employer] CIGJOYCE [id number] 2018-Pre [facility] Kid BunchStudent Loan [employer] sent Contracted Advance Directives For more information, please contact: [phone] Code Status Date Activated Date Inactivated Comments Full Code 05/19/2019 10:22 PM 05/26/2019 6:29 PM This code status was determined by: Patient
--- OUTSIDE RECORDS SUMMARY | 2020-04-08 11:13 | XMS REPORT | Continuity of Care Document ---
:1950 Author Organization [facility] t Address [address] [place] [address] Dr. Mendo[address]. [address] [place] [address] Care Team Providers Name Role Phone Pcp [...] Date Expiration Date Sour ce Number CIGNA [id number] [facility] 00:00:00 - Medic va [facility] [id number] esentMaps Contracted Problems Condition Condition Condition Status [...] Stop Date Source Natural mother Heart disease [facility] Natural sister Bradycardia [facility] Social History Social Habit Start Date Stop Date Quantity Comments Source Sex Assigned At [facility] Smoking Status Start Date Stop Date Source Never smoker [facility] Medications Ordered Filled Start Stop Current [...] [facility] (GLUCOPHAGE 3-15 03-15 mg by [facility] - ) 1000 MG 13:44: 00:00 mouth [...] Misc 00:00: to check Medical 00 sugars. [place] blood sugar Yes Use 4x a [facility] diagnostic [facility] (GLUCOSE 00:00: check Medical BLOOD) Strp 00 sugars. Cente r lancets Yes Use 4x a [facility] Misc 3-15 [facility] - 00:00: check Medical 00 sugars. [place] alcohol Yes Use before [facility] swabs 15 [facility] - (ALCOHOL 00:00: sugars and Med ical PADS) PadM [address] ing insulin. insulin 2020- No Inject 10u [facility] glargine 315 03-15 QAM and [facility] - (LANTUS) 00:00: 23:59 15u QPM. Medi roxie 100 unit/mL 00 :00 Center injection Vital Signs Vital Name Observation Time Observation Value Comments Source Systolic blood 2019-05-26 13:10:00 146 mm[Hg] [facility] pressure [facility] Diastolic blood 2019-05-26 13:10:00 65 mm[Hg] [facility] t [facility] pressure [facility] Heart rate 2019-05-26 13:10:00 53 /min [facility] Body temperature 2019-05-26 13:10:00 37.11 Madelin [facility] Respiratory rate 2019-05-26 13:10:00 18 /min [facility] Oxygen saturation in 2019-05-26 13:10:00 98 /min [facility] Arterial blood by Medical Ce nter Pulse oximetry Body height 2019-05-20 13:27:00 172.7 cm [facility] Body weight 2019-05-20 13:27:00 79.379 kg [facility] BMI 2019-05-20 13:27:00 26.61 kg/m2 [facility] Procedures Procedure Date / Time Performing Clinician Source Performed REPORT OF PROCEDURE - 2019-05-28 08:20:12 Provider, Default [facility] - ENDOSCOPY SCAN Scanning [facility] RHYTHM STRIP - SCAN 2019-05-28 08:20:07 Provider, [facility] POCT-GLUCOSE METER 2019-05-26 13:09:00 [facility] PO[facility]UCOSE METER 2019-05-26 07:31:00 [facility] BASIC METABOLIC PANEL (7) 2019-05-26 04:24:00 Nina Boss [facility] CBC (HEMOGRAM ONLY) 2019-05-26 04:24:00 Nina Boss [facility] MAGNESIUM 2019-05-26 04:24:00 Julisa Osman [facility] PHOSPHORUS 2019-05-26 04:24:00 [facility] POCT-GLUCOSE METER 2019-05-25 22:41:00 [facility] TRANSFUSION SERVICE 2019-05-25 18:02:25 Provider, [facility] REPORT - [facility] POCT-GLUCOSE METER 2019-05-25 17:04:00 [facility] POCT-GLUCOSE METER 2019-05-25 12:27:00 Darnell [facility] POCT-GLUCOSE METER 2019-05-25 07:50:00 [facility] POCT-GLUCOSE METER 2019-05-25 04:58:00 Darnell [facility] POCT-GLUCOSE METER 2019-05-25 04:10:00 Darnell [facility] PROTHROMBIN TIME/INR 2019-05-25 02:55:00 Susanna Tsang CH, I [facility] BASIC METABOLIC PANEL (7) 2019-05-25 02:55:00 Nina Boss [facility] CBC (HEMOGRAM ONLY) 2019-05-25 02:55:00 Nina Boss [facility] MAGNESIUM 2019-05-25 02:55:00 Julisa Osman [facility] PHOSPHORUS 2019-05-25 02:55:00 Julisa Osman [facility] APTT 2019-05-25 02:55:00 Sharan Susanna Ann [facility] POCT-GLUCOSE METER 2019-05-24 21:46:00 Julio Forde [facility] PROTHROMBIN TIME/INR 2019-05-24 19:37:00 Ajay Prince [facility] APTT 2019-05-24 19:37:00 Sharan Susanna Ann [facility] TRANSFUSION SERVICE 2019-05-24 18:01:[address] [facility] REPORT - SCAN [facility] PREPARE RBC 2019-05-24 17:52:00 Rupa Kingsley [facility] BASIC METABOLIC PANEL (7) 2019-05-24 17:39:00 [facility] ja[facility] la [facility] MAGNESIUM 2019-05-24 17:39:00 Mofhi [facility] PHOSPHORUS 2019-05-24 17:39:00 [facility] CBC W/PLT COUNT & AUTO 2019-05-24 17:39:00 [facility] PREPARE LEUKO-REDUCED RBC 2019-05-24 16:01:00 Edis Quinonez CH, I [facility] PREPARE RBC 2019-05-24 15:55:00 Rupa Kingsley [facility] POCT-ACT 2019-05-24 15:24:00 Julio Forde [facility] TISSUE EXAM 2019-05-24 15:14:00 Rupa Kingsley [facility] POCT-ACT 2019-05-24 15:13:00 Julio Forde [facility] POCT-ACT 2019-05-24 15:01:00 Julio Forde [facility] ENDARTERECTOMY,CAROTID 2019-05-24 12:25:00 Rupa Kingsley [facility] POCT-GLUCOSE METER 2019-05-23 21:51:00 Julio Forde [facility] ABORH, MANUAL 2019-05-23 19:52:00 Shiraz Clara Anne [facility] POCT-GLUCOSE METER 2019-05-23 17:51:00 Julio Forde [facility] TYPE AND SCREEN, 2019-05-23 16:34:00 Edis Quinonez [facility] - AUTOMATED [facility] POCT-GLUCOSE METER 2019-05-23 12:29:00 Julio Forde [facility] POCT-GLUCOSE METER 2019-05-23 08:28:00 Julio Forde [facility] BLOOD GAS, VENOUS 2019-05-23 05:47:00 Julio Forde [facility] BASIC METABOLIC PANEL (7) 2019-05-23 04:25:00 Julio Forde [facility] POCT-GLUCOSE METER 2019-05-23 00:53:00 Julio Forde [facility] POCT-GLUCOSE METER 2019-05-22 21:34:00 Julio Forde [facility] POCT-GLUCOSE METER 2019-05-22 17:29:00 Julio Forde [facility] POCT-GLUCOSE METER 2019-05-22 12:19:00 Julio Forde [facility] POCT-GLUCOSE METER 2019-05-22 08:55:00 Julio Forde [facility] BASIC METABOLIC PANEL (7) 2019-05-22 05:48:00 Chad Camacho [facility] POCT-GLUCOSE METER 2019-05-21 21:31:00 Julio Forde [facility] PERIPHERAL VASCULAR 2019-05-21 21:10:27 Karri Kenyon [facility] - [facility] POCT-GLUCOSE METER 2019-05-21 17:27:00 Julio Forde [facility] POCT-GLUCOSE METER 2019-05-21 12:25:00 Julio Forde [facility] POCT-GLUCOSE METER 2019-05-21 10:03:00 DarnellElissaShyanne [facility] CAROTID DOPPLER BILATERAL 2019-05-21 08:30:00 Edis Quinonez [facility] BASIC METABOLIC PANEL (7) 2019-05-21 05:55:00 Chad Camacho [facility] ECHOCARDIOGRAM REPORT - 2019-05-20 21:12:05 Provider, Karri [facility] URINALYSIS WITH 2019-05-20 21:12:00 Darnell VasylShyanne [facility] - MICROSCOPIC IF INDICATED Medical Center POCT-GLUCOSE METER 2019-05-20 18:05:00 Darnell Julio [facility] POCT-GLUCOSE METER 2019-05-20 13:22:00 [facility]ell [facility] ECG 12-LEAD 2019-05-20 12:36:58 Sky Angie [facility] 2D ECHO W/ DOPPLER 2019-05-20 10:58:[address] [facility] (CW/PW/COLOR) [facility] POCT-GLUCOSE METER 2019-05-20 09:11:00 Elissa FordeIrlandaShyanne [facility] TSH/FREE T4 IF INDICATED 2019-05-20 09:02:00 Benson Newman shakeel [facility] VITAMIN B12 AND FOLATE 2019-05-20 09:02:00 Benson Newman y [facility] RPR 2019-05-20 09:02:00 Benson Newman [facility] HIV-1 ANTIGEN WITH 2019-05-20 09:02:00 Benson Newman [facility] HIV-1/[address] [facility] HOMOCYSTEINE 2019-05-20 09:02:00 Benson Newman [facility] MRA HEAD WITHOUT IV 2019-05-20 06:19:00 Chad Camacho [facility] MRA NECK WITHOUT IV 2019-05-20 06:19:00 [facility] MR BRAIN WITHOUT IV 2019-05-20 06:19:00 [facility] POCT-GLUCOSE METER 2019-05-20 03:59:00 Janice [facility] BASIC METABOLIC PANEL (7) 2019-05-20 02:50:00 Janice [facility] PROTHROMBIN TIME/INR 2019-05-20 02:50:00 [facility] LIPID PANEL 2019-05-20 02:50:00 [facility], [facility] HEMOGLOBIN A1C 2019-05-20 02:50:00 [facility] C-REACTIVE PROTEIN 2019-05-20 02:50:00 [facility] HEPATIC FUNCTION PANEL 2019-05-20 02:50:00 Benson Newman [facility] CBC W/PLT COUNT & AUTO 2019-05-20 02:50:00 Chad Camacho I [facility] Plan of Care Planned Activity Planned Date [...] - Test 00:00:00 (1 of 1 - [facility] [id number] PCV13) [code = PNEUMOCOCCAL 65+ YRS (1 of 1 - [id number] PCV13)] Future Scheduled [address] [address] [facility] - Test 00:00:00 [facility] colon (procedure) [code = 454155852] Encounters Start End Encounter Admission Attending Care Care Encounter Source Date/Time Date/Time Type Type Clinicians Facility Department ID 2019-06-12 2019-06-12 Office Sancho TIGIST [id number] 92 09:53:11 13:49:12 Visit Rupa AMBULATOR 350.1.13.21 Y [id number] Results Test Description Test Time Test Comments Results Result Comments Source Tissue Exam 2019-05-31 16:20:00 Test Item Value Reference Range Interpretation Comme nts Case Report (test code = 104) Surgical Pathology Report Case: [id number] Authorizing Provider: Rupa Kingsley MD Collected: 05/24/2019 1514 Ordering Location: [facility] Received: 05/27/2019 0911 PERIOPERATIVE SERVICES Pathologist: Rex Bardales MD Specimen: Plaque, LEFT CAROTID PLAQUE DIAGNOSIS (test code = 3220) o8ixtCQfFVWoi8ojBCUyePWzCaXeUxJvNnVbAc pc cVGyLTccepAdGLzwp4QiM3TkOvDlLZhyjlOeOCLe VvtufuvpZIQjZNU0fmIuVOQwYKjkFHOwSRuuIi7e aCXqsEnvSoYhCVUaf2pspuHKpjttfHo5x5lcTEBr ZqS7cXNrFJqsF1jcksRarHUyNUVtLOz4aZ35ONWt rB1yuSQdLNmzucGgSIfdhoZibrFlDvi5CNQbV8yj SQIhNHKzN1YnHH6sUEExAee5XTD7ESN0bWbpz7C3 kYTfpUYxvPuvFiEjCtGgXSYLi0IbRWt5fVxiG7Xe CCHaHdN9qISkHILlWQgoMKWiRENmrpU8wA87GDhw xrN6sPDrj7Whe28xy312wV0ocLItAAX0UYUwBFMx tKLiCGJuJMX3IGGirLNmC7f5DtSbwVOdH5K9IoOq cJMdJ7W0TbIfrHVbP8O4AiBsxTRkJLBkpOIoSu9j iEZeoACeeu4ofr86QIE9l0ZreIqpFBO2DCT8NkRw Nl8hmFIhRQKgSF0oNkNweFLiVQSded89aWxaFRcm lwFdlN3vBdJdDUZzuWGwESPvRB2teKMoGLFkzA0n uiqaQHOgRxRokrkzSXXzxUlxzyHyOg0agBnsUTZ0 BKcnL2gviC3kLpK9PErzX6tdpP0lBAn5BIqnrSP0 JOYobC9mKG1vmtfcc3rmMgUqSL3qetoms7lpNoKq OZ0kfmf7o4wrTtLhYG3ixtjiq1spNyExZVfjLWKz hjppKDXqb2WadlaeYBIvc9FdC4NvqSxkW69vsSev C10lAGKitAmqtT2kyOvfmM2lGzFtQuIjCJwpfNst bGFpblxmMFxmczIwXHBsYWluXGYxXGZzMjAgQVJU MQECZFOGOTNAAOWRZp6DHSIePSZGCZPQASPJFPUK I97NCongXWMaY6UFS9fNQXPpQCUBFPJFR1TRQKIT EUbOVXOQHKMLUMFJGZWESCOTF4ETHFtQNPLKQNcT HNXHHMcDUE6JTemYO1EryDHpiZszwrZjTWvwg0Dh LEjnSVGhRM5bdBioPHCyQF2gNYPcD3ddgJ7nwck5 SoUdDKPbPxK7BOHcvfN9Exh9EMHbAHehm1ikh8Ir IZHsFLt8xQczObSzNKVzo1ykoaExHwXoTIJsULNs REOxlYQiT145c7tgc7jwsaJqiXO9QODlKVL0IRls axPfusH7BPztmBShEaN6PWljvfQlXWiuuiIdnpSf Uzb7GHKbM299UFF7lZain3yqYNQ4JVFxAWEvShKl Oh9ssAElF509YPCoGJBSSMTdsEg6TVVjsgVzuoOz vMLPk693G306n6pqPIKtpbOgcNaBvljyd0kgF264 IMBmlAAkdwTqXyRdRCLxsJPpeXL9DBQuNS2xjojh XHqqZUduENBlsfL3JCItjOEwH4ZfENPlCO2kpnwt ACR7FQspSXAiKTE9PyZxRBOnh3Nfypo3ApLszt0n im55MQQ1n4RfjSlvUPP6DFM2ClCoFe6fdTOtXEAu GH0cIyEtjUQfLUHypk54sHhlIOqaSKT4LWWidpTx y7Qze6kiOqFmtbCwK4vkG2ZlORIrOPPwHGOmYrJy luWna0Avh6KrjIOyfTi5h0zmTYOnMWSmrRqwl8um QLP6TIOqiGPaL7arkZ9yUOFtHT7eqgxac7tnUAhi PFudADJbyZD1cmC7ZOJmcJEwJ3GftG3mRVQrVWde SGTtydy8HwBtRu0fqCSfnBuvWDfnCakrRWyhNMWk bmNvbnRccGduZGVjXHBsYWluXHBsYWluXGYwXGZz MjRccWxcbGFuZzEwMzNcaGljaFxmMVxkYmNoXGYx OKfkY2zaEgCyWxGoWvd0HJTugNKeKRWgTyn4MKAl cLUtDBNEqIzwfY0dPUXwbLffhG4xdWZ2WQOzewKf xXNRaW9cJYDPtZ7gRqS4YhEpLbA9SNEpZKtqwFZc fX0= CPT Code(s) (test code = 3357) o4mwkJRrEUIfaFZoGhGjFSPlPERcw7jwNBXp bGFu GrBqIaVlKvGcAezyqWNzPQScYyBfo3qye324fFCd a1hqTSYfMeG4rZTmWXKryNQvU990v6nku9reyyVh iZS1AXYhCQP0XBqkcdBxqhI3MYkjfNIjOwC6AMez naAgCKsezfLqhbLsHpm5OFSiN912ZXT9yUyog8vb JHF0XSNgJGIeSlFvZy9duGIkK096SCBpPMVDYVWx zOt2SSMgrdDnioLpnYTLq695F574b2onFIBseuLb eJdExefea7gnI316QVPkoLRqwqKbWfLmLLWzwCRl mDA0BALdTQ1capaoOhCgHK9qwjrsGhFlUA0lprc6 VwJbST1qqbthHdOfINdqGSMxshjkTFAmy6Tdghfc DK3vP6Wgy1Z2gM8ogMSoHROnyYDzYtBlIPJqgd4i kIHaVUjzp0GqHJM9xsR5oXXglGEbDVAfVQ15Pusu q5ZmYcnxCZW3EEWctzRzd6Cmz8ifXyUsasYkC2bi U7QlSTUpDADoRZHsSeYslrAxq4Wbq3OrvCOreCx2 b6vvIQQpZQTheTnuj8urWOF3MWIzF3R8wUSfw2gx EQbnAOAzpNU6emkuZQuuBRXukvB9lmweSSwbBALc hHG0zktmPBgjNSCqLbC3mcetQKzwQVCpLYG0NBvz p729GKD8NKtaMsobOMjxYMTjoqAeyzVjnJulFWNx YDQfKIagRIFuAMnkUSEmHYEmObObvOcsmHurjE6m PsZpDiPvIKmjWP5yOUKcD3iexJYkTPLnIRKvP1ik GgImkU3rrEihRTmsmcZdOSg1CzN1TaM0WIXvKJub YXJ9 CLINICAL HISTORY (test code = 3356) u6hdtWTeWPGfjUJyQmFjNKJpGFHyv7b cZGVmbGFu XsNzOqDgNjQfJfvhiUFdJVXfJjMbb2dpa993lQBj y7niPQKaEiC0xTCrAJKrbSXoU429VRZhZPnfc5ge e8SkCGLzuBNez6V0DMBUqqtgrTf2hNlwP64ts8B7 GaamL5lqNWWdBZAoS9QzIZ0rLCWpTlf7HIH5AZO2 KDDsAWDfC0VyMF7xVMEwqZZwPRu4v5tbrEboUXWz EQK1y1ntMMfvwsDkWY1efb2goYj4b3vuebJuYLXd ESStcDUZXWJrH6MiuBgmEx8zrPb6cGavRqomMYA9 Lpe3QA7kan28zfy9hZytTPAbiuvjKbW8BEjxSEHj nyfaRUy7EUkdMIEzuZmwIDybNKMxwenbDSwvSAPu pZgvTVqpLFUmQwbnLSddDBEeMQP9UFljm788YWA0 NTiqw5ccw9jglSLxIek8UBHzHwFzEewmDHyde3Mq s2bcYPFjmc1aCGA9hXTtiQhqq2D1uQZsLFFvnKEq ssExBUUyQvV8TDavUQ4jnx36OPQjMQN3yp5xlWWn zQzrdzHpuWEiVTenS4QiXMYmo225XWNcA7MfISTw y7C2egEqQlTsCVQdmWY7olR8NVNmTLb5vAIhfzA0 rsFubXHaM2hmqQ85YaFppBStX1FpgD18SbOpnCYl C6HaaI96XiZvtXJaB1ZueW90FtSrrCRlOQGdcCVh Tm3xbZIhlRZch9DtyWZjDQvyS92dx748VDSezhMa N3veoKXaxblfjDKawaxhRDcxizH1LHLwJAHuDGom XGYxXGZzMjBcbGFuZzEwMzNcaGljaFxmMVxkYmNo IOWrBHazY4emOoBrPqQcFKTOwmUaaTCrhFOnlu1x dSI5OUSVRDGmbUsxSIC5XS4gf0zcXKLmNSU7GATd cn0= SPECIMEN SOURCE (test code = 3377) x4ryuEXpZRZfiKYkKgUoFWOtQUFwe2ut ZGVmbGFu DgQkZqUoAqOwFplamEUbPXBpVjLem7tsw958gHAq s5yfYNKrWtI7tHYkYNPucWWvE197MOWgLUmdn8qo d7LwZTAszFTvl1X8LXZFqnifgFi5jRvlJ12vx7H6 VpunU4gePPGzLJWiN8OsDU1mPEYmAhu2KFZ9XYU1 HNYpCGFkD8PoFP1vOUFucHFaMYu7o9iwrAkrXKSb XIE5q5xwRSscxcXnFY9wmf9pjCk4r8omswKaEYUv DRUnrDTLKKFpX4AbfQaoMv5npYn4tWvlYmzrMJO2 Xby5ST3odc95amt9sBhrXDKxrceqZzP5JKcnDWFy ikceLDj6IRylLIYmpBtuBHlhWHMwxldaGYeqJIPt rAlgZNoaFLScIfjsWOaoNMBgVJP5EBuek028VSG6 VMvyu7ehv4nelYCsVbs7DRVhVuUzWhtqHNizu6Jq o4rjEUThev1uOKZ5kZHbgNxtp3C9aMIcDDXstTFn bzCfCUKnUwB7EZjzWO5zrh84VBPoDCA2dw2yhHJg tPmwghJawICgVPtfZ1ZcZJEpt473LNRjK0HeFLKy a5T8dhEuLrLjJKLikSK1xfZ7RHYfEIt7bGSrdfB5 kdGlqTXoK5wfgP31IlCkpRNqA7EqaS20QmGxdFMf H8LvaT67HjVvhRRtA5VnkA19GhDnkAErTQVefIBj Aq5kvOCqbHAtu0ZekWLaNDhnG26hr733DBScgxRa V3xyyHSvvkqwlIZpvpqwDUfofcJ3JQHfKJYeTCbs XGYxXGZzMjBcbGFuZzEwMzNcaGljaFxmMVxkYmNo DBWuTZchC4vwDiLuRqYlMSYQnJLifKWtoBNhmP== GROSS DESCRIPTION (test code = 3366) p2yvaTZtSZKraGRdWgWyLTWmIQXjv0 lcZGVmbGFu [file] MICROSCOPIC DESCRIPTION (test code = g3elwPPpCWWueKTcLtWpDOVpESKnb5 [place] [address]) EiOcSpNmLiOtTjhutTBwMTLrOvHne0wdf791zNCo o1wnYGLwPnE2rOXoWOYumCAtB174b9bkx1ijroZa lQE2IXVzRYN6UUdyqqGokcN3WUwfgRLpIjK2KHmv avArXTxvwrOqjsOmXna8LTDcX481RLH6iYuxy2wk QHA0HVLeUBOfMlGqZs2vkHXoP383DFUdDRJSVMDx zYl7CJXgccSzokXeuEHFc777J125d7dgNQKhflJd sJxTduyqt2ipR150ZKCeaPZfelAxHrSmKLMvuQKa vPQ5SBQcPA6lafldGmVmBQ4lhymqEbMkDA9glaq3 ZzCnGE6uzzrxYcYdMStuEMClygpmLLYiv7Nbipmv FN6iA6Egs5J2vD2ciABaNLWlbOYeYsGbWXSgmr7v xISbYTsiw3CoUJT9qdY7eZNkqTYfASAlHV25Nwly o0DoPlloGBO4HIUvajOqn4Uin0ifRqVchzBeQ2ct A0XkNICbTFSeFFMlUfGokcIzk8Rko2MbsWZgkYm6 t8itIJVaKQPmoJmdk6ovBJK8SOSeH9Y4gZAgo1ic ZVrwCVGluSZ2uezeZLypAXEeisW4xxhpIGyoKDGp rJB7nmauMFsbMEUsLtS5hwueYMhhHTOnMII3WOoh a706JXR0OJawErisXPgjKEWrzwCorlUecCuvDIUk GVVfEWwhWBRtBEhcAHLdWXMcOgLtuDpwxAkbeP1u FwNvJpYsWYafYJ9uRRFgA5fhvFPpYCOqRNFvV9fd ZwRolF8ykFxlEUkmnuSpXVEcbiUvzq5yGEonSXE4 [facility] [id number] 16:20:00Surgical Pathology Report Case: [id number] Authorizing Provider: Rupa Kingsley MD Collected: 05/24/2019 1514 Ordering Location: [facility] Received: 05/27/2019 0911 PERIOPERATIVE SERVICES Pathologist: Rex Bardales MD Specimen: Pl aque, LEFT CAROTID PLAQUE ARTERY, LEFT CAROTID, ENDARTERECTOMY:CALCIFIC ATHEROSCLEROTIC PLAQUE WITH FOCAL INTRAPLAQUE HEMORRHAGE Signing Pathologist Direct Phone Line: [phone] signed by Rex Bardales MD on 05/31/2019 at 4:20 [id number]; [id number] diagnosis: Carotid stenosis, leftPlaqueReceived in formalin labeled with the patient's name, accession number and "left carotid plaque" is a 3.2 cm in length x 1.0 cm in diameter bower-yellow tubular piece of focally calcified plaque. Oracle Sql Developer sections are submitted in A1 following decalcification. PA/pl PerformedPO ACTIVATED CLOTTING [id number] 06:33:00 Test Item Value Reference Range Interpretation Comments Activated Clotting Time 252 sec : 74 -137 seconds, (test code = 441) Baseline: TESTED AT [facility] [address] [place] [address], [address] 30: Roll Plugger Machine Operator/Techni isabel ID = [id number] for JHONNY DUTTON [id number] 06:33:00 Test Item Value Reference Range Interpretation Comments ACTIVATED CLOTTING TIME 252 sec : 74 -137 seconds, (BEAKER) (test code = Baseli ne: TESTED AT 441) [facility] [address] [place] [address], [address] 30: Roll Plugger Machine Operator/Techni isabel ID = [id number] for JHONNY DUTTON [id number] 06:33:00 Test Item Value Reference Range Interpretation Comments ACTIVATED CLOTTING TIME 246 sec : 74 -137 seconds, (BEAKER) (test code = Baseli ne: TESTED AT 441) [facility] [address] [facility], [address] 30: Roll Plugger Machine Operator/Techni isabel ID = [id number] for JHONNY DUTTON [id number] 06:33:00 Test Item Value Reference Range Interpretation Comments ACTIVATED CLOTTING TIME 241 sec : 74 -137 seconds, (BEAKER) (test code = Baseli ne: TESTED AT 441) [facility] [address] [place] [address], [facility] 30: Roll Plugger Machine Operator/Techni isabel ID = [id number] for MARYJANE ALCANTARA POC-Glucose [id number] 13:21:00 Test Item Value Reference Range Interpretation Comments POC-Glucose Meter (test 99 mg/dL 70-110 : TE STED AT [facility] code = 1538) [address] [place] [address], 770 30: Roll Plugger Machine Operator/Techni isabel ID = [id number] for JOSEPH HOOKS Lab Interpretation (test Normal code = 91543-7) [facility] [id number] 13:21:00 Test Item Value Reference Range Interpretation Comments POC-GLUCOSE METER 99 mg/dL 70-110 : [facility] (BEAKER[facility] (test code = [facility], 1538) [address]: Roll Plugger Machine Operator/Techni isabel ID = [id number] for JOSEPH HOOKS POCT-GLUCOSE [id number] 08:16:00 Test Item Value Reference Range Interpretation Comments POC-GLUCOSE METER 167 mg/dL 70-110 H : [facility] (BEAKER[facility] (test code = [facility], 1538) [address]: Roll Plugger Machine Operator/Techni isabel ID = [id number] for BENJAMIN GRACIA Basic Metabolic [id number] 05:40:00 Test Item Value Reference Range Interpretation Comments Sodium (test code = 137 meq/L 284-443 2990-2) Potassium (test code = 4.1 meq/L 3.5-5.1 2823-3) Chloride (test code = 108 meq/L 98-107 H 2075-0) CO2 (test code = 22 meq/L 22-29 8-9) BUN (test code = 21 mg/dL 7-21 3094-0) Creatinine (test code 1.08 mg/dL 0.57-1.25 = 2160-0) Glucose (test code = 164 mg/dL 70-105 H 2345-7) Calcium (test code = 9.0 mg/dL 8.4-10.2 38308-2) EGFR (test code = 68 mL/min/1.[place] [address]-7) NOT ACCURATE CREATININE CLEARANCE IN PREDICTING GLOMERULAR FILTRATION RATE . ESTIMATED GFR I S NOT APPLICABLE FOR DIALYSIS PATIENTS. KESHAV (test code = KESHAV) Roll Plugger Machine Operator ID - [facility] Lab Interpretation Abnormal (test code = 51235-5) [facility] 05:40:00 Test Item Value Reference Range Interpretation Comments Magnesium (test code = 2.4 mg/dL 1.6-2.6 65203-0) KESHAV (test code = KESHAV) Roll Plugger Machine Operator ID - [facility] Lab Interpretation (test Normal code = 95403-1) [facility] 05:40:00 Test Item Value Reference Range Interpretation Comments Phosphorus (test code = 3.4 mg/dL 2.3-4.7 2777-1) KESHAV (test code = KESHAV) Roll Plugger Machine Operator ID - [facility] Lab Interpretation (test Normal code = 39027-2) [facility]2020-03-15 05:40:00 Test Item Value Reference Range Interpretation Comments PHOSPHORUS (BEAKER) (test code = 3.4 mg/dL 2.3-4.7 604) Roll Plugger Machine Operator ID - [facility] [id number] 05:40:00 Test Item Value Reference Range Interpretation Comments MAGNESIUM (BEAKER) (test code = 2.4 mg/dL 1.6-2.6 627) Roll Plugger Machine Operator ID - [facility] MBASIC METABOLIC [id number] 05:40:00 Test Item Value Reference Range Interpretation [...] S NOT APPLICABLE FOR DIALYSIS PATIEN TS. Roll Plugger Machine Operator ID - [facility] (Hemogram only)2019-05-26 05:31:00 Test Item Value Reference [...] K/CU MM L MPV (test code = 46878-6) 12.2 fL 9.4-12.4 nRBC (test code = 413) 0 0- 0 /100 WBC Lab Interpretation (test code = Abnormal 24598-7) [facility] (HEMOGRAM [...] 0-0 (BEAKER) (test code = 413) POCT-GLUCOSE [id number] 22:54:00 Test Item Value Reference Range Interpretation Comments POC-GLUCOSE METER 113 mg/dL 70-110 H : TESTED A T [facility] 6720 (BEAKER) (test code = [facility], 153) [address]: Roll Plugger Machine Operator/Techni isabel ID = [id number] for PEDRO MUSE POCT-GLUCOSE [id number] 17:16:00 Test Item Value Reference Range Interpretation Comments POC-GLUCOSE METER 87 mg/dL 70-110 : TESTED A T [facility] 6720 (BEAKER) (test code = [facility], 153) [address]: Roll Plugger Machine Operator/Techni isabel ID = [id number] for BRANDAN BARROW POCT-GLUCOSE [id number] 12:39:00 Test Item Value Reference Range Interpretation Comments POC-GLUCOSE METER 220 mg/dL 70-110 H : TESTED A T [facility] 6720 (BEAKER) (test code = [facility], 153) [address]: Roll Plugger Machine Operator/Techni isabel ID = [id number] for LO SIXTO, MIKE POCT-GLUCOSE [id number] 08:04:00 Test Item Value Reference Range Interpretation Comments POC-GLUCOSE METER 276 mg/dL 70-110 H : TESTED A T [facility] 6720 (BEAKER) (test code = [facility], 1538) [address]: Roll Plugger Machine Operator/Techni isabel ID = [id number] for MIKE FOFANA POCT-GLUCOSE [id number] 05:10:00 Test Item Value Reference Range Interpretation Comments POC-GLUCOSE METER 299 mg/dL 70-110 H : TESTED A T [facility] 6720 (BEAKER) (test code = [facility], 1538) [address]: Roll Plugger Machine Operator/Techni isabel ID = [id number] for MALVIN BACH POCT-GLUCOSE [id number] 04:21:00 Test Item Value Reference Range Interpretation Comments POC-GLUCOSE METER 347 mg/dL 70-110 H : TESTED A T [facility] 6720 (BEAKER) (test code = [facility], 1538) 52336: Roll Plugger Machine Operator/Techni isabel ID = [id number] for JENNIFER ROMO BASIC METABOLIC [id number] 03:59:00 Test Item Value Reference Range Interpretation [...] S NOT APPLICABLE FOR DIALYSIS PATIEN TS. Roll Plugger Machine Operator ID - GERMAINE PLXLSQEIBAM0495-55-52 03:47:00 Test Item Value Reference Range Interpretation Comments PHOSPHORUS (BEAKER) (test code = 4.6 mg/dL 2.3-4.7 604) Roll Plugger Machine Operator ID - GERMAINE QRSBHZGRUL6868-26-60 03:47:00 Test Item Value Reference Range Interpretation Comments MAGNESIUM (BEAKER) (test code = 1.8 mg/dL 1.6-2.6 627) Roll Plugger Machine Operator ID Irlanda HERRON MProthrombin time/[id number] 03:44:00 Test Item Value Reference Range Interpretation [...] valves. Lab Interpretation Normal (test code = 66484-2) [facility]eraPTT[facility] 03:44:00 Test Item Value Reference Range Interpretation Comments PTT (test code = 67454-2) 30.4 22.5- 36.0 seconds Lab Interpretation (test code = Normal 54971-1) [facility] CenterPROTHROMBIN TIME/[id number] 03:44:00 Test Item Value Reference Range Interpretation [...] INR is2.5-3.5 for patients wiht mechanical heart valves.[id number] 03:44:00 Test Item Value Reference Range Interpretation [...] 0-0 (BEAKER) (test code = 413) POCT-GLUCOSE [id number] 21:57:00 Test Item Value Reference Range Interpretation Comments POC-GLUCOSE METER 304 mg/dL 70-110 H : TESTED A T [facility] 6720 (BEAKER) (test code = [place], 1538) [address]: Roll Plugger Machine Operator/Techni isabel ID = [id number] for DARRIAN GONSALES [id number] 20:13:00 Test Item Value Reference Range Interpretation Comments PARTIAL THROMBOPLASTIN TIME 27.9 seconds 22.5-36.0 (BEAKER) (test code = 760) PROTHROMBIN TIME/[id number] 20:12:00 Test Item Value Reference Range Interpretation [...] INR is2.5-3.5 for patients wiht mechanical heart valves.[id number] 18:14:00 Test Item Value Reference Range Interpretation Comments PHOSPHORUS (BEAKER) (test code = 4.6 mg/dL 2.3-4.7 604) Roll Plugger Machine Operator ID - QSJUZTVMDSMN9101-87-81 18:14:00 Test Item Value Reference Range Interpretation Comments MAGNESIUM (BEAKER) (test code = 1.8 mg/dL 1.6-2.6 627) Roll Plugger Machine Operator ID - NTPBASIC METABOLIC [id number] 18:14:00 Test Item Value Reference Range Interpretation [...] S NOT APPLICABLE FOR DIALYSIS PATIEN TS. Roll Plugger Machine Operator ID - NTPCBC with platelet count + automated [id number] 18:01:00 Test Item Value Reference Range Interpretation [...] K/CU MM L MPV (test code = 12151-9) 11.6 fL 9.4-12.4 nRBC (test code = [...] 2801) Lab Interpretation (test code = Abnormal 17364-5) [facility] CenterCB W/PLT COUNT & AUTO [id number] 18:01:00 Test Item Value Reference Range Interpretation [...] PERCENT (BEAKER) (test code = 2801) Prepare [id number] 17:52:00 Test Item Value Reference Range Interpretation Comments CROSSMATCH (test code = COMPATIBLE 3325) Unit ABO (test code = B Pos [id number]) UNIT NUMBER (test code = [id number] 934-0) Status (test code = RETURNED FROM ISSUE 1188088) Blood Bank Product (test RED BLOOD CELLS code = 2263) PRODUCT CODE (test code = [id number] 933-2) [facility] CenterPrepare Leuko-Red [id number] 16:01:00 Test Item Value Reference Range Interpretation Comments CROSSMATCH (test code = 2264) COMPATIBLE Unit ABO (test code = B Pos 8561951) UNIT NUMBER (test code = [id number] 934-0) Status (test code = 8528903) READY Blood Bank Product (test code RED BLOOD CELLS = 2263) PRODUCT CODE (test code = D2194X81 933-2) [facility] CenterPOCT-GLUCOSE [id number] 22:02:00 Test Item Value Reference Range Interpretation Comments POC-GLUCOSE METER 267 mg/dL 70-110 H : Notified RN/MD: (IFRAH) (test code = TESTED AT [facility] 6720 1538) [facility], [address]: Roll Plugger Machine Operator/Techni isabel ID = [id number] for LATHBRIDGE, AFUA ICE ABORH, [id number] 20:46:00 Test Item Value Reference Range Interpretation Comments ABO Grouping (test code = 2588) B Rh Factor (test code = 2589) POS [facility] CenterType and screen, [id number] 18:44:00 Test Item Value Reference Range Interpretation Comments ABO/RH AUTOMATED (IFRAH) (test B POSITIVE code = 2260) Ab Scrn (test code = 890-4) NEGATIVE [facility] CenterPOCT-GLUCOSE [id number] 18:03:00 Test Item Value Reference Range Interpretation Comments POC-GLUCOSE METER 222 mg/dL 70-110 H : [facility] (test code = KAI Godinez [facility], 1538) [address]: Roll Plugger Machine Operator/Techni isabel ID = [id number] for BR OWN, LYLE POCT-GLUCOSE [id number] 12:45:00 Test Item Value Reference Range Interpretation Comments POC-GLUCOSE METER 217 mg/dL 70-110 H : [facility] ([facility] (test code = [place], 1538) [address]: Roll Plugger Machine Operator/Techni isabel ID = [id number] for BR OWN, LYLE POCT-GLUCOSE [id number] 08:39:00 Test Item Value Reference Range Interpretation Comments POC-GLUCOSE METER 157 mg/dL 70-110 H : TESTED A T [facility] 6720 (BEAKER) (test code = [place] [place], 1538) [address]: Roll Plugger Machine Operator/Techni isabel ID = [id number] for BR OWN, LYLE Blood gas, [id number] 06:35:00 Test Item Value Reference Range Interpretation Comments pH, Garrett (test code = 2746-6) 7.35 7.32-7.42 pCO2, Garrett (test code = 755) 44 41- 51 mm Hg pO2, Garrett (test code = 2705-2) 41 25- 40 mm Hg H O2 Sat, Garrett (test code = 2711-0) 73.7 % 40-70 H HCO3, Garrett (test code = 15813-4) 24 mmol/L 21-29 Base Excess, Garrett (test code = 2.2 mmol/L -2-3 1927-3) Patient Temperature (test code = 97.0 8310-5) FIO2 (test code = 1819) 21 Lab Interpretation (test code = Abnormal 09083-3) [facility] CenterBLOOD GAS, [id number] 06:35:00 Test Item Value Reference Range Interpretation [...] (test code = 1819) 21 BASIC METABOLIC [id number] 04:56:00 Test Item Value Reference Range Interpretation [...] S NOT APPLICABLE FOR DIALYSIS PATIEN TS. Roll Plugger Machine Operator ID - RANGEL WPOCT-GLUCOSE [id number] 01:05:00 Test Item Value Reference Range Interpretation Comments POC-GLUCOSE METER 201 mg/dL 70-110 H : TESTED A T [facility] 67 ([facility]) (test code = [facility] Gretchen [facility], 153) [address]: Roll Plugger Machine Operator/Techni isabel ID = [id number] for СЕРГЕЙ HNSRONNA ROSENBERGTTA POCT-GLUCOSE [id number] 21:45:00 Test Item Value Reference Range Interpretation Comments POC-GLUCOSE METER 436 mg/dL 70-110 HH : Notified RN/MD: (IFRAH) (test code = TESTED AT [place] 3581420 1538) [facility], [address]: Roll Plugger Machine Operator/Techni isabel ID = [id number] for СЕРГЕЙ HNSON, JEQUETTA POCT-GLUCOSE [id number] 17:42:00 Test Item Value Reference Range Interpretation Comments POC-GLUCOSE METER 426 mg/dL 70-110 HH : Notified RN/MD: (IFRAH) (test code = TESTED AT [place] [id number] 1538) [facility], [address]: Roll Plugger Machine Operator/Techni isabel ID = [id number] for AK INSONU, DREW POCT-GLUCOSE [id number] 12:41:00 Test Item Value Reference Range Interpretation Comments POC-GLUCOSE METER 337 mg/dL 70-110 H : [facility] ([facility] (test code = [facility], 1538) [address]: Roll Plugger Machine Operator/Techni isabel ID = [id number] for AK INSONU, DREW POCT-GLUCOSE [id number] 09:07:00 Test Item Value Reference Range Interpretation Comments POC-GLUCOSE METER 214 mg/dL 70-110 H : [facility] ([facility]ER[facility] (test code = [facility], 1538) [address]: Roll Plugger Machine Operator/Techni isabel ID = [id number] for AK INSONU, DREW BASIC METABOLIC [id number] 06:34:00 Test Item Value Reference Range Interpretation [...] S NOT APPLICABLE FOR DIALYSIS PATIEN TS. Roll Plugger Machine Operator ID - GERMAINE MPOCT-GLUCOSE [id number] 21:43:00 Test Item Value Reference Range Interpretation Comments POC-GLUCOSE METER 304 mg/dL 70-110 H : Notified RN/MD: ([facility]) (test code = TESTED AT [facility] 6720 1538) [facility], [address]: Roll Plugger Machine Operator/Techni isabel ID = [id number] for LATHBRIDGE, AFUA ICE POCT-GLUCOSE [id number] 17:40:00 Test Item Value Reference Range Interpretation Comments POC-GLUCOSE METER 265 mg/dL 70-110 H : TESTED A T [facility] 6720 (IFRAH) (test code DANE [facility], = 1538) [address]: Roll Plugger Machine Operator/Techni isabel ID = [id number] for CURTIS LU POCT-GLUCOSE [id number] 12:39:00 Test Item Value Reference Range Interpretation Comments POC-GLUCOSE METER 389 mg/dL 70-110 H : Notified RN/MD: TESTED (IFRAH) (test code AT [facility] 6720 [facility] = 1538) [facility], 770 30: Roll Plugger Machine Operator/Techni isabel ID = [id number] for TSEG GAXimena, ARLENEIGHDAQUANA Carotid doppler [id number] 11:46:45Ejection FractionSLEH ECHO HEARTLAB MKCKESSON CPACSRight Impression1. [...] of Study 05/21/2019 Age 68 Visit Number [id number] Gender Male Accession Number [id number] Date of 1950 Referring DARNELL LUEVANO Room Number 2263 Physician Pitting Machine Operator Katja South Interpreting Angie Thorpe, RN, RVT [...] the left side. - Additional Measurements:ICAPSV/CCAPSV 2.15.ICAEDV/CCAEDV 1.94.[facility] POCT-GLUCOSE [id number] 10:18:00 Test Item Value Reference Range Interpretation Comments POC-GLUCOSE METER 240 mg/dL 70-110 H : TESTED A T [facility] 6720 (BEAKER) ([facility], = 1538) [address]: Roll Plugger Machine Operator/Techni isabel ID = [id number] for CURTIS LU BASIC METABOLIC [id number] 07:31:00 Test Item Value Reference Range Interpretation [...] S NOT APPLICABLE FOR DIALYSIS PATIEN TS. Roll Plugger Machine Operator ID - GERMAINE MECG 12 [id number] 06:45:25Interface, External Ris In - 05/21/2019 6:45 AM CDTVentricular Rate 59 BPMAtrial Rate 59 BPMP-R Interval 172 msQRS Duration 106 msQ-T Interval 418 msQTC Calculation(Bazett) 413 msP [place] 50 degreesR [place] 1 degreesT [place] 61 degreesSinus bradycardiaInteratrial conduction delayAnterior infarct , age undeterminedAbnormal ECGNo previous ECGs availableConfirmed by MD GENTRY, EMERY ([id number]) on 05/21/2019 6:45:20 [facility] HospitalUrinalysis with Microscopic If [id number] 21:33:00 Test Item Value Reference Range Interpretation Comments Color, UA (test code = Colorless 5778-6) Clarity, UA (test code = Clear 5767-9) Specific [place], UA 1.012 1.001-1.035 (test code = 5811-5) pH, UA (test code = 5.5 5.0-8.0 5803-2) Protein, UA (test code = Negative Negative 22537-0) Glucose, UA (test code = 150 mg/dL Negative A 365) Ketones, UA (test code = Negative Negative 2514-8) Bilirubin, UA (test code Negative Negative = 91709-1) Blood, UA (test code = Negative Negative 50911-0) Nitrite, UA (test code = Negative Negative 5802-4) Leukocytes, UA (test Negative Negative code = 5799-2) Urobilinogen, UA (test 0.2 mg/dL 0.2-1 code = 20407-2) Specimen Source (test code = 2795) KESHAV (test code = KESHAV) Roll Plugger Machine Operator ID - [auto]Roll Plugger Machine Operator ID - techOperator ID - tech Lab Interpretation (test Abnormal code = 49112-8) [facility] CenterURINALYSIS WITH MICROSCOPIC IF [id number] 21:33:00 Test Item Value Reference Range Interpretation [...] = 463) SOURCE(BEAKER) (test code = 2795) Roll Plugger Machine Operator ID - [auto]Roll Plugger Machine Operator ID - techOperator ID - techPOCT-GLUCOSE METER 2019-05-20 18:18:00 Test Item Value Reference Range Interpretation Comments POC-GLUCOSE METER 85 mg/dL 70-110 : TESTED A T [facility] 6720 (IFRAH) (test code = [place], 1538) [address]: Roll Plugger Machine Operator/Techni isabel ID = [id number] for DREW GUNN 2D Echo W/Doppler(CW/PW/Color)2019-05-20 14:33:33Ejection FractionSLEH ECHO HEARTLAB MKCKESSON CPACSInterface, External Ris In - 05/20/2019 2:33 PM C DTTransthoracic Echocardiography Report (TTE) Demographics Patient Name SHANTEL MCKEON Date of Study 05/20/2019 Gender Male Visit Number [id number] Race Unknown Room Number 2263 Number Date of 1950 Referring Physician STEFFANIE Kruse Age 68 year(s) Pitting Machine Operator Steph Espinoza, CHADWICK, RDCS,RVT,RDMS Technical Analyst Becky Allen, Interpreting Chidi Orellana MD RDCS Physician Procedure Type of Study TTE procedure:2DECHO W DOPPLER(CW/PW/COLOR) (Routine) Indications:Suspected cardiac source of emboli.Clinical GsokwueLVV55.9HCT 36.2 %DMContrast Medium: Bubble Study.Height: 68 inches [...] 4.23 l/min/m^2 RVOT RVOT VTI (PW): 36.3 [facility] [id number] 13:38:00 Test Item Value Reference Range Interpretation Comments POC-GLUCOSE METER 309 mg/dL 70-110 H : TESTED A T [facility] 6720 (IFRAH) (test code = VENECIAROB Godinez [facility], 1538) [address]: Roll Plugger Machine Operator/Techni isabel ID = [id number] for DREW HAGAN [id number] 13:06:00 Test Item Value Reference Range Interpretation Comments RPR (test code = 26373-1) Nonreactive Nonreactive Lab Interpretation (test code = Normal 53782-9) [facility] CenterRPR2020-03-09 13:06:00 Test Item Value Reference Range Interpretation Comments RPR SCREEN (BEAKER) (test code = Nonreactive Nonreactive 420) [id number] 10:18:00 Test Item Value Reference Range Interpretation Comments Homocysteine (test code = 15.2 umol/L 5.1-15.4 91320-1) KESHAV (test code = KESHAV) Roll Plugger Machine Operator ID - PIAYA L Lab Interpretation (test Normal code = 46721-7) [facility] CenterVitamin B12 and Wmdumg3217-04-75 10:18:00 Test Item Value Reference Range Interpretation Comments Vitamin B12 (test code = 282 pg/mL 805-266 4609-9) Folate (test code = 14.5 ng/mL >=7.0 2284-8) KESHAV (test code = KESHAV) Roll Plugger Machine Operator ID - PIAYA L Lab Interpretation (test Normal code = 11352-4) [facility] CenterHOMOCYSTEINE2020-03-09 10:18:00 Test Item Value Reference Range Interpretation Comments HOMOCYSTEINE (BEAKER) (test code 15.2 umol/L 5.1-15.4 = 642) Roll Plugger Machine Operator ID - KARL LVITAMIN B12 AND [id number] 10:18:00 Test Item Value Reference Range Interpretation Comments VITAMIN B12 (BEAKER) (test code = 282 pg/mL 213-816 774) FOLATE (BEAKER) (test code = 362) 14.5 ng/mL >=7.0 Roll Plugger Machine Operator ID - KARL LHIV-1 Antigen with HIV-1/2 Apavzimy2948-60-83 09:53:00 Test Item Value Reference Range Interpretation Comments HIV-1 Antigen with HIV Nonreactive Nonreactive 1&2 Antibody (test code = 43656-8) KESHAV (test code = KESHAV) Roll Plugger Machine Operator ID - PIAYA L Lab Interpretation (test Normal code = 87818-9) [facility] CenterTSH/Free T4 If Svzclcqnv1424-92-60 09:53:00 Test Item Value Reference Range Interpretation Comments TSH (test code = 89112-8) 1.24 0.35- 4.94 uIU/mL KESHAV (test code = KESHAV) Roll Plugger Machine Operator ID - PIAYA L Lab Interpretation (test Normal code = 23176-0) [facility] CenterTSH/FREE T4 IF [id number] 09:53:00 Test Item Value Reference Range Interpretation Comments THYROID STIMULATING HORMONE 1.24 uIU/mL 0.35-4.94 (BEAKER) (test code = 772) Roll Plugger Machine Operator ID - PIMICHELLE LHIV-1 ANTIGEN WITH HIV-1/2 [id number] 09:53:00 Test Item Value Reference Range Interpretation Comments HIV-1 ANTIGEN WITH HIV 1\\T\\2 Nonreactive Nonreactive ANTIBODY (2) (BEAKER) (test code = 2586) Roll Plugger Machine Operator ID - KARL LPOCT-GLUCOSE [id number] 09:34:00 Test Item Value Reference Range Interpretation Comments POC-GLUCOSE METER 256 mg/dL 70-110 H : TESTED A T [facility] 6720 (BEAKER) (test code = [place], 1538) [address]: Roll Plugger Machine Operator/Techni isabel ID = [id number] for DREW HAGAN Hepatic function [id number] 08:43:00 Test Item Value Reference Range Interpretation Comments Protein, Total (test code 5.9 6.0- 8.3 gm/dL L = 2885-2) Albumin (test code = 3.6 g/dL 3.5-5 40522-5) Total Bilirubin (test code 0.5 mg/dL 0.2-1.2 = 1975-2) Bilirubin, Direct (test 0.2 mg/dL 0.1-0.5 code = 1968-7) Alkaline Phosphatase (test 70 U/L 40-150 code = 6768-6) AST (test code = 1920-8) 11 U/L 5-34 ALT (test code = 1742-6) <6 6-55 L KESHAV (test code = KESHAV) Roll Plugger Machine Operator ID - KARL L Lab Interpretation (test Abnormal code = 05918-2) [facility] CenterHEPATIC FUNCTION [id number] 08:43:00 Test Item Value Reference Range Interpretation [...] code = < U/L 6-55 L 347) Roll Plugger Machine Operator ID - KARL LHemoglobin [id number] 08:02:00 Test Item Value Reference Range Interpretation Comments Hemoglobin A1C (test code = 4548-4) 10.4 % 4.3-6.1 H Lab Interpretation (test code = Abnormal 49843-8) [facility] CenterHEMOGLOBIN [id number] 08:02:00 Test Item Value Reference Range Interpretation Comments HEMOGLOBIN A1C (BEAKER) (test code = 10.4 % 4.3-6.1 H 368) MR, MRA, BRAIN, WITHOUT [id number] 06:42:00Reason for exam:->Ischemic Stroke EvaluationFINAL REPORT EXAM: MR, BRAIN, WITHOUT CONTRAST, MR, MRA, BRAIN, WITHOUT CONTRAST, MR, MRA, NECK, WITHOUT IV CONTRAST CLINICAL INDICATION: Stroke follow-up. TECHNIQUE: Sagittal and coronal T1-w and axial T2-w, FLAIR, GRE, and diffusion-w images of the brain with ADC maps. 2D smtu-lk-evkvpy MRA of the neck. 3D kann-az-harvez MRA of the head. Source data and [...] Present bilaterally. Posterior Circulation:Right posterior cerebral artery (NNPS): Hypoplastic P1 segment with the remainder of the right NNPS supplied by the right posterior communicating artery.Left posterior cerebral artery (NNPS): Hypoplastic P1 segment with the remainder of the left NNPS supplied by the left posterior communicating artery. [...] the left carotid bulb. Signed: Kannan Peña [facility] Hospitalort Verified Date/Time: 05/20/2019 06:42:15 MR, MRA, NECK, WITHOUT IV [id number] 06:42:00Reason for exam:->Ischemic Stroke EvaluationFINAL REPORT EXAM: MR, BRAIN, WITHOUT CONTRAST, MR, MRA, BRAIN, WITHOUT CONTRAST, MR, MRA, NECK, WITHOUT IV CONTRAST CLINICAL INDICATION: Stroke follow-up. TECHNIQUE: Sagittal and coronal T1-w and axial T2-w, FLAIR, GRE, and diffusion-w images of the brain with ADC maps. 2D t opl-ys-pkkejx MRA of the neck. 3D nqwz-ju-qeawvf MRA of the head. Source data and [...] Present bilaterally. Posterior Circulation:Right posterior cerebral artery (NNPS): Hypoplastic P1 segment with the remainder of the right NNPS supplied by the right posterior communicating artery.Left posterior cerebral artery (NNPS): Hypoplastic P1 segment with the remainder of the left NNPS supplied by the left posterior communicating artery. [...] Verified Date/Time: 05/20/2019 06:42:15 MR, BRAIN, WITHOUT [id number] 06:42:00Reason for exam:->Ischemic Stroke EvaluationFINAL REPORT EXAM: MR, BRAIN, WITHOUT CONTRAST, MR, MRA, BRAIN, WITHOUT CONTRAST, MR, MRA, NECK, WITHOUT IV CONTRAST CLINICAL INDICATION: Stroke follow-up. TECHNIQUE: Sagittal and coronal T1-w and axial T2-w, FLAIR, GRE, and diffusion-w images of the brain with ADC maps. 2D t vsa-kb-acxjno MRA of the neck. 3D rmfd-bm-mbibmi MRA of the head. Source data and [...] Present bilaterally. Posterior Circulation:Right posterior cerebral artery (NNPS): Hypoplastic P1 segment with the remainder of the right NNPS supplied by the right posterior communicating artery.Left posterior cerebral artery (NNPS): Hypoplastic P1 segment with the remainder of the left NNPS supplied by the left posterior communicating artery. [...] Date/Time: 05/20/2019 06:42:15 MRA head without IV [id number] 06:42:00Interface, External Ris In - 05/20/2019 10:20 AM CDTFINAL REPORT EXAM: MR, BRAIN, WITHOUT CONTRAST, MR, MRA, BRAIN, WITHOUT CONTRAST, MR, MRA, NECK, WITHOUT IV CONTRAST CLINICAL INDICATION: Stroke follow-up. TECHNIQUE: Sagittal and coronal T1-w and axial T2-w, FLAIR, GRE, and diffusion-w images of the brain with ADC maps. 2D qgzt-kn-rvtkow MRA of the neck. 3D xswl-rq-yeruakTXS of the head. Source data and maximum [...] carotid artery (ICA): NormalLeft anterior cerebral artery (JAIMLA): NormalLeft middle cerebral artery (MCA): NormalAnterior communicating artery (AComm): PresentPosterior communicating arteries (PComm): Present bilaterally. Posterior Circulation:Right posterior cerebral artery (NNPS): Hypoplastic P1 segment with theremainder of the right NNPS supplied by the right posterior communicating artery.Left posterior cerebral artery (NNPS): Hypoplastic P1 segment with the remainder of the left NNPS supplied by the left posterior communicating artery. [...] Kannan Peña MDReport Verified Date/Time: 05/20/2019 06:42:15 [facility] Hospital[facility] without IV [id number] 06:42:00Interface, External Ris In - 05/20/2019 10:20 AM CDTFINAL REPORT EXAM: MR, BRAIN, WITHOUT CONTRAST, MR, MRA, BRAIN, WITHOUT CONTRAST, MR, MRA, NECK, WITHOUT IV CONTRAST CLINICAL INDICATION: Stroke follow-up. TECHNIQUE: Sagittal and coronal T1-w and axial T2-w, FLAIR, GRE, and diffusion-w images of the brain with ADC maps. 2D nulk-vb-brwobt MRA of the neck. 3D nien-rg-shillxQFO of the head. Source data and maximum [...] Present bilaterally. Posterior Circulation:Right posterior cerebral artery (NNPS): Hypoplastic P1 segment with theremainder of the right NNPS supplied by the right posterior communicating artery.Left posterior cerebral artery (NNPS): Hypoplastic P1 segment with the remainder of the left NNPS supplied by the left posterior communicating artery. [...] Kannan Peña MDReport Verified Date/Time: 05/20/2019 06:42:15 [facility] HospitalMR brain without IV [id number] 06:42:00Interface, External Ris In - 05/20/2019 10:20 AM CDTFINAL REPORT EXAM: MR, BRAIN, WITHOUT CONTRAST, MR, MRA, BRAIN, WITHOUT CONTRAST, MR, MRA, NECK, WITHOUT IV CONTRAST CLINICAL INDICATION: Stroke follow-up. TECHNIQUE: Sagittal and coronal T1-w and axial T2-w, FLAIR, GRE, and diffusion-w images of the brain with ADC maps. 2D juwi-oj-zirptb MRA of the neck. 3D lhso-iq-frxfljZSF of the head. Source data and maximum [...] Present bilaterally. Posterior Circulation:Right posterior cerebral artery (NNPS): Hypoplastic P1 segment with theremainder of the right NNPS supplied by the right posterior communicating artery.Left posterior cerebral artery (NNPS): Hypoplastic P1 segment with the remainder of the left NNPS supplied by the left posterior communicating artery. [...] Kannan Peña MDReport Verified Date/Time: 05/20/2019 06:42:15 [facility] HospitalPOCT-GLUCOSE [id number] 04:12:00 Test Item Value Reference Range Interpretation Comments POC-GLUCOSE METER 279 mg/dL 70-110 H : TESTED A T [facility] 6720 (BEAKER) (test code = [place], 1538) [address]: Roll Plugger Machine Operator/Techni isabel ID = [id number] for LUDY RYDER Lipid [id number] 03:47:00 Test Item Value Reference Range Interpretation Comments Triglycerides (test 274 mg/dL code = 2571-8) Cholesterol (test code 177 mg/dL = 2093-3) HDL (test code = 35 mg/dL 2085-9) LDL Calculated (test 87 mg/dL code = 48641-5) KESHAV (test code = KESHAV) Triglyceride Reference Range: Low Risk <150 Borderline 150-199 High Risk 200-499 Very High Risk >=500 Cholesterol Reference Range: Low Risk <200 Borderline 200-239 High Risk >240 HDL Cholesterol Reference Range: Low Risk >=60 High Risk <40 LDL Cholesterol Reference Range: Optimal <100 Near Optimal 100-129 Borderline 130-159 High 160-189 Very High >=190 Roll Plugger Machine Operator ID - PIAYA L [facility] [id number] 03:47:00 Test Item Value Reference Range Interpretation Comments CRP (test code = 676) 0.13 mg/dL 0-0.5 KESHAV (test code = KESHAV) Roll Plugger Machine Operator ID - PIAYA L Lab Interpretation (test Normal code = 18795-2) [facility] Center[facility]IP[facility] [id number] 03:47:00 Test Item Value Reference Range Interpretation [...] Borderline 130-159 High 160-189 Very High >=190 Roll Plugger Machine Operator ID - PIAYALBASIC METABOLIC [id number] 03:47:00 Test Item Value Reference Range Interpretation [...] S NOT APPLICABLE FOR DIALYSIS PATIEN TS. Roll Plugger Machine Operator ID - PIAYA LC-REACTIVE [id number] 03:47:00 Test Item Value Reference Range Interpretation Comments C-REACTIVE PROTEIN (BEAKER) (test 0.13 mg/dL 0.00-0.50 code = 676) Roll Plugger Machine Operator ID - PIAYA LPROTHROMBIN [id number] 03:15:00 Test Item Value Reference Range Interpretation [...] mechanical heart valves.CBC W/PLT COUNT & AUTO [id number] 03:07:00 Test Item Value Reference Range Interpretation [...] % 0-1 PERCENT (BEAKER) (test code = 2463)
--- NOTE | 2020-04-08 14:22 | EDPHYS ---
Physician Documentation [facility] Name: Taz Bowles Age: 69 yrs Sex: Male : 1950 Arrival Date: 04/08/2020 Time: 10:15 Bed 19 Private MD: ED Physician Janee Ho HPI: 04/08 14:05 This 69 yrs old Male presents to ER via Wheelchair with complaints of Neck jmm Problem. 14:05 This is a 69 year old male with a history of CAD, CVA, DM that presents to the ED with jmm no symptomatic complaints. patient states she was sent from her PCP for concerns of US Carotid findings from a hospitalization on the 04/03/20. Patient states his symptoms have improved since discharge. Denies difficulty walking, dizziness, chest pain, SOB. . Historical: - Allergies: 11:15 No Known Allergies; aa5 - PMHx: 11:15 CAD; CVA; Diabetes - IDDM; aa5 - PSHx: 11:15 Left carotid; aa5 - Immunization history:: Adult Immunizations unknown. - Social history:: Smoking status: Patient denies any tobacco usage or history of. ROS: 14:05 Constitutional: Negative for fever, chills, and weight loss, Cardiovascular: Negative jmm for chest pain, palpitations, and edema, Respiratory: Negative for shortness of breath, cough, wheezing, and pleuritic chest pain, Abdomen/GI: Negative for abdominal pain, nausea, vomiting, diarrhea, and constipation, Skin: Negative for injury, rash, and discoloration, Neuro: Negative for headache, weakness, numbness, tingling, and seizure. 14:05 All other systems are negative. Exam: 14:05 Constitutional: This is a well developed, well nourished patient who is awake, alert, jmm and in no acute distress. Head/Face: atraumatic. Eyes: EOMI, no conjunctival erythema appreciated ENT: Moist Mucus Membranes Neck: Trachea midline, Supple Chest/axilla: Normal chest wall appearance and motion. Cardiovascular: Regular rate and rhythm. No edema appreciated Respiratory: Normal respirations, no respiratory distress appreciated Abdomen/GI: Non distended, soft Back: Normal ROM Skin: General appearance color normal MS/ Extremity: Moves all extremities, no obvious deformities appreciated, no edema noted to the lower extremities Neuro: Awake and alert, normal gait Psych: Behavior is normal, Mood is normal, Patient is cooperative and pleasant Vital Signs: 11:10 BP 166 / 64; Pulse 55; Resp 16 S; Temp 98.6(TE); Pulse Ox 100% on R/A; Weight 77.11 kg aa5 (R); Height 5 ft. 8 in. (172.72 cm) (R); Pain 0/10; 11:10 Body Mass Index 25.85 (77.11 kg, 172.72 cm) aa5 MDM: 14:04 Patient medically screened. [facility] 14:05 Data reviewed: vital signs, nurses notes. ED course: I reviewed lab and radiologic [facility] findings. 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 I discussed this with the patient along with the need to follow up with pcp/cardiology for further evaluation. Patient states his symptoms have decreased since hospitalization. Patient is otherwise given strict return precautions. Patient understood and agrees with the plan of care. . Administered Medications: No medications were administered Disposition: 18:24 Co-signature as Attending Physician, Janee Ho MD. ma2 Disposition: 04/08/20 14:21 Discharged to Home. Impression: Well Check. - Condition is Stable. - Medication Reconciliation Form, Thank You Letter, Antibiotic Education, Prescription Opioid Use form. - Follow up: Rohan Bonds MD; When: 2 - 3 days; Reason: Recheck today's complaints, Continuance of care, Re-evaluation by your physician. Signatures: Wilman Lopez PA PA [facility] Annelise Ro RN RN Trish Alston RN RN [facility] Janee Ho MD MD me2 Corrections: (The following items were deleted from the chart) 14:28 14:21 04/08/2020 14:21 Discharged to Home. Impression: Well Check. Condition is Stable. iw Forms are Medication Reconciliation Form, Thank You Letter, Antibiotic Education, Prescription Opioid Use. Follow up: Rohan Bonds; When: 2 - 3 days; Reason: Recheck today's complaints, Continuance of care, Re-evaluation by your physician. [facility]
--- NOTE | 2020-04-08 14:22 | ER ---
Nurse's Notes [facility] Name: Taz Bowles Age: 69 yrs Sex: Male : 1950 Arrival Date: 04/08/2020 Time: 10:15 Bed 19 Private MD: Diagnosis: Well Check Presentation: 04/08 11:10 Chief complaint: Patient states: "I was just discharged from the hospital on Monday and aa5 I went to follow-up with Dr. Jimenez today and he sent me back here because he thinks I shouldn't have been discharged home; he says that I have a blockage on my carotid artery". Pt denies any symptoms. 11:10 Coronavirus screen: Client denies travel out of the [place] in the last 14 days. At this aa5 time, the client does not indicate any symptoms associated with coronavirus-19. Ebola Screen: Patient negative for fever greater than or equal to 101.5 degrees Fahrenheit, and additional compatible Ebola Virus Disease symptoms. Initial Sepsis Screen: Does the patient meet any 2 criteria? No. Patient's initial sepsis screen is negative. Does the patient have a suspected source of infection? No. Patient's initial sepsis screen is negative. Risk Assessment: Do you want to hurt yourself or someone else? Patient reports no desire to harm self or others. Onset of symptoms was April 08, 2020. 11:10 Acuity: JORDIN 3 aa5 11:10 Method Of Arrival: Wheelchair aa5 Historical: - Allergies: 11:15 No Known Allergies; aa5 - PMHx: 11:15 CAD; CVA; Diabetes - IDDM; aa5 - PSHx: 11:15 Left carotid; aa5 - Immunization history:: Adult Immunizations unknown. - Social history:: Smoking status: Patient denies any tobacco usage or history of. Screenin:25 Abuse screen: Denies threats or abuse. Denies injuries from another. Nutritional iw screening: No deficits noted. Tuberculosis screening: No symptoms or risk factors identified. Fall Risk None identified. Assessment: 14:00 General: Appears in no apparent distress. comfortable, Behavior is calm, cooperative, zb appropriate for age, Denies fever, feeling ill, fatigue. Pain: Denies pain. Neuro: Level of Consciousness is awake, alert, obeys commands, Oriented to person, place, time, situation, Moves all extremities. Cardiovascular: Capillary refill < 3 seconds in bilateral fingers Patient's skin is warm and dry. Respiratory: Airway is patent Respiratory effort is even, unlabored, Respiratory pattern is symmetrical. GI: Abdomen is round non-distended. : No signs and/or symptoms were reported regarding the genitourinary system. EENT: No signs and/or symptoms were reported regarding the EENT system. Derm: Skin is intact, is healthy with good turgor, Skin is dry, Skin is normal, Skin temperature is warm. Musculoskeletal: Circulation, motion, and sensation intact. Capillary refill < 3 seconds, in bilateral fingers. Range of motion: intact in all extremities. 14:20 General: Appears in no apparent distress. comfortable. Pain: Denies pain. Neuro: Level iw of Consciousness is awake, alert, obeys commands, Oriented to person, place, time, situation, Moves all extremities. Cardiovascular: Capillary refill < 3 seconds in bilateral fingers Patient's skin is warm and dry. Respiratory: Respiratory effort is even, unlabored, Respiratory pattern is regular. Derm: Skin is intact, is healthy with good turgor. Musculoskeletal: Range of motion: intact in all extremities. Vital Signs: 11:10 BP 166 / 64; Pulse 55; Resp 16 S; Temp 98.6(TE); Pulse Ox 100% on R/A; Weight 77.11 kg aa5 (R); Height 5 ft. 8 in. (172.72 cm) (R); Pain 0/10; 11:10 Body Mass Index 25.85 (77.11 kg, 172.72 cm) aa5 ED Course: 10:15 Patient arrived in ED. as 11:10 Arm band placed on Patient placed in an exam room, on a stretcher. aa5 11:21 Triage completed. aa5 13:31 Wilman Lopez PA is PHCP. jozef 13:31 Janee Ho MD is Attending Physician. jozef 13:54 Brooklynn Moya, CHELSI is Primary Nurse. zb 14:00 Patient has correct armband on for positive identification. Pulse ox on. NIBP on. Door zb closed. Noise minimized. Warm blanket given. 14:18 Rohan Bonds MD is Referral Physician. jmm Administered Medications: No medications were administered Outcome: 14: Discharge ordered by . jozef 14:27 Discharged to home via wheelchair, with family. iw 14:27 Condition: good 14:27 Discharge instructions given to patient, Instructed on discharge instructions, follow up and referral plans. Demonstrated understanding of instructions, follow-up care. 14:28 Patient left the ED. iw Signatures: Wilman Lopez PA PA jmm Martinez, Amelia as Williams, Irene RN RN iw Trish Alston, RN RN aa5 Brooklynn Moya RN RN zb
[2020-04-08 14:33] VITALS: BP 166/64; TEMP 98.6; O2SAT 100
== END 2020-04-08 14:28 | disposition home or self-care (01) ==
LOC: ER 10:14
DX: I25.10 Atherosclerotic heart disease of native coronary artery without angina pectoris (principal); Z04.89 Encounter for examination and observation for other specified reasons
CPT/HCPCS: 99283

== ENCOUNTER 2020-10-19 16:48 | Emergency (ER) | payer OTHER ==
--- OUTSIDE RECORDS SUMMARY | 2020-10-19 16:52 | XMS REPORT | Continuity of Care Document ---
:1950 Author Organization [facility] t Address [address] [place] [address] Care Team Providers Name Role Phone Pcp MD, No Primary Care Physician Unavailable Genesis Ro DO Attending Clinician Sunny Rob MD Attending Clinician Keke VALIENTE Attending Clinician Davon VALIENTE Attending Clinician MD KEKE Attending Clinician Unavailable Sancho VALIENTE Attending Clinician AURELIA MIXON Attending Clinician Unavailable DAVON Admitting Clinician Unavailable MD KEKE Admitting Clinician Unavailable DARNELL Admitting Clinician Unavailable Payers Payer Name Policy Type Policy Effective Date Expiration Date Sour ce Number CIGNA [id number] 2020 [facility] MEDICARE/HEALTH 00:00:00 Hospital [employer] MEDICARE [id number] Problems Condition Condition Condition Status Onset Resolution Last Treating Co mments Source Name Details Category Date Date Treatment Clinician Date Syncope Syncope Disease Active [facility] and and 04-08 st collapse collapse 00:00: Hospit a 00 l S/P S/P Disease Active [facility] carotid [facility]14 [facility] endarterec endarterec 00:00: Pr dicbruce harvinder harvinder 00 Center CVA CVA Disease Active [facility] (cerebral (cerebral 3 [place] [facility] - vascular vascular 00:00: Medica l accident) accident) 00 Cent er Carotid Carotid Disease Active [facility] stenosis stenosis 05-18 - 00:00: Medical 00 Center Allergies, Adverse Reactions, Alerts This patient has no known allergies or adverse reactions. Family History Family Member Diagnosis Comments Start Date Stop Date Source Natural mother Heart disease [facility] Natural sister Bradycardia [facility] Social History Social Habit Start Date Stop Date Quantity Comments Source Tobacco use and 2020-04-08 2020-04-08 Never used [facility] exposure 00:00:00 00:00:00 Hospital Alcohol intake 2020-04-08 2020-04-08 Ex-drinker [facility] 00:00:00 00:00:00 (finding) Hospital Sex Assigned At [birth year] [facility] 00:00:00 00:00:00 Hospital Smoking Status Start Date Stop Date Source Never smoker [facility] Medications Ordered Filled Start Stop Current Ordering Indication Dosage Frequency Signature Comments Components Source Medication Medication Date Date Medication? Clinician (SIG) Name Name aspirin 81 2020- No 81mg QD Chew 1 Meth keenan mg chewable 04-12 tablet (81 s t tablet 00:00: 05:59 mg total) Hospi ta 00 :00 daily for l 30 days. insulin Yes 15U Q.5D Inject 15 Metho di GLARGINE 1-[address] (LANTUS) 19:45: under the Hosp amara 100 unit/mL 57 skin 2 l injection (two) (vial) times a day. atorvastati 2020- No 40mg QD Take 1 Met hodi n (LIPITOR) 04-11- tablet (40 s t 40 mg 00:00: 05:59 mg total) Hospit a tablet 00 :00 by mouth l nightly for 30 days. ciprofloxac 2020- No 500mg Q.5D Take 1 Me thodi in (CIPRO) 04-11-[address] 500 MG 00:00: 05:59 (500 mg Hospita tablet 00 :00 total) by l mouth 2 (two) times a day for 3 days. cephalexin 2020-0 202- No 500mg Q6H Take 500 M ethodi (KEFLEX) - 01-[address] 500 MG 00:00: 00:00 mouth Hospita capsule 00 :00 every 6 l (six) hours. For 5 days starting 04/04/20 Per Pt. He has two days left aspirin 81 2020-0 Yes 81mg QD Take 1 [facility] MG chewable 3-16 tablet (81 Ivana kes - tablet 00:00: mg total) Medica l 00 by mouth Center daily. atorvastati 2020-0 Yes 80mg QD Take [address] [facility] [...] daily before meals Use as directed. insulin 0 Yes Use 5x a [facility] syringe-nee 3-15 day for [facility] - dle U-100 00:00: insulin Medic al (INSULIN 00 injections Cente r SYRINGE) . 0.5 mL 29 gauge x 1/2" Syrg glucometer 2019- Yes Use as [facility] t (FREESTYLE) 3-15 directed Luke s - Misc 00:00: to check Medical 00 sugars. Center blood sugar 2019-0 Yes Use 4x a [facility] diagnostic 3-15 day to [facility] - (GLUCOSE 00:00: check Medical BLOOD) Strp 00 sugars. Cente r lancets 2019-0 Yes Use 4x a [facility] Misc 3-15 day to [facility] - 00:00: check Medical 00 sugars. [place] alcohol 2019-0 Yes Use before [facility] swabs 3-15 checking [facility] - (ALCOHOL 00:00: sugars and Med ical PADS) PadM [address] ing insulin. insulin 2020- No Inject 10u [facility] glargine 3-15 03-15 QAM and [facility] - (LANTUS) 00:00: 23:59 15u QPM. Medi roxie 100 unit/mL 00 :00 Center injection Vital Signs Vital Name Observation Time Observation Value Comments Source Heart rate 2020-04-11 13:46:07 52 /min [facility] Oxygen saturation in 2020-04-11 13:46:07 98 /min [facility] Arterial blood by Pulse oximetry Systolic blood 2020-04-11 13:46:01 142 mm[Hg] [facility] pressure Diastolic blood 2020-04-11 13:46:01 64 mm[Hg] [facility] pressure Body temperature 2020-04-11 13:46:01 36.11 Madelin [facility] Respiratory rate 2020-04-11 13:46:01 18 /min [facility] Body weight 2020-04-09 06:02:00 70.308 kg [facility] BMI 2020-04-09 06:02:00 23.57 kg/m2 [facility] Body height 2020-04-09 05:49:35 172.7 cm [facility] Procedures Procedure Date / Time Performing Clinician Source Performed POC GLUCOSE 2020-04-11 13:59:00 VoMarylou spital POC GLUCOSE 2020-04-11 03:06:00 VoMarylou Ho spital POC GLUCOSE 2020-04-10 22:26:00 VoMarylou spital POC GLUCOSE 2020-04-10 17:49:00 VoMarylou spital EEG AWAKE/ASLEEP LESS 2020-04-10 15:38:49 Cali Alejo [facility] THAN 41 MIN POC GLUCOSE 2020-04-10 13:45:00 VoMarylou spital POC GLUCOSE 2020-04-10 11:16:00 VoMarylou spital T4, FREE 2020-04-10 10:15:00 Cali Alejo [facility] THYROID STIMULATING 2020-04-10 10:15:00 Cali Alejo [facility] HORMONE VITAMIN B12 LEVEL 2020-04-10 10:15:00 Alejo, Cali [facility] VITAMIN D 25 HYDROXY 2020-04-10 10:15:00 Cali Alejo [facility] LEVEL FOLATE LEVEL 2020-04-10 10:15:00 Cali Alejo [facility] MRI BRAIN WO CONTRAST 2020-04-10 07:01:00 Vo, Marylou Lizarraga [facility] POC GLUCOSE 2020-04-10 03:22:00 [facility] 2020-04-09 23:42:00 [facility] ECG 12-LEAD 2020-04-09 18:23:52 Tung [facility] POC GLUCOSE 2020-04-09 18:21:00 [facility] POC GLUCOSE 2020-04-09 15:19:00 Vo, Marylou Capellan spital US CAROTID DUPLEX 2020-04-09 14:50:[facility], WO 2020-04-09 12:30:00 [facility] CONTRAST, W DOPPLER ([id number]) HEMOGLOBIN A1C 2020-04-09 11:00:00 Tung [facility] HC COMPLETE BLD COUNT 2020-04-09 [facility]:00[facility] BASIC METABOLIC PANEL 2020-04-09 11:00:00 [facility] LIPID PANEL 2020-04-09 11:00:00 Tung [facility] MAGNESIUM LEVEL 2020-04-09 11:00:00 Tung [facility] THYROID STIMULATING 2020-04-09 11:00:00 Keke [facility] HORMONE T4, FREE 2020-04-09 11:00:00 Tung [facility] TROPONIN 2020-04-09 11:00:00 Tung [facility] ESTIMATED GFR 2020-04-09 11:00:00 Tung [facility] POC GLUCOSE 2020-04-09 10:38:00 Tung [facility] POC GLUCOSE 2020-04-09 05:58:00 Martinez, Tung [facility] COVID-19 QUALITATIVE 2020-04-09 04:20:00 Dirk Rob [facility] RT-PCR URINE CULTURE 2020-04-09 04:05:00 [facility]OP[facility]IN 2020-04-09 04:00:00 [facility] URINALYSIS SCREEN AND 2020-04-09 03:18:00 [facility] WITH REFLEX TO CULTURE XR CHEST 1 VW PORTABLE 2020-04-09 03:05[facility] WO 2020-04-09 02:47:00 Rob, [facility] CONTRAST CT ANGIOGRAM HEAD W WO 2020-04-09 02:47:[facility] CONTRAST 2020-04-09 02:46:21 Dirk Rob [facility] ECG 12-LEAD 2020-04-09 00:45:30 [facility] COMPLETE BLD COUNT 2020-04-09 00:37:00 [facility] W/AUTO DIFF PROTHROMBIN TIME WITH INR 2020-04-09 00:37:00 [facility] PARTIAL THROMBOPLASTIN 2020-04-09 00:37:00 Rob, [facility] TIME (PTT) COMPREHENSIVE METABOLIC 2020-04-09 00:37:00 [facility] PANEL PHOSPHORUS LEVEL 2020-04-09 00:37:00 [facility] 2020-04-09 00:37:00 [facility] TROPONIN 2020-04-09 00:37:00 [facility] B NATRIURETIC PEPTIDE 2020-04-09 00:37:00 Rob, [facility] ESTIMATED GFR 2020-04-09 00:37:[address] [facility] Plan of Care Planned Activity Planned Date [...] - Test 00:00:00 (1 of 1 - Medical Center [id number] PCV13) [code = PNEUMOCOCCAL 65+ YRS (1 of 1 - [id number] PCV13)] Future Scheduled [address] [facility] - Test 00:00:00 [facility]procedure) [code = 041269464] Future Scheduled 65+ [facility]OCOCCAL [facility] Test VACCINE (1 of 2 - PPSV23) [code = 65+ PNEUMOCOCCAL VACCINE (1 of 2 - PPSV23)] Future Scheduled DIABETES: RETINAL EYE [facility] EXAM [code = DIABETES: RETINAL EYE EXAM] Future Scheduled DIABETIC FOOT EX[facility] Test [code = DIABETIC FOOT EXAM] Future Scheduled URINE MICROALBUMIN [facility] Test [code = URINE MICROALBUMIN] Future Scheduled COVID-19 VACCINE (1) [facility] Test [code = COVID-19 VACCINE (1)] Future Scheduled Hepatitis C screening [facility] Test (procedure) [code = 860324606] Future Scheduled COLONOSCOPY SCREENING [facility] Test [code = COLONOSCOPY SCREENING] Future Scheduled SHINGLES VACCINES (#1) [facility] [code = SHINGLES VACCINES (#1)] Future Scheduled INFLUENZA [facility]ACCINE [facility] Test [code = INFLUENZA VACCINE] Encounters Start End Encounter Admission Attending Care Care Encounter Source Date/Time Date/Time Type Type Clinicians Facility Department ID 2020-10-18 2020-10-18 Emergency TRAE Ro [id number] 17:00:00 19:46:00 Genesis Arciniega [id number] [place] [id number] [place] [id number] 2020-04-08 2020-04-11 Hospital Dirk Rob [id number] [facility] 18:04:00 13:45:00 Encounter Tung Martinez [id number] Vo, Le 3.430.2.7 Hospit a .[id number] l .8 2020-04-08 2020-04-11 Inpatient VO, LE [facility] [id number] 97 [place] 00:00:00 00:00:[address] 2019-06-12 2019-06-12 Office TIGIST Kingsley [id number] 09:53:11 13:49:12 Visit Andrewaldo AMBULATOR 350.1.13.21 Y 0.2.7.2.686 [id number] Results Test Description Test Time Test Comments Results Result [facility] e Comments EEG (routine) 2020-04-10 EEG AWAKE AND Methodis t 22:32:09 ASLEEP Date of Hospital Service: 04/10/2020 Awake Recording: The occipital dominant rhythm is 9 Hz. 18-22 Hz activity is present in all regions. 2-3 Hz activity was present in the left and right temporal regions. Sleep Recording: No epileptiform activity was recorded. Hyperventilation: Not performed. Photic Stimulation: No abnormality elicited. Impression There is slow activity in the left and right temporal regions, a finding of uncertain significance in patients in this age group. The background activity is other within the range of normal variation. No epileptiform activity was recorded. ICD-10 Code: R569 Urine culture 2020-04-10 09:38:44 Test Item Value Reference Range Interpretation Comme nts Urine culture isolate (test code = 12353-3) Mixed annika <=10-3 col/ [facility] [id number] 08:06:07EXAM: MRI BRAIN WO CONTRAST CLINICAL HISTORY: syncope h o CVA TECHNIQUE: Multiplanar and multisequence MRI imaging of the brain was obtained without contrast. COMPARISON: CT/CTA brain, 04/08/2020 FINDINGS: No diffusion restriction to suggest acute infarct. Generalized brain parenchymal volume loss. There are scattered T2/FLAIR hyperintensities within the subcortical and periventricular white matter, likely reflective of chronic microangiopathic changes. No acute intracranial hemorrhage, mass, hydrocephalus, or extra-axial fluid collection identified. Although this examination is not optimized forthe sella, pituitary is grossly normal in appearance. Midline structures are maintained. The major fl ow voids in the skull base are identified. Orbits are unremarkable. Paranasal sinuses are clear. Mastoid air cells are normally pneumatized. IMPRESSION: Mild involutional changes are identified withno acute intracranial abnormality identified. [id number] Interface, Radiology Results Incoming- 04/10/2020 2:09 AM CST EXAM: MRI BRAIN WO CONTRASTCLINICAL HISTORY: syncope h o CVATECHNIQUE: Multiplanar and multisequence MRI imaging of the brain was obtained without contrast.COMPARISON: CT/CTA brain, 04/08/2020FINDINGS:No diffusion restriction to suggest acute infarct.Generalized brain parenchymal volume loss. There are scattered T2/FLAIR hyperintensities within the subcortical and periventricular white matter, likely reflective ofchronic microangiopathic changes.No acute intracranial hemorrhage, mass, hydrocephalus, or extra-axial fluid collection identified.Although this examination is not optimized for the sella, pituitary isgrossly normal in appearance. Midline structures are maintained. The major flow voids in the skull base are identified. Orbits are unremarkable. Paranasal sinuses are clear. Mastoid air cells are normally pneumatized. IMPRESSION:Mild involutional changes are identified with no acute intracranial abnormality identified. [id number] 12 [id number] 00:23:35 Test Item Value Reference Range Interpretation Comments Ventricular rate (test code = 253) Atrial rate (test code = 255) PA interval (test code = 266) QRSD interval (test code = 260) QT interval (test code = 264) QTC interval (test code = 265) P axis 1 (test code = 267) QRS axis 1 (test code = 268) T wave axis (test code = 270) EKG impression (test code Sinus = 273) bradycardia-Left axis deviation-Septal infarct , age undetermined-Abnorma l ECG-- [facility], (w Contrast, Strain and 3D if needed)2020-04-09 19:11:00 Echocardiography Report [address] [facility], [place] [address] Erin.Name: SHANTEL MCKEON.ID: [id number] .Date: 04/09/2020 Refer.MD: TUNG MARTINEZ MD Exam Time: 5:59:00 AM Study Type:Routine Echo Height: 68in Weight: 155lb BSA: 1.84 m2 Age: 8 1950,69Y Sex: MALE BP: 170/75 HR: 52 bpm Sonogrphr: Laura Lobo, SHAWN, RVTPat. Stat.:Inpatient Room: [facility] Study Status:Final Echo Event ID:[id number] Order ID: [id number] Reason for Study:CP, Chest Pressure, Chest Tightness; Syncope - Intermediate or high global CAD riskHistory / Clinical:Diabetes, HypertensionProcedures: 2D Echo, Colorflow Doppler, PortableRace: C SUMMAR Y: LV EF is normal. Estimated EF is 60-64%.RV systolic function is normal.LA volume is severely enlarged.Normal diastolic function and LV filling pressures.Insufficient TR jet to estimate PA systolic pressure. FINDINGS: LV: LV size is normal. LV EF is normal. Difficult to assess regional wall motion; however it appears grossly normal. Septal motion is paradoxical secondaryto LBBB or conduction abnormality. Estimated EF is 60-64%.RV: RV size is normal. RV systolic function is normal.LA: LA volume is severely enlarged.RA: RA size is normal.AO: Aortic root diameter is normal.MAYA: Trace anterior and posterior pericardial effusion.AV: No structural AV abnormalities noted. Mild aortic regurgitation. MV: No structural MV abnormalities noted. A trace of mitral regurgitation. PV: No structural PV abnormalities noted.TV: No structural TV abnormalities noted. A trace of tricuspid regurgitation Perry: Normal diastolic function and LV filling pressures.Other: Insufficient TR jet to estimate PA systolic pressure. No intracardiac flow abnormalities detected by Doppler.--------- MEASUREMENTS: 2DParasternal Long Anselmo Ao An 2.4 cm LVPWd 1.1 cm Ao Rtd 3.5 cm Index 1.9 cm/m2 LA Ds 4.5 cm IVSd 0.94 cm RWT 0.46 LVIDd 4.8 cm Index 2.6cm/m2 LV Mass 175 g (122-174) LVIDs 3.3 cm LVM Index 95 g/m2 LV%fs 31 % LVOT 2.2 cm LA Sng Plane LA Area 26 cm2 (8.8-23.4) LA Vol 97 ml Index 53 ml/m2 LA LngAx 5.7 cm LVOT LVOT Area 3.8 cm2 DOPPLERLVOT Stroke Vol & Cardiac Out LVOT TVI 22 cm HR 50 bpm LVOT LVOT SV 86 ml LVOT CO 4.3 l/min SVi 47 ml/m2 LVOT CI 2.3l/m/m2 Signed 04/09/2020 01:11 PMMagan Mcclelland M.D.Interface, Radiology Results In - 04/09/2020 1:11 PM CST Echocardiography Report [address] [address], [address]Name: SHANTEL MCKEON.ID: [id number] .Date: 04/09/2020 Refer.MD: TUNG MARTINEZ MD Exam Time: 5:59:00 AM Study Type:Routine Echo Height: 68in Weight: 155lb BSA: 1.84 m2 Age: 8 1950,69Y Sex: MALE BP: 170/75 HR: 52 bpm Sonogrphr: Laura Lobo, [facility], RVTPat. Stat.:Inpatient Room: M684 Study Status:Final Echo Event ID:[id number] Order ID: [id number] Reason for Study:CP, Chest Pressure, Chest Tightness; Syncope -Intermediate or high global CAD riskHistory / Clinical:Diabetes, HypertensionProcedures: 2D Echo, Colorflow Doppler, PortableRace: C SUMMARY: LV EF is normal. Estimated EF is 60-64%.RV systolic function is normal.LA volume is severely enlarged.Normal diastolic function and LV filling pressures.Insufficient TR jet to estimate PA systolic pressure. FINDINGS: LV: LV size is normal. LV EF is normal. Difficult to assess regional wall motion; howeverit appears grossly normal. Septal motion is paradoxical secondary to LBBB or conduction abnormality. Estimated EF is 60-64%.RV: RV size is normal. RV systolic function is normal.LA: LA volume is severely enlarged.RA: RA size is normal.AO: Aortic root diameter is normal.MAYA: Trace anterior and posterior pericardial effusion.AV: No structural AV abnormalities noted. Mild aortic regurgitation. MV: No structural MV abnormalities noted. A trace of mitral regurgitation. PV: No structural PV abnormalities noted.TV: Nostructural TV abnormalities noted. A trace of tricuspid regurgitation Perry: Normal diastolic function and LV filling pressures.Other: Insufficient TR jet to estimate PA systolic pressure. No intracardiac flow abnormalities detected by Doppler. -MEASUREMENTS: 2DParasternal Long Anselmo Ao An 2.4 cm LVPWd 1.1 cm Ao Rtd 3.5 cm Index 1.9 cm/m2 LA Ds 4.5 cm IVSd 0.94 cm RWT 0.46 LVIDd 4.8 cm Index 2.6 cm/m2 LV Mass 175 g (122-174) LVIDs 3.3 cm LVM Index 95 g/m2 LV%fs 31 % LVOT 2.2 cm LA Sng Plane LA Area 26 cm2 (8.8-23.4) LAVol 97 ml Index 53 ml/m2 LA LngAx 5.7 cm LVOT LVOT Area 3.8 cm2 DOPPLERLVOT Stroke Vol & Cardiac Out LVOT TVI 22 cm HR 50 bpm LVOT LVOT SV 86 ml LVOT CO 4.3 l/min SVi 47 ml/m2 LVOT CI 2.3 l/m/m2 Signed 101:11 Jose Mcclelland M.D.[facility] carotid [id number] 18:27:00 Vascular Ultrasound Laboratory Carotid Artery Duplex Report [address] [place] [address] For quality tester purposes, the categorization of the degree of the stenosis of this exam is based on criteria described in the IAC carotid stenosis grading white paper( www.intersocietal.org/Vascular) and Ale Boss., Rajat CNathenB., et al. Carotid artery stenosis: mcwilliams-scale and Doppler US diagnosis--Society of Radiologists in Ultrasound Consensus Conference. Radiology. 2003 Nov; 229(2):340-6. Pat.Name: SHANTEL MCKEON Pat.ID: [id number] .Date: 04/09/2020 Refer.MD: TUNG MARTINEZ MD Exam Time: 8:18:00 AM Study Type:Carotid Height: 68in Weight: 155lb BSA: 1.84 m2 Age: 8 1950,69Y Sex: MALE Sonogrphr: Mabel Torrez, SHAWN, RVTPat. Stat.:Inpatient Room: [address] Tape Vol: ED, CPT - 4: 47878 Echo Event ID:[id number] Order ID: [id number] Reason for Study:Syncope History / Clinical:DM, HTN, Carotid disease, H/o CVA 06/2019Procedures: Colorflow, Grayscale/2D, Pulsed wave DopplerRace: C SUMMARY: PHYSICAL ASSESSMENT Blood Pulses Carotid Pressure Carotid Temporal BruitRight IV + + 0Left 175/70 + + 0CAROTID ARTERY SCANRIGHT: There is intimal thickening in the common carotid artery.There is hard plaque noted in the bulb extending into the proxima linternal carotid artery. The external carotid artery is clear.Colorflow is normal.LEFT: There is intimal thickening in the common carotid artery.Post endarterectomy, there is satisfactory appearance of the carotidendarterectomy site. Hard plaque noted at the origin of the externalcarotid artery with slightly elevated velocity.PRELIMINARY FINDINGS1. <50% stenosis in the bulb and right internal carotid artery. 2. Post endarterectomy, there is satisfactory appearance of the leftcarotid endarterectomy site.3. >50% stenosis of the left external carotid artery.4. Antegrade vertebral artery flow bilaterally.PHYSICIAN INTERPRETATION Bilateral carotid duplex examination demonstrated atheroscleroticplaques in the right bulb. <50% stenosis in the bulb and right internal carotid artery. Post endarterectomy, there is satisfactory appearance of the leftcarotid endarterectomy site. >50% stenosis of the left external carotid artery.Both vertebral arteries are antegrade. FINDINGS: Carotid Findings: Right Left Verteb.Flw Antegrade Antegrade Subclavian Triphasic Triphasic -MEASUREMENTS: DOPPLERLeft ICA Dist ICA Dist PSV 69.7 cm/s ICA Dist EDV 28.1 cm/sLeft ICA Mid ICA Mid PSV 67.6 cm/s ICA Mid EDV 28.8 cm/sLeft CCA Mid CCA Mid PSV 110 cm/s CCA Mid EDV 20.4 cm/sLeft SCA Prox SCA Prox PSV 134 cm/s Left Vertebral Vertebral PSV 59.6 cm/s Vertebral EDV 9.38 cm/sRight CCA Dist CCA Dist PSV 77.8 cm/s CCA Dist EDV 17.8 cm/sRight CCA Mid CCA Mid PSV 96.2 cm/s CCA Mid EDV 18.4 cm/sRight ECA Prox ECA Prox PSV 109 cm/s ECA Prox EDV 7.41 cm/sRight ICA Prox ICA Prox PSV 77.8 cm/s ICA Prox EDV 25.2 cm/sRight SCA Prox SCA Prox PSV 108 cm/s Right Vertebral Vertebral PSV 56.3 cm/s Vertebral EDV 11.7 cm/sRight ICA/CCA Ratio ICA/CCA PSV 0.809 Right CCA Prox CCA Prox PSV 100 cm/s CCA Prox EDV 20.2 cm/sLeft CCA Prox CCA Prox PSV 108 cm/s CCA Prox EDV 18.5 cm/sLeft CCA Dist CCA Dist PSV 112 cm/s CCA Dist EDV 15.7 cm/sLeft ICA Prox ICA Prox PSV 63.6 cm/s ICA Prox EDV 22.1 cm/sRight ICA Mid ICA Mid PSV 71.1 cm/s ICA Mid EDV 25.9 cm/sRight ICA Dist ICA Dist PSV 62.2 cm/s ICA Dist EDV 23.7 cm/sLeft ECA Prox ECA Prox PSV 167 cm/s ECA Prox EDV 0 cm/sLeft ICA/CCA Ratio ICA/CCA PSV 0.578 Signed 04/09/2020 12:27 Isael Robledo MD, Dionte, Radiology Results In - 04/09/2020 12:28 PM CST Vascular Ultrasound Laboratory Carotid Artery Duplex Report [address] [address], [place], [place] [address]Eyr quality tester purposes, the categorization of the degree of the stenosis of this exam is based on criteria described in the IAC carotid stenosis grading white paper( www.intersocietal.org/Vascular) and Ale Boss., Audra Earl, et al. Carotid artery stenosis: mcwilliams-scale and Doppler US diagnosis--Society of Radiologists in Ultrasound Consensus Conference. Radiology. 2003 Nov; 229(2):340-6. Pat.Name: Luís MCKEON.ID: [id number] .Date: 04/09/2020 Refer.MD: TUNG MARTINEZ MD Exam Time: 8:18:00 AM Study Type:Carotid Height: 68in Weight: 155lb BSA: 1.84 m2 Age: 8 1950,69Y Sex: MALE Sonogrphr: Mabel Torrez RDCS, RVTPat. Stat.:Inpatient Room: [address] Vol: ED, CPT - 4: 06595 Echo Event ID:[id number] Order ID: [id number] Reason for Study:Syncope History / Clinical:DM, HTN, Carotid disease, H/o CVA 06/2019Procedures: Colorflow, Grayscale/2D, Pulsed wave DopplerRace: C SUMMARY: PHYSICAL ASSESSMENT Blood Pulses Carotid Pressure Carotid Temporal BruitRight IV + + 0Left 175/70 + + 0CAROTID ARTERY SCANRIGHT: There is intimal thickening in the common carotid artery.There is hard plaque noted in the bulb extending into the proximalinternal carotid artery.The external carotid artery is clear.Colorflow is normal.LEFT: There is intimal thickening in the common carotid artery.Post endarterectomy, there is satisfactory appearance of the carotidendarterectomy site. Hard plaque noted at the origin of the externalcarotid artery with slightly elevated velocity.PRELIMINARY FINDINGS1. <50% stenosis in the bulb and right internal carotid artery. 2. Post endarterectomy, there is satisfactory appearance of the leftcarotid endarterectomy site.3. >50% stenosis of the left external carotid artery.4. Antegrade vertebral artery flow bilaterally.PHYSICIAN INTERPRETATION Bilateral carotid duplex examination demonstrated atheroscleroticplaques in the right b ulb. <50% stenosis in the bulb and right internal carotid artery. Post endarterectomy, there is satisfactory appearance of the leftcarotid endarterectomy site. >50% stenosis of the left external carotid artery.Both vertebral arteries are antegrade. FINDINGS:- Carotid Findings: Right Left Verteb.Flw Antegrade Antegrade Subclavian Triphasic Triphasic MEASUREMENTS: DOPPLERLeft ICA Dist ICA Dist PSV 69.7 cm/s ICA Dist EDV 28.1 cm/sLeft ICA Mid ICA Mid PSV 67.6 cm/s ICA Mid EDV 28.8 cm/sLeft CCA Mid CCA Mid PSV 110 cm/s CCA Mid EDV 20.4 cm/sLeft SCA Prox SCA Prox PSV 134 cm/s Left Vertebral Vertebral PSV 59.6 cm/s Vertebral EDV 9.38 cm/sRight CCA Dist CCA Dist PSV 77.8 cm/s CCA Dist EDV 17.8 cm/sRight CCA Mid CCA Mid PSV 96.2 cm/s CCA Mid EDV 18.4 cm/sRight ECA Prox ECA Prox PSV 109 cm/s ECA Prox EDV 7.41 cm/sRight ICA Prox ICA Prox PSV 77.8 cm/s ICA ProxEDV 25.2 cm/sRight SCA Prox SCA Prox PSV 108 cm/s Right Vertebral Vertebral PSV56.3 cm/s Vertebral EDV 11.7 cm/sRight ICA/CCA Ratio ICA/CCA PSV 0.809 Right CCA Prox CCA Prox PSV 100 cm/s CCA Prox EDV 20.2 cm/sLeft CCA Prox CCA ProxPSV 108 cm/s CCA Prox EDV 18.5 cm/sLeft CCA Dist CCA Dist PSV 112 cm/s CCA Dist EDV 15.7 cm/sLeft ICA Prox ICA Prox PSV 63.6 cm/s ICA Prox EDV 22.1 cm/sRight ICA Mid ICA Mid PSV 71.1 cm/s ICA Mid EDV 25.9 cm/sRight ICA Dist ICA Dist PSV 62.2 cm/s ICA Dist EDV 23.7 cm/sLeft ECA Prox ECA Prox PSV 167 cm/s ECA Prox EDV 0 cm/sLeft ICA/CCA Ratio ICA/CCA PSV 0.578 Signed 04/09/2020 12:27 PMManny Robledo MD, [facility] Head W Wo Qubdmslq1220-03-17 03:19:56EXAMINATION: CT ANGIOGRAM HEAD W WO CONTRAST CLINICAL HISTORY: syncope carotid atherosclerosis COMPARISON: None. TECHNIQUE: CT imaging was performed with iterative reconstruction technique and/or automated exposure control to reduce radiation dose. Study was obtained during the arterial phase of en hancement. IMPRESSION:3-D reconstructions were processed off-line. Moderate narrowing of the leftpetrous ICA. Moderate severe narrowing of the origin of the left MCA. Mild to moderate narrowing of the origin of the left anterior cerebral artery. Moderate to severe narrowing of the right posterior communicating artery which provides most of the flow to the right MIDDLEWARE SYSTEMS ARCHITECT. No other focal narrowing, aneurysmal dilatation or vascular malformation of the [place] vessels. Both posterior cerebral arteries are in origin. RM-WPHYRRSHm Interface, Radiology Results Incoming - 04/08/2020 9:23 PM CST EXAMINATION: CT ANGIOGRAM HEAD W WO CONTRASTCLINICAL HISTORY: syncope carotid atherosclerosisCOMPARISON: None.TECHNIQUE: CT imagingwas performed with iterative reconstruction technique and/or automated exposure control to reduce radiation dose. Study was obtained during the arterial phase of enhancement. IMPRESSION:3-D reconstructions were processed off-line.Moderate narrowing of the left petrous ICA.Moderate severe narrowing of the origin of the left MCA.Mild to moderate narrowing of the origin of the left anterior cerebral artery.Moderate to severe narrowing of the right posterior communicating artery which provides most of the flow to the right MIDDLEWARE SYSTEMS ARCHITECT.No other focal narrowing, aneurysmal dilatation or vascular malformation of the [place] vessels.Both posterior cerebral arteries are in origin.[facility] [place] W Wo [id number] 03:14:02 EXAM: CT ANGIOGRAM NECK W WO CONTRAST CLINICAL HISTORY: syncope carotid atherosclerosis TECHNIQUE: Imaging of the cervical circulation was obtained from the upper thorax to the skull base during the arterial phase of enhancement. Postprocessing was performed with MIP multiplanar and 3D reconstructed images. CT scans are performed using radiation dose reduction techniques. Technical factors are evaluated and adjusted to ensure appropriate moderation of exposure. Automated dose management technology is applied to adjust radiation exposure while achieving a diagnostic quality image. COMPARISON: None FINDINGS: Mild amount of plaque and calcification seen at the bilateral carotid bulbs and originsof the internal carotid arteries. The common carotid arteries, carotid bulbs, internal carotid arteries and external carotid arteries are otherwise opacified with 0% stenosis by NASCET criteria. The vertebral arteries are patent throughout the visualized cervical segments without significant stenosis. Patient is right vertebral artery dominant. Visualized soft tissues shows no mass, adenopathy or fluid collection. No large, irregular thyroid nodule or mass is present. Lung apices are without evidence of focal consolidation or suspicious pulmonary nodule. Minimal scarring seen at the bilateral lungapices. Visualized osseous structures shows no acute fracture or dislocation. Minimal cervical spondylosis with disc height loss worse at the C4-C5 level at which there is associated uncovertebral hypertrophy and chronic foraminal narrowing. It is important to note that the current CTA of the neck is not tailored to evaluate the extent of thecal sac stenosis and foraminal narrowing. IMPRESSION: 1.Minimal/mild atherosclerotic changes. No hemodynamically significant narrowing of the cervical vesselsby NASCET criteria. [id number] Interface, Radiology Results Incoming - 04/08/2020 9:17 PM CST EXAM: CT ANGIOGRAM NECK W WO CONTRASTCLINICAL HISTORY: syncope carotid atherosclerosisTECHNIQUE: Imaging of the cervical circulation was obtained from the upper thorax to the skull base during the arterial phase of enhancement. Postprocessing was performed with MIP multiplanar and 3D reconstructed images. CT scans are performed using radiation dose reduction techniques. Technical factors are evaluated and adjusted to ensure appropriate moderation of exposure. Automated dose management technology is applied to adjust radiation exposure while achieving a diagnostic quality image.COMPARISON: NoneFINDINGS:Mild amount of plaque and calcification seen at the bilateral carotid bulbs and origins of the internal carotid arteries.The common carotid arteries, carotid bulbs, internal carotid arteries and external carotid arteries are otherwise opacified with 0% stenosis by NASCET criteria. The vertebral arteries are patent throughout the visualized cervical segments without significant stenosis.Patient is right vertebral artery dominant.Visualized soft tissues shows no mass, adenopathy or fluid collection.No large, irregular thyroid nodule or mass is present.Lung apices are without evidence of focal consolidation or suspicious pulmonary nodule. Minimal scarring seen at the bilateral lung apices.Visualized osseous structures shows no acute fracture or dislocation. Minimal cervical spondylosis with disc height loss worse at the C4-C5 level at which there is associated uncovertebral hypertrophy and chronic foraminal narrowing. It is important to note that the current CTA of the neck is not tailored to evaluate the extent of thecal sac stenosis and foraminal narrowing. IMPRESSION:1.Minimal/mild atherosclerotic changes. No hemodynamically significant narrowing of the cervical vessels by NASCET criteria.[id number] Vw [id number] 03:08:49EXAMINATION: XR CHEST 1 VW PORTABLE CLINICAL HISTORY: SOB COMPARISON: None IMPRESSION: 1. The heart and pulmonary vasculature are within normal limits.2. No infiltrate or effusion is demonstrated.3. There is no acute osseous pathology. CONCLUSION: NO RADIOGRAPHIC EVIDENCE OF ACUTE CARDIOPULMONARY ABNORMALITY. [facility] Interface, Radiology Results Incoming - 04/08/2020 9:11 PM CST EXAMINATION: XR CHEST 1 PORTABLECLINICAL HISTORY: SOBCOMPARISON: NoneIMPRESSION:1. The heart and pulmonary vasculature are within normal limits. 2. No infiltrate or effusion is demonstrated.3. There is no acute osseous pathology.CONCLUSION: NO RADIOGRAPHIC EVIDENCE OF ACUTE CARDIOPULMONARY ABNORMALITY.[facility]MPHYDWLMGu[facility] CenterCT Head Wo Syirlnpx1764-07-07 02:50:27 EXAMINATION: CT HEAD WO CONTRAST CLINICAL HISTORY: syncope carotid atherosclerosis COMPARISON: None TECHNIQUE: CT imaging was performed with iterative reconstruction technique and/or automated exposure control to reduce radiation dose. Findings: No intracranial hemorrhage, acute transcortical ischem ia, extra-axial fluid collections or parenchymal mass lesions. No skull fractures or aggressive bonylesions. Mild chronic ischemic small vessel white matter changes. Minimal mucosal thickening paranasal sinuses. Mastoid air cells are clear. IMPRESSION: No acute intracranial abnormalities. [facility] Interface, Radiology Results - 04/08/2020 8:53 PM CSTFormatting of this note might bedifferent from the original.EXAMINATION: CT HEAD WO CONTRASTCLINICAL HISTORY: syncope carotid atherosclerosisCOMPARISON: NoneTECHNIQUE: CT imaging was performed with iterative reconstruction technique and/or automated exposure control to reduce radiation dose.Findings:No intracranial hemorrhage, acute transcortical ischemia, extra-axial fluid collections or parenchymal mass lesions. No skull fractures or aggressive bony lesions.Mild chronic ischemic small vessel white matter changes. Minimal mucosal thickening paranasal sinuses. Mastoid air cells are clear.IMPRESSION:No acute intracranial abnormalities.[facility] RNA [Presence] in Respiratory specimen by CATIA with probe [id number] 02:22:24 Test Item Value Reference Range Interpretation Comments SARS-CoV-2 (COVID-19) RNA Not detected Not-Detected [Presence] in Respiratory specimen by CATIA with probe detection (test code = 16888-5) TISSUE [id number] 16:20:00Surgical Pathology Report Case: [id number] Authorizing Provider: Rupa Kingsley MD Collected: 05/24/2019 1514 Ordering Location: [facility] Received: 05/27/2019 0911 PERIOPERATIVE SERVICES Pathologist: Rex Bardales MD Specimen: Plaque, LEFT CAROTID PLAQUE ARTERY, LEFT CAROTID, ENDARTERECTOMY:CALCIFIC ATHEROSCLEROTIC PLAQUE WITH FOCAL INTRAPLAQUE HEMORRHAGE Signing Pathologist Direct Phone Line: [phone] signed by Rex Bardales MD on 05/31/2019 at 4:20 [id number]; [id number] diagnosis: Carotid stenosis, leftPlaqueReceived in formalin labeled with the patient's name, accession number and "left carotid plaque" is a 3.2 cm in length x 1.0 cm in diameter bower-yellow tubular piece of focally calcified plaque. Route Contractor sections are submitted in A1 following decalcification. PA/pl Performed [id number] 06:33:00 Test Item Value Reference Range Interpretation Comments ACTIVATED CLOTTING TIME 252 sec : 74 -137 seconds, (BEAKER) (test code = Baseli ne: TESTED AT 441) [place] [address]: [employer]ocket Fl[employer] Creasing Machine Operator/Techni isabel ID = [id number] for FE LEE RUSHEMIAH [id number] 06:33:00 Test Item Value Reference Range Interpretation Comments ACTIVATED CLOTTING TIME 246 sec : 74 -137 seconds, (BEAKER) (test code = Baseli ne: TESTED AT 441) [place] [address] 30: Pocket Fl[employer] Creasing Machine Operator/Techni isabel ID = [id number] for FE VICTOR MANUEL, JHONNY [id number] 06:33:00 Test Item Value Reference Range Interpretation Comments ACTIVATED CLOTTING TIME 241 sec : 74 -137 seconds, (BEAKER) (test code = Baseli ne: TESTED AT 441) [address], [facility] 30: Pocket Flap Creasing Machine Operator/Techni isabel ID = [id number] for NG CONSTANCE, ARIANNEG POCT-GLUCOSE [id number] 13:21:00 Test Item Value Reference Range Interpretation Comments POC-GLUCOSE METER 99 mg/dL 70-110 : [facility] (BEAKER) (test code = [facility], 153) [address]: Pocket Flap Creasing Machine Operator/Techni isabel ID = [id number] for JOSEPH HOOKS POCT-GLUCOSE [id number] 08:16:00 Test Item Value Reference Range Interpretation Comments POC-GLUCOSE METER 167 mg/dL 70-110 H : TESTED A T [facility] 6720 (BEAKER) (test code = [facility], 153) [address]: Pocket Flap Creasing Machine Operator/Techni isabel ID = [id number] for BENJAMIN GRACIA [id number] 05:40:00 Test Item Value Reference Range Interpretation Comments PHOSPHORUS (BEAKER) (test code = 3.4 mg/dL 2.3-4.7 604) [employer]asing Machine Operator ID - GERMAINE [id number] 05:40:00 Test Item Value Reference Range Interpretation Comments MAGNESIUM (BEAKER) (test code = 2.4 mg/dL 1.6-2.6 627) [employer]asing Machine Operator ID - GERMAINE MBASIC METABOLIC [id number] 05:40:00 Test Item Value Reference Range Interpretation [...] S NOT APPLICABLE FOR DIALYSIS PATIEN TS. Pocket Fl[employer] Creasing Machine Operator ID Irlanda HERRON [facility] (HEMOGRAM ONLY)2019-05-26 05:31:00 Test Item Value Reference [...] 0-0 (BEAKER) (test code = 413) POCT-GLUCOSE [id number] 22:54:00 Test Item Value Reference Range Interpretation Comments POC-GLUCOSE METER 113 mg/dL 70-110 H : TESTED A T [facility] 6720 ([facility]) (test code = [facility], 153) [address]: Pocket Flap Creasing Machine Operator/Techni isabel ID = [id number] for PEDRO MUSE POCT-GLUCOSE [id number] 17:16:00 Test Item Value Reference Range Interpretation Comments POC-GLUCOSE METER 87 mg/dL 70-110 : TESTED A T [facility] 6720 ([facility]) (test code = [facility], 153) [address]: Pocket Flap Creasing Machine Operator/Techni isabel ID = [id number] for BRANDAN BARROW POCT-GLUCOSE [id number] 12:39:00 Test Item Value Reference Range Interpretation Comments POC-GLUCOSE METER 220 mg/dL 70-110 H : TESTED A T [facility] 6720 ([facility]) (test code = [facility], 153) [address]: Pocket Flap Creasing Machine Operator/Techni isabel ID = [id number] for LO SIXTO, MIKE POCT-GLUCOSE [id number] 08:04:00 Test Item Value Reference Range Interpretation Comments POC-GLUCOSE METER 276 mg/dL 70-110 H : TESTED A T [facility] 6720 (BEAKER) (test code = [facility], 153) [address]: Pocket Flap Creasing Machine Operator/Techni isabel ID = [id number] for LO SIXTO, MIKE POCT-GLUCOSE [id number] 05:10:00 Test Item Value Reference Range Interpretation Comments POC-GLUCOSE METER 299 mg/dL 70-110 H : TESTED A T [facility] 6720 (BEAKER) (test code = KAI Godinez [place], 1538) [address]: Pocket Flap Creasing Machine Operator/Techni isabel ID = [id number] for MALVIN BACH POCT-GLUCOSE [id number] 04:21:00 Test Item Value Reference Range Interpretation Comments POC-GLUCOSE METER 347 mg/dL 70-110 H : TESTED A T [facility] 6720 (BEAKER) (test code = KAI Godinez [place], 1538) [address]: Pocket Flap Creasing Machine Operator/Techni isabel ID = [id number] for JENNIFER ROMO BASIC METABOLIC [id number] 03:59:00 Test Item Value Reference Range Interpretation [...] S NOT APPLICABLE FOR DIALYSIS PATIEN TS. Pocket Flap Creasing Machine Operator ID - GERMAINE [id number] 03:47:00 Test Item Value Reference Range Interpretation Comments PHOSPHORUS (BEAKER) (test code = 4.6 mg/dL 2.3-4.7 604) Pocket [employer] Creasing Machine Operator ID - GERMAINE [id number] 03:47:00 Test Item Value Reference Range Interpretation Comments MAGNESIUM (BEAKER) (test code = 1.8 mg/dL 1.6-2.6 627) Pocket Fl[employer] Creasing Machine Operator ID - GERMAINE MPROTHROMBIN [id number] 03:44:00 Test Item Value Reference Range Interpretation [...] INR is2.5-3.5 for patients wiht mechanical heart valves.[id number] 03:44:00 Test Item Value Reference Range Interpretation [...] 0-0 (BEAKER) (test code = 413) POCT-GLUCOSE [id number] 21:57:00 Test Item Value Reference Range Interpretation Comments POC-GLUCOSE METER 304 mg/dL 70-110 H : TESTED A T [facility] 6720 (BEAKER) (test code = [place], 1538) [address]: Pocket Flap Creasing Machine Operator/Techni isabel ID = [id number] for DARRIAN GONSALES [id number] 20:13:00 Test Item Value Reference Range Interpretation Comments PARTIAL THROMBOPLASTIN TIME 27.9 seconds 22.5-36.0 (BEAKER) (test code = 760) PROTHROMBIN [id number] 20:12:00 Test Item Value Reference Range Interpretation [...] INR is2.5-3.5 for patients wiht mechanical heart valves.[id number] 18:14:00 Test Item Value Reference Range Interpretation Comments PHOSPHORUS (BEAKER) (test code = 4.6 mg/dL 2.3-4.7 604) Pocket Flap Creasing Machine Operator ID - [id number] 18:14:00 Test Item Value Reference Range Interpretation Comments MAGNESIUM (BEAKER) (test code = 1.8 mg/dL 1.6-2.6 627) Pocket [employer] Creasing Machine Operator ID - NTPBASIC METABOLIC [id number] 18:14:00 Test Item Value Reference Range Interpretation [...] S NOT APPLICABLE FOR DIALYSIS PATIEN TS. Pocket Fl[employer] Creasing Machine Operator ID - NTPCBC W/PLT COUNT & AUTO [id number] 18:01:00 Test Item Value Reference Range Interpretation [...] 417) IMMATURE GRANULOCYTES-RELATIVE 1 % 0-1 PERCENT (AKER) (test code = 2801) POCT-GLUCOSE [id number] 22:02:00 Test Item Value Reference Range Interpretation Comments POC-GLUCOSE METER 267 mg/dL 70-110 H : Notified RN/MD: ([facility]) (test code = TESTED AT [place] [address]) [facility], [address]: Pocket Fl[employer] Creasing Machine Operator/Techni isabel ID = [id number] for LATHBRIDGE, AFUA ICE POCT-GLUCOSE [id number] 18:03:00 Test Item Value Reference Range Interpretation Comments POC-GLUCOSE METER 222 mg/dL 70-110 H : TESTED A T [facility] 6720 ([facility]) (test code = [facility], 153) [address]: Pocket Flap Creasing Machine Operator/Techni isabel ID = [id number] for BR OWN, LYLE POCT-GLUCOSE [id number] 12:45:00 Test Item Value Reference Range Interpretation Comments POC-GLUCOSE METER 217 mg/dL 70-110 H : TESTED A T [facility] 6720 ([facility]) (test code = [facility], 153) [address]: Pocket Flap Creasing Machine Operator/Techni isabel ID = [id number] for BR OWN, LYLE POCT-GLUCOSE [id number] 08:39:00 Test Item Value Reference Range Interpretation Comments POC-GLUCOSE METER 157 mg/dL 70-110 H : TESTED A T [facility] 6720 ([facility]) (test code = [facility], 153) [address]: Pocket Flap Creasing Machine Operator/Techni isabel ID = [id number] for BR OWN, LYLE BLOOD GAS, [id number] 06:35:00 Test Item Value Reference Range Interpretation [...] (test code = 1819) 21 BASIC METABOLIC [id number] 04:56:00 Test Item Value Reference Range Interpretation [...] S NOT APPLICABLE FOR DIALYSIS PATIEN TS. Pocket Fl[employer] Creasing Machine Operator ID - RANGEL WPOCT-GLUCOSE [id number] 01:05:00 Test Item Value Reference Range Interpretation Comments POC-GLUCOSE METER 201 mg/dL 70-110 H : [facility] (BEAKER) (test code = [place], 1538) [address]: Pocket Flap Creasing Machine Operator/Techni isabel ID = [id number] for СЕРГЕЙ YOUNG, RONNATTA POCT-GLUCOSE [id number] 21:45:00 Test Item Value Reference Range Interpretation Comments POC-GLUCOSE METER 436 mg/dL 70-110 HH : Notified RN/MD: (IFRAH) (test code = TESTED AT [place] [address]) [facility], [address]: Pocket Fl[employer] Creasing Machine Operator/Techni isabel ID = [id number] for СЕРГЕЙ HNSCHET, PRITIQUETTA POCT-GLUCOSE [id number] 17:42:00 Test Item Value Reference Range Interpretation Comments POC-GLUCOSE METER 426 mg/dL 70-110 HH : Notified RN/MD: (IFRAH) (test code = TESTED AT [place] [address]) [facility], [address]: Pocket Fl[employer] Creasing Machine Operator/Techni isabel ID = [id number] for AK INSONU, DREW POCT-GLUCOSE [id number] 12:41:00 Test Item Value Reference Range Interpretation Comments POC-GLUCOSE METER 337 mg/dL 70-110 H : [facility] T [facility] (test code = [facility], 1538) [address]: Pocket Flap Creasing Machine Operator/Techni isabel ID = [id number] for AK INSONU, DREW POCT-GLUCOSE [id number] 09:07:00 Test Item Value Reference Range Interpretation Comments POC-GLUCOSE METER 214 mg/dL 70-110 H : [facility]ED A T [facility] 67[facility] (test code = [facility], 1538) [address]: Pocket Flap Creasing Machine Operator/Techni isabel ID = [id number] for AK INSONU, DREW BASIC METABOLIC [id number] 06:34:00 Test Item Value Reference Range Interpretation [...] S NOT APPLICABLE FOR DIALYSIS PATIEN TS. Pocket Flap Creasing Machine Operator ID - GERMAINE MPOCT-GLUCOSE [id number] 21:43:00 Test Item Value Reference Range Interpretation Comments POC-GLUCOSE METER 304 mg/dL 70-110 H : Notified RN/MD: ([facility]) (test code = TESTED AT [place] [address]) [facility], [address]: Pocket Flap Creasing Machine Operator/Techni isabel ID = [id number] for LATHBRIDGE, AFUA ICE POCT-GLUCOSE [id number] 17:40:00 Test Item Value Reference Range Interpretation Comments POC-GLUCOSE METER 265 mg/dL 70-110 H : [facility] T [facility] 6720 [facility] (test code [facility], = 1538) [address]: Pocket Flap Creasing Machine Operator/Techni isabel ID = [id number] for TSEG GAI, TSIGHEREDA POCT-GLUCOSE [id number] 12:39:00 Test Item Value Reference Range Interpretation Comments POC-GLUCOSE METER 389 mg/dL 70-110 H : Notified RN/MD: TESTED ([facility]) (test code AT [place] [id number] [facility] = 1538) [facility], [address]: Pocket Fl[employer] Creasing Machine Operator/Techni isabel ID = [id number] for TSEG GAI, TSIGHEREDA POCT-GLUCOSE [id number] 10:18:00 Test Item Value Reference Range Interpretation Comments POC-GLUCOSE METER 240 mg/dL 70-110 H : TESTED A T [facility] 6720 (BEAKER) (test code [facility], = 1538) [address]: Pocket Flap Creasing Machine Operator/Techni isabel ID = [id number] for TSEG GAI, TSIGHEREDA BASIC METABOLIC [id number] 07:31:00 Test Item Value Reference Range Interpretation [...] S NOT APPLICABLE FOR DIALYSIS PATIEN TS. Pocket Fl[employer] Creasing Machine Operator ID - GERMAINE MURINALYSIS WITH MICROSCOPIC IF [id number] 21:33:00 Test Item Value Reference Range Interpretation [...] = 463) SOURCE(BEAKER) (test code = 2795) Pocket [employer]asing Machine Operator ID - [auto]Pocket Flap Creasing Machine Operator ID - techOperator ID - techPOCT-GLUCOSE METER 2019-05-20 18:18:00 Test Item Value Reference Range Interpretation Comments POC-GLUCOSE METER 85 mg/dL 70-110 : TESTED A T [facility] 6720 (BEAKER) (test code = [facility], 1538) [address]: Pocket Flap Creasing Machine Operator/Techni isabel ID = [id number] for CRYSTAL DREW RAMOS POCT-GLUCOSE [id number] 13:38:00 Test Item Value Reference Range Interpretation Comments POC-GLUCOSE METER 309 mg/dL 70-110 H : TESTED A T [facility] 6720 ([facility]) (test code = [facility], 1538) [address]: Pocket Flap Creasing Machine Operator/Techni isabel ID = [id number] for AK INSONU, DREW [id number] 13:06:00 Test Item Value Reference Range Interpretation Comments [facility] S[facility]EN [facility] (test code = Nonreactive Nonreactive 420) [id number] 10:18:00 Test Item Value Reference Range Interpretation Comments HOMOCYSTEINE ([employer]) (test code 15.2 umol/L 5.1-15.4 = 642) Pocket [employer] Creasing Machine Operator ID - PIAYA LVITAMIN B12 AND [id number] 10:18:00 Test Item Value Reference Range Interpretation Comments VITAMIN B12 ([employer]) (test code = 282 pg/mL 213-816 774) FOLATE ([employer]) (test code = 362) 14.5 ng/mL >=7.0 Pocket Flap Creasing Machine Operator ID - PIAYA LTSH/FREE T4 IF [id number] 09:53:00 Test Item Value Reference Range Interpretation Comments THYROID STIMULATING HORMONE 1.24 uIU/mL 0.35-4.94 ([employer]) (test code = 772) [employer]asing Machine Operator ID - PIAYA LHIV-1 ANTIGEN WITH HIV-1/2 [id number] 09:53:00 Test Item Value Reference Range Interpretation Comments HIV-1 ANTIGEN WITH HIV 1\\T\\2 Nonreactive Nonreactive ANTIBODY (2) ([employer]) (test code = 2586) P[employer] Machine Operator ID - PIAYA LPOCT-GLUCOSE [id number] 09:34:00 Test Item Value Reference Range Interpretation Comments POC-GLUCOSE METER 256 mg/dL 70-110 H : TESTED A T [facility] 6720 ([facility]) (test code = [facility], 1538) [address]: Pocket Fl[employer] Creasing Machine Operator/Techni isabel ID = [id number] for [place] INSONU, DREW HEPATIC FUNCTION [id number] 08:43:00 Test Item Value Reference Range Interpretation [...] code = < U/L 6-55 L 347) P[employer] Machine Operator ID - PIAYA LHEMOGLOBIN [id number] 08:02:00 Test Item Value Reference Range Interpretation Comments HEMOGLOBIN A1C (BEAKER) (test code = 10.4 % 4.3-6.1 H 368) MR, MRA, BRAIN, WITHOUT [id number] 06:42:00Reason for exam:->Ischemic Stroke EvaluationFINAL REPORT EXAM: MR, BRAIN, WITHOUT CONTRAST, MR, MRA, BRAIN, WITHOUT CONTRAST, MR, MRA, NECK, WITHOUT IV CONTRAST CLINICAL INDICATION: Stroke follow-up. TECHNIQUE: Sagittal and coronal T1-w and axial T2-w, FLAIR, GRE, and diffusion-w images of the brain with ADC maps. 2D itsv-mh-huppmt MRA of the neck. 3D wikv-gj-lwimjn MRA of the head. Source data and [...] Present bilaterally. Posterior Circulation:Right posterior cerebral artery (MIDDLEWARE SYSTEMS ARCHITECT): Hypoplastic P1 segment with the remainder of the right MIDDLEWARE SYSTEMS ARCHITECT supplied by the right posterior communicating artery.Left posterior cerebral artery (MIDDLEWARE SYSTEMS ARCHITECT): Hypoplastic P1 segment with the remainder of the left MIDDLEWARE SYSTEMS ARCHITECT supplied by the left posterior communicating artery. [...] the left carotid bulb. Signed: Kannan Peña [facility] Verified Date/Time: 05/20/2019 06:42:15 MR, MRA, NECK, WITHOUT IV [id number] 06:42:00Reason for exam:->Ischemic Stroke EvaluationFINAL REPORT EXAM: MR, BRAIN, WITHOUT CONTRAST, MR, MRA, BRAIN, WITHOUT CONTRAST, MR, MRA, NECK, WITHOUT IV CONTRAST CLINICAL INDICATION: Stroke follow-up. TECHNIQUE: Sagittal and coronal T1-w and axial T2-w, FLAIR, GRE, and diffusion-w images of the brain with ADC maps. 2D t dqz-en-auvjyt MRA of the neck. 3D qknz-bd-zdtmwb MRA of the head. Source data and [...] Present bilaterally. Posterior Circulation:Right posterior cerebral artery (MIDDLEWARE SYSTEMS ARCHITECT): Hypoplastic P1 segment with the remainder of the right MIDDLEWARE SYSTEMS ARCHITECT supplied by the right posterior communicating artery.Left posterior cerebral artery (MIDDLEWARE SYSTEMS ARCHITECT): Hypoplastic P1 segment with the remainder of the left MIDDLEWARE SYSTEMS ARCHITECT supplied by the left posterior communicating artery. [...] Verified Date/Time: 05/20/2019 06:42:15 MR, BRAIN, WITHOUT [id number] 06:42:00Reason for exam:->Ischemic Stroke EvaluationFINAL REPORT EXAM: MR, BRAIN, WITHOUT CONTRAST, MR, MRA, BRAIN, WITHOUT CONTRAST, MR, MRA, NECK, WITHOUT IV CONTRAST CLINICAL INDICATION: Stroke follow-up. TECHNIQUE: Sagittal and coronal T1-w and axial T2-w, FLAIR, GRE, and diffusion-w images of the brain with ADC maps. 2D t wbr-rg-klkfth MRA of the neck. 3D geii-zb-gbegum MRA of the head. Source data and [...] Present bilaterally. Posterior Circulation:Right posterior cerebral artery (MIDDLEWARE SYSTEMS ARCHITECT): Hypoplastic P1 segment with the remainder of the right MIDDLEWARE SYSTEMS ARCHITECT supplied by the right posterior communicating artery.Left posterior cerebral artery (MIDDLEWARE SYSTEMS ARCHITECT): Hypoplastic P1 segment with the remainder of the left MIDDLEWARE SYSTEMS ARCHITECT supplied by the left posterior communicating artery. [...] Kannan Peña [facility] Verified Date/Time: 05/20/2019 06:42:15 POCT-GLUCOSE [id number] 04:12:00 Test Item Value Reference Range Interpretation Comments POC-GLUCOSE METER 279 mg/dL 70-110 H : TESTED A T [facility] 6720 (BEAKER) (test code = [facility], 1538) [address]: Pocket Flap Creasing Machine Operator/Techni isabel ID = [id number] for LUDY RYDER LIPID [id number] 03:47:00 Test Item Value Reference Range Interpretation [...] Borderline 130-159 High 160-189 Very High >=190 Pocket Flap Creasing Machine Operator ID - PIAYALBASIC METABOLIC [id number] 03:47:00 Test Item Value Reference Range Interpretation [...] S NOT APPLICABLE FOR DIALYSIS PATIEN TS. Pocket [employer] Creasing Machine Operator ID - PIAYA LC-REACTIVE [id number] 03:47:00 Test Item Value Reference Range Interpretation Comments C-REACTIVE PROTEIN (BEAKER) (test 0.13 mg/dL 0.00-0.50 code = 676) Pocket Fl[employer] Creasing Machine Operator ID - PIAYA LPROTHROMBIN [id number] 03:15:00 Test Item Value Reference Range Interpretation [...] mechanical heart valves.CBC W/PLT COUNT & AUTO [id number] 03:07:00 Test Item Value Reference Range Interpretation [...] % 0-1 PERCENT (BEAKER) (test code = 5401)
--- NOTE | 2020-10-19 18:15 | RAD REPORT ---
EXAM DESCRIPTION: CT - Head Brain Wo Cont - 10/19/2020 6:07 pm CLINICAL HISTORY: WEAKNESS COMPARISON: Head angio dated 05/19/2019; Ct Stroke Brain Wo Cont dated 05/19/2019 TECHNIQUE: All CT scans are performed using dose optimization technique as appropriate and may inclu de automated exposure control or mA/KV adjustment according to patient size. FINDINGS: No intracranial hemorrhage, hydrocephalus or extra-axial fluid collection.No areas of brai n edema or evidence of midline shift. Mild chronic small vessel ischemic changes. The paranasal sinuses and mastoids are clear. The calvarium is intact. IMPRESSION: No acute intracranial abnormality.
[2020-10-19 20:04] LABS: Absolute Lymphocytes (CBC) 2.3 K/uL (0.7-4.9); Basophils % 0.9 % (0-1.3); Hematocrit 38.3 % (39.6-49.0); Lymphocytes % 26.4 % (15.3-44.8); MPV 9.5 fL (7.6-11.3); Protime INR 0.91; RBC Red Blood Cell Count 4.48 M/uL (4.33-5.43)
[2020-10-19] MEDS ORDERED: NA CHLORIDE 0.9% 1,000 ML ONE (20:06)
--- NOTE | 2020-10-19 20:15 | RAD REPORT ---
EXAM DESCRIPTION: RAD - Chest Single View - 10/19/2020 8:06 pm CLINICAL HISTORY: COUGH COMPARISON: Chest Single View dated 04/03/2020; Chest Single View dated 09/02/2019; Chest Single View dated 05/19/2019 FINDINGS: No evidence of edema or pneumonia. The heart size is within normal limits.No acute osseous abnormality. No significant pleural effusions or pneumothorax. There is colon interposed between the liver and diaphragm in the right upper quadrant. IMPRESSION: No acute cardiopulmonary disease.
[2020-10-19 20:32] LABS: ALT/SGPT 18 U/L (12-78); AST/SGOT 20 U/L (15-37); Albumin 3.5 g/dL (3.4-5.0); Alkaline Phosphatase 86 U/L (45-117); BUN Blood Urea Nitrogen 35 mg/dL (7-18); Bicarbonate 20 mmol/L (21-32); Bilirubin Direct 0.1 mg/dL (0-0.2); Bilirubin Total 0.4 mg/dL (0.2-1.0); Glucose Level 159 mg/dL (74-106); Magnesium 2.5 mg/dL (1.8-2.4); NT PRO-BNP 76 pg/mL (<125); Potassium 4.9 mmol/L (3.5-5.1); Protein, Total 7.3 g/dL (6.4-8.2); Sodium Level 141 mmol/L (136-145); Troponin (Emerg Dept Use Only) < 0.02 ng/mL (0.0-0.045)
[2020-10-19 21:46] LABS: Urine Blood Negative (Negative); Urine Glucose Negative (Negative); Urine Protein 2+ (Negative)
--- NOTE | 2020-10-19 22:04 | RAD REPORT ---
EXAM DESCRIPTION: CT - Stone Protocol - 10/19/2020 9:51 pm CLINICAL HISTORY: Abdominal pain. FLANK PAIN COMPARISON: No comparisons TECHNIQUE: CT imaging of the abdomen and pelvis was performed without contrast. Solid organ, bowel a nd vascular assessment is limited due to lack of IV and oral contrast. All CT scans are performed using dose optimization technique as appropriate and may include automated exposure control or mA/KV adjustment according to patient size. FINDINGS: The lower lung meza are clear.Moderate hiatal hernia. Coronary artery calcifications. No focal liver lesions are identified. Cholelithiasis noted. No CT evidence acute cholecystitis. Adre nal glands unremarkable. The pancreas is unremarkable. No hydronephrosis or renal calculi noted. Surg ical changes of subtotal colectomy. No bowel obstruction is identified. Distended urinary bladder. Th e prostate is within normal limits. Small fat containing left inguinal hernia. Probably chronic compression deformity along the right aspect of the L4 vertebral body. No acute frac ture. IMPRESSION: No renal or ureteral calculi identified. Distended bladder. Correlate for urinary retent ion. Moderate hiatal hernia and changes of subtotal colectomy but no other acute findings identified.
--- NOTE | 2020-10-19 22:08 | ER ---
Nurse's Notes [facility] Name: Taz Bowles Age: 69 yrs Sex: Male : 1950 Arrival Date: 10/19/2020 Time: 16:50 Bed 6 Private MD: Ajay Jimenez E Diagnosis: Hypoglycemia, unspecified;Type 1 diabetes mellitus with hypoglycemia;Acute kidney failure, unspecified;Retention of urine, unspecified Presentation: 10/19 17:35 Chief complaint: Patient states: Pt stated, " I'm just not feeling right. My blood kg sugar 43 I went by EMS to [place] they discharged me home I was doing better but now I'm feeling bad again and my vision is bad and I feel at home and hit my head on the wall.". Coronavirus screen: Client denies travel out of the [place] in the last 14 days. At this time, unable to obtain information related to travel outside the [place] At this time, the client does not indicate any symptoms associated with coronavirus-19. Ebola Screen: Patient negative for fever greater than or equal to 101.5 degrees Fahrenheit, and additional compatible Ebola Virus Disease symptoms Patient denies exposure to infectious person. Patient denies travel to an Ebola-affected area in the 21 days before illness onset. Initial Sepsis Screen: Does the patient meet any 2 criteria? No. Patient's initial sepsis screen is negative. Does the patient have a suspected source of infection? No. Patient's initial sepsis screen is negative. Risk Assessment: Do you want to hurt yourself or someone else? Patient reports no desire to harm self or others. Onset of symptoms was October 18, 2020. 17:35 Method Of Arrival: Wheelchair kg 17:35 Acuity: JORDIN 3 kg Triage Assessment: 17:39 General: Appears in no apparent distress. Behavior is calm, cooperative, appropriate kg for age, quiet. Pain: Denies pain. Neuro: Reports blurred vision since 3 months ago. Historical: - Allergies: 17:39 No Known Allergies; kg - Home Meds: 17:39 Insulin- Unsure of what kind [Active]; aspirin 81 mg Oral chew [Active]; Blood Pressure kg Medications [Active]; - PMHx: 17:39 Diabetes - IDDM; CVA; CAD; Hypertensive disorder; kg - PSHx: 17:39 Lip SX; Part of Colon removed; Left Knee Replacment; kg - Immunization history:: Adult Immunizations not up to date, Client reports having NOT received the Covid vaccine. - Social history:: Smoking status: Patient denies any tobacco usage or history of. - Family history:: not pertinent. Screenin:40 Abuse screen: Denies threats or abuse. Nutritional screening: No deficits noted. iw Tuberculosis screening: No symptoms or risk factors identified. Fall Risk None identified. Assessment: 19:48 General: Appears in no apparent distress. comfortable, Behavior is calm, cooperative, iw appropriate for age, Denies fever. Pain: Denies pain. Neuro: Level of Consciousness is awake, alert, obeys commands, Oriented to person, place, time, situation. Cardiovascular: Capillary refill < 3 seconds Patient's skin is warm and dry. Respiratory: Airway is patent Respiratory effort is even, unlabored, Respiratory pattern is regular, symmetrical. Derm: Skin is intact, is thin, Skin is pink, warm \\T\\ dry. Musculoskeletal: Capillary refill < 3 seconds, Range of motion: intact in all extremities. 20:29 Reassessment: Patient and/or family updated on plan of care and expected duration. Pain ea level reassessed. Patient is alert, oriented x 3, equal unlabored respirations, skin warm/dry/pink. 22:01 Reassessment: Patient and/or family updated on plan of care and expected duration. Pain ea level reassessed. Patient is alert, oriented x 3, equal unlabored respirations, skin warm/dry/pink. Returned from CT. 23:28 Reassessment: Patient and/or family updated on plan of care and expected duration. Pain ea level reassessed. Patient is alert, oriented x 3, equal unlabored respirations, skin warm/dry/pink. Discharge instruction given to patient verbalized the understanding of instruction. Vital Signs: 17:35 BP 125 / 55; Pulse 57; Resp 20; Temp 98.3(O); Pulse Ox 100% on R/A; Weight 69.4 kg (R); kg Height 5 ft. 8 in. (172.72 cm) (R); Pain 0/10; 20:29 BP 161 / 71; Pulse 58; Resp 18; Pulse Ox 99% ; ea 23:29 BP 149 / 68; Pulse 58; Resp 18; Pulse Ox 98% ; ea 17:35 Body Mass Index 23.26 (69.40 kg, 172.72 cm) kg ED Course: 16:50 Patient arrived in ED. mr 16:51 Ajay Jimenez MD is Private Physician. mr 17:39 Triage completed. kg 17:39 Arm band placed on. kg 18:07 CT Head Brain wo Cont In Process Unspecified. EDMS 19:25 Saji Frausto MD is Attending Physician. leyla 19:40 Patient has correct armband on for positive identification. Bed in low position. Call iw light in reach. Side rails up X2. Pulse ox on. NIBP on. 19:40 Initial lab(s) drawn, by me, sent to lab. Inserted saline lock: 20 gauge in right iw forearm, using aseptic technique. Blood collected. 19:49 Annelise Ro, RN is Primary Nurse. iw 20:06 XRAY Chest (1 view) In Process Unspecified. EDMS 21:51 CT Stone Protocol In Process Unspecified. EDMS 22:06 Ajay Jimenez MD is Referral Physician. leyla 22:06 Fanta Shipman MD is Referral Physician. leyla 22:07 Phuc Nuñez MD is Referral Physician. leyla 23:27 No provider procedures requiring assistance completed. IV discontinued, intact, ea bleeding controlled, No redness/swelling at site. Pressure dressing applied. Administered Medications: 19:47 Drug: NS 0.9% 500 ml Route: IV; Rate: bolus; Site: right forearm; iw 20:30 Follow up: Response: No adverse reaction; IV Status: Completed infusion; IV Intake: ea 500ml 20:30 Drug: NS 0.9% 1000 ml Route: IV; Rate: 125 ml/hr; Site: right antecubital; ea 22:01 Drug: NS 0.9% 500 ml Route: IV; Rate: bolus; Site: right antecubital; ea 23:20 Follow up: IV Status: Completed infusion; IV Intake: 500ml ea 22:31 Drug: Rocephin (cefTRIAXone) 1 grams Route: IV; Rate: per protocol; Site: right ea antecubital; 23:20 Follow up: IV Status: Completed infusion ea 23:19 Drug: Flomax (tamsulosin) 0.4 mg Route: PO; ea 23:20 Follow up: Response: No adverse reaction ea Intake: 20:30 IV: 500ml; Total: 500ml. ea 23:20 IV: 500ml; Total: 1000ml. ea Outcome: 22:07 Discharge ordered by . leyla 23:27 Discharged to home ambulatory, with family. trudy 23:27 Condition: stable 23:27 Discharge instructions given to patient, Instructed on discharge instructions, follow up and referral plans. medication usage, Demonstrated understanding of instructions, follow-up care, medications. 23:29 Patient left the ED. ea Signatures: Dispatcher [employer] EDMI Saji Frausto MD MD cha Rivera, Mary mr Annelise Ro, RN RN Mabel Saldivar RN RN ea Graham, Kristen RN RN kg
--- NOTE | 2020-10-19 22:08 | EDPHYS ---
Physician Documentation [facility] Name: Taz Bowles Age: 69 yrs Sex: Male : 1950 Arrival Date: 10/19/2020 Time: 16:50 Bed 6 Private MD: Ajay Jimenez E ED Physician Saji Frausto HPI: 10/19 20:13 This 69 yrs old Male presents to ER via Wheelchair with complaints of leyla Dizziness, Low Blood Sugar. 20:13 The patient presents with dizziness, generalized weakness. Onset: The symptoms/episode leyla began/occurred just prior to arrival. Context: occurred at home. Modifying factors: The symptoms are alleviated by food, the symptoms are aggravated by low blood glucose. Associated signs and symptoms: The patient has no apparent associated signs or symptoms. Severity of symptoms: At their worst the symptoms were mild in the emergency department the symptoms have improved markedly. Patient's baseline: Neuro:. The patient has not experienced similar symptoms in the past. Historical: - Allergies: 17:39 No Known Allergies; kg - Home Meds: 17:39 Insulin- Unsure of what kind [Active]; aspirin 81 mg Oral chew [Active]; Blood Pressure kg Medications [Active]; - PMHx: 17:39 Diabetes - IDDM; CVA; CAD; Hypertensive disorder; kg - PSHx: 17:39 Lip SX; Part of Colon removed; Left Knee Replacment; kg - Immunization history:: Adult Immunizations not up to date, Client reports having NOT received the Covid vaccine. - Social history:: Smoking status: Patient denies any tobacco usage or history of. - Family history:: not pertinent. ROS: 20:13 Constitutional: Negative for fever, chills, and weight loss, Eyes: Negative for injury, leyla pain, redness, and discharge, ENT: Negative for injury, pain, and discharge, Neck: Negative for injury, pain, and swelling, Cardiovascular: Negative for chest pain, palpitations, and edema, Respiratory: Negative for shortness of breath, cough, wheezing, and pleuritic chest pain, Abdomen/GI: Negative for abdominal pain, nausea, vomiting, diarrhea, and constipation, Back: Negative for injury and pain, : Negative for injury, bleeding, discharge, and swelling, MS/Extremity: Negative for injury and deformity, Skin: Negative for injury, rash, and discoloration, Psych: Negative for depression, anxiety, suicide ideation, homicidal ideation, and hallucinations, Allergy/Immunology: Negative for hives, rash, and allergies, Endocrine: Negative for neck swelling, polydipsia, polyuria, polyphagia, and marked weight changes, Hematologic/Lymphatic: Negative for swollen nodes, abnormal bleeding, and unusual bruising. 20:13 Neuro: Positive for dizziness, weakness. Exam: 20:13 Constitutional: This is a well developed, well nourished patient who is awake, alert, leyla and in no acute distress. Head/Face: Normocephalic, atraumatic. Eyes: Pupils equal round and reactive to light, extra-ocular motions intact. Lids and lashes normal. Conjunctiva and sclera are non-icteric and not injected. Cornea within normal limits. Periorbital areas with no swelling, redness, or edema. ENT: Nares patent. No nasal discharge, no septal abnormalities noted. Tympanic membranes are normal and external auditory canals are clear. Oropharynx with no redness, swelling, or masses, exudates, or evidence of obstruction, uvula midline. Mucous membranes moist. Neck: Trachea midline, no thyromegaly or masses palpated, and no cervical lymphadenopathy. Supple, full range of motion without nuchal rigidity, or vertebral point tenderness. No Meningismus. Chest/axilla: Normal chest wall appearance and motion. Nontender with no deformity. No lesions are appreciated. Cardiovascular: Regular rate and rhythm with a normal S1 and S2. No gallops, murmurs, or rubs. Normal PMI, no JVD. No pulse deficits. Respiratory: Lungs have equal breath sounds bilaterally, clear to auscultation and percussion. No rales, rhonchi or wheezes noted. No increased work of breathing, no retractions or nasal flaring. Abdomen/GI: Soft, non-tender, with normal bowel sounds. No distension or tympany. No guarding or rebound. No evidence of tenderness throughout. Back: No spinal tenderness. No costovertebral tenderness. Full range of motion. Male : Normal genitalia with no discharge or lesions. Skin: Warm, dry with normal turgor. Normal color with no rashes, no lesions, and no evidence of cellulitis. MS/ Extremity: Pulses equal, no cyanosis. Neurovascular intact. Full, normal range of motion. Neuro: Awake and alert, GCS 15, oriented to person, place, time, and situation. Cranial nerves II-XII grossly intact. Motor strength 5/5 in all extremities. Sensory grossly intact. Cerebellar exam normal. Normal gait. Psych: Awake, alert, with orientation to person, place and time. Behavior, mood, and affect are within normal limits. 20:31 ECG was reviewed by the Attending Physician. [facility] Vital Signs: 17:35 BP 125 / 55; Pulse 57; Resp 20; Temp 98.3(O); Pulse Ox 100% on R/A; Weight 69.4 kg (R); kg Height 5 ft. 8 in. (172.72 cm) (R); Pain 0/10; 20:29 BP 161 / 71; Pulse 58; Resp 18; Pulse Ox 99% ; ea 23:29 BP 149 / 68; Pulse 58; Resp 18; Pulse Ox 98% ; ea 17:35 Body Mass Index 23.26 (69.40 kg, 172.72 cm) kg MDM: 19:25 Patient medically screened. leyla 19:32 Patient medically screened. leyla 20:17 Differential diagnosis: cardiac arrhythmia, CVA, generalized weakness, GI bleed, leyla hypovolemia, idiopathic dizziness. Data reviewed: vital signs, nurses notes, lab test result(s), CBC, electrolytes, hepatic panel, urinalysis, EKG, radiologic studies. Data interpreted: personnel monitor: rate is 57 beats/min, rhythm is regular, Pulse oximetry: on room air is 100 %. Test interpretation: by ED physician or midlevel provider: ECG, plain radiologic studies. Counseling: I had a detailed discussion with the patient and/or guardian regarding: the historical points, exam findings, and any diagnostic results supporting the discharge/admit diagnosis, lab results, radiology results, the need for outpatient follow up, for definitive care, a family practitioner. 10/19 17:46 Order name: Glucose, Ancillary Testing; Complete Time: 20:04 [facility] 10/19 19:32 Order name: Basic Metabolic Panel [facility] 10/19 19:32 Order name: CBC with Diff; Complete Time: 20:31 [facility] 10/19 19:32 Order name: LFT's; Complete Time: 20:53 [facility] 10/19 19:32 Order name: Magnesium; Complete Time: 20:53 [facility] 10/19 19:32 Order name: NT PRO-BNP; Complete Time: 20:53 [facility] 10/19 17:43 Order name: CT Head Brain wo Cont; Complete Time: 20:04 kg 10/19 19:32 Order name: PT-INR; Complete Time: 20:31 leyla 10/19 19:32 Order name: Troponin (emerg Dept Use Only); Complete Time: 20:53 [facility] 10/19 19:32 Order name: XRAY Chest (1 view); Complete Time: 20:31 [facility] 10/19 19:32 Order name: Basic Metabolic Panel; Complete Time: 20:53 [facility] 10/19 21:11 Order name: CT Stone Protocol [facility] 10/19 21:46 Order name: Urine Dipstick-Ancillary; Complete Time: 22:05 [facility] 10/19 19:32 Order name: EKG; Complete Time: 19:32 [facility] 10/19 19:32 Order name: Cardiac monitoring; Complete Time: 19:38 [facility] 10/19 19:32 Order name: EKG - Nurse/Tech; Complete Time: 19:53 [facility] 10/19 19:32 Order name: IV Saline Lock; Complete Time: 19:38 [facility] 10/19 19:32 Order name: Labs collected and sent; Complete Time: 19:38 [facility] 10/19 19:32 Order name: O2 Per Protocol; Complete Time: 19:38 [facility] 10/19 19:32 Order name: O2 Sat Monitoring; Complete Time: 19:38 [facility] 10/19 19:32 Order name: Diet Regular; Complete Time: 19:32 [facility] 10/19 19:32 Order name: Urine Dipstick-Ancillary (obtain specimen); Complete Time: 21:45 [facility] EC:31 Rate is 56 beats/min. Rhythm is regular. QRS [place] is Normal. ID interval is normal. QRS leyla interval is normal. QT interval is normal. No Q waves. T waves are Normal. No ST changes noted. Clinical impression: Sinus bradycardia. Interpreted by me. Reviewed by me. Administered Medications: 19:47 Drug: NS 0.9% 500 ml Route: IV; Rate: bolus; Site: right forearm; iw 20:30 Follow up: Response: No adverse reaction; IV Status: Completed infusion; IV Intake: ea 500ml 20:30 Drug: NS 0.9% 1000 ml Route: IV; Rate: 125 ml/hr; Site: right antecubital; ea 22:01 Drug: NS 0.9% 500 ml Route: IV; Rate: bolus; Site: right antecubital; ea 23:20 Follow up: IV Status: Completed infusion; IV Intake: 500ml ea 22:31 Drug: Rocephin (cefTRIAXone) 1 grams Route: IV; Rate: per protocol; Site: right ea antecubital; 23:20 Follow up: IV Status: Completed infusion ea 23:19 Drug: Flomax (tamsulosin) 0.4 mg Route: PO; ea 23:20 Follow up: Response: No adverse reaction ea Disposition Summary: 10/19/20 22:07 Discharge Ordered Location: Home leyla Problem: new leyla Symptoms: have improved leyla Condition: Stable leyla Diagnosis - Hypoglycemia, unspecified leyla - Type 1 diabetes mellitus with hypoglycemia leyla - Acute kidney failure, unspecified leyla - Retention of urine, unspecified leyla Followup: leyla - With: - When: 2 - 3 days - Reason: Recheck today's complaints, Continuance of care, Re-evaluation by your physician Followup: leyla - With: - When: 2 - 3 days - Reason: Recheck today's complaints, Re-evaluation by your physician Followup: leyla - With: Phuc Nuñez MD - When: 2 - 3 days - Reason: Recheck today's complaints, Continuance of care, Re-evaluation by your physician Discharge Instructions: - Discharge Summary Sheet leyla - Hypoglycemia leyla - Blood Glucose Monitoring, Adult leyla - Hypoglycemia, [id number] leyla - Acute Kidney Injury, Adult leyla - Acute Urinary Retention, Male [facility] Forms: - Medication Reconciliation Form [facility] - Thank You Letter [facility] - Antibiotic Education [facility] - Prescription Opioid Use [facility] Prescriptions: - tamsulosin 0.4 mg Oral capsule - take 1 capsule by ORAL route once daily 1/2 hour following the same meal each [facility] day; 20 capsule; Refills: 0, Product Selection Permitted - Bactrim DS 800-160 mg Oral Tablet - take 1 tablet by ORAL route every 12 hours for 7 days; 14 tablet; Refills: 0, [facility] Product Selection Permitted Signatures: Dispatcher [employer] Saji Bryan MD MD cha Williams, Irene, RN RN iw Antunez, Elena, RN RN ea Graham, Kristen, RN RN kg Corrections: (The following items were deleted from the chart) 23:20 22:06 [place] ordered. leyla ea
[2020-10-19] MEDS ORDERED: TAMSULOSIN 0.4 MG SR CAP ONE (22:48)
[2020-10-19] MEDS ORDERED: LIDOCAINE VISCOUS 2% SOLN 15 ML UDC ONE (22:48)
[2020-10-19] MEDS ORDERED: NA CHLORIDE 0.9% 500 ML ONE (22:48)
[2020-10-19] MEDS ORDERED: CEFTRIAXONE/SWI 1gm 1 GM/10 ML SYR ONE (22:48)
[2020-10-19 23:39] VITALS: TEMP 98.3
[2020-10-19 23:43] VITALS: BP 149/68; O2SAT 98
--- NOTE | 2020-10-20 07:57 | EKG ---
Test Date: 2020-10-19 Test Time: 19:48:17 Javascript Programmer: CATHERINE MEASUREMENT RESULTS: Intervals: Rate: 56 ME: 186 QRSD: 98 QT: 428 QTc: 413 [place]: P: 66 ME: 186 QRS: -9 T: 78 INTERPRETIVE STATEMENTS: Sinus bradycardia Anteroseptal infarct, age undetermined Abnormal ECG Compared to ECG 04/03/2020 05:31:17 No significant changes Electronically Signed On 10-20-20 07:55:59 CDT by Rohan Bonds
== END 2020-10-19 23:29 | disposition home or self-care (01) ==
LOC: ER 16:48
DX: E10.649 Type 1 diabetes mellitus with hypoglycemia without coma (principal); R33.9 Retention of urine, unspecified; N17.9 Acute kidney failure, unspecified; I10 Essential (primary) hypertension; Z79.82 Long term (current) use of aspirin; Z79.4 Long term (current) use of insulin; Z86.73 Personal history of transient ischemic attack (TIA), and cerebral infarction without residual deficits
CPT/HCPCS: 96365; 96361; 93005; 85025; 80048; 36415; 83735; 85610; 82947; 80076; 81003; 84484; 83880; 70450; 76377; 74176; 71045; 99284; J0696; J7040; J7030